=== PATIENT | male | born 1950 | race Caucasian/White ===

== ENCOUNTER 2017-04-16 04:41 | Inpatient (IN) ==
[2017-04-16] MEDS ORDERED: GI Cocktail 40 ML EACH PO ONE (05:14)
[2017-04-16] MEDS ORDERED: 0.9 % Sodium Chloride 500 ML IVC ONE (05:14)
[2017-04-16] MEDS ORDERED: Aspirin 81 MG TAB.CHEW PO ONE (05:14)
[2017-04-16] MEDS ORDERED: Nitroglycerin 0.4 MG TAB.SUBL SL PRN (06:06)
[2017-04-16 06:11] LABS: Basophils % 0.2 %; Eosinophils # 0.9 K/mcL (0.0-0.6); Eosinophils % 8.5 %; Hematocrit 39.8 % (37.5-50.1); Immature Granulocytes % 0.8 % (0-4); Lymphocytes # 1.8 K/mcL (0.6-4.6); Lymphocytes % 17.5 %; Mean Corpuscular HGB Conc 32.7 g/dL (31.6-35.5); Mean Corpuscular Hemoglobin 28.8 pg (28.0-33.3); Mean Corpuscular Volume 88.2 fL (83.0-100.0); Mean Platelet Volume 9.1 fL (9.4-12.4); Monocytes # 0.3 K/mcL (0.0-1.3); Monocytes % 2.8 %; Neutrophils # 7.2 K/mcL (1.6-8.9); Platelet Count 251 K/mcL (140-400); Red Blood Count 4.51 M/mcL (4.19-5.50); Segmented Neutrophils % 70.2 %
[2017-04-16] MEDS ORDERED: 0.9 % Sodium Chloride 1,000 ML ONE (06:22)
[2017-04-16 06:25] LABS: INR 1.2; Prothrombin Time 12.5 Seconds (9.4-12.1)
[2017-04-16] MEDS ORDERED: 0.9 % Sodium Chloride 1,000 ML IVC ONE (06:27)
[2017-04-16 06:28] LABS: Activated Partial Thrombo Time 30.7 Seconds (26.0-36.0); Alanine Aminotransferase 18 Units/L (0-55); Albumin 2.5 g/dL (3.5-5.0); Albumin/Globulin Ratio 0.9 (1.1-2.2); Alkaline Phosphatase 42 Units/L (38-126); Amylase 34 Units/L (25-125); Aspartate Amino Transferase 14 Units/L (5-34); BUN/Creatinine Ratio 26 (6-26); Bilirubin,Direct 0.2 mg/dL (0.0-0.5); Bilirubin,Indirect 0.2 mg/dL (0.0-1.2); Bilirubin,Total 0.4 mg/dL (0.2-1.2); Blood Urea Nitrogen 23 mg/dL (8-26); Calcium 8.5 mg/dL (8.6-10.8); Carbon Dioxide 29 mEq/L (19-29); Chloride 102 mEq/L (98-109); Globulin 2.8 g/dL (2.4-3.5); Glucose 112 mg/dL (70-99); Osmolality,Calculated 288 (280-300); Potassium 4.2 mEq/L (3.5-4.5); Sodium 137 mEq/L (136-145); Total Protein 5.3 g/dL (6.0-8.3); eGFR For African Americans > 60 (> 60); eGFR For Non-African Americans > 60 (> 60)
[2017-04-16 06:29] LABS: Lipase < 10 Units/L (8-78)
--- NOTE | 2017-04-16 06:55 | Emergency Department Note ---
Disposition Clinical Impression: Chest pain, Diabetic foot ulcer Disposition: Still a Patient Condition: Fair Referrals: Zion Hernandes DO [Primary Care Provider] - Forms: ED Satisfaction Letter Time of Disposition: 06:59 Chest Pain HPI - General Chief Complaint: ED Arrhythmia/Palpitations Stated Complaint: chest pain Time Seen by Provider: 04/16/17 05:14 Source: EMS Mode of arrival: private vehicle Limitations: no limitations Vital Signs Reviewed: Yes Nursing Notes Reviewed: Yes - History of Present Illness HPI Narrative: 66-year-old male presents to the emergency department with complaint of epigastric and midsternal chest discomfort which began at 0400 this morning. Patient states that he has had similar episodes like this in the past which she has thought ", just felt like gas." Patient states that the discomfort was slow in onset, however states that his discomfort is worse than normal. He denies any sweating or nausea or vomiting but on exam patient is mildly diaphoretic. She denies any dizziness or lightheadedness. His only known drug allergies clindamycin. Patient additionally notes that he has not had a cardiac evaluation for approximately 5 years. Patient denies any previous cardiac stents or open heart surgery. He is morbidly obese. He denies any recent fever, chills or generalized weakness. 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 Denies: nausea, vomiting, dyspnea, sense of impending doom Treatments prior to arrival chest pain: aspirin - Related Data Home Medications Medication Instructions Recorded Confirmed Citalopram [CeleXA] 20 mg PO QAM 04/26/15 09/11/15 Folic Acid 1 mg PO QAM 04/26/15 09/11/15 Hydroxychloroquine [Plaquenuil] 200 mg PO QAM 04/26/15 09/11/15 Oxycodone HCl [Oxycontin] 80 mg PO Q12H 04/26/15 09/11/15 Levothyroxine [Synthroid] 50 mcg PO QAM 04/27/15 09/11/15 Ampicillin/Sulbactam [Unasyn] 120 ml IVPB Q6HR 09/05/15 09/11/15 Apixaban [Eliquis] 5 mg PO BID 09/05/15 09/11/15 Diltiazem CD (24hr) [Cardizem CD] 120 mg PO QAM 09/05/15 09/11/15 Fluticasone Propionate Nasal 100 mcg NS QAM 09/05/15 09/11/15 [Flonase] Furosemide [Lasix] 40 mg PO QAM 09/05/15 09/11/15 Ipratropium/Albuterol Neb [Duoneb] 3 ml IH Q4H PRN 09/05/15 09/11/15 Metoprolol [Lopressor] 12.5 mg PO Q12H 09/05/15 09/11/15 Montelukast [Singulair] 5 mg PO QPM 09/05/15 09/11/15 Oxycodone HCl 10 mg PO Q4H PRN 09/05/15 09/11/15 Insulin Lispro Protamin/Lispro 25 unit SQ BID 09/11/15 09/11/15 [Humalog Mix 75-25 Kwikpen] Allergies Allergy/AdvReac Type Severity Reaction Status Date / Time clindamycin AdvReac Diarrhea Verified 09/05/15 17:57 All systems ED: reviewed and negative except as stated. Constitutional: Denies: fever, chills Cardiovascular: Reports: chest pain. Denies: palpitations Respiratory: Denies: cough Gastrointestinal: Reports: abdominal pain Musculoskeletal: Denies: back pain, neck pain Integumentary: Denies: rash, abrasion, lesions Neurological: Denies: headache Psychiatric: Denies: anxiety, depression, suicidal thoughts, homicidal thoughts Chest Pain PMH - Past Medical History Medical history: Reports: atrial fibrillation, diabetes, hypertension, RA, thyroid disease, other Surgical history: Reports: orthopedic, other Psychiatric history: Reports: no psych history - Social History Smoking Status: Former smoker Alcohol use: Reports: none Drug use: Reports: none Physical Exam - General Limitations: no limitations General appearance: alert, in no apparent distress - Head Head exam: atraumatic, normocephalic, normal inspection - Eye Eye exam: Present: normal appearance, PERRL - Neck Neck exam: Present: normal inspection, full ROM, trachea midline - Chest Chest inspection: Present: normal inspection, symmetric chest wall rise - Respiratory Respiratory exam: Present: normal lung sounds bilaterally. Absent: respiratory distress - Cardiovascular Cardiovascular exam: Present: regular rate, normal rhythm, normal heart sounds - Abdominal Exam Abdominal exam: Present: soft, Non-Tender, normal bowel sounds. Absent: distention, guarding, rebound, rigidity - Extremities Exam Extremities exam: Present: full ROM, other (Chronic foot ulcer, unchanged per patient.). Absent: tenderness, pedal edema - Back Exam Back exam: Present: normal inspection, full ROM. Absent: tenderness - Neurological Exam Neurological exam: Present: alert, oriented X3 - Psychiatric Psychiatric exam: Present: normal affect, normal mood - Skin Skin exam: Present: warm, dry, intact, normal color Course Course Narrative: Care transferred to Donovan Kaur CNP, patient comfortable no acute EKG changes, chronic atrial fibrillation noted on EKG. Patient will likely be admitted to the hospitalist for ACS rule out. Current troponin normal. Vital Signs Temperature 98.1 F 04/16/17 04:44 Pulse Rate 99 04/16/17 04:44 Respiratory Rate 22 04/16/17 04:44 Blood Pressure 93/50 04/16/17 04:44 O2 Sat by Pulse Oximetry 93 04/16/17 04:44 Temperature 98.1 F 04/16/17 04:44 Pulse Rate 97 04/16/17 06:15 Respiratory Rate 22 04/16/17 06:37 Blood Pressure 92/46 04/16/17 06:37 O2 Sat by Pulse Oximetry 94 04/16/17 06:37 Oxygen Delivery Oxygen Delivery Nasal Cannula Chest Pain - Lab Data Result diagrams: 04/16/17 05:51 04/16/17 05:51 Lab Results 04/16/17 04/16/17 04/16/17 Range/Units 05:51 05:51 05:51 WBC (4.3-11.1) K/mcL RBC (4.19-5.50) M/mcL Hgb (12.9-16.9) g/dL Hct (37.5-50.1) % MCV (83.0-100.0) fL MCH (28.0-33.3) pg MCHC (31.6-35.5) g/dL RDW (11.5-14.5) % Plt Count (140-400) K/mcL MPV (9.4-12.4) fL Immature Gran % (0-4) % Seg Neutrophils % % Lymphocytes % % Monocytes % % Eosinophils % % Basophils % % Neutrophils # (1.6-8.9) K/mcL Lymphocytes # (0.6-4.6) K/mcL Monocytes # (0.0-1.3) K/mcL Eosinophils # (0.0-0.6) K/mcL Basophils # (0.0-0.2) K/mcL PT 12.5 H (9.4-12.1) Seconds INR 1.2 APTT 30.7 (26.0-36.0) Seconds Sodium 137 (136-145) mEq/L Potassium 4.2 (3.5-4.5) mEq/L Chloride 102 (98-109) mEq/L Carbon Dioxide 29 (19-29) mEq/L BUN 23 (8-26) mg/dL Creatinine 0.88 (0.72-1.25) mg/dL Est GFR ( Amer) > 60 (> 60) Est GFR (Non-Af Amer) > 60 (> 60) BUN/Creatinine Ratio 26 (6-26) Glucose 112 H (70-99) mg/dL Calculated Osmolality 288 (280-300) Calcium 8.5 L (8.6-10.8) mg/dL Total Bilirubin 0.4 (0.2-1.2) mg/dL Direct Bilirubin 0.2 (0.0-0.5) mg/dL Indirect Bilirubin 0.2 (0.0-1.2) mg/dL AST 14 (5-34) Units/L ALT 18 (0-55) Units/L Alkaline Phosphatase 42 (38-126) Units/L Troponin I (0-0.03) ng/mL B-Natriuretic Peptide 67 (0-100) pg/mL Serum Total Protein 5.3 L (6.0-8.3) g/dL Albumin 2.5 L (3.5-5.0) g/dL Globulin 2.8 (2.4-3.5) g/dL Albumin/Globulin Ratio 0.9 L (1.1-2.2) Amylase 34 (25-125) Units/L Lipase < 10 (8-78) Units/L 04/16/17 04/16/17 Range/Units 05:51 05:51 WBC 10.2 (4.3-11.1) K/mcL RBC 4.51 (4.19-5.50) M/mcL Hgb 13.0 (12.9-16.9) g/dL Hct 39.8 (37.5-50.1) % MCV 88.2 (83.0-100.0) fL MCH 28.8 (28.0-33.3) pg MCHC 32.7 (31.6-35.5) g/dL RDW 16.0 H (11.5-14.5) % Plt Count 251 (140-400) K/mcL MPV 9.1 L (9.4-12.4) fL Immature Gran % 0.8 (0-4) % Seg Neutrophils % 70.2 % Lymphocytes % 17.5 % Monocytes % 2.8 % Eosinophils % 8.5 % Basophils % 0.2 % Neutrophils # 7.2 (1.6-8.9) K/mcL Lymphocytes # 1.8 (0.6-4.6) K/mcL Monocytes # 0.3 (0.0-1.3) K/mcL Eosinophils # 0.9 H (0.0-0.6) K/mcL Basophils # 0.0 (0.0-0.2) K/mcL PT (9.4-12.1) Seconds INR APTT (26.0-36.0) Seconds Sodium (136-145) mEq/L Potassium (3.5-4.5) mEq/L Chloride (98-109) mEq/L Carbon Dioxide (19-29) mEq/L BUN (8-26) mg/dL Creatinine (0.72-1.25) mg/dL Est GFR ( Amer) (> 60) Est GFR (Non-Af Amer) (> 60) BUN/Creatinine Ratio (6-26) Glucose (70-99) mg/dL Calculated Osmolality (280-300) Calcium (8.6-10.8) mg/dL Total Bilirubin (0.2-1.2) mg/dL Direct Bilirubin (0.0-0.5) mg/dL Indirect Bilirubin (0.0-1.2) mg/dL AST (5-34) Units/L ALT (0-55) Units/L Alkaline Phosphatase (38-126) Units/L Troponin I 0.02 (0-0.03) ng/mL B-Natriuretic Peptide (0-100) pg/mL Serum Total Protein (6.0-8.3) g/dL Albumin (3.5-5.0) g/dL Globulin (2.4-3.5) g/dL Albumin/Globulin Ratio (1.1-2.2) Amylase (25-125) Units/L Lipase (8-78) Units/L Heart Score - Score History: Moderately Suspicious EKG: Normal Age: 45-65 Risk Factors: 1-2 risk factors Troponin: 1-3x normal limit HEART Score Total: 4
--- NOTE | 2017-04-16 07:39 | Emergency Department Note ---
Disposition Clinical Impression: Chest pain Qualifiers: Chest pain type: unspecified Qualified Code(s): R07.9 - Chest pain, unspecified Diabetic foot ulcer Qualifiers: Diabetic foot ulcer location: unspecified part of foot Diabetes mellitus type: other specified (including LINH) Laterality: left Non-pressure ulcer stage: unspecified non-pressure ulcer stage Qualified Code(s): E13.621 - Other specified diabetes mellitus with foot ulcer Disposition: Admitted As Inpatient Condition: Fair Time of Disposition: 07:40 Chest Pain HPI - General Chief Complaint: ED Arrhythmia/Palpitations Stated Complaint: chest pain Time Seen by Provider: 04/16/17 05:14 Source: EMS Mode of arrival: private vehicle Limitations: no limitations - History of Present Illness Pain Location: substernal, epigastric Severity scale (1-10): 8 Quality: aching Improves with: nothing Worsens with: nothing Associated symptoms: Reports: diaphoresis. Denies: nausea, vomiting, dyspnea, sense of impending doom - Related Data Home Medications Medication Instructions Recorded Confirmed Citalopram [CeleXA] 20 mg PO QAM 04/26/15 09/11/15 Folic Acid 1 mg PO QAM 04/26/15 09/11/15 Hydroxychloroquine [Plaquenuil] 200 mg PO QAM 04/26/15 09/11/15 Oxycodone HCl [Oxycontin] 80 mg PO Q12H 04/26/15 09/11/15 Levothyroxine [Synthroid] 50 mcg PO QAM 04/27/15 09/11/15 Ampicillin/Sulbactam [Unasyn] 120 ml IVPB Q6HR 09/05/15 09/11/15 Apixaban [Eliquis] 5 mg PO BID 09/05/15 09/11/15 Diltiazem CD (24hr) [Cardizem CD] 120 mg PO QAM 09/05/15 09/11/15 Fluticasone Propionate Nasal 100 mcg NS QA 09/05/15 09/11/15 [Flonase] Furosemide [Lasix] 40 mg PO QAM 09/05/15 09/11/15 Ipratropium/Albuterol Neb [Duoneb] 3 ml IH Q4H PRN 09/05/15 09/11/15 Metoprolol [Lopressor] 12.5 mg PO Q12H 09/05/15 09/11/15 Montelukast [Singulair] 5 mg PO QPM 09/05/15 09/11/15 Oxycodone HCl 10 mg PO Q4H PRN 09/05/15 09/11/15 Insulin Lispro Protamin/Lispro 25 unit SQ BID 09/11/15 09/11/15 [Humalog Mix 75-25 Kwikpen] Allergies Allergy/AdvReac Type Severity Reaction Status Date / Time clindamycin AdvReac Diarrhea Verified 09/05/15 17:57 Constitutional: Denies: fever, chills Cardiovascular: Reports: chest pain. Denies: palpitations Respiratory: Denies: cough Gastrointestinal: Reports: abdominal pain Musculoskeletal: Denies: back pain, neck pain Integumentary: Denies: rash, abrasion, lesions Neurological: Denies: headache Psychiatric: Denies: anxiety, depression, suicidal thoughts, homicidal thoughts Chest Pain PMH - Past Medical History Medical history: Reports: atrial fibrillation, diabetes, hypertension, RA, thyroid disease, other Surgical history: Reports: orthopedic, other Psychiatric history: Reports: no psych history - Social History Smoking Status: Former smoker Alcohol use: Reports: none Drug use: Reports: none Physical Exam - General Limitations: no limitations General appearance: alert, in no apparent distress Course Course Narrative: 0600: I have assumed care of this patient from Luis Navarro PA-C due to mid- level shift change. Please see Luis's notes for any prior care and physical exam findings prior to my arrival. Briefly, this is a 66-year-old male that was awoken from his sleep at approximately 4 AM with a complaint of substernal and epigastric chest pain. He states he history of previous episodes in past however none quite this severe. He denied any nausea, vomiting, or diaphoresis however was noted to be mildly diaphoretic upon arrival to the emergency department. He has multiple comorbidities. Laboratory results are complete. I have discussed this patient's case with Dr. Robyn Navarro. She has had a face- to-face evaluation with the patient and recommends admission to the hospitalist service for further evaluation of his chest pain. 0735: I spoke with Dr. Tuttle of the hospitalist service. I discussed the patient's case, laboratory results, and chest x-ray results with him. X-ray results show questionable bilateral pulmonary infiltrates, left greater than the right. Dr. Tuttle requested the patient be started on Zosyn for this and states that he will accept the patient to his service. Vital Signs Temperature 98.1 F 04/16/17 04:44 Pulse Rate 99 04/16/17 04:44 Respiratory Rate 22 04/16/17 04:44 Blood Pressure 93/50 04/16/17 04:44 O2 Sat by Pulse Oximetry 93 04/16/17 04:44 Temperature 98.1 F 04/16/17 04:44 Pulse Rate 97 04/16/17 06:15 Respiratory Rate 22 04/16/17 06:37 Blood Pressure 92/46 04/16/17 06:37 O2 Sat by Pulse Oximetry 94 04/16/17 06:37 Oxygen Delivery Oxygen Delivery Nasal Cannula Chest Pain - Medical Records Medical records reviewed: Yes I reviewed the patient's medical records. Laboratory Last Values WBC 10.2 K/mcL (4.3-11.1) 04/16/17 05:51 RBC 4.51 M/mcL (4.19-5.50) 04/16/17 05:51 Hgb 13.0 g/dL (12.9-16.9) 04/16/17 05:51 Hct 39.8 % (37.5-50.1) 04/16/17 05:51 MCV 88.2 fL (83.0-100.0) 04/16/17 05:51 MCH 28.8 pg (28.0-33.3) 04/16/17 05:51 MCHC 32.7 g/dL (31.6-35.5) 04/16/17 05:51 RDW 16.0 % (11.5-14.5) H 04/16/17 05:51 Plt Count 251 K/mcL (140-400) 04/16/17 05:51 MPV 9.1 fL (9.4-12.4) L 04/16/17 05:51 Immature Gran % 0.8 % (0-4) 04/16/17 05:51 Seg Neutrophils % 70.2 % 04/16/17 05:51 Lymphocytes % 17.5 % 04/16/17 05:51 Monocytes % 2.8 % 04/16/17 05:51 Eosinophils % 8.5 % 04/16/17 05:51 Basophils % 0.2 % 04/16/17 05:51 Neutrophils # 7.2 K/mcL (1.6-8.9) 04/16/17 05:51 Lymphocytes # 1.8 K/mcL (0.6-4.6) 04/16/17 05:51 Monocytes # 0.3 K/mcL (0.0-1.3) 04/16/17 05:51 Eosinophils # 0.9 K/mcL (0.0-0.6) H 04/16/17 05:51 Basophils # 0.0 K/mcL (0.0-0.2) 04/16/17 05:51 PT 12.5 Seconds (9.4-12.1) H 04/16/17 05:51 INR 1.2 04/16/17 05:51 APTT 30.7 Seconds (26.0-36.0) 04/16/17 05:51 Sodium 137 mEq/L (136-145) 04/16/17 05:51 Potassium 4.2 mEq/L (3.5-4.5) 04/16/17 05:51 Chloride 102 mEq/L (98-109) 04/16/17 05:51 Carbon Dioxide 29 mEq/L (19-29) 04/16/17 05:51 BUN 23 mg/dL (8-26) 04/16/17 05:51 Creatinine 0.88 mg/dL (0.72-1.25) 04/16/17 05:51 Est GFR ( Amer) > 60 (> 60) 04/16/17 05:51 Est GFR (Non-Af Amer) > 60 (> 60) 04/16/17 05:51 BUN/Creatinine Ratio 26 (6-26) 04/16/17 05:51 Glucose 112 mg/dL (70-99) H 04/16/17 05:51 Calculated Osmolality 288 (280-300) 04/16/17 05:51 Calcium 8.5 mg/dL (8.6-10.8) L 04/16/17 05:51 Total Bilirubin 0.4 mg/dL (0.2-1.2) 04/16/17 05:51 Direct Bilirubin 0.2 mg/dL (0.0-0.5) 04/16/17 05:51 Indirect Bilirubin 0.2 mg/dL (0.0-1.2) 04/16/17 05:51 AST 14 Units/L (5-34) 04/16/17 05:51 ALT 18 Units/L (0-55) 04/16/17 05:51 Alkaline Phosphatase 42 Units/L (38-126) 04/16/17 05:51 Troponin I 0.02 ng/mL (0-0.03) 04/16/17 05:51 B-Natriuretic Peptide 67 pg/mL (0-100) 04/16/17 05:51 Serum Total Protein 5.3 g/dL (6.0-8.3) L 04/16/17 05:51 Albumin 2.5 g/dL (3.5-5.0) L 04/16/17 05:51 Globulin 2.8 g/dL (2.4-3.5) 04/16/17 05:51 Albumin/Globulin Ratio 0.9 (1.1-2.2) L 04/16/17 05:51 Amylase 34 Units/L (25-125) 04/16/17 05:51 Lipase < 10 Units/L (8-78) 04/16/17 05:51 - Lab Data Lab results reviewed: Yes I reviewed the patient's lab results. Lab results narrative: Chest X-Ray 04/16/17 05:14 IMPRESSION: Cardiomegaly with pulmonary vascular congestion and small bilateral pleural effusions, slightly greater on the left with increased opacity at the left base, likely related to atelectasis. D/ / Angela Soto MD / Angela Soto MD Interpreting Provider: Angela Soto MD Result diagrams: 04/16/17 05:51 04/16/17 05:51 Lab Results 04/16/17 04/16/17 04/16/17 Range/Units 05:51 05:51 05:51 WBC (4.3-11.1) K/mcL RBC (4.19-5.50) M/mcL Hgb (12.9-16.9) g/dL Hct (37.5-50.1) % MCV (83.0-100.0) fL MCH (28.0-33.3) pg MCHC (31.6-35.5) g/dL RDW (11.5-14.5) % Plt Count (140-400) K/mcL MPV (9.4-12.4) fL Immature Gran % (0-4) % Seg Neutrophils % % Lymphocytes % % Monocytes % % Eosinophils % % Basophils % % Neutrophils # (1.6-8.9) K/mcL Lymphocytes # (0.6-4.6) K/mcL Monocytes # (0.0-1.3) K/mcL Eosinophils # (0.0-0.6) K/mcL Basophils # (0.0-0.2) K/mcL PT 12.5 H (9.4-12.1) Seconds INR 1.2 APTT 30.7 (26.0-36.0) Seconds Sodium 137 (136-145) mEq/L Potassium 4.2 (3.5-4.5) mEq/L Chloride 102 (98-109) mEq/L Carbon Dioxide 29 (19-29) mEq/L BUN 23 (8-26) mg/dL Creatinine 0.88 (0.72-1.25) mg/dL Est GFR ( Amer) > 60 (> 60) Est GFR (Non-Af Amer) > 60 (> 60) BUN/Creatinine Ratio 26 (6-26) Glucose 112 H (70-99) mg/dL Calculated Osmolality 288 (280-300) Calcium 8.5 L (8.6-10.8) mg/dL Total Bilirubin 0.4 (0.2-1.2) mg/dL Direct Bilirubin 0.2 (0.0-0.5) mg/dL Indirect Bilirubin 0.2 (0.0-1.2) mg/dL AST 14 (5-34) Units/L ALT 18 (0-55) Units/L Alkaline Phosphatase 42 (38-126) Units/L Troponin I (0-0.03) ng/mL B-Natriuretic Peptide 67 (0-100) pg/mL Serum Total Protein 5.3 L (6.0-8.3) g/dL Albumin 2.5 L (3.5-5.0) g/dL Globulin 2.8 (2.4-3.5) g/dL Albumin/Globulin Ratio 0.9 L (1.1-2.2) Amylase 34 (25-125) Units/L Lipase < 10 (8-78) Units/L 04/16/17 04/16/17 Range/Units 05:51 05:51 WBC 10.2 (4.3-11.1) K/mcL RBC 4.51 (4.19-5.50) M/mcL Hgb 13.0 (12.9-16.9) g/dL Hct 39.8 (37.5-50.1) % MCV 88.2 (83.0-100.0) fL MCH 28.8 (28.0-33.3) pg MCHC 32.7 (31.6-35.5) g/dL RDW 16.0 H (11.5-14.5) % Plt Count 251 (140-400) K/mcL MPV 9.1 L (9.4-12.4) fL Immature Gran % 0.8 (0-4) % Seg Neutrophils % 70.2 % Lymphocytes % 17.5 % Monocytes % 2.8 % Eosinophils % 8.5 % Basophils % 0.2 % Neutrophils # 7.2 (1.6-8.9) K/mcL Lymphocytes # 1.8 (0.6-4.6) K/mcL Monocytes # 0.3 (0.0-1.3) K/mcL Eosinophils # 0.9 H (0.0-0.6) K/mcL Basophils # 0.0 (0.0-0.2) K/mcL PT (9.4-12.1) Seconds INR APTT (26.0-36.0) Seconds Sodium (136-145) mEq/L Potassium (3.5-4.5) mEq/L Chloride (98-109) mEq/L Carbon Dioxide (19-29) mEq/L BUN (8-26) mg/dL Creatinine (0.72-1.25) mg/dL Est GFR ( Amer) (> 60) Est GFR (Non-Af Amer) (> 60) BUN/Creatinine Ratio (6-26) Glucose (70-99) mg/dL Calculated Osmolality (280-300) Calcium (8.6-10.8) mg/dL Total Bilirubin (0.2-1.2) mg/dL Direct Bilirubin (0.0-0.5) mg/dL Indirect Bilirubin (0.0-1.2) mg/dL AST (5-34) Units/L ALT (0-55) Units/L Alkaline Phosphatase (38-126) Units/L Troponin I 0.02 (0-0.03) ng/mL B-Natriuretic Peptide (0-100) pg/mL Serum Total Protein (6.0-8.3) g/dL Albumin (3.5-5.0) g/dL Globulin (2.4-3.5) g/dL Albumin/Globulin Ratio (1.1-2.2) Amylase (25-125) Units/L Lipase (8-78) Units/L - Radiology Data Radiology results reviewed: Yes I reviewed the patient's radiology results. Chest X-Ray 04/16/17 05:14 IMPRESSION: Cardiomegaly with pulmonary vascular congestion and small bilateral pleural effusions, slightly greater on the left with increased opacity at the left base, likely related to atelectasis. D/ / Angela Soto MD / Angela Soto MD Interpreting Provider: Angela Soto MD - EKG Data EKG attestation: Yes I reviewed and interpreted this EKG. EKG results narrative: EKG shows atrial fibrillation at a rate of 93 bpm. QRS duration 94, QTC/QT intervals 440/390. No ectopy noted. No STEMI.
[2017-04-16] MEDS ORDERED: Piperacillin/Tazobactam 3.375 GM in D5% in Water (Mini-Bag+) 100 ML IVPB ONE (07:41)
[2017-04-16] MEDS ORDERED: *HR* OxyCODONE Immed Rel 5 MG TABLET PO PRN (09:55)
[2017-04-16] MEDS ORDERED: Ipratropium/Albuterol Neb 3 ML IH PRN (09:55)
[2017-04-16] MEDS ORDERED: Naloxone 0.4 MG/ML INJ IVP PRN (09:58)
[2017-04-16] MEDS ORDERED: Acetaminophen 325 MG TABLET PO PRN (09:58)
[2017-04-16] MEDS ORDERED: Ondansetron 4 MG/2 ML VIAL IVP PRN (09:58)
[2017-04-16] MEDS: Ibuprofen 600 MG TABLET PO SCH ×2 (10:52→17:33)
[2017-04-16] MEDS: *HR* OxyCODONE ER (12 HR) 40 MG TABLET PO SCH ×2 (10:52→23:18)
--- NOTE | 2017-04-16 13:46 | Internal Med History&Physical ---
Date of Encounter: 04/16/17 Time of Encounter: 13:42 Assessment and Plan (1) Pneumonia Current visit: Yes Status: Acute Blood culture requested IV Zosyn was started suspect left lower lobe community- acquired pneumonia Qualifiers: Pneumonia type: due to unspecified organism Laterality: left Lung location: lower lobe of lung Qualified Code(s): J18.1 - Lobar pneumonia, unspecified organism (2) Pleurisy Current visit: Yes Status: Acute Patient chest pain is pleuritic in nature. In any case cardiac and as a recheck. I have put him on low-dose ibuprofen for a couple 3 doses considering the fact that he is already on anticoagulation will be very cautious. (3) Foot ulcer due to secondary DM Current visit: Yes Status: Chronic Patient has this chronic left lower extremity wound due to diabetes. Wound care consulted. He goes to [facility] for his regular care. 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 Swenson is a 66 year old male who is morbidly obese presented with left- sided and epigastric chest pain along with diaphoresis however it is pleuritic in nature. Been bothering him since yesterday on on and off basis especially when he tries to take a deep breath in. He denies any fever cough or phlegm. His first troponin is 0.02 while his EKG is negative except for chronic A. fib. Chest x-ray showed small left-sided effusion with possible atelectasis and infiltrates and right small effusion. No other complaint. He has history of diabetes hypertension and chronic atrial fibrillation. 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 It is covered with bandage. Past Med Surg Social Fam HX - Past Medical History Medical history: atrial fibrillation, diabetes, hypertension, RA, thyroid disease, other Psychiatric history: no psych history - Past Surgical History Surgical History: orthopedic, other - Social History Smoking Status: Former smoker Smokeless Tobacco Status: No Alcohol use: none Drug use: none - Family History Mother Living Status: Hx Family Cardiac Disorders: Yes Hx Family Endocrine Disorder: Yes (DM) Father Living Status: Cause of : stroke Hx Family Cardiac Disorders: Yes Internal Medicine - H&P: Meds Folic Acid 1 mg PO QAM 04/26/15 [History] Hydroxychloroquine [Plaquenuil] 200 mg PO QAM 04/26/15 [History] Oxycodone HCl [Oxycontin] 80 mg PO Q12H 04/26/15 [History] Levothyroxine [Synthroid] 50 mcg PO QAM 04/27/15 [History] Apixaban [Eliquis] 5 mg PO BID 09/05/15 [History] Furosemide [Lasix] 40 mg PO QAM 09/05/15 [History] Ipratropium/Albuterol Neb [Duoneb] 3 ml IH Q4H PRN 09/05/15 [History] Oxycodone HCl 10 mg PO Q4H PRN 09/05/15 [History] Insulin Lispro Protamin/Lispro [Humalog Mix 75-25 Kwikpen] 25 unit SQ BID [History] Duloxetine HCl [Cymbalta] 60 mg PO DAILY 04/16/17 [History] Lisinopril [Zestril] 5 mg PO DAILY 04/16/17 [History] Metoprolol XL (24 HR) Succ [Toprol XL] 50 mg PO DAILY 04/16/17 [History] Potassium Chloride [K-Tab ER] 20 meq PO BID 04/16/17 [History] Tamsulosin [Flomax] 0.4 mg PO DAILY 04/16/17 [History] 3 Allergy/AdvReac Type Severity Reaction Status Date / Time clindamycin AdvReac Diarrhea Verified 09/05/15 17:57 All Systems PM: A 10-system review of systems was performed and is negative for pertinent findings except as documented above in the HPI. - Constitutional Constitutional: no chills, no fever(s), no night sweats - EENT Eyes: no change in vision, no discharge, no pain, no photophobia Ears: no ear discharge, no ear pain, no tinnitus Nose, mouth and throat: no dysphagia, no nasal discharge, no neck pain, no sore throat - Cardiovascular Cardiovascular ROS IM: no chest pain, no diaphoresis, no dyspnea, no lightheadedness, no palpitations, no syncope - Respiratory Respiratory: no cough, no dyspnea, no wheezing, no excessive phlegm production - Gastrointestinal Gastrointestinal: no abdominal pain, no diarrhea, no hematemesis, no hematochezia, no melena, no nausea, no vomiting - Musculoskeletal Musculoskeletal ROS IM: no numbness, no tingling - Integumentary Integumentary IM: no rash, no unusual bruising - Neurological Neurological ROS: no confusion, no convulsions, no focal weakness, no numbness, no tingling, no tremor(s) - Hematologic/Lymphatic Hematologic/Lymphatic: no easy bruising - Constitutional Vitals: Temp Pulse Resp BP Pulse Ox 97.9 F 96 20 133/70 94 04/16/17 10:56 04/16/17 10:56 04/16/17 10:56 04/16/17 10:56 04/16/17 10:56 General appearance: Present: A&O X 3, morbidly obese, no acute distress, answers questions appropriately - Head Head exam: Present: atraumatic, normocephalic - Eye Eye exam: Present: PERRL, conjuntiva pink, sclera anicteric Pupils: Present: PERRL - Neck Neck exam general surgery: Present: supple, trachea midline. Absent: lymphadenopathy - Respiratory Respiratory exam: Present: CTAB. Absent: accessory muscle use, rales, rhonchi, wheezes - Cardiovascular Cardiovascular exam: Present: RRR, +S1, +S2. Absent: diastolic murmur, gallop, rubs, systolic murmur - GI/Abdominal GI/Abdominal exam: Present: normal bowel sounds, soft, no peritoneal signs. Absent: distended, tenderness - Extremities Exam Extremities exam: Present: warm, radial pulses palpable and symmetrical. Absent : calf tenderness, cyanotic, pedal edema Additional comments: Left foot is covered with bandage. For the examination per wound care. Extremity is warm and is still having tach sensation. - Neurological Exam Neurological exam: Present: CN II-XII intact, oriented X3, no focal deficits. Absent: pronater drift, facial droop, speech deficit - Skin Skin exam: Present: dry, intact Internal Med - H&P Results - Labs CBC & Chem 7: 04/16/17 05:51 04/16/17 05:51
--- NOTE | 2017-04-16 17:08 | Electrocardiograph Report ---
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
[2017-04-16] MEDS: Piperacillin/Tazobactam 3.375 GM in D5% in Water (Mini-Bag+) 100 ML IVPB SCH ×2 (17:32→23:19)
[2017-04-16] MEDS ORDERED: Perflutren Lipid Microsphere 1.3 ML in 0.9 % Sodium Chloride 8.7 ML IVP ONE (20:29)
[2017-04-16] MEDS: Insulin NPH/REG 70/30 100 UNIT/ML (x5UNIT) SQ SCH (21:40)
[2017-04-16] MEDS: APIXABAN 5 MG TABLET PO SCH (21:41)
[2017-04-17] MEDS: Ibuprofen 600 MG TABLET PO SCH (00:30)
[2017-04-17 07:30] LABS: Basophils % 0.3 %; Eosinophils # 1.6 K/mcL (0.0-0.6); Eosinophils % 17.3 %; Hematocrit 44.5 % (37.5-50.1); Hemoglobin 13.5 g/dL (12.9-16.9); Immature Granulocytes % 0.6 % (0-4); Lymphocytes # 1.9 K/mcL (0.6-4.6); Lymphocytes % 21.3 %; Mean Corpuscular HGB Conc 30.3 g/dL (31.6-35.5); Mean Corpuscular Hemoglobin 27.6 pg (28.0-33.3); Monocytes # 0.3 K/mcL (0.0-1.3); Monocytes % 3.4 %; Neutrophils # 5.2 K/mcL (1.6-8.9); Platelet Count 267 K/mcL (140-400); Red Blood Count 4.89 M/mcL (4.19-5.50); Segmented Neutrophils % 57.1 %
[2017-04-17 07:52] LABS: Alanine Aminotransferase 20 Units/L (0-55); Albumin 2.7 g/dL (3.5-5.0); Albumin/Globulin Ratio 0.8 (1.1-2.2); Alkaline Phosphatase 44 Units/L (38-126); Aspartate Amino Transferase 15 Units/L (5-34); BUN/Creatinine Ratio 17 (6-26); Bilirubin,Total 0.5 mg/dL (0.2-1.2); Blood Urea Nitrogen 17 mg/dL (8-26); Calcium 8.9 mg/dL (8.6-10.8); Carbon Dioxide 35 mEq/L (19-29); Chloride 100 mEq/L (98-109); Globulin 3.2 g/dL (2.4-3.5); Glucose 127 mg/dL (70-99); Osmolality,Calculated 291 (280-300); Potassium 4.4 mEq/L (3.5-4.5); Sodium 139 mEq/L (136-145); Total Protein 5.9 g/dL (6.0-8.3); eGFR For African Americans > 60 (> 60); eGFR For Non-African Americans > 60 (> 60)
[2017-04-17] MEDS: Piperacillin/Tazobactam 3.375 GM in D5% in Water (Mini-Bag+) 100 ML IVPB SCH ×2 (08:07→15:53)
[2017-04-17] MEDS: Metoprolol XL (24 HR) Succ 50 MG TAB.ER.24H PO SCH (08:10)
[2017-04-17] MEDS: APIXABAN 5 MG TABLET PO SCH ×2 (08:11→20:34)
[2017-04-17] MEDS: Folic Acid 1 MG TABLET PO SCH (08:11)
[2017-04-17] MEDS: Furosemide 40 MG TABLET PO SCH (08:11)
[2017-04-17 08:59] LABS: BUN/Creatinine Ratio 18 (6-26); Blood Urea Nitrogen 17 mg/dL (8-26); Calcium 8.6 mg/dL (8.6-10.8); Carbon Dioxide 34 mEq/L (19-29); Chloride 99 mEq/L (98-109); Glucose 134 mg/dL (70-99); Osmolality,Calculated 292 (280-300); Potassium 4.4 mEq/L (3.5-4.5); Sodium 139 mEq/L (136-145); eGFR For African Americans > 60 (> 60); eGFR For Non-African Americans > 60 (> 60)
--- NOTE | 2017-04-17 09:54 | Internal Med Progress Note ---
<Linda Toney - Last Filed: 04/17/17 19:24> Date of Encounter: 04/17/17 Time of Encounter: 18:48 - Assessment and plan (1) Pneumonia Current Visit: Yes Status: Acute Assessment and plan: Chest x-ray showed left opacity and patient was diagnosed with community- acquired pneumonia. Patient is currently being treated with Zosyn day 2. Qualifiers: Pneumonia type: due to unspecified organism Laterality: left Lung location: lower lobe of lung Qualified Code(s): J18.1 - Lobar pneumonia, unspecified organism (2) Chest pain Current Visit: Yes Status: Acute Assessment and plan: Patient chest pain is pleuritic in nature and has been diagnosed with pneumonia. Patient is on Eliquis and Cartizen for Afib. Cardiac workup showed troponins negative 2. Echo showed suboptimal windows due to body habitus but showed grossly normal left ventricular function. Ejection fraction was unable to be assessed but BNP was 67 also was concern for congestive heart failure. Patients cardiac work up so far as been negative. Qualifiers: Chest pain type: unspecified Qualified Code(s): R07.9 - Chest pain, unspecified (3) Respiratory distress Current Visit: No Status: Chronic Assessment and plan: Patient has chronic respiratory failure as he is on 2 L of oxygen nasal cannula at home. Patient has chronic hypercapnia. Patient is currently on 2 L nasal cannula and satting at 95% without increased shortness of breath. Patient will need a sleep study outpatient. (4) Lymphedema Current Visit: No Status: Chronic Assessment and plan: Patient's chronic lymphedema of his lower extremities with evidence of chronic venous stasis. Patient is stable on his home dose of Lasix 40 mg QD. Will monitor and increase dose of Lasix if swelling increases. (5) Respiratory failure with hypercapnia Current Visit: No Status: Acute Assessment and plan: Patient's bicarbonate increased from 29 yesterday to 34 today. When looking at previous records of this bicarbonate his baseline is between 30 and 32. Patient currently has pneumonia and therefore is probably slightly more acidotic due to retaining CO2. We will continue to monitor pulse ox and bicarbonate. Plan: - Continue on nasal cannula 2 L. At sats dropped below 90 increase 1L - BMP tomorrow morning - Continue treatment for pneumonia. Qualifiers: Chronicity: acute on chronic Qualified Code(s): J96.22 - Acute and chronic respiratory failure with hypercapnia (6) Diabetes Current Visit: Yes Status: Acute Assessment and plan: Continue Accu-Cheks 4 times a day with sliding scale coverage and continue monitoring daily. Patient has not had any lows. Qualifiers: Diabetes mellitus type: type 2 Diabetes mellitus complication status: with unspecified complications Qualified Code(s): E11.8 - Type 2 diabetes mellitus with unspecified complications; Z79.4 - alf (current) use of insulin (7) Atrial fibrillation Current Visit: Yes Status: Acute Assessment and plan: Patient is on Eliquis and Cardizem for A. fib. Patient is currently rate controlled. We will continue to monitor vitals and telemetry. Qualifiers: Atrial fibrillation type: chronic Qualified Code(s): I48.2 - Chronic atrial fibrillation (8) Morbid obesity with BMI of 60.0-69.9, adult Current Visit: No Status: Chronic (9) Diabetic foot ulcer Current Visit: Yes Status: Acute Assessment and plan: Wound care was consulted for chronic left foot ulcer on heel. Qualifiers: Diabetic foot ulcer location: unspecified part of foot Diabetes mellitus type: other specified (including LINH) Laterality: left Non-pressure ulcer stage: unspecified non-pressure ulcer stage Qualified Code(s): E13.621 - Other specified diabetes mellitus with foot ulcer; L97.529 - Non-pressure chronic ulcer of other part of left foot with unspecified severity - Subjective Interval history: Patient is 66-year-old male with a past medical history of A. fib on a liquid with an Cardizem, diabetes, hypertension, hyperthyroidism, obesity with a BMI of 49.4 presented to the ED with epigastric and midsternal pain and was admitted for rule out of acute coronary artery disease and was diagnosed with CAP. Patiently is still having intermittent chest pain. The pain completely goes away and comes back again. Patient denies having dizziness. Patient denies shortness of breath worse than normal. - Constitutional Vitals: Temp Pulse Resp BP Pulse Ox 98.5 F 96 18 107/66 95 04/17/17 07:15 04/17/17 07:15 04/17/17 07:15 04/17/17 07:15 04/17/17 07:15 General appearance: Present: A&O X 3, morbidly obese, no acute distress, answers questions appropriately Exam: Constitutional: Alert, in no acute distress, well nourished, well developed. Head: Normocephalic, atraumatic, normal contour and symmetric, no masses, lesions or scars Heart: Normal, regular rate and rhythm, no murmurs Lungs: wheezes scattered throughout with crackles present bilaterally, no rales , or rhonchi Abdomen: protruding, Soft, nondistended, nontender, and no masses palpable, bowel sounds present and normal, no guarding or rigidity. Extremities: missing 3rd toe on L foot with ulcer on foot, No clubbing, cyanosis , or edema, radial pulse +2/4, capillary refill <2sec. 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4 Chloride 100 99 Carbon Dioxide 35 H 34 H BUN 17 17 Creatinine 1.02 0.94 Glucose 127 H 134 H Calcium 8.9 8.6 Cardiac Enzymes 04/17/17 Range/Units 08:26 Troponin I 0.01 (0-0.03) ng/mL Liver Function 04/17/17 Range/Units 06:49 Total Bilirubin 0.5 (0.2-1.2) mg/dL AST 15 (5-34) Units/L ALT 20 (0-55) Units/L Alkaline Phosphatase 44 (38-126) Units/L Albumin 2.7 L (3.5-5.0) g/dL - ABG Interpretation ABG results: PT/INR, D-dimer PT 12.5 Seconds (9.4-12.1) H 04/16/17 05:51 Consult Discharge Plan - Plan Referrals: Zion Hernandes DO [Primary Care Provider] - <Paul Montgomery T - Last Filed: 04/17/17 20:41> Date of Encounter: 04/17/17 - Constitutional Vitals: Temp Pulse Resp BP Pulse Ox 98.7 F 88 16 101/48 94 04/17/17 16:19 04/17/17 16:19 04/17/17 16:19 04/17/17 16:19 04/17/17 16:19 Internal Medicine: Result - Labs CBC & Chem 7: 04/17/17 06:49 04/17/17 08:26 Labs: Short CBC 04/17/17 Range/Units 06:49 WBC 9.1 (4.3-11.1) K/mcL Hgb 13.5 (12.9-16.9) g/dL Hct 44.5 (37.5-50.1) % Plt Count 267 (140-400) K/mcL Neutrophils # 5.2 (1.6-8.9) K/mcL BMP 04/17/17 04/17/17 06:49 08:26 Sodium 139 139 Potassium 4.4 4.4 Chloride 100 99 Carbon Dioxide 35 H 34 H BUN 17 17 Creatinine 1.02 0.94 Glucose 127 H 134 H Calcium 8.9 8.6 Cardiac Enzymes 04/17/17 Range/Units 08:26 Troponin I 0.01 (0-0.03) ng/mL Liver Function 04/17/17 Range/Units 06:49 Total Bilirubin 0.5 (0.2-1.2) mg/dL AST 15 (5-34) Units/L ALT 20 (0-55) Units/L Alkaline Phosphatase 44 (38-126) Units/L Albumin 2.7 L (3.5-5.0) g/dL - ABG Interpretation ABG results: PT/INR, D-dimer PT 12.5 Seconds (9.4-12.1) H 04/16/17 05:51 - Attending Attestation I have independently seen and examined this patient on 04/17. I have reviewed his EMR and discussed plan of care with the resident, the patient and his spouse who was at the bedside at time of review 66 M with GABRIELA on home CPAP-Not complaint, Afib, DM, HTN, Morbid Obesity, Mostly bed bound with venous stasis dermatitis and sacral decubitus ulcer He presented with pleuritic chest pain Work up so far showed lung infiltrates, ECHO was suboptimal, BNP was 36. There is low suspicion for PE, patient is on anticoagulation for Afib. Blood culture is done and pending, patient is denying phlegm prroduction At time od review he denied new complains On physical exam, patient is laying flat in bed and is on nasal canula , not in respiratory distress, able to complete sentences, chest exam is anterior auscultation only and he has equal bilateral air entry. HS S1, S2,irregular, abdomen is obese, not tender, LLE with ankle wound dressing and chronic venous stasis dermatitis, region is not inspected. Labs and Imaging reviewed A/P *Chest pain is pleuritic and possibly from Pneumonia of unknwon organism, continue Zosyn, low risk for pseudomonas, high risk for aspiration. Troponin is negative, BNP WNL, no evidence of fluid overload, continue home meds, continue antibiotics. No current indication for cardiology consult at this time Wound care team to see for his multiple decubiti SW for home services reactivation Rest of details as in resident physician documentation.....
[2017-04-17] MEDS: Insulin NPH/REG 70/30 100 UNIT/ML (x5UNIT) SQ SCH ×2 (12:38→21:15)
[2017-04-17] MEDS: *HR* OxyCODONE ER (12 HR) 40 MG TABLET PO SCH ×2 (12:43→20:34)
[2017-04-17] MEDS: Clotrimazole 1% CRM 15 GM TUBE TP SCH (20:35)
[2017-04-18] MEDS: Piperacillin/Tazobactam 3.375 GM in D5% in Water (Mini-Bag+) 100 ML IVPB SCH ×2 (00:33→08:35)
[2017-04-18 06:32] LABS: Alanine Aminotransferase 18 Units/L (0-55); Albumin 2.4 g/dL (3.5-5.0); Albumin/Globulin Ratio 0.8 (1.1-2.2); Alkaline Phosphatase 44 Units/L (38-126); Aspartate Amino Transferase 11 Units/L (5-34); BUN/Creatinine Ratio 18 (6-26); Bilirubin,Total 0.3 mg/dL (0.2-1.2); Blood Urea Nitrogen 17 mg/dL (8-26); Calcium 8.5 mg/dL (8.6-10.8); Carbon Dioxide 36 mEq/L (19-29); Chloride 99 mEq/L (98-109); Globulin 2.9 g/dL (2.4-3.5); Glucose 115 mg/dL (70-99); Osmolality,Calculated 290 (280-300); Sodium 139 mEq/L (136-145); Total Protein 5.3 g/dL (6.0-8.3); eGFR For African Americans > 60 (> 60); eGFR For Non-African Americans > 60 (> 60)
[2017-04-18 06:42] LABS: Basophils % 0.3 %; Eosinophils # 1.5 K/mcL (0.0-0.6); Eosinophils % 13.4 %; Hematocrit 40.2 % (37.5-50.1); Hemoglobin 12.7 g/dL (12.9-16.9); Immature Granulocytes % 0.5 % (0-4); Lymphocytes % 18.2 %; Mean Corpuscular HGB Conc 31.6 g/dL (31.6-35.5); Mean Corpuscular Hemoglobin 28.7 pg (28.0-33.3); Mean Platelet Volume 9.1 fL (9.4-12.4); Monocytes # 0.4 K/mcL (0.0-1.3); Monocytes % 3.5 %; Platelet Count 253 K/mcL (140-400); Red Blood Count 4.42 M/mcL (4.19-5.50); Red Cell Distribution Width 15.9 % (11.5-14.5); Segmented Neutrophils % 64.1 %
[2017-04-18] MEDS: Folic Acid 1 MG TABLET PO SCH (08:34)
[2017-04-18] MEDS: Metoprolol XL (24 HR) Succ 50 MG TAB.ER.24H PO SCH (08:34)
[2017-04-18] MEDS: *HR* OxyCODONE ER (12 HR) 40 MG TABLET PO SCH (08:34)
[2017-04-18] MEDS: Furosemide 40 MG TABLET PO SCH (08:34)
[2017-04-18] MEDS: Clotrimazole 1% CRM 15 GM TUBE TP SCH (08:35)
[2017-04-18] MEDS: Insulin NPH/REG 70/30 100 UNIT/ML (x5UNIT) SQ SCH (08:35)
[2017-04-18] MEDS: APIXABAN 5 MG TABLET PO SCH (08:35)
--- NOTE | 2017-04-18 09:35 | Discharge Summary ---
<Linda Toney - Last Filed: 04/18/17 15:41> Date of Encounter: 04/18/17 Time of Encounter: 09:27 - Discharge Diagnosis (1) Pneumonia Priority: Primary Status: Acute Qualifiers: Pneumonia type: due to unspecified organism Laterality: left Lung location: lower lobe of lung Qualified Code(s): J18.1 - Lobar pneumonia, unspecified organism (2) Chest pain Priority: Secondary Status: Resolved Qualifiers: Chest pain type: unspecified Qualified Code(s): R07.9 - Chest pain, unspecified (3) Respiratory distress Priority: Secondary Status: Chronic (4) Lymphedema Priority: Secondary Status: Chronic (5) Respiratory failure with hypercapnia Priority: Secondary Status: Acute Qualifiers: Chronicity: acute on chronic Qualified Code(s): J96.22 - Acute and chronic respiratory failure with hypercapnia (6) Diabetes Priority: Secondary Status: Chronic Qualifiers: Diabetes mellitus type: type 2 Diabetes mellitus complication status: with unspecified complications Diabetes mellitus long term care social worker insulin use: with alf use Qualified Code(s): E11.8 - Type 2 diabetes mellitus with unspecified complications; Z79.4 - assisted (current) use of insulin (7) Atrial fibrillation Priority: Secondary Status: Chronic Qualifiers: Atrial fibrillation type: chronic Qualified Code(s): I48.2 - Chronic atrial fibrillation (8) Diabetic foot ulcer Priority: Secondary Status: Chronic Qualifiers: Diabetic foot ulcer location: unspecified part of foot Diabetes mellitus type: other specified (including LINH) Laterality: left Non-pressure ulcer stage: unspecified non-pressure ulcer stage Qualified Code(s): E13.621 - Other specified diabetes mellitus with foot ulcer; L97.529 - Non-pressure chronic ulcer of other part of left foot with unspecified severity (9) Morbid obesity with BMI of 45.0-49.9, adult Priority: Secondary Status: Chronic - Discharge Medications Prescriptions: Furosemide [Lasix] 20 mg PO DAILY #30 tablet levoFLOXacin [Levaquin] 750 mg PO DAILY #5 tablet Home Medications: Folic Acid 1 mg PO QAM 04/26/15 [History] Hydroxychloroquine [Plaquenuil] 200 mg PO QAM 04/26/15 [History] Oxycodone HCl [Oxycontin] 80 mg PO Q12H 04/26/15 [History] Levothyroxine [Synthroid] 50 mcg PO QAM 04/27/15 [History] Apixaban [Eliquis] 5 mg PO BID 09/05/15 [History] Ipratropium/Albuterol Neb [Duoneb] 3 ml IH Q4H PRN 09/05/15 [History] Oxycodone HCl 10 mg PO Q4H PRN 09/05/15 [History] Insulin Lispro Protamin/Lispro [Humalog Mix 75-25 Kwikpen] 25 unit SQ BID [History] Duloxetine HCl [Cymbalta] 60 mg PO DAILY 04/16/17 [History] Lisinopril [Zestril] 5 mg PO DAILY 04/16/17 [History] Metoprolol XL (24 HR) Succ [Toprol Xl] 50 mg PO DAILY 04/16/17 [History] Potassium Chloride [K-Tab ER] 20 meq PO BID 04/16/17 [History] Tamsulosin [Flomax] 0.4 mg PO DAILY 04/16/17 [History] Furosemide [Lasix] 20 mg PO DAILY #30 tablet 04/18/17 [Rx] Omeprazole [PriLOSEC] 20 mg PO DAILY@0630 04/18/17 [Rx] levoFLOXacin [Levaquin] 750 mg PO DAILY #5 tablet 04/18/17 [Rx] Allergies/Adverse Reactions: 3 Allergy/AdvReac Type Severity Reaction Status Date / Time clindamycin AdvReac Diarrhea Verified 09/05/15 17:57 Procedures/tests Complete & Pending: Procedures Performed prior 72 hours Category Date Time Status EKG [ECG 12 lead ECG] [ECG] Stat Y 04/17/17 07:51 Completed EV echocardiogram w enhance Routine Y 04/16/17 10:05 Completed Date of admission: 04/16/17 09:58 Primary care physician: Martin Chua Consults: 04/17/17 10:24 Consult to Invasive Line Access Team [CONS] Routine Reason for Consult: no iv access, unable to obtain even with vein finder Line Type: EPIV 04/17/17 10:25 Consult to Wound Care [CONS] Routine Reason for Consult: Left foot diabetic ulcer Call Completed: No - Patient Status Disposition: Home, Self-Care Condition: Fair Functional capacity at discharge: bed bound Overall status at discharge: patient is progressing back to baseline - Discharge Instructions Instructions: Furosemide (By mouth), Levofloxacin (By mouth), Bacterial Pneumonia (DC) Follow Up With: Zion Hernandes DO [Primary Care Provider] - 04/25/17 1:30 pm Additional Instructions: Follow-up with your primary care physician as scheduled. Return to the ED if symptoms worsen or new symptoms arise. Take antibiotics (Levofloxcin) once a day for 5 days. - Diet and Activity Activity: resume usual activities as tolerated Diet: diabetic diet, low salt diet Interval History: Patient is 66 y/o male presented to the ED 04/16/17 for epigastric and midsternal chest pain admitted Hospital course: Mr. Swenson is a 66 year old male with a past medical history of A. fib on Eliquis and Cartizen, diabetes type 2, hypertension, hypothyroidism, obesity presented to the ED from home with epigastric pain that and midsternal chest pain and was found to have community-acquired pneumonia. Patient's chest pain was worst with deep breaths and not associated with sweating, n, v, dizziness, lightheadedness, fevers, or cough.Patient was admitted to the hospital for pneumonia and acute coronary artery disease work up. EKG showed chronic A. fib rate controlled. Echo showed possible pleural effusion and grossly normal left ventricle and ejection fraction was unable to be obtained due to suboptimal windows. Patient on Eliquis, so even less likely to be acute coronary artery disease. Chest x-ray showed trace right pleural effusion and an opacity in the left base, so patient was diagnosed with community acquired pneumonia and placed on Zosyn 3.375g IV Q6H for two days. Patient's chest pain resolved after on hospital day 2. Patient's foot wound and small facial rash seen by wound care and given antifungal cream for his face and advised family to continue with same treatment of foot ulcer in hospital as at home. Patient's chronic condition home medications were treated with the same dose at the hospital. Concerns corrie at the end of hospital stay for low blood pressures if continue with all of home medications and pain medication had to be held due to low blood pressure therefore patient's home Lasix dose of 40 mg daily was decreased to 20 mg daily. Patient was given Levaquin 750 mg daily for 5 days to complete course treatment of community-acquired pneumonia. Patient was scheduled to follow-up with his primary care physician in one week. Patient is comfortable with plan of discharge home and was instructed to come back to the ED if new chest pain arose or new signs or symptoms return. - Time Spent with Patient Total time spent providing and/or coordinating discharge services: - Constitutional Vitals: Temp Pulse Resp BP Pulse Ox 97.9 F 91 17 106/53 94 04/18/17 06:25 04/18/17 06:25 04/18/17 06:25 04/18/17 06:25 04/18/17 08:00 General appearance: Present: A&O X 3, morbidly obese, no acute distress, answers questions appropriately Exam: Constitutional: Alert, in no acute distress, well nourished, well developed. Head: NC at 2L, Normocephalic, atraumatic, normal contour and symmetric, no masses, lesions or scars Heart: Normal, regular rate and rhythm, no murmurs Lungs: crackles present bilaterally at bases, no wheezes, rales, or rhonchi Abdomen: protruding, Soft, nondistended, nontender, and no masses palpable, bowel sounds present and normal, no guarding or rigidity. Extremities: missing 3rd toe on L foot with ulcer on foot, No clubbing, cyanosis , or edema, radial pulse +2/4, capillary refill <2sec. Skin: scaley rash lateral to nose about 1 cm in diameter, abrasion beneath left breast, Skin warm and dry, no jaundice Neurologic: patient is unable to wiggle toes on L foot but able to move ankle, he says this is chronic, able to lift both legs up, venous status of bilateral lower extremities with +2 pitting edema no redness or increased warmth, skin is intact at anterior shins, dorsalis pedial pulses unable to be palpated, R arm unable to move joints below elbow, able to lift arm but no photovoltaic installer strength or wrist strength, Cranial nerves II through XII grossly intact, no focal deficits , strength within normal limits in all extremities Psych: Cooperative with exam, good eye contact, cognitive function intact, judgment good insight good, speech clear, thought process logical, and goal directed - Head Head exam: Present: normocephalic <Paul Montgomery T - Last Filed: 04/18/17 16:16> Date of Encounter: 04/18/17 Procedures/tests Complete & Pending: Procedures Performed prior 72 hours Category Date Time Status EKG [ECG 12 lead ECG] [ECG] Stat Y 04/17/17 07:51 Completed EV echocardiogram w enhance Routine Y 04/16/17 10:05 Completed Date of admission: 04/16/17 09:58 Primary care physician: Martin Chua Consults: 04/17/17 10:24 Consult to Invasive Line Access Team [CONS] Routine Reason for Consult: no iv access, unable to obtain even with vein finder Line Type: EPIV 04/17/17 10:25 Consult to Wound Care [CONS] Routine Reason for Consult: Left foot diabetic ulcer Call Completed: No Hospital course: Mr. Swenson is a 66 year old male - Time Spent with Patient Total time spent providing and/or coordinating discharge services: - Constitutional Vitals: Temp Pulse Resp BP Pulse Ox 97.9 F 80 16 91/53 94 04/18/17 09:00 04/18/17 09:00 04/18/17 09:00 04/18/17 09:00 04/18/17 09:00 - Attending Attestation I have independently seen and examined this patient on 04/18. I have reviewed his EMR and discussed plan of care with the resident, the patient and his spouse who was at the bedside at time of review 66 M with GABRIELA on home CPAP-Not complaint, Afib, DM, HTN, Morbid Obesity, and Mostly bed bound with venous stasis dermatitis and sacral decubitus ulcer He presented with pleuritic chest pain and work up showed lung infiltrates, ECHO was suboptimal, BNP was 36. There is low suspicion for PE, patient is on anticoagulation for Afib. Blood culture is negative till date. Patient is seen this morning with spouse and denies new complains, he states his chest pain has resolved and he feels he is abck to his baseline. His labs are at baseline today On physical exam, patient is laying flat in bed and is on nasal canula , not in respiratory distress, able to complete sentences, chest exam is anterior auscultation only and he has equal bilateral air entry. HS S1, S2, irregular, abdomen is obese, not tender, LLE with ankle wound dressing and chronic venous stasis dermatitis, region is not inspected. Labs and Imaging reviewed A/P Stable for discharge home with po antibiotics, and home services, BP has been low normal, decrease Lasix, patient is not in fluid overload. Continue his other meds, follow up with PCP. Rest of details as in resident physician documentation.....
[2017-04-18 11:21] VITALS: BP 91/53
--- NOTE | 2017-04-18 12:43 | Physician Discharge Referral ---
Home Health/Hosp Referral Info Transfer to: Home Health Provider in Charge Post Discharge: PCP - Diagnosis (1) Pneumonia Priority: Primary Status: Acute (2) Chest pain Priority: Secondary Status: Resolved (3) Respiratory distress Priority: Secondary Status: Chronic (4) Lymphedema Priority: Secondary Status: Chronic (5) Respiratory failure with hypercapnia Priority: Secondary Status: Acute (6) Diabetes Priority: Secondary Status: Chronic (7) Atrial fibrillation Priority: Secondary Status: Chronic (8) Morbid obesity with BMI of 60.0-69.9, adult Priority: Secondary Status: Chronic (9) Diabetic foot ulcer Priority: Secondary Status: Chronic - Respiratory Orders Oxygen / L per min (2L NC) Smoking Cessation: Smoking cessation has been advised. For more information, call the [employer] Quit Line at 7-462-PLYK-NOW. - Dressing/Wound Care Site: Left heel of foot Type of Dressing/Treatments w/Frequency: change dressing every 2-3 days. - Diet/Nutrition Diet/Nutrition Orders: No Concentrated Sweets - Activity Activity Orders: Bedrest - Services Needed Following services are medically necessary services: Home Health Aide - Transfer Medications Prescriptions: Furosemide [Lasix] 20 mg PO DAILY #30 tablet levoFLOXacin [Levaquin] 750 mg PO DAILY #5 tablet Home Medications: Folic Acid 1 mg PO QAM 04/26/15 [History] Hydroxychloroquine [Plaquenuil] 200 mg PO QAM 04/26/15 [History] Oxycodone HCl [Oxycontin] 80 mg PO Q12H 04/26/15 [History] Levothyroxine [Synthroid] 50 mcg PO QAM 04/27/15 [History] Apixaban [Eliquis] 5 mg PO BID 09/05/15 [History] Ipratropium/Albuterol Neb [Duoneb] 3 ml IH Q4H PRN 09/05/15 [History] Oxycodone HCl 10 mg PO Q4H PRN 09/05/15 [History] Insulin Lispro Protamin/Lispro [Humalog Mix 75-25 Kwikpen] 25 unit SQ BID [History] Duloxetine HCl [Cymbalta] 60 mg PO DAILY 04/16/17 [History] Lisinopril [Zestril] 5 mg PO DAILY 04/16/17 [History] Metoprolol XL (24 HR) Succ [Toprol Xl] 50 mg PO DAILY 04/16/17 [History] Potassium Chloride [K-Tab ER] 20 meq PO BID 04/16/17 [History] Tamsulosin [Flomax] 0.4 mg PO DAILY 04/16/17 [History] Furosemide [Lasix] 20 mg PO DAILY #30 tablet 04/18/17 [Rx] Omeprazole [PriLOSEC] 20 mg PO DAILY@0630 04/18/17 [Rx] levoFLOXacin [Levaquin] 750 mg PO DAILY #5 tablet 04/18/17 [Rx] Allergies/Adverse Reactions: 3 Allergy/AdvReac Type Severity Reaction Status Date / Time clindamycin AdvReac Diarrhea Verified 09/05/15 17:57 Certification: Further, I certify that my clinical findings support that this patient is homebound (i.e. absences from home require considerable and taxing effort and are for medical reasons or faith services or infrequently or short duration when for other reasons) because: Homebound Reason: Leaving home requires considerable and taxing effort due to condition Attestation: My signature below is to certify that this patient is under my care and that I, or nurse practitioner, or a physician's cafeteria assistant working with me, has a face-to -face encounter with this patient.
--- NOTE | 2017-04-18 17:09 | Electrocardiograph Report ---
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
[2017-04-19] MEDS ORDERED: Furosemide 20 MG TABLET PO SCH (09:00)
== END 2017-04-18 12:55 | disposition home or self-care (01) | DRG 193 ==
LOC: EMEROO 04:41 → 3NENU 04:41 → SUATTDRO 09:58 → 2NENU 04-17 09:30
PROVIDERS: ADMIT Internal Medicine; ATTEND Internal Medicine

== ENCOUNTER 2017-07-13 19:12 | Inpatient (IN) ==
[2017-07-13] MEDS ORDERED: methylPREDNISolone 125 MG/2 ML VIAL IVP ONE (19:17)
[2017-07-13] MEDS ORDERED: Ipratropium/Albuterol Neb 3 ML IH ONE (19:17)
[2017-07-13 19:30] LABS: Basophils % 0.3 %; Eosinophils # 0.5 K/mcL (0.0-0.6); Eosinophils % 3.1 %; Hematocrit 43.5 % (37.5-50.1); Hemoglobin 12.8 g/dL (12.9-16.9); Immature Granulocytes % 0.5 % (0-4); Lymphocytes # 2.1 K/mcL (0.6-4.6); Mean Corpuscular HGB Conc 29.4 g/dL (31.6-35.5); Mean Corpuscular Hemoglobin 26.9 pg (28.0-33.3); Mean Corpuscular Volume 91.4 fL (83.0-100.0); Mean Platelet Volume 8.7 fL (9.4-12.4); Monocytes # 0.6 K/mcL (0.0-1.3); Monocytes % 4.2 %; Neutrophils # 11.8 K/mcL (1.6-8.9); Platelet Count 256 K/mcL (140-400); Red Blood Count 4.76 M/mcL (4.19-5.50); Red Cell Distribution Width 14.8 % (11.5-14.5); Segmented Neutrophils % 77.9 %
[2017-07-13 19:43] LABS: BUN/Creatinine Ratio 24 (6-26); Blood Urea Nitrogen 20 mg/dL (8-26); Calcium 9.1 mg/dL (8.6-10.8); Chloride 94 mEq/L (98-109); Glucose 105 mg/dL (70-99); Osmolality,Calculated 299 (280-300); Potassium 4.6 mEq/L (3.5-4.5); Sodium 143 mEq/L (136-145); eGFR For African Americans > 60 (> 60); eGFR For Non-African Americans > 60 (> 60)
[2017-07-13 19:45] LABS: Carbon Dioxide 43 mEq/L (19-29)
--- NOTE | 2017-07-13 20:00 | Emergency Department Note ---
Disposition Clinical Impression: Acute and chronic respiratory failure ([id number]) Qualifiers: Respiratory failure complication: hypoxia and hypercapnia Qualified Code(s): J96.21 - Acute and chronic respiratory failure with hypoxia Acute exacerbation of congestive heart failure Qualifiers: Congestive heart failure type: unspecified congestive heart failure type Qualified Code(s): I50.9 - Heart failure, unspecified Disposition: Admitted As Inpatient Condition: Critical Time of Disposition: 05:20 General Adult HPI - General Chief complaint: ED Shortness of Breath/Dyspnea Stated complaint: KARIN Time Seen by Provider: 07/13/17 19:14 Source: family, EMS Limitations: no limitations Nursing Notes Reviewed: Yes Vital Signs Reviewed: Yes - History of Present Illness HPI Narrative: Mr. Swenson, 66-year-old male, presents from home for evaluation of dyspnea present on awakening this morning and present at rest. He has a history of COPD requiring 2 L nasal cannula and tenuous as well as home BiPAP. His mentation today slowly waned despite the use of 5 L nasal cannula as well as home BiPAP. PMH: Diabetes type 2 with long-term insulin use. Atrial fibrillation on metoprolol and Eliquis. Morbid obesity. History of pneumonia, history of pulmonary edema. ROS: Positive: Dyspnea Data: Fever, chills, chest pain, palpitations, nausea, vomiting, abdominal pains Pain Scale: 0 - Related Data Home Medications Medication Instructions Recorded Confirmed Folic Acid 1 mg PO QAM 04/26/15 04/26/17 Hydroxychloroquine [Plaquenuil] 400 mg PO QAM 04/26/15 04/26/17 Oxycodone HCl [Oxycontin] 80 mg PO Q12H 04/26/15 04/26/17 Levothyroxine [Synthroid] 50 mcg PO QAM 04/27/15 04/26/17 Apixaban [Eliquis] 5 mg PO BID 09/05/15 04/26/17 Ipratropium/Albuterol Neb [Duoneb] 3 ml IH Q4H PRN 09/05/15 04/26/17 Oxycodone HCl 10 mg PO Q4H PRN 09/05/15 04/26/17 Insulin Lispro Protamin/Lispro 25 unit SQ BID 09/11/15 04/26/17 [Humalog Mix 75-25 Kwikpen] Duloxetine HCl [Cymbalta] 60 mg PO DAILY 04/16/17 04/26/17 Lisinopril [Zestril] 5 mg PO DAILY 04/16/17 04/26/17 Metoprolol XL (24 HR) Succ [Toprol 50 mg PO DAILY 04/16/17 04/26/17 Xl] Potassium Chloride [K-Tab ER] 20 meq PO BID 04/16/17 04/26/17 Tamsulosin [Flomax] 0.4 mg PO DAILY 04/16/17 04/26/17 Multivits,Ca,Min/Iron/FA/Lycop 1 each PO DAILY 04/26/17 04/26/17 [Centrum Men's Tablet] Previous Rx's Medication Instructions Recorded Furosemide [Lasix] 60 mg PO BID 30 Days 04/29/17 Saline Nasal [place] [[place] Nasal 2 spray NS Q2H PRN bottle 04/29/17 [place]] Allergies Allergy/AdvReac Type Severity Reaction Status Date / Time clindamycin AdvReac Diarrhea Verified 06/02/17 07:17 All systems ED: reviewed and negative except as stated. Review of Systems: As Per HPI Past Medical History - Past Medical History Medical history: Reports: atrial fibrillation, diabetes, hypertension, RA, thyroid disease Surgical history: Reports: orthopedic, other Psychiatric history: Reports: no psych history - Social History Smoking Status: Former smoker Smokeless Tobacco Status: No Alcohol use: Reports: none Drug use: Reports: none Physical Exam Vital Signs Reviewed General: Patient is not alert. He is in acute restaurant stress-tachypnea breathing on nonrebreather on intake. HEENT: No facial asymmetry. Head is normocephalic and atraumatic. Oral mucosa moist. Trachea midline. Cardiovascular: Heart regular rate and rhythm without clicks, rubs, gallops, or murmurs. No JVD. PMI nondisplaced. Respiratory: Symmetric chest rise with poor respiratory effort. Breath sounds bilaterally are diminished with no audible wheezes, crackles, or rhonchi. Abdomen: [place] obese. Bowel sounds present in distant. Abdomen is soft, nondistended, and nontender. Neuro: GCS 7 - E1, V1, M5 Skin: Cool, dry, intact. Psych: Patient's affect is appropriate for situation. - General Limitations: no limitations General appearance: alert, in no apparent distress Course Course Narrative: Patient presents from home for hypoxia and decreased mentation progressed throughout the day. He does have home oxygen typically at 2 L nasal cannula. He is 5 L. Additionally, he has home BiPAP which has not been helping his symptoms. On arrival, patient is responsive to pain but he is not responsive to verbal stimuli. Patient placed on BiPAP with no improvement in mentation or work of breathing after approximately 20-30 minutes. I believe he will eventually need intubated. Will gather response team including anesthesia. His chest x-ray is concerning for complete opacification of left hemidiaphragm. Patient is hypercarbic and hypoxic. Patient's ABG shows. pH 7.2, CO2 121. Verbal permission obtained from to proceed with intubation and with central line placement. Both intubation and central line procedure without difficulty. Patient's true weight is 472 pounds. After discussion with experimental technician and measuring patient's shoulder width, they are agreeable to scanning the patient' s chest at this facility. CT scan shows left main bronchial mucous plug with bibasilar effusion. Patient was intubated with an 8.0 mm tube thus allowing for bronchoscopy first thing in the morning. Repeat ABG shows substantial improvement-pH 7.4, CO2 in the 70s. No clinical suspicion at this time for pneumonia or infectious etiology. Bilateral pleural effusion likely an exacerbation of congestive heart failure. Patient's family and are agreeable to admission to this facility to the ICU. I discussed the patient with the admitting hospitalist, Dr. Hewitt, who is agreeable to admitting the patient for hypoxic and hypercarbic respiratory failure. Vital Signs Temperature 97.7 F 07/13/17 19:15 Pulse Rate 91 07/13/17 19:15 Respiratory Rate 30 07/13/17 19:15 Blood Pressure 136/85 07/13/17 19:15 O2 Sat by Pulse Oximetry 92 07/13/17 19:15 Temperature 98.9 F 07/14/17 03:43 Pulse Rate 56 07/14/17 05:02 Respiratory Rate 16 07/14/17 05:02 Blood Pressure 119/58 07/14/17 05:02 O2 Sat by Pulse Oximetry 95 07/14/17 05:02 Oxygen Delivery Oxygen Delivery Ventilator Procedures - Central Line Placement Right IJ Central Line Inserted*: Yes Central Line Catheter Replacement*: No Central Line Insertion: emergent Consent Obtained: verbal consent Procedural Pause: verify patient name and date of , timeout performed per policy, teodoro and assess the site, assemble equipment and verify supplies, perform hand hygiene Patient Placed on Monitor/Pulse Ox: Yes During the Procedure: clinician is wearing sterile gloves, cap, mask,& gown during insertion, sterile field and sterile technique are maintained, patient's face is covered with drape or mask and wearing a cap, everyone in room is wearing a mask Central Line Prep: Chlorhexidine scrub Prep the Procedure Site: apply chloraprep to the skin using a back and forth scrubbing motion, apply chloraprep for 30 seconds (upper body), 1-2 min ( femoral sites), allow prep to dry, drape the patient with a full body drape Local Anesthetic: other anesthetic (Patient on precedex and fentanyl drip) Ultrasound Used for Placement: Yes Central Line Lumen Inserted: triple Post Procedure: sutured in place, good blood return, all ports aspirated, flushed, capped, sterile dressing applied, guide wire removed and visualized, dressing is dated Post Procedure X-Ray: tip of catheter in good position, no pneumothorax seen Patient Tolerated Procedure: well, no complications Complications: none Name of Clinician Inserting Central Line: Cristino Trivedi Clinician Assisting/Completing Checklist: Dr. Croft Date: 07/13/17 Time: 22:05 - Intubation Time out performed: Yes sedative: Etomidate Mg Given: 50 paralytic: Rocuronium Mg Given: 100 Laryngoscope: Ana ET Tube Size: 8 ET Tube Uncuffed: No Tube Secured Depth (cm): 21 Tube Secured Location: lips Tube Placement Confirmation: visualized tube passing through cords, equal breath sounds bilaterally, no breath sounds over epigastrium, confirmation by capnometry Patient Tolerated Procedure: well, no complications Intubation Complications: none Medical Decision Making - Medical Records Medical records reviewed: Yes I reviewed the patient's medical records. - Lab Data Lab results reviewed: Yes I reviewed the patient's lab results. Result diagrams: 07/14/17 03:59 07/14/17 03:59 Lab Results 07/13/17 07/13/17 07/13/17 Range/Units 19:22 19:22 19:22 WBC 15.2 H (4.3-11.1) K/mcL RBC 4.76 (4.19-5.50) M/mcL Hgb 12.8 L (12.9-16.9) g/dL Hct 43.5 (37.5-50.1) % MCV 91.4 (83.0-100.0) fL MCH 26.9 L (28.0-33.3) pg MCHC 29.4 L (31.6-35.5) g/dL RDW 14.8 H (11.5-14.5) % Plt Count 256 (140-400) K/mcL MPV 8.7 L (9.4-12.4) fL Immature Gran % 0.5 (0-4) % Seg Neutrophils % 77.9 % Lymphocytes % 14.0 % Monocytes % 4.2 % Eosinophils % 3.1 % Basophils % 0.3 % Neutrophils # 11.8 H (1.6-8.9) K/mcL Lymphocytes # 2.1 (0.6-4.6) K/mcL Monocytes # 0.6 (0.0-1.3) K/mcL Eosinophils # 0.5 (0.0-0.6) K/mcL Basophils # 0.0 (0.0-0.2) K/mcL Sample Site ABG pH (7.32-7.45) pH Units ABG pCO2 (35-45) mmHg ABG pO2 (85-104) mmHg ABG HCO3 (21-27) mEq/L ABG Total CO2 (20-26) mEq/L ABG O2 Saturation (95-98) % ABG Base Excess (-2 to 3) mEq/L Respiration Rate O2 Delivery Device Blood Gas Modality Inspired O2 (1-15=lpm [id number]=%) Tidal Volume cc PEEP cm H2O Sodium 143 (136-145) mEq/L Potassium 4.6 H (3.5-4.5) mEq/L Chloride 94 L (98-109) mEq/L Carbon Dioxide 43 H* (19-29) mEq/L BUN 20 (8-26) mg/dL Creatinine 0.83 (0.72-1.25) mg/dL Est GFR ( Amer) > 60 (> 60) Est GFR (Non-Af Amer) > 60 (> 60) BUN/Creatinine Ratio 24 (6-26) Glucose 105 H (70-99) mg/dL POC Glucose (58-89) Calculated Osmolality 299 (280-300) Lactic Acid 1.0 (0.5-2.2) mmol/L Calcium 9.1 (8.6-10.8) mg/dL Troponin I (0-0.03) ng/mL B-Natriuretic Peptide (0-100) pg/mL Urine Color (Yellow) Urine Clarity (Clear) Urine pH (5.0-8.0) pH Units Ur Specific [place] (1.010-1.025) Urine Protein (Neg-Trace) mg/dL Urine Glucose (UA) (Normal) mg/dL Urine Ketones (Negative) mg/dL Urine Blood (Negative) Urine Nitrite (Negative) Urine Bilirubin (Negative) Urine Urobilinogen (Normal) mg/dL Ur Leukocyte Esterase (Negative) Urine Microscopic RBC (0-3) per hpf Urine Microscopic WBC (0-3) per hpf Ur Squamous Epith Cells (None-Few) per lpf Urine Bacteria (None-Few) per hpf Hyaline Casts (None-Few) per lpf Urine Mucus (Few) Ur Culture Indicated? (NO) 07/13/17 07/13/17 07/13/17 Range/Units 19:22 19:22 20:07 WBC (4.3-11.1) K/mcL RBC (4.19-5.50) M/mcL Hgb (12.9-16.9) g/dL Hct (37.5-50.1) % MCV (83.0-100.0) fL MCH (28.0-33.3) pg MCHC (31.6-35.5) g/dL RDW (11.5-14.5) % Plt Count (140-400) K/mcL MPV (9.4-12.4) fL Immature Gran % (0-4) % Seg Neutrophils % % Lymphocytes % % Monocytes % % Eosinophils % % Basophils % % Neutrophils # (1.6-8.9) K/mcL Lymphocytes # (0.6-4.6) K/mcL Monocytes # (0.0-1.3) K/mcL Eosinophils # (0.0-0.6) K/mcL Basophils # (0.0-0.2) K/mcL Sample Site R Radial ABG pH 7.20 L* (7.32-7.45) pH Units ABG pCO2 121 H* (35-45) mmHg ABG pO2 98 (85-104) mmHg ABG HCO3 47 H (21-27) mEq/L ABG Total CO2 51 H (20-26) mEq/L ABG O2 Saturation 95 (95-98) % ABG Base Excess 14 H (-2 to 3) mEq/L Respiration Rate O2 Delivery Device BiPAP Blood Gas Modality Inspired O2 100.0 (1-15=lpm [id number]=%) Tidal Volume cc PEEP 10 cm H2O Sodium (136-145) mEq/L Potassium (3.5-4.5) mEq/L Chloride (98-109) mEq/L Carbon Dioxide (19-29) mEq/L BUN (8-26) mg/dL Creatinine (0.72-1.25) mg/dL Est GFR ( Amer) (> 60) Est GFR (Non-Af Amer) (> 60) BUN/Creatinine Ratio (6-26) Glucose (70-99) mg/dL POC Glucose (58-89) Calculated Osmolality (280-300) Lactic Acid (0.5-2.2) mmol/L Calcium (8.6-10.8) mg/dL Troponin I 0.01 (0-0.03) ng/mL B-Natriuretic Peptide 184 H (0-100) pg/mL Urine Color (Yellow) Urine Clarity (Clear) Urine pH (5.0-8.0) pH Units Ur Specific [place] (1.010-1.025) Urine Protein (Neg-Trace) mg/dL Urine Glucose (UA) (Normal) mg/dL Urine Ketones (Negative) mg/dL Urine Blood (Negative) Urine Nitrite (Negative) Urine Bilirubin (Negative) Urine Urobilinogen (Normal) mg/dL Ur Leukocyte Esterase (Negative) Urine Microscopic RBC (0-3) per hpf Urine Microscopic WBC (0-3) per hpf Ur Squamous Epith Cells (None-Few) per lpf Urine Bacteria (None-Few) per hpf Hyaline Casts (None-Few) per lpf Urine Mucus (Few) Ur Culture Indicated? (NO) 07/13/17 07/13/17 07/14/17 Range/Units 20:10 23:29 00:54 WBC (4.3-11.1) K/mcL RBC (4.19-5.50) M/mcL Hgb (12.9-16.9) g/dL Hct (37.5-50.1) % MCV (83.0-100.0) fL MCH (28.0-33.3) pg MCHC (31.6-35.5) g/dL RDW (11.5-14.5) % Plt Count (140-400) K/mcL MPV (9.4-12.4) fL Immature Gran % (0-4) % Seg Neutrophils % % Lymphocytes % % Monocytes % % Eosinophils % % Basophils % % Neutrophils # (1.6-8.9) K/mcL Lymphocytes # (0.6-4.6) K/mcL Monocytes # (0.0-1.3) K/mcL Eosinophils # (0.0-0.6) K/mcL Basophils # (0.0-0.2) K/mcL Sample Site L Radial ABG pH 7.41 D (7.32-7.45) pH Units ABG pCO2 71 H* D (35-45) mmHg ABG pO2 62 L (85-104) mmHg ABG HCO3 45 H (21-27) mEq/L ABG Total CO2 48 H (20-26) mEq/L ABG O2 Saturation 90 L (95-98) % ABG Base Excess 17 H (-2 to 3) mEq/L Respiration Rate 16 O2 Delivery Device AeroMask Blood Gas Modality ASSIST CONTROL Inspired O2 100.0 (1-15=lpm [id number]=%) Tidal Volume 600 cc PEEP 5 cm H2O Sodium (136-145) mEq/L Potassium (3.5-4.5) mEq/L Chloride (98-109) mEq/L Carbon Dioxide (19-29) mEq/L BUN (8-26) mg/dL Creatinine (0.72-1.25) mg/dL Est GFR ( Amer) (> 60) Est GFR (Non-Af Amer) (> 60) BUN/Creatinine Ratio (6-26) Glucose (70-99) mg/dL POC Glucose 122 H (58-89) Calculated Osmolality (280-300) Lactic Acid (0.5-2.2) mmol/L Calcium (8.6-10.8) mg/dL Troponin I (0-0.03) ng/mL B-Natriuretic Peptide (0-100) pg/mL Urine Color Dark Yellow (Yellow) Urine Clarity Cloudy A (Clear) Urine pH 6.0 (5.0-8.0) pH Units Ur Specific [place] 1.029 H (1.010-1.025) Urine Protein 30 H (Neg-Trace) mg/dL Urine Glucose (UA) Normal (Normal) mg/dL Urine Ketones Negative (Negative) mg/dL Urine Blood Negative (Negative) Urine Nitrite Negative (Negative) Urine Bilirubin Small H (Negative) Urine Urobilinogen Normal (Normal) mg/dL Ur Leukocyte Esterase Negative (Negative) Urine Microscopic RBC 5-15 H (0-3) per hpf Urine Microscopic WBC 0-3 (0-3) per hpf Ur Squamous Epith Cells Many H (None-Few) per lpf Urine Bacteria Few (None-Few) per hpf Hyaline Casts Few (None-Few) per lpf Urine Mucus Few (Few) Ur Culture Indicated? NO (NO) - Radiology Data Radiology results reviewed: Yes I reviewed the patient's radiology results. - EKG Data EKG #1 EKG attestation: Yes I reviewed and interpreted this EKG. EKG results narrative: EKG dated 07/13/17 at 19:17 interpreted as atrial fibrillation with a rate of 84. Appropriate narrow QRS complex at 99 ms. Normal axis. Nonspecific ST-T changes. Compared previous dated 06/02/2017 also showing A. fib; no acute ischemic changes or comparison. Critical Care Time Critical Care Time: Yes Total Critical Care Time: 90 Attestation: Critical care performed: Time is exclusive of separately billable procedures. Time includes: direct patient care, patient reassessment, coordination of patient care, interpretation of data (laboratory data, radiology data, and respiratory data), review of patient's medical records, medical consultation and documentation of patient care. Procedures included in critical care time: Procedures excluded from critical care time: Endotracheal intubation, right IJ central line placement Attestation Statement - Attestation Attestation: I, Job Croft MD, personally evaluated this patient and discussed their management with the resident physician. I reviewed the resident's note and agree with the documented findings, medical decision making, and plan of care. 66-year-old male with history of morbid obesity, oxygen dependent COPD, CHF. Presents complaining of increasing shortness of breath throughout the day today. reports that this morning he was more short of breath and she increased his oxygen to 5 L. He progressively got worse during the day and all afternoon and has been drowsy and out of it and difficult to arouse. On arrival here patient was drowsy but after being here for a while he became less responsive. Patient became responsive only to painful stimuli. He was placed on BiPAP on arrival. On examination patient is a morbidly obese elderly male. Responds only to painful stimuli. He is pale and skin is cool to touch. No diaphoresis. reports he was diaphoretic earlier. Breath sounds are decreased diffusely due to body habitus. No definite rales or wheezes noted. Heart regular rate and rhythm. Labs reviewed. Chest x-ray shows new complete opacification of the left hemithorax with apparent pulmonary edema in the right lung. Patient received IV Lasix. He was intubated orally by Dr. Trivedi on first attempt without difficulty. We did have anesthesia at bedside as we anticipated difficult airway due to patient's morbid obesity. A right central IJ catheter was placed by Dr. Trivedi under my direct supervision. The hospitalist, Dr. Castro, was consulted and saw the patient in the emergency department and the patient was admitted to the ICU.
[2017-07-13 20:11] LABS: ABG Base Excess 14 mEq/L (-2 to 3); ABG HCO3 47 mEq/L (21-27); ABG Oxygen Saturation 95 % (95-98); ABG PCO2 121 mmHg (35-45); ABG PO2 98 mmHg (85-104); ABG TCO2 51 mEq/L (20-26); Blood Gas PEEP 10 cm H2O
[2017-07-13] MEDS ORDERED: Furosemide 40 MG/4 ML VIAL IVP ONE (20:15)
[2017-07-13 20:19] LABS: Bilirubin,Urine Small (Negative); Blood,Urine Negative (Negative); Clarity,Urine Cloudy (Clear); Color,Urine Dark Yellow (Yellow); Glucose,Urine (UA) Normal (Normal); Ketones,Urine Negative (Negative); Leukocyte Esterase,Urine Negative (Negative); Nitrite,Urine Negative (Negative); Protein,Urine 30 mg/dL (Neg-Trace); Specific Gravity,Urine 1.029 (1.010-1.025); Urobilinogen,Urine Normal (Normal)
[2017-07-13 20:22] LABS: Squamous Epithelial Cell,Urine Many per lpf (None-Few); WBC,Urine 0-3 per hpf (0-3)
[2017-07-13 20:30] LABS: Bacteria,Urine Few per hpf (None-Few); Hyaline Casts,Urine Few per lpf (None-Few); Mucus,Urine Few (Few)
[2017-07-13] MEDS ORDERED: Dexmedetomidine HCl 400 MCG/100 ML MLS IVC ONE (21:14)
[2017-07-13] MEDS: Dexmedetomidine HCl 400 MCG/100 ML MLS IVC SCH (21:27)
[2017-07-13] MEDS: FentaNYL (PF) 1,000 MCG in 0.9 % Sodium Chloride 80 ML IVC SCH (22:15)
[2017-07-13] MEDS ORDERED: *HR* Vecuronium 10 MG VIAL ONE (22:39)
[2017-07-13 23:33] LABS: ABG Base Excess 17 mEq/L (-2 to 3); ABG HCO3 45 mEq/L (21-27); ABG Oxygen Saturation 90 % (95-98); ABG PCO2 71 mmHg (35-45); ABG PH 7.41 pH Units (7.32-7.45); ABG PO2 62 mmHg (85-104); ABG TCO2 48 mEq/L (20-26); Blood Gas Modality ASSIST CONTROL; Blood Gas PEEP 5 cm H2O; Blood Gas Respiration Rate 16; Blood Gas VT 600 cc
--- NOTE | 2017-07-14 01:09 | Internal Med History&Physical ---
<Bryanna Simmons - Last Filed: 07/14/17 03:20> Date of Encounter: 07/14/17 Time of Encounter: 00:42 Assessment and Plan (1) Respiratory failure with hypercapnia Current visit: No Status: Acute Respiratory failure with hypercapnia likely secondary to pneumonia, COPD, and bilateral pleural effusions given CT findings. Patient presented to the hospital for evaluation of shortness of breathe. He was somnolent upon arrival and intubated upon my examination. Family was present to give history. History of COPD, CHF, Afib, DM. Initial ABG showed Hypercapnia (pH 7.2 pCO2 121 O2 98 HCO3 47) He was intubated and follow up ABG showed improvement from previous. Afebrile, vitals stable Chest CT showed left hemithorax completely opacified by combination of pleural effusion and complete collapse of the left lung. There is a plug in the left mainstem bronchus. Right upper and lower lobe consolidation likely pneumonia and moderate right pleural effusion smaller than the left. Continue mechanical ventilation support for now ABG ordered for 4am RT and nursing to attempt suction of mucus plug Pulmonology consulted vital signs assessment q1h Qualifiers: Chronicity: acute on chronic Qualified Code(s): J96.22 - Acute and chronic respiratory failure with hypercapnia (2) Pneumonia Current visit: No Status: Acute Likely pneumonia per CT findings Chest CT showed left hemithorax completely opacified by combination of pleural effusion and complete collapse of the left lung. There is a plug in the left mainstem bronchus. Right upper and lower lobe consolidation likely pneumonia and moderate right pleural effusion smaller than the left. WBC 15.2 Patient currently intubated IV cefepime IV Vancomycin pulmonology consulted Respiratory panel ordered Qualifiers: Pneumonia type: due to unspecified organism Laterality: left Lung location: lower lobe of lung Qualified Code(s): J18.1 - Lobar pneumonia, unspecified organism (3) COPD (chronic obstructive pulmonary disease) Current visit: No Status: Acute Patient has COPD on 2L continuous oxygen and has Bipap at home Patient is currently intubated. IV solumedrol IV cefepime and vancomycin bronchodilators Qualifiers: COPD type: unspecified COPD Qualified Code(s): J44.9 - Chronic obstructive pulmonary disease, unspecified (4) Leukocytosis Current visit: Yes Status: Acute Likely secondary to pneumonia per CT findings Chest CT showed left hemithorax completely opacified by combination of pleural effusion and complete collapse of the left lung. There is a plug in the left mainstem bronchus. Right upper and lower lobe consolidation likely pneumonia and moderate right pleural effusion smaller than the left. WBC 15.2 IV cefepime IV Vancomycin Respiratory panel ordered Qualifiers: Leukocytosis type: unspecified Qualified Code(s): D72.829 - Elevated white blood cell count, unspecified (5) Atrial fibrillation Current visit: No Status: Chronic Patient has known A.fib on anticoagulation with Eliquis and rate control with Toprol heart rate low 60s continue Eliquis holding Toprol Qualifiers: Atrial fibrillation type: chronic Qualified Code(s): I48.2 - Chronic atrial fibrillation (6) CHF (congestive heart failure) Current visit: Yes Status: Acute Patient has a history of CHF Echo 04/26/2017 showed mildly dilated left ventricle. LVEF= 50%. Right ventricle mildly dilated. BNP [address] showed left hemithorax completely opacified by combination of pleural effusion and complete collapse of the left lung. There is a plug in the left mainstem bronchus. Right upper and lower lobe consolidation likely pneumonia and moderate right pleural effusion smaller than the left. 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 Swenson is a 66 year old male with a past medical history of COPD, DM, CHF, A.fib on anticoagulation who presented to the hospital complaining of shortness of breathe. He is accompanied by his family who is giving the history of the present illness to myself since the patient is currently intubated. They reported that Saturday morning at 2am he woke up short of breathe and it progressively worsened throughout the day. He is on 2L oxygen continuous however he required up to 5L at home. He also has a Bipap machine which he had been using more as well as a non airway breather that was brought by a friend. According to family his O2 saturation went as low as 77%. Throughout the day he was somnolent and was in and out of sleep. Family would sternal rub to awaken him and he would then be alert and oriented x3. Family stated that he kept insisting that he was fine and did not want to go to the hospital, however it was in the evening that his insisted and made him go to the hospital. He has had a cough and headache today. Family denied him complaining of fever, chills, chest pain, wheezing, palpitations, nausea, vomiting, abdominal pain. He has not traveled, fell, been recently sick, or sick contacts. Family stated that he is not ambulatory and that at most he can sit up in bed. Family stated that he is chronically ill and has difficulty breathing. He has been to the hospital and admitted 4x since March due to various illnesses. He was intubated in the ED. ABG showed hypercapnia. Upon review of follow up ABG the PCO2 improved along with pH. He was then transferred to the ICU. Patient 's stated that he is a full code and that she is POA. Past Med Surg Social Fam HX - Past Medical History Medical history: atrial fibrillation, CHF, COPD, diabetes, hypertension, RA, thyroid disease Psychiatric history: no psych history - Past Surgical History Surgical History: orthopedic, other - Social History Smoking Status: Former smoker Smokeless Tobacco Status: No Alcohol use: none Drug use: none Current living situation: Home Activity Level: Bed bound - Family History Mother Living Status: Hx Family Cardiac Disorders: Yes Hx Family Endocrine Disorder: Yes (DM) Father Living Status: Hx Family Cardiac Disorders: Yes Internal Medicine - H&P: Meds Folic Acid 1 mg PO QAM 04/26/15 [History] Hydroxychloroquine [Plaquenuil] 400 mg PO QAM 04/26/15 [History] Oxycodone HCl [Oxycontin] 80 mg PO Q12H 04/26/15 [History] Levothyroxine [Synthroid] 50 mcg PO QAM 04/27/15 [History] Apixaban [Eliquis] 5 mg PO BID 09/05/15 [History] Ipratropium/Albuterol Neb [Duoneb] 3 ml IH Q4H PRN 09/05/15 [History] Oxycodone HCl 10 mg PO Q4H PRN 09/05/15 [History] Insulin Lispro Protamin/Lispro [Humalog Mix 75-25 Kwikpen] 25 unit SQ BID [History] Duloxetine HCl [Cymbalta] 60 mg PO DAILY 04/16/17 [History] Lisinopril [Zestril] 5 mg PO DAILY 04/16/17 [History] Metoprolol XL (24 HR) Succ [Toprol Xl] 50 mg PO DAILY 04/16/17 [History] Potassium Chloride [K-Tab ER] 20 meq PO BID 04/16/17 [History] Tamsulosin [Flomax] 0.4 mg PO DAILY 04/16/17 [History] Multivits,Ca,Min/Iron/FA/Lycop [Centrum Men's Tablet] 1 each PO DAILY 04/26/17 [ History] Furosemide [Lasix] 60 mg PO BID 30 Days 04/29/17 [Rx] Saline Nasal [place] [[place] Nasal [place]] 2 spray NS Q2H PRN bottle 04/29/17 [Rx] 3 Allergy/AdvReac Type Severity Reaction Status Date / Time clindamycin AdvReac Diarrhea Verified 06/02/17 07:17 All Systems PM: A 10-system review of systems was performed and is negative for pertinent findings except as documented above in the HPI. - Constitutional Constitutional: fatigue, lethargy, no chills, no fever(s), no falls - EENT Eyes: no blurry vision, no change in vision Nose, mouth and throat: no sore throat - Cardiovascular Cardiovascular ROS IM: edema, paroxysmal nocturnal dyspnea, no chest pain, no palpitations, no syncope - Respiratory Respiratory: cough, dyspnea, no hemoptysis, no wheezing, no excessive phlegm production - Gastrointestinal Gastrointestinal: no abdominal pain, no diarrhea, no nausea, no vomiting - Musculoskeletal Musculoskeletal ROS IM: limited range of motion - Neurological Neurological ROS: headache(s), no loss of vision - Psychiatric Psychiatric: no confusion, no memory loss - Constitutional Vitals: Temp Pulse Resp BP Pulse Ox 97.7 F 61 11 123/50 95 07/13/17 19:15 07/14/17 00:08 07/14/17 00:08 07/14/17 00:08 07/14/17 00:08 General appearance: Present: morbidly obese - Head Head exam: Present: atraumatic, normocephalic - ENT ENT exam: Present: mucous membranes moist - Neck Neck exam general surgery: Present: supple. Absent: lymphadenopathy - Respiratory Respiratory exam: Present: decreased breath sounds, rales, rhonchi - Cardiovascular Cardiovascular exam: Present: irregular rhythm, +S1, +S2. Absent: clicks - GI/Abdominal GI/Abdominal exam: Present: normal bowel sounds, soft. Absent: firm - Extremities Exam Extremities exam: Present: pedal edema. Absent: mottling - Neurological Exam Neurological exam: Absent: alert - Skin Skin exam: Present: cyanosis, dry, warm. Absent: petechiae Internal Med - H&P Results - Labs CBC & Chem 7: 07/13/17 19:22 07/13/17 19:22 <Felipe Castro - Last Filed: 07/14/17 04:01> Date of Encounter: 07/14/17 Internal Medicine - H&P: HPI History of present illness: Mr. Swenson is a 66 year old male All Systems PM: A 10-system review of systems was performed and is negative for pertinent findings except as documented above in the HPI. - Constitutional Vitals: Temp Pulse Resp BP Pulse Ox 98.9 F 64 16 117/58 94 07/14/17 03:43 07/14/17 03:44 07/14/17 03:44 07/14/17 03:44 07/14/17 03:44 Internal Med - H&P Results - Labs CBC & Chem 7: 07/13/17 19:22 07/13/17 19:22 - Attending Attestation I conducted a face to face diagnostic evaluation of this patient and my medical decision-making was reviewed with the Resident Physician, Dr. Bryanna Simmons. I agree with the documented findings, disposition and treatment plan as described except to the extent set forth below: I evaluated patient at the bedside in the emergency department and in the ICU before and after intubation. He was brought to the hospital due to respiratory distress, hypoxia and lethargy. My examination he is on BiPAP, difficult to arouse, response to painful stimuli but otherwise asleep. There are decreased breath sounds on the left. Abdomen is obese, soft and nontender. Heart is irregularly irregular. Patient was endotracheally intubated in the emergency department. Started on mechanical ventilation. I recommended CT of the chest to further evaluate the left lung white out noticed on the chest x-ray. Postintubation chest x-ray reviewed personally shows left lung white out and right lung infiltrate and pleural effusion. His oxygen saturation on 100% FiO2 was in the high 90s and therefore I titrate him down to 80% FiO2. Oxygen saturation currently in the low 90s. Continue with assist control, tidal volume of 600 mL, rate 14, 80% FiO2, PEEP of 5. Repeat ABG. Repeat ABG postintubation shows significant improvement and both pH and PCO2. We will continue mechanical ventilation with current settings and repeat ABG at 4:00 in the morning. ID: Healthcare associated pneumonia start treatment with cefepime and vancomycin. Obtain respiratory: Culture from the ET tube. Pulmonary: Mechanical ventilation. Chest PT. Deep suctioning of the ET tube. 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 Cardiovascular: Monitor blood pressure, no need for pressors. Mild diastolic CHF exacerbation. Lasix 40 mg IV every 6 hours. On eliquis for A. fib. Neuro: Sedation and pain control with Precedex and fentanyl DVT prophylaxis: On Eliquis GI: IV Protonix for prophylaxis. The high probability of emergent and significant clinical decompensation with potential impairment respiratoryion required my full attention and presence at the bedside. I spent 55 minutes of critical care time which involved decision making of high complexity to assess, manipulate, and support vital organ system , in order to prevent further life threatening deterioration of the patient's condition. The critical care time was spent in the patient's room and its close proximity and involved obtaining updated history and examining the patient, discussing the case with consultants, reviewing imaging studies and laboratory data, ordering diagnostic studies, medications and reevaluating for clinical response. The time took to perform any procedures and time spent teaching were not included in the critical care time stated above.
[2017-07-14] MEDS ORDERED: Naloxone 0.4 MG/ML INJ IVP PRN (01:25)
[2017-07-14] MEDS ORDERED: APIXABAN 5 MG TABLET PO SCH (02:00)
[2017-07-14] MEDS: Dexmedetomidine HCl 400 MCG/100 ML MLS IVC SCH ×10 (02:27→23:01)
[2017-07-14] MEDS: Furosemide 40 MG/4 ML VIAL IVP SCH ×4 (02:27→20:05)
[2017-07-14] MEDS ORDERED: Vancomycin 0 MG in D5% in Water 250 ML IVPB SCH (03:00)
[2017-07-14] MEDS: Vancomycin 2,000 MG in D5% in Water 500 ML IVPB SCH ×2 (03:33→15:44)
[2017-07-14 04:11] LABS: Basophils % 0.2 %; Eosinophils % 0.2 %; Hematocrit 38.5 % (37.5-50.1); Hemoglobin 11.8 g/dL (12.9-16.9); Immature Granulocytes % 0.5 % (0-4); Lymphocytes % 8.2 %; Mean Corpuscular HGB Conc 30.6 g/dL (31.6-35.5); Mean Corpuscular Hemoglobin 27.2 pg (28.0-33.3); Mean Corpuscular Volume 88.7 fL (83.0-100.0); Monocytes # 0.2 K/mcL (0.0-1.3); Monocytes % 1.3 %; Neutrophils # 10.4 K/mcL (1.6-8.9); Platelet Count 215 K/mcL (140-400); Red Blood Count 4.34 M/mcL (4.19-5.50); Red Cell Distribution Width 14.6 % (11.5-14.5); Segmented Neutrophils % 89.6 %
[2017-07-14 04:18] LABS: ABG Base Excess 14 mEq/L (-2 to 3); ABG HCO3 41 mEq/L (21-27); ABG Oxygen Saturation 91 % (95-98); ABG PCO2 61 mmHg (35-45); ABG PH 7.43 pH Units (7.32-7.45); ABG PO2 63 mmHg (85-104); ABG TCO2 43 mEq/L (20-26); Blood Gas Modality VC; Blood Gas Respiration Rate 16; Blood Gas VT 600 cc
[2017-07-14 04:21] LABS: BUN/Creatinine Ratio 30 (6-26); Blood Urea Nitrogen 26 mg/dL (8-26); Calcium 8.9 mg/dL (8.6-10.8); Chloride 92 mEq/L (98-109); Glucose 157 mg/dL (70-99); Osmolality,Calculated 298 (280-300); Potassium 4.4 mEq/L (3.5-4.5); Sodium 140 mEq/L (136-145); eGFR For African Americans > 60 (> 60); eGFR For Non-African Americans > 60 (> 60)
[2017-07-14 04:27] LABS: Carbon Dioxide 41 mEq/L (19-29)
[2017-07-14] MEDS: FentaNYL (PF) 1,000 MCG in 0.9 % Sodium Chloride 80 ML IVC SCH (04:50)
[2017-07-14] MEDS: methylPREDNISolone 125 MG/2 ML VIAL IVP SCH ×4 (05:01→23:00)
[2017-07-14] MEDS: Pantoprazole 40 MG VIAL IVPB SCH (08:22)
[2017-07-14] MEDS: Cefepime HCl 2,000 MG in Water for inj. (sterile) 20 ML IVP SCH ×4 (08:22→23:00)
--- NOTE | 2017-07-14 08:57 | Pulmonology Consult Note ---
<Adrienne Chapman M - Last Filed: 07/14/17 12:09> Date of Encounter: 07/14/17 Medications and Allergies Folic Acid 1 mg PO QAM 04/26/15 [History] Hydroxychloroquine [Plaquenuil] 400 mg PO QAM 04/26/15 [History] Levothyroxine [Synthroid] 50 mcg PO QAM 04/27/15 [History] Apixaban [Eliquis] 5 mg PO BID 09/05/15 [History] Ipratropium/Albuterol Neb [Duoneb] 3 ml IH Q4H PRN 09/05/15 [History] Insulin Lispro Protamin/Lispro [Humalog Mix 75-25 Kwikpen] 25 unit SQ BID [History] Duloxetine HCl [Cymbalta] 60 mg PO DAILY 04/16/17 [History] Lisinopril [Zestril] 5 mg PO DAILY 04/16/17 [History] Metoprolol XL (24 HR) Succ [Toprol Xl] 50 mg PO DAILY 04/16/17 [History] Potassium Chloride [K-Tab ER] 20 meq PO BID 04/16/17 [History] Tamsulosin [Flomax] 0.4 mg PO DAILY 04/16/17 [History] Multivits,Ca,Min/Iron/FA/Lycop [Centrum Men's Tablet] 1 tab PO DAILY 04/26/17 [ History] Furosemide [Lasix] 60 mg PO BID 30 Days 04/29/17 [Rx] Oxycodone HCl [Oxycontin] 40 mg PO Q8H PRN 07/14/17 [History] Tofacitinib Citrate [Xeljanz Xr] 11 mg PO DAILY 07/14/17 [History] 3 Allergy/AdvReac Type Severity Reaction Status Date / Time clindamycin AdvReac Diarrhea Verified 06/02/17 07:17 All Systems: A 10-system review of systems was performed and is negative for pertinent findings except as documented above in the HPI. Physical Examination Vital Signs: Vital Signs, Last 4 Hours Pulse Resp BP Pulse Ox 07/14/17 10:00 61 17 108/65 93 07/14/17 09:49 16 92 07/14/17 09:35 71 19 116/74 07/14/17 09:00 60 15 118/78 93 07/14/17 08:00 62 16 127/75 92 07/14/17 07:57 15 92 07/14/17 07:00 61 14 118/63 93 Ventilator Settings Ventilator Settings: Ventilator Settings, Last 8 Hours Ventilator Mode VC+ Ventilator Mode VC+ Ventilator Mode VC+ Ventilator Mode VC+ Ventilator Mode VC+ Ventilator Mode VC+ Ventilator Mode VC+ Ventilator Mode VC+ Ventilator Mode VC+ Ventilator Mode VC+ Ventilator Mode VC+ Ventilator Mode VC+ Ventilator Mode VC+ Ventilator Mode VC+ Ventilator Mode VC+ Ventilator Tidal Volume 600 Setting Ventilator Tidal Volume 600 Setting Ventilator Tidal Volume 600 Setting Ventilator Tidal Volume 600 Setting Ventilator Tidal Volume 600 Setting Ventilator Tidal Volume 600 Setting Ventilator Tidal Volume 600 Setting Ventilator Tidal Volume 600 Setting Ventilator Tidal Volume 600 Setting Ventilator Tidal Volume 600 Setting Ventilator Tidal Volume 600 Setting Ventilator Tidal Volume 600 Setting Ventilator Tidal Volume 600 Setting Ventilator Tidal Volume 600 Setting Ventilator Tidal Volume 600 Setting Ventilator Respiratory Rate 14 Setting Ventilator Respiratory Rate 14 Setting Ventilator Respiratory Rate 14 Setting Ventilator Respiratory Rate 14 Setting Ventilator Respiratory Rate 14 Setting Ventilator Respiratory Rate 14 Setting Ventilator Respiratory Rate 14 Setting Ventilator Respiratory Rate 16 Setting Ventilator Respiratory Rate 16 Setting Ventilator Respiratory Rate 16 Setting Ventilator Respiratory Rate 16 Setting Ventilator Respiratory Rate 16 Setting Ventilator Respiratory Rate 16 Setting Ventilator Respiratory Rate 16 Setting Ventilator Respiratory Rate 16 Setting Actual Respiratory Rate 17 Actual Respiratory Rate 25 Actual Respiratory Rate 15 Actual Respiratory Rate 16 Actual Respiratory Rate 14 Actual Respiratory Rate 16 Actual Respiratory Rate 16 Actual Respiratory Rate 16 Actual Respiratory Rate 16 Actual Respiratory Rate 16 Positive End Expiratory 8 Pressure Positive End Expiratory 8 Pressure Positive End Expiratory 8 Pressure Positive End Expiratory 8 Pressure Positive End Expiratory 8 Pressure Positive End Expiratory 8 Pressure Positive End Expiratory 5 Pressure Positive End Expiratory 5 Pressure Positive End Expiratory 5 Pressure Positive End Expiratory 5 Pressure Positive End Expiratory 5 Pressure Positive End Expiratory 5 Pressure Positive End Expiratory 5 Pressure Positive End Expiratory 5 Pressure Peak Inspiratory Airway 29 Pressure Peak Inspiratory Airway 33 Pressure Peak Inspiratory Airway 33 Pressure Peak Inspiratory Airway 33 Pressure Peak Inspiratory Airway 32 Pressure Peak Inspiratory Airway 35 Pressure Peak Inspiratory Airway 34 Pressure Peak Inspiratory Airway 30 Pressure Peak Inspiratory Airway 30 Pressure Peak Inspiratory Airway 30 Pressure Peak Inspiratory Airway 35 Pressure Peak Inspiratory Airway 35 Pressure Results - Laboratory Findings CBC and BMP: 07/14/17 03:59 07/14/17 03:59 ABG ABG pH 7.43 pH Units (7.32-7.45) 07/14/17 04:14 ABG pCO2 61 mmHg (35-45) H 07/14/17 04:14 ABG pO2 63 mmHg (85-104) L 07/14/17 04:14 ABG O2 Saturation 91 % (95-98) L 07/14/17 04:14 Abnormal lab findings: Abnormal lab results WBC 11.7 K/mcL (4.3-11.1) H 07/14/17 03:59 Hgb 11.8 g/dL (12.9-16.9) L 07/14/17 03:59 MCH 27.2 pg (28.0-33.3) L 07/14/17 03:59 MCHC 30.6 g/dL (31.6-35.5) L 07/14/17 03:59 RDW 14.6 % (11.5-14.5) H 07/14/17 03:59 MPV 9.0 fL (9.4-12.4) L 07/14/17 03:59 Neutrophils # 10.4 K/mcL (1.6-8.9) H 07/14/17 03:59 ABG pCO2 61 mmHg (35-45) H 07/14/17 04:14 ABG pO2 63 mmHg (85-104) L 07/14/17 04:14 ABG HCO3 41 mEq/L (21-27) H 07/14/17 04:14 ABG Total CO2 43 mEq/L (20-26) H 07/14/17 04:14 ABG O2 Saturation 91 % (95-98) L 07/14/17 04:14 ABG Base Excess 14 mEq/L (-2 to 3) H 07/14/17 04:14 Chloride 92 mEq/L (98-109) L 07/14/17 03:59 Carbon Dioxide 41 mEq/L (19-29) H* 07/14/17 03:59 BUN/Creatinine Ratio 30 (6-26) H 07/14/17 03:59 Glucose 157 mg/dL (70-99) H 07/14/17 03:59 POC Glucose 154 (58-89) H 07/14/17 07:45 B-Natriuretic Peptide 184 pg/mL (0-100) H 07/13/17 19:22 Urine Clarity Cloudy (Clear) A 07/13/17 20:10 Ur Specific [place] 1.029 (1.010-1.025) H 07/13/17 20:10 Urine Protein 30 mg/dL (Neg-Trace) H 07/13/17 20:10 Urine Bilirubin Small (Negative) H 07/13/17 20:10 Urine Microscopic RBC 5-15 per hpf (0-3) H 07/13/17 20:10 Ur Squamous Epith Cells Many per lpf (None-Few) H 07/13/17 20:10 - Clinical Findings Intake & Output: Intake & Output 07/13/17 07/14/17 07/14/17 23:59 07:59 15:59 Intake Total 794.1 / 794.1 200 / 200 Output Total 1200 / 1200 Balance -405.9 / -405.9 200 / 200 Consult Discharge Plan - Plan Referrals: Zion Hernandes DO [Primary Care Provider] - - Attending Attestation I examined this patient and my medical decision-making was reviewed with the Resident Physician. I agree with the documented findings, disposition and treatment plan as described except to the extent set forth below. Patient seen and examined. Labs, radiology, chart personally reviewed. 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 Pulmonary: Patient was intubated for his chronic respiratory failure and there is evidence of hypercapnia which I suspect always to hypoventilation. Patient is on anticoagulation in case evidence of hemothorax and during bronchoscopy there is evidence of blood clot not significant mucous plugs as well as evidence of pulmonary hemorrhage which I suspect this is related to anticoagulation which was stopped. I also changed his Setting on the ventilator and patient might need chest tube and because of his body habitus might be more appropriate interventional radiologist to attempt that.. Cardiovascular: Patient with atrial fibrillation and explained to the at the bedside withholding anticoagulation patient will be at high risk of VTE. GI: Nutrition per dietary and GI prophylaxis per routine Heme: DVT prophylaxis per routine ID: Continue antibiotics and plan to de-escalation Renal; urine out put and renal funtion reviewed Endorcine: blood glucose is monitored Lines: all lines checked and no evidence of infections Skin: skin care to prevent pressure ulcers per nursing routine care Discussed with the at the bedside. I spent 40 min of Critical Care time with this patient. It involved decision making of high complexity to assess, manipulate, and support vital organ system failure and/or to prevent further life threatening deterioration of the patient' s condition. The time involved in the performance of separately reportable procedures was not counted toward critical care time. <Fouzia Hopkins - Last Filed: 07/14/17 15:27> Date of Encounter: 07/14/17 Time of Encounter: 07:45 Assessment and Plan (1) Acute on chronic respiratory failure with hypoxia and hypercapnia Current Visit: Yes Status: Acute - With reported hypoxia at home and pCO2 121 per initial ABG. - Likely multifactorial including current left hemothorax and pneumonia in the setting of COPD, CHF, GABRIELA/OHS. - Currently intubated and on mechanical ventilation support. Ventilation setting was adjusted by Dr. Chapman accordingly. - Hold anticoagulation for hemothorax. - Continue IV antibiotics for pneumonia. - Continue steroid & bronchodilators for COPD. - Continue Lasix for CHF. - Continue close monitoring in ICU. (2) Hemothorax on left Current Visit: Yes Status: Acute - CT chest found left hemithorax completely opacified by combination of moderate -sized pleural effusion and complete collapse of the left lung. - Bronchoscopy today found blood and mucus plugs in the left mainstem bronchus, ALONZO and LLL. - Likely related to anticoagulation use. - Hold Eliquis. - Patient may benefit from chest tube but should have IR to attempt that first given his body habitus (3) Sepsis Current Visit: No Status: Acute - 3 SIRS criteria (tachycardia, tachypnea and leukocytosis) with lactic acid 1.0 on initial presentation. - Likely secondary to pneumonia. - Blood cultures and respiratory cultures including fungal and AFB pending. - Continue IV vancomycin and cefepime. Qualifiers: Sepsis type: sepsis due to unspecified organism Qualified Code(s): A41.9 - Sepsis, unspecified organism (4) Pneumonia Current Visit: No Status: Acute - CT chest found consolidation in the posterior segment of the right upper lobe and the entire right lower lobe, suspicious for pneumonia. - BAL culture pending. - Continue IV vancomycin and cefepime. Qualifiers: Pneumonia type: due to unspecified organism Laterality: left Lung location: lower lobe of lung Qualified Code(s): J18.1 - Lobar pneumonia, unspecified organism (5) Atrial fibrillation Current Visit: No Status: Chronic - Currently rate-controlled. - Hold Eliquis given current hemothorax. Qualifiers: Atrial fibrillation type: chronic Qualified Code(s): I48.2 - Chronic atrial fibrillation (6) COPD (chronic obstructive pulmonary disease) Current Visit: No Status: Chronic - Continue Solu-Medrol and bronchodilators. Qualifiers: COPD type: unspecified COPD Qualified Code(s): J44.9 - Chronic obstructive pulmonary disease, unspecified (7) CHF (congestive heart failure) Current Visit: Yes Status: Acute - Echo on 04/26/17 estimated LVEF 50%. - Continue diuresis with Lasix. Qualifiers: Congestive heart failure type: unspecified congestive heart failure type Congestive heart failure chronicity: chronic Qualified Code(s): I50.9 - Heart failure, unspecified (8) Diabetes Current Visit: No Status: Chronic - Continue insulin sliding scale with frequent glucose monitoring. 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 - Start calf pump as mechanical DVT prophylaxis. History of Present Illness Consult date: 07/14/17 Requesting physician: Bryanna Simmons Reason for consult: dyspnea (Hypercapnia respiratory failure) Chief complaint: Shortness of breath History of present illness: Mr. Swenson is a 66 yo male with PMH of COPD, DM, CHF (LVEF 50% per echo on 04/26/17) and A.fib on Eliquis who presented to [facility] with complaint of shortness of breath. Patient was noted to be somnolent in ED and ABG showed pH 7.2, pCO2 121, pO2 98 & HCO3 47. Patient was intubated in ED and admitted to ICU on 07/14/17. Critical care/pulmonology is consulted for further management. Patient was seen and examined this morning. Patient is still sedated & intubated and no family member at bedside. Therefore much of history was obtained from reviewing medical records. Per H&P note, patient's family stated that patient's shortness of breath started at 2 on Saturday morning and got progressively worsen throughout the day despite of increase in home oxygen (up to 5L compared 2L at baseline), non-rebreather use and BiPAP use. Patient was also noted to have O2 sat as low as 77% at home along with increase in somnolence. Patient also had been hospitalized 4 times since March. Patient is full code per patient's , who is his POA. Past Med Surg Social Fam HX - Past Medical History Medical history: atrial fibrillation, diabetes, hypertension, RA, thyroid disease Psychiatric history: no psych history - Past Surgical History Surgical History: orthopedic, other - Social History Smoking Status: Former smoker Smokeless Tobacco Status: No Alcohol use: none Drug use: none - Family History Mother Living Status: Hx Family Cardiac Disorders: Yes Hx Family Endocrine Disorder: Yes (DM) Father Living Status: Hx Family Cardiac Disorders: Yes ROS unobtainable: due to endotracheal tube, due to mental status Physical Examination Vital Signs: Vital Signs, Last 4 Hours Pulse Resp BP Pulse Ox 07/14/17 08:00 62 16 127/75 92 07/14/17 07:57 15 92 07/14/17 07:00 61 14 118/63 93 07/14/17 06:37 16 95 07/14/17 06:00 70 16 119/67 95 07/14/17 05:02 56 16 119/58 95 General appearance: comatose Eyes: nonicteric ENT: other (Intubated.) Neck: supple Effort: normal Inspection: normal Auscultation: left: diminished breath sounds, right: clear Cardiovascular: regular rate and rhythm Gastrointestinal: normoactive bowel sounds, soft Integumentary: decubitus ulcer (Left posterior heel) Extremities: no cyanosis, no edema Ventilator Settings Ventilator Settings: Ventilator Settings, Last 8 Hours Ventilator Mode VC+ Ventilator Mode VC+ Ventilator Mode VC+ Ventilator Mode VC+ Ventilator Mode VC+ Ventilator Mode VC+ Ventilator Mode VC+ Ventilator Mode VC+ Ventilator Mode VC+ Ventilator Mode VC+ Ventilator Mode VC+ Ventilator Tidal Volume 600 Setting Ventilator Tidal Volume 600 Setting Ventilator Tidal Volume 600 Setting Ventilator Tidal Volume 600 Setting Ventilator Tidal Volume 600 Setting Ventilator Tidal Volume 600 Setting Ventilator Tidal Volume 600 Setting Ventilator Tidal Volume 600 Setting Ventilator Tidal Volume 600 Setting Ventilator Tidal Volume 600 Setting Ventilator Tidal Volume 600 Setting Ventilator Respiratory Rate 14 Setting Ventilator Respiratory Rate 14 Setting Ventilator Respiratory Rate 14 Setting Ventilator Respiratory Rate 16 Setting Ventilator Respiratory Rate 16 Setting Ventilator Respiratory Rate 16 Setting Ventilator Respiratory Rate 16 Setting Ventilator Respiratory Rate 16 Setting Ventilator Respiratory Rate 16 Setting Ventilator Respiratory Rate 16 Setting Ventilator Respiratory Rate 16 Setting Actual Respiratory Rate 16 Actual Respiratory Rate 14 Actual Respiratory Rate 16 Actual Respiratory Rate 16 Actual Respiratory Rate 16 Actual Respiratory Rate 16 Actual Respiratory Rate 16 Positive End Expiratory 8 Pressure Positive End Expiratory 8 Pressure Positive End Expiratory 8 Pressure Positive End Expiratory 5 Pressure Positive End Expiratory 5 Pressure Positive End Expiratory 5 Pressure Positive End Expiratory 5 Pressure Positive End Expiratory 5 Pressure Positive End Expiratory 5 Pressure Positive End Expiratory 5 Pressure Positive End Expiratory 5 Pressure Peak Inspiratory Airway 33 Pressure Peak Inspiratory Airway 33 Pressure Peak Inspiratory Airway 32 Pressure Peak Inspiratory Airway 35 Pressure Peak Inspiratory Airway 34 Pressure Peak Inspiratory Airway 30 Pressure Peak Inspiratory Airway 30 Pressure Peak Inspiratory Airway 30 Pressure Peak Inspiratory Airway 35 Pressure Peak Inspiratory Airway 35 Pressure Results - Laboratory Findings CBC and BMP: 07/14/17 03:59 07/14/17 03:59 ABG ABG pH 7.43 pH Units (7.32-7.45) 07/14/17 04:14 ABG pCO2 61 mmHg (35-45) H 07/14/17 04:14 ABG pO2 63 mmHg (85-104) L 07/14/17 04:14 ABG O2 Saturation 91 % (95-98) L 07/14/17 04:14 Abnormal lab findings: Abnormal lab results WBC 11.7 K/mcL (4.3-11.1) H 07/14/17 03:59 Hgb 11.8 g/dL (12.9-16.9) L 07/14/17 03:59 MCH 27.2 pg (28.0-33.3) L 07/14/17 03:59 MCHC 30.6 g/dL (31.6-35.5) L 07/14/17 03:59 RDW 14.6 % (11.5-14.5) H 07/14/17 03:59 MPV 9.0 fL (9.4-12.4) L 07/14/17 03:59 Neutrophils # 10.4 K/mcL (1.6-8.9) H 07/14/17 03:59 ABG pCO2 61 mmHg (35-45) H 07/14/17 04:14 ABG pO2 63 mmHg (85-104) L 07/14/17 04:14 ABG HCO3 41 mEq/L (21-27) H 07/14/17 04:14 ABG Total CO2 43 mEq/L (20-26) H 07/14/17 04:14 ABG O2 Saturation 91 % (95-98) L 07/14/17 04:14 ABG Base Excess 14 mEq/L (-2 to 3) H 07/14/17 04:14 Chloride 92 mEq/L (98-109) L 07/14/17 03:59 Carbon Dioxide 41 mEq/L (19-29) H* 07/14/17 03:59 BUN/Creatinine Ratio 30 (6-26) H 07/14/17 03:59 Glucose 157 mg/dL (70-99) H 07/14/17 03:59 POC Glucose 154 (58-89) H 07/14/17 07:45 B-Natriuretic Peptide 184 pg/mL (0-100) H 07/13/17 19:22 Urine Clarity Cloudy (Clear) A 07/13/17 20:10 Ur Specific [place] 1.029 (1.010-1.025) H 07/13/17 20:10 Urine Protein 30 mg/dL (Neg-Trace) H 07/13/17 20:10 Urine Bilirubin Small (Negative) H 07/13/17 20:10 Urine Microscopic RBC 5-15 per hpf (0-3) H 07/13/17 20:10 Ur Squamous Epith Cells Many per lpf (None-Few) H 07/13/17 20:10 - Diagnostic Findings Chest x-ray: report reviewed, image reviewed CT scan - chest: report reviewed, image reviewed - Clinical Findings Intake & Output: Intake & Output 07/13/17 07/14/17 07/14/17 23:59 07:59 15:59 Intake Total 794.1 / 794.1 100 / 100 Output Total 1200 / 1200 Balance -405.9 / -405.9 100 / 100
[2017-07-14] MEDS: FentaNYL (PF) 3,000 MCG in 0.9 % Sodium Chloride 240 ML IVC SCH ×2 (10:33→22:56)
[2017-07-14 10:45] LABS: Source of Body Fluid LLL BAL
[2017-07-14 12:47] LABS: Volume of Body Fluid 18 mL
[2017-07-14 12:48] LABS: Appearance of Body Fluid Cloudy (Clear)
[2017-07-14] MEDS ORDERED: *HR* Dextrose 50 % in Water (Syg) 50 ML SYRINGE IVP PRN (14:59)
[2017-07-14] MEDS ORDERED: D5% in Water 1,000 ML IVC PRN (14:59)
[2017-07-14] MEDS ORDERED: Dextrose Gel 15 GM PO PRN ×2 (14:59)
[2017-07-14] MEDS: Ipratropium/Albuterol Neb 3 ML IH SCH ×2 (16:10→22:02)
[2017-07-14] MEDS ORDERED: *HR* Heparin 5,000 UNIT/ML VIAL SQ SCH (18:00)
[2017-07-14] MEDS: Insulin LISPRO 300 UNITS/3 ML VIAL SQ SCH ×2 (18:06→23:33)
[2017-07-15] MEDS: Furosemide 40 MG/4 ML VIAL IVP SCH ×3 (01:16→14:50)
[2017-07-15] MEDS: Dexmedetomidine HCl 400 MCG/100 ML MLS IVC SCH ×7 (01:54→20:04)
[2017-07-15] MEDS: Vancomycin 2,000 MG in D5% in Water 500 ML IVPB SCH ×2 (03:07→17:24)
[2017-07-15 03:20] LABS: Hematocrit 37.3 % (37.5-50.1); Hemoglobin 11.8 g/dL (12.9-16.9); Mean Corpuscular HGB Conc 31.6 g/dL (31.6-35.5); Mean Corpuscular Hemoglobin 27.2 pg (28.0-33.3); Mean Corpuscular Volume 85.9 fL (83.0-100.0); Mean Platelet Volume 9.1 fL (9.4-12.4); Platelet Count 231 K/mcL (140-400); Red Blood Count 4.34 M/mcL (4.19-5.50); Red Cell Distribution Width 14.9 % (11.5-14.5)
[2017-07-15 03:28] LABS: INR 1.4; Prothrombin Time 15.1 Seconds (9.4-12.1)
[2017-07-15 03:40] LABS: BUN/Creatinine Ratio 38 (6-26); Blood Urea Nitrogen 35 mg/dL (8-26); Calcium 8.7 mg/dL (8.6-10.8); Chloride 91 mEq/L (98-109); Glucose 207 mg/dL (70-99); Osmolality,Calculated 304 (280-300); Potassium 3.4 mEq/L (3.5-4.5); Sodium 140 mEq/L (136-145); eGFR For African Americans > 60 (> 60); eGFR For Non-African Americans > 60 (> 60)
[2017-07-15 04:25] LABS: Carbon Dioxide 42 mEq/L (19-29)
[2017-07-15] MEDS: methylPREDNISolone 125 MG/2 ML VIAL IVP SCH ×4 (05:00→23:14)
[2017-07-15] MEDS: Insulin LISPRO 300 UNITS/3 ML VIAL SQ SCH ×4 (05:00→23:16)
[2017-07-15] MEDS: Ipratropium/Albuterol Neb 3 ML IH SCH ×3 (07:17→22:12)
[2017-07-15] MEDS: Cefepime HCl 2,000 MG in Water for inj. (sterile) 20 ML IVP SCH ×3 (08:20→23:15)
[2017-07-15] MEDS: Pantoprazole 40 MG VIAL IVPB SCH (08:20)
--- NOTE | 2017-07-15 09:55 | Pulmonology Progress Note ---
Addendum entered and electronically signed by Caridad Callahan MD 07/15/17 16 :38: Metabolic alkalosis: Patient's pH 7.47 and bicarbonate 42. We suspect contraction alkalosis. We will discontinue furosemide for now. Addendum entered and electronically signed by Caridad Callahan MD 07/15/17 16 :08: Pleural fluid and serum studies of protein and LDH reveal an exudative effusion. This is likely secondary to a parapneumonic. We will await cultures from bronchoalveolar lavage. Continue treatment with vanc and cefepime. Original Note: <Caridad Callahan - Last Filed: 07/15/17 14:37> Date of Encounter: 07/15/17 Time of Encounter: 09:55 Assessment and Plan (1) Acute on chronic respiratory failure with hypoxia and hypercapnia Current Visit: Yes Status: Acute Patient admitted with reported hypoxia while at home. His CO2 121 per initial ABG. -PCO2 61 yesterday. -Likely multifactorial including pneumonia in the setting of COPD, CHF, GABRIELA/OHS. -Currently intubated on mechanical ventilation. We decreased tidal volume to 550 and increase rate to 18. -Continue to hold home anticoagulation until inflammation improves despite chest tube placement with thoracentesis today ruling out the presence of a left- sided hemothorax. -The pleural effusion fluid was cloudy in appearance without evidence of blood. Follow-up results of thoracentesis. -Continue IV antibiotics for pneumonia, cefepime day 2, vancomycin day 2. -Continue steroids and bronchodilators for COPD. -Continue Lasix for CHF. -Continue close monitoring in ICU. (2) Lower extremity edema Current Visit: Yes Status: Acute Likely secondary to congestive heart failure. Per nurse, patient has expressed some calf tenderness. -Follow-up Bilateral lower extremity venous Dopplers. (3) CHF (congestive heart failure) Current Visit: Yes Status: Acute Echocardiogram on 04/26/2017 shows an estimated LS EF of 50% -Continue diuresis with IV Lasix. Qualifiers: Congestive heart failure type: unspecified congestive heart failure type Congestive heart failure chronicity: chronic Qualified Code(s): I50.9 - Heart failure, unspecified (4) Pneumonia Current Visit: No Status: Acute CT of the chest demonstrating focal consolidation in the posterior segment of the right upper lobe in the entire right lower lobe, suspicious for pneumonia. -BAL gram stain shows gram-positive cocci. - BAL culture pending. -Follow-up pleural fluid analysis of thoracentesis. Qualifiers: Pneumonia type: due to unspecified organism Laterality: left Lung location: lower lobe of lung Qualified Code(s): J18.1 - Lobar pneumonia, unspecified organism (5) Sepsis Current Visit: No Status: Acute 3 SIRS criteria(tachycardia, tachypnea, and leukocytosis) with lactic acid 1.0 on initial presentation. -Likely secondary to pneumonia. -Blood cultures preliminarily negative. -Continue IV vancomycin and cefepime. Qualifiers: Sepsis type: sepsis due to unspecified organism Qualified Code(s): A41.9 - Sepsis, unspecified organism (6) COPD (chronic obstructive pulmonary disease) Current Visit: No Status: Chronic -Continue Solu-Medrol and bronchodilators. Qualifiers: COPD type: unspecified COPD Qualified Code(s): J44.9 - Chronic obstructive pulmonary disease, unspecified (7) Atrial fibrillation Current Visit: No Status: Chronic -Currently rate controlled. -Continue to hold Eliquis until patient improves clinically. Qualifiers: Atrial fibrillation type: chronic Qualified Code(s): I48.2 - Chronic atrial fibrillation (8) Diabetes Current Visit: No Status: Chronic -Continue insulin sliding scale with frequent glucose monitoring. 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 Minimal surrounding erythema. -Continue supportive care. Qualifiers: Diabetic foot ulcer location: unspecified part of foot Diabetes mellitus type: other specified (including LINH) Laterality: left Non-pressure ulcer stage: unspecified non-pressure ulcer stage Qualified Code(s): E13.621 - Other specified diabetes mellitus with foot ulcer; L97.529 - Non-pressure chronic ulcer of other part of left foot with unspecified severity (10) DVT prophylaxis Current Visit: Yes Status: Acute -Continue to hold Eliquis until patient improves clinically. -EPCDs Subjective Principal diagnosis: Acute on chronic respiratory failure with hypoxia and hypercapnia Interval history: Patient is intubated. No acute events overnight. Objective PUL Vital signs: Last Vital Signs Temp 98.2 F 07/15/17 07:00 Pulse 75 07/15/17 09:00 Resp 19 07/15/17 09:00 BP 147/76 07/15/17 09:00 Pulse Ox 95 07/15/17 09:00 General appearance: other (Intubated and sedated.) Eyes: nonicteric ENT: oropharynx moist Neck: supple Effort: other (Intubated.) Auscultation: bilateral: diminished breath sounds Gastrointestinal: normoactive bowel sounds, soft, non-tender Integumentary: rash (Bilateral lower extremity darkening of the skin, non blanching, non-erythematous) Extremities: pulses normal, edema unable to assess due to mental status Ventilator Settings Ventilator Settings: Ventilator Settings, Last 8 Hours Ventilator Mode VC+ Ventilator Mode VC+ Ventilator Mode VC+ Ventilator Mode VC+ Ventilator Mode VC+ Ventilator Mode VC+ Ventilator Mode VC+ Ventilator Mode VC+ Ventilator Mode VC+ Ventilator Mode VC+ Ventilator Mode VC+ Ventilator Tidal Volume 600 Setting Ventilator Tidal Volume 600 Setting Ventilator Tidal Volume 600 Setting Ventilator Tidal Volume 600 Setting Ventilator Tidal Volume 600 Setting Ventilator Tidal Volume 600 Setting Ventilator Tidal Volume 600 Setting Ventilator Tidal Volume 600 Setting Ventilator Tidal Volume 600 Setting Ventilator Tidal Volume 600 Setting Ventilator Tidal Volume 600 Setting Ventilator Respiratory Rate 14 Setting Ventilator Respiratory Rate 14 Setting Ventilator Respiratory Rate 14 Setting Ventilator Respiratory Rate 14 Setting Ventilator Respiratory Rate 14 Setting Ventilator Respiratory Rate 14 Setting Ventilator Respiratory Rate 14 Setting Ventilator Respiratory Rate 14 Setting Ventilator Respiratory Rate 14 Setting Ventilator Respiratory Rate 14 Setting Ventilator Respiratory Rate 14 Setting Actual Respiratory Rate 19 Actual Respiratory Rate 16 Actual Respiratory Rate 18 Actual Respiratory Rate 14 Actual Respiratory Rate 18 Actual Respiratory Rate 18 Actual Respiratory Rate 24 Actual Respiratory Rate 18 Actual Respiratory Rate 18 Actual Respiratory Rate 18 Actual Respiratory Rate 17 Positive End Expiratory 8 Pressure Positive End Expiratory 8 Pressure Positive End Expiratory 8 Pressure Positive End Expiratory 8 Pressure Positive End Expiratory 8 Pressure Positive End Expiratory 8 Pressure Positive End Expiratory 8 Pressure Positive End Expiratory 8 Pressure Positive End Expiratory 8 Pressure Positive End Expiratory 8 Pressure Positive End Expiratory 8 Pressure Peak Inspiratory Airway 23 Pressure Peak Inspiratory Airway 32 Pressure Peak Inspiratory Airway 24 Pressure Peak Inspiratory Airway 27 Pressure Peak Inspiratory Airway 33 Pressure Peak Inspiratory Airway 29 Pressure Peak Inspiratory Airway 29 Pressure Peak Inspiratory Airway 29 Pressure Peak Inspiratory Airway 27 Pressure Peak Inspiratory Airway 27 Pressure Results - Laboratory Findings CBC and BMP: 07/15/17 11:40 07/15/17 11:40 ABG ABG pH 7.43 pH Units (7.32-7.45) 07/14/17 04:14 ABG pCO2 61 mmHg (35-45) H 07/14/17 04:14 ABG pO2 63 mmHg (85-104) L 07/14/17 04:14 ABG O2 Saturation 91 % (95-98) L 07/14/17 04:14 PT/INR, D-dimer PT 15.1 Seconds (9.4-12.1) H 07/15/17 03:10 Abnormal lab findings: Abnormal lab results WBC 14.1 K/mcL (4.3-11.1) H 07/15/17 03:10 Hgb 11.8 g/dL (12.9-16.9) L 07/15/17 03:10 Hct 37.3 % (37.5-50.1) L 07/15/17 03:10 MCH 27.2 pg (28.0-33.3) L 07/15/17 03:10 RDW 14.9 % (11.5-14.5) H 07/15/17 03:10 MPV 9.1 fL (9.4-12.4) L 07/15/17 03:10 Neutrophils # 10.4 K/mcL (1.6-8.9) H 07/14/17 03:59 PT 15.1 Seconds (9.4-12.1) H 07/15/17 03:10 ABG pCO2 61 mmHg (35-45) H 07/14/17 04:14 ABG pO2 63 mmHg (85-104) L 07/14/17 04:14 ABG HCO3 41 mEq/L (21-27) H 07/14/17 04:14 ABG Total CO2 43 mEq/L (20-26) H 07/14/17 04:14 ABG O2 Saturation 91 % (95-98) L 07/14/17 04:14 ABG Base Excess 14 mEq/L (-2 to 3) H 07/14/17 04:14 Potassium 3.4 mEq/L (3.5-4.5) L D 07/15/17 03:10 Chloride 91 mEq/L (98-109) L 07/15/17 03:10 Carbon Dioxide 42 mEq/L (19-29) H* 07/15/17 03:10 BUN 35 mg/dL (8-26) H 07/15/17 03:10 BUN/Creatinine Ratio 38 (6-26) H 07/15/17 03:10 Glucose 207 mg/dL (70-99) H 07/15/17 03:10 POC Glucose 191 (58-89) H 07/14/17 23:32 Calculated Osmolality 304 (280-300) H 07/15/17 03:10 B-Natriuretic Peptide 184 pg/mL (0-100) H 07/13/17 19:22 Urine Clarity Cloudy (Clear) A 07/13/17 20:10 Ur Specific [place] 1.029 (1.010-1.025) H 07/13/17 20:10 Urine Protein 30 mg/dL (Neg-Trace) H 07/13/17 20:10 Urine Bilirubin Small (Negative) H 07/13/17 20:10 Urine Microscopic RBC 5-15 per hpf (0-3) H 07/13/17 20:10 Ur Squamous Epith Cells Many per lpf (None-Few) H 07/13/17 20:10 Fluid Appearance Cloudy (Clear) A 07/14/17 09:29 - Microbiology Findings Microbiology Findings: Microbiology, Last 48 Hours 07/14/17 04:20 Blood Culture - Preliminary Central Venous Catheter No growth. 07/14/17 04:25 Blood Culture - Preliminary Peripheral Venipuncture No growth. 07/14/17 09:29 Gram Stain - Final Left Lower Lobe Lung - Clinical Findings Intake & Output: Intake & Output 07/14/17 07/15/17 07/15/17 23:59 07:59 15:59 Intake Total 1220 / 1220 820 / 820 Output Total 680 / 680 2350 / 2350 Balance 540 / 540 -1530 / -1530 Weight 203 kg Consult Discharge Plan - Plan Referrals: Zion Hernandes DO [Primary Care Provider] - <Sam Núñez - Last Filed: 07/15/17 23:09> Date of Encounter: 07/15/17 Objective PUL Vital signs: Last Vital Signs Temp 98.3 F 07/15/17 18:02 Pulse 70 07/15/17 18:19 Resp 16 07/15/17 18:19 BP 147/100 07/15/17 18:19 Pulse Ox 94 07/15/17 18:19 Ventilator Settings Ventilator Settings: Ventilator Settings, Last 8 Hours Ventilator Mode VC+ Ventilator Mode VC+ Ventilator Mode VC+ Ventilator Mode VC+ Ventilator Mode VC+ Ventilator Mode VC+ Ventilator Tidal Volume 600 Setting Ventilator Tidal Volume 600 Setting Ventilator Tidal Volume 600 Setting Ventilator Tidal Volume 600 Setting Ventilator Tidal Volume 600 Setting Ventilator Tidal Volume 600 Setting Ventilator Respiratory Rate 14 Setting Ventilator Respiratory Rate 14 Setting Ventilator Respiratory Rate 14 Setting Ventilator Respiratory Rate 14 Setting Ventilator Respiratory Rate 14 Setting Ventilator Respiratory Rate 14 Setting Actual Respiratory Rate 16 Actual Respiratory Rate 15 Actual Respiratory Rate 14 Positive End Expiratory 8 Pressure Positive End Expiratory 8 Pressure Positive End Expiratory 8 Pressure Positive End Expiratory 8 Pressure Positive End Expiratory 8 Pressure Positive End Expiratory 8 Pressure Results - Laboratory Findings CBC and BMP: 07/15/17 11:40 07/15/17 11:40 ABG ABG pH 7.43 pH Units (7.32-7.45) 07/14/17 04:14 ABG pCO2 61 mmHg (35-45) H 07/14/17 04:14 ABG pO2 63 mmHg (85-104) L 07/14/17 04:14 ABG O2 Saturation 91 % (95-98) L 07/14/17 04:14 PT/INR, D-dimer PT 15.1 Seconds (9.4-12.1) H 07/15/17 03:10 Abnormal lab findings: Abnormal lab results WBC 13.7 K/mcL (4.3-11.1) H 07/15/17 11:40 Hgb 11.9 g/dL (12.9-16.9) L 07/15/17 11:40 MCH 27.1 pg (28.0-33.3) L 07/15/17 11:40 MCHC 31.5 g/dL (31.6-35.5) L 07/15/17 11:40 RDW 14.9 % (11.5-14.5) H 07/15/17 11:40 MPV 9.1 fL (9.4-12.4) L 07/15/17 11:40 Neutrophils # 11.8 K/mcL (1.6-8.9) H 07/15/17 11:40 PT 15.1 Seconds (9.4-12.1) H 07/15/17 03:10 ABG pCO2 61 mmHg (35-45) H 07/14/17 04:14 ABG pO2 63 mmHg (85-104) L 07/14/17 04:14 ABG HCO3 41 mEq/L (21-27) H 07/14/17 04:14 ABG Total CO2 43 mEq/L (20-26) H 07/14/17 04:14 ABG O2 Saturation 91 % (95-98) L 07/14/17 04:14 ABG Base Excess 14 mEq/L (-2 to 3) H 07/14/17 04:14 VBG pH 7.47 pH Units (7.32-7.42) H 07/15/17 12:00 Potassium 3.1 mEq/L (3.5-4.5) L 07/15/17 11:40 Chloride 92 mEq/L (98-109) L 07/15/17 11:40 Carbon Dioxide 42 mEq/L (19-29) H* 07/15/17 11:40 BUN 35 mg/dL (8-26) H 07/15/17 11:40 BUN/Creatinine Ratio 40 (6-26) H 07/15/17 11:40 Glucose 188 mg/dL (70-99) H 07/15/17 11:40 POC Glucose 217 (58-89) H 07/15/17 18:29 Calculated Osmolality 305 (280-300) H 07/15/17 11:40 Calcium 8.1 mg/dL (8.6-10.8) L 07/15/17 11:40 Venous Ioniz Calcium 1.00 mmol/L (1.15-1.35) L 07/15/17 12:00 B-Natriuretic Peptide 184 pg/mL (0-100) H 07/13/17 19:22 Serum Total Protein 5.8 g/dL (6.0-8.3) L 07/15/17 15:00 Urine Clarity Cloudy (Clear) A 07/13/17 20:10 Ur Specific [place] 1.029 (1.010-1.025) H 07/13/17 20:10 Urine Protein 30 mg/dL (Neg-Trace) H 07/13/17 20:10 Urine Bilirubin Small (Negative) H 07/13/17 20:10 Urine Microscopic RBC 5-15 per hpf (0-3) H 07/13/17 20:10 Ur Squamous Epith Cells Many per lpf (None-Few) H 07/13/17 20:10 Fluid Appearance Cloudy (Clear) A 07/14/17 09:29 Pleural Appearance Cloudy (Clear) A 07/15/17 12:30 Pleural Tot Nuc Cell 2828 TNC/mcL (0-1000) H 07/15/17 12:30 - Microbiology Findings Microbiology Findings: Microbiology, Last 48 Hours 07/15/17 12:30 Body Fluid Culture - Preliminary Pleural Fluid 07/14/17 09:29 Acid Fast Stain - Final Left Lower Lobe Lung 07/14/17 04:20 Blood Culture - Preliminary Central Venous Catheter No growth. 07/14/17 04:25 Blood Culture - Preliminary Peripheral Venipuncture No growth. 07/14/17 09:29 Gram Stain - Final Left Lower Lobe Lung - Clinical Findings Intake & Output: Intake & Output 07/15/17 07/15/17 07/15/17 07:59 15:59 23:59 Intake Total 920 / 920 520 / 520 400 / 400 Output Total 2350 / 2350 2780 / 2780 1830 / 1830 Balance -1430 / -1430 -2260 / -2260 -1430 / -1430 Weight 203 kg - Attending Attestation I saw the patient with the resident agree with History and Physical exam findings. Labs and Radiology were reviewed Ventilator data were reviewed TV and RR was adjusted PHARMACIST IN CHARGE OWNER: Patient is conscious following commands intubated NECK : No JVD appreciated Pulmonary : Patient is hypoxic and hypercarbic secondary to Pneumonia , pleural effusion was drained to aid lung mechanics concern for hemothorax , pleural fluid turbid straw colored more of exudative effusion wait for pleural fluid cultures , BAL showed some gram positive cocci Cardiac : Hemodynamically stable Nutrition/GI: Patient is on tube feeds, PPI prophylaxis Renal : Renal labs and output reviewed Heme onc : No acute issues today ID : Broad spectrum antibiotics for pneumonia to descalate to follow cultures Disposition : Remains critically ill Code status: Full code 32 minutes of Critical care time spent in medical decision making in preventing further vital organ decline and supporting the current vital organ function .
[2017-07-15] MEDS ORDERED: Lacri-Lube 3.5 GM TUBE BOTH EYES PRN (10:57)
[2017-07-15] MEDS: Lacri-Lube 3.5 GM TUBE BOTH EYES SCH ×3 (11:54→20:03)
[2017-07-15 11:56] LABS: Basophils % 0.1 %; Eosinophils % 0.1 %; Hematocrit 37.8 % (37.5-50.1); Hemoglobin 11.9 g/dL (12.9-16.9); Immature Granulocytes % 0.9 % (0-4); Lymphocytes % 7.6 %; Mean Corpuscular HGB Conc 31.5 g/dL (31.6-35.5); Mean Corpuscular Hemoglobin 27.1 pg (28.0-33.3); Mean Corpuscular Volume 86.1 fL (83.0-100.0); Mean Platelet Volume 9.1 fL (9.4-12.4); Monocytes # 0.7 K/mcL (0.0-1.3); Monocytes % 5.1 %; Neutrophils # 11.8 K/mcL (1.6-8.9); Platelet Count 244 K/mcL (140-400); Red Blood Count 4.39 M/mcL (4.19-5.50); Red Cell Distribution Width 14.9 % (11.5-14.5); Segmented Neutrophils % 86.2 %
[2017-07-15 12:03] LABS: VBG PH 7.47 pH Units (7.32-7.42)
[2017-07-15 12:04] LABS: BUN/Creatinine Ratio 40 (6-26); Blood Urea Nitrogen 35 mg/dL (8-26); Calcium 8.1 mg/dL (8.6-10.8); Chloride 92 mEq/L (98-109); Glucose 188 mg/dL (70-99); Magnesium 1.6 mg/dL (1.6-2.6); Osmolality,Calculated 305 (280-300); Phosphorous 3.1 mg/dL (2.3-4.7); Potassium 3.1 mEq/L (3.5-4.5); Sodium 141 mEq/L (136-145); eGFR For African Americans > 60 (> 60); eGFR For Non-African Americans > 60 (> 60)
[2017-07-15 12:06] LABS: Carbon Dioxide 42 mEq/L (19-29)
--- NOTE | 2017-07-15 12:33 | IR Procedure Note ---
Date of procedure: 07/15/17 Consent Obtained: Written consent Timeout: Correct patient and procedure verified, Correct site verified, Time out performed, Skin prep completed Local anesthetic: Lidocaine 1% Indications: Left pleural effusion Procedure Performed: Left chest tube placement Results/Findings: U/S guided 12F left chest tube placement Complications: None; Tolerated procedure well (Monitor on floor)
[2017-07-15] MEDS: FentaNYL (PF) 3,000 MCG in 0.9 % Sodium Chloride 240 ML IVC SCH (12:57)
[2017-07-15 13:27] LABS: Glucose,Pleural Fluid 69 mg/dL (No Ref Range); LDH,Pleural Fluid 1624 Units/L (No Ref Range); Total Protein,Pleural Fluid 3.5 g/dL (No Ref Range)
[2017-07-15 14:44] LABS: Appearance of Pleural Fl Cloudy (Clear)
[2017-07-15 15:28] LABS: Lactate Dehydrogenase 224 Units/L (159-327); Total Protein 5.8 g/dL (6.0-8.3)
[2017-07-15 17:07] LABS: RBC,Pleural Fluid 0.002 M/mcL
--- NOTE | 2017-07-15 19:59 | Electrocardiograph Report ---
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
[2017-07-15] MEDS: Chlorhexidine Rinse 15 ML MOUTHWASH MM SCH (20:10)
[2017-07-16] MEDS: Lacri-Lube 3.5 GM TUBE BOTH EYES SCH ×7 (00:03→23:10)
[2017-07-16] MEDS: Vancomycin 2,000 MG in D5% in Water 500 ML IVPB SCH ×2 (03:02→16:46)
[2017-07-16 03:14] LABS: Basophils % 0.1 %; Eosinophils % 0.2 %; Hematocrit 36.2 % (37.5-50.1); Hemoglobin 11.5 g/dL (12.9-16.9); Immature Granulocytes % 0.9 % (0-4); Lymphocytes # 0.9 K/mcL (0.6-4.6); Lymphocytes % 8.7 %; Mean Corpuscular HGB Conc 31.8 g/dL (31.6-35.5); Mean Corpuscular Hemoglobin 26.9 pg (28.0-33.3); Mean Corpuscular Volume 84.8 fL (83.0-100.0); Mean Platelet Volume 8.8 fL (9.4-12.4); Monocytes # 0.5 K/mcL (0.0-1.3); Monocytes % 5.3 %; Neutrophils # 8.5 K/mcL (1.6-8.9); Platelet Count 226 K/mcL (140-400); Red Blood Count 4.27 M/mcL (4.19-5.50); Red Cell Distribution Width 14.9 % (11.5-14.5); Segmented Neutrophils % 84.8 %
[2017-07-16 03:22] LABS: VBG Ionized Calcium 0.97 mmol/L (1.15-1.35); VBG PH 7.48 pH Units (7.32-7.42)
[2017-07-16 03:26] LABS: BUN/Creatinine Ratio 39 (6-26); Blood Urea Nitrogen 31 mg/dL (8-26); Calcium 7.9 mg/dL (8.6-10.8); Chloride 91 mEq/L (98-109); Glucose 215 mg/dL (70-99); Osmolality,Calculated 301 (280-300); Phosphorous 3.2 mg/dL (2.3-4.7); Potassium 2.7 mEq/L (3.5-4.5); Sodium 139 mEq/L (136-145); eGFR For African Americans > 60 (> 60); eGFR For Non-African Americans > 60 (> 60)
[2017-07-16 03:30] LABS: Carbon Dioxide 41 mEq/L (19-29)
[2017-07-16] MEDS: Potassium Chloride 40 MEQ/200 ML BAG IVPB PRN ×3 (03:57→20:42)
[2017-07-16] MEDS: methylPREDNISolone 125 MG/2 ML VIAL IVP SCH ×4 (05:24→23:06)
[2017-07-16] MEDS: Insulin LISPRO 300 UNITS/3 ML VIAL SQ SCH ×4 (05:26→23:07)
[2017-07-16 05:51] LABS: ABG Base Excess 18 mEq/L (-2 to 3); ABG HCO3 43 mEq/L (21-27); ABG Oxygen Saturation 96 % (95-98); ABG PCO2 56 mmHg (35-45); ABG PO2 75 mmHg (85-104); ABG TCO2 45 mEq/L (20-26); Blood Gas Modality VC; Blood Gas PEEP 8 cm H2O; Blood Gas Respiration Rate 14; Blood Gas VT 600 cc
[2017-07-16] MEDS: Ipratropium/Albuterol Neb 3 ML IH SCH ×3 (07:27→22:25)
[2017-07-16] MEDS ORDERED: Aminoglycoside Consult 1 EACH MC ONE (07:33)
[2017-07-16] MEDS: Pantoprazole 40 MG VIAL IVPB SCH (08:10)
[2017-07-16] MEDS: Chlorhexidine Rinse 15 ML MOUTHWASH MM SCH ×2 (08:10→20:01)
[2017-07-16] MEDS: Cefepime HCl 2,000 MG in Water for inj. (sterile) 20 ML IVP SCH ×3 (08:10→23:06)
[2017-07-16] MEDS: Dexmedetomidine HCl 400 MCG/100 ML MLS IVC SCH ×4 (08:27→21:46)
[2017-07-16] MEDS: Insulin DETEMIR 100 UNIT/ML X5UNITS SQ SCH (11:55)
--- NOTE | 2017-07-16 11:56 | Pulmonology Progress Note ---
<Caridad Callahan Yuki - Last Filed: 07/16/17 12:37> Date of Encounter: 07/16/17 Time of Encounter: 11:54 Assessment and Plan (1) Parapneumonic effusion Current Visit: Yes Status: Acute Chest tube with pigtail catheter inserted into the left pleural space yesterday on 07/15. -Pleural fluid analysis reveals exudative effusion consistent with parapneumonic effusion. -Continue antibiotics, vancomycin day 3 and cefepime day 3. (2) Metabolic alkalosis Current Visit: Yes Status: Acute Decrease minute ventilation and start Diamox 250 mg IV twice a day for 48 hours. (3) Acute on chronic respiratory failure with hypoxia and hypercapnia Current Visit: Yes Status: Acute Patient admitted with reported hypoxia while at home. His CO2 121 per initial ABG. -07/16- Patient with metabolic alkalosis and serum bicarbonate of 44 this afternoon, ABG pH 7.5 this morning. We will give Diamox 250 mg IV twice a day for the next 48 hours, in addition to changing the vent settings by decreasing minute ventilation. -Pleural fluid culture prelimarily negative. -BAL preliminarily prositive for normal URT ron. -Likely multifactorial including pneumonia in the setting of COPD, CHF, GABRIELA/OHS. -Currently intubated on mechanical ventilation. -Continue to hold home anticoagulation until inflammation improves despite chest tube placement with thoracentesis yesterday ruling out the presence of a left-sided hemothorax. -The pleural effusion fluid was cloudy in appearance without evidence of blood. Follow-up results of thoracentesis. -Continue IV antibiotics for pneumonia, cefepime day 3, vancomycin day 3. -Continue steroids and bronchodilators for COPD. -Continue close monitoring in ICU. (4) Lower extremity edema Current Visit: Yes Status: Acute Likely secondary to congestive heart failure. Per nurse, patient has expressed some calf tenderness. -Negative bilateral lower extremity venous Dopplers. (5) CHF (congestive heart failure) Current Visit: Yes Status: Acute Echocardiogram on 04/26/2017 shows an estimated LS EF of 50% -Change diuresis to IV diamox as patient can not tolerate lasix secondary to metabolic alkalosis. Qualifiers: Congestive heart failure type: unspecified congestive heart failure type Congestive heart failure chronicity: chronic Qualified Code(s): I50.9 - Heart failure, unspecified (6) Pneumonia Current Visit: No Status: Acute CT of the chest demonstrating focal consolidation in the posterior segment of the right upper lobe in the entire right lower lobe, suspicious for pneumonia. -BAL gram stain shows gram-positive cocci, prelim normal URT ron. -Pleural Fluid culture pending. -Pleura fluid analysis shows exudative pleural effusion c/w parapneumonic effusion. Qualifiers: Pneumonia type: due to unspecified organism Laterality: left Lung location: lower lobe of lung Qualified Code(s): J18.1 - Lobar pneumonia, unspecified organism (7) Sepsis Current Visit: No Status: Acute 3 SIRS criteria(tachycardia, tachypnea, and leukocytosis) with lactic acid 1.0 on initial presentation. -Likely secondary to pneumonia. -Blood cultures preliminarily negative. -Continue IV vancomycin and cefepime. Qualifiers: Sepsis type: sepsis due to unspecified organism Qualified Code(s): A41.9 - Sepsis, unspecified organism (8) COPD (chronic obstructive pulmonary disease) Current Visit: No Status: Chronic -Continue Solu-Medrol and bronchodilators. Qualifiers: COPD type: unspecified COPD Qualified Code(s): J44.9 - Chronic obstructive pulmonary disease, unspecified (9) Atrial fibrillation Current Visit: No Status: Chronic -Currently rate controlled. -Continue to hold Eliquis until patient improves clinically. Qualifiers: Atrial fibrillation type: chronic Qualified Code(s): I48.2 - Chronic atrial fibrillation (10) Diabetes Current Visit: No Status: Chronic -Continue insulin sliding scale with frequent glucose monitoring. -add 10 units of basal determir insulin. 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 Minimal surrounding erythema. -Continue supportive care. Qualifiers: Diabetic foot ulcer location: unspecified part of foot Diabetes mellitus type: other specified (including LINH) Laterality: left Non-pressure ulcer stage: unspecified non-pressure ulcer stage Qualified Code(s): E13.621 - Other specified diabetes mellitus with foot ulcer; L97.529 - Non-pressure chronic ulcer of other part of left foot with unspecified severity; L97.529 - Non-pressure chronic ulcer of other part of left foot with unspecified severity ; L97.529 - Non-pressure chronic ulcer of other part of left foot with unspecified severity; L97.529 - Non-pressure chronic ulcer of other part of left foot with unspecified severity (12) DVT prophylaxis Current Visit: Yes Status: Acute -Continue to hold Eliquis until patient improves clinically. -EPCDs Subjective Principal diagnosis: Acute on chronic respiratory failure with hypoxia and hypercapnia Interval history: Patient is intubated. No acute events overnight. Adjusted the vent to be able to compensate for metabolic alkalosis. Vent settings TV to 600, PEEP 8, and RR to 14. Objective PUL Vital signs: Last Vital Signs Temp 96.4 F L 07/16/17 08:00 Pulse 57 07/16/17 10:00 Resp 21 07/16/17 11:01 BP 125/77 07/16/17 11:01 Pulse Ox 93 07/16/17 11:01 General appearance: comatose, other (Sedated and intubated) Eyes: nonicteric ENT: oropharynx moist Neck: supple Auscultation: bilateral: diminished breath sounds Cardiovascular: regular rate and rhythm Gastrointestinal: normoactive bowel sounds, soft, non-tender, non-distended Integumentary: other (Patient with hyperpigmented and skin thickening on anterior aspect of shins. Left sided calcaneal ulcer with dressing clean, dry and intact.) Extremities: edema (1+) unable to assess due to mental status Ventilator Settings Ventilator Settings: Ventilator Settings, Last 8 Hours Ventilator Mode VC+ Ventilator Mode VC+ Ventilator Mode VC+ Ventilator Mode VC+ Ventilator Mode VC+ Ventilator Mode VC+ Ventilator Mode VC+ Ventilator Mode VC+ Ventilator Mode VC+ Ventilator Mode VC+ Ventilator Mode VC+ Ventilator Mode VC+ Ventilator Mode VC+ Ventilator Tidal Volume 600 Setting Ventilator Tidal Volume 600 Setting Ventilator Tidal Volume 470 Setting Ventilator Tidal Volume 600 Setting Ventilator Tidal Volume 600 Setting Ventilator Tidal Volume 600 Setting Ventilator Tidal Volume 600 Setting Ventilator Tidal Volume 600 Setting Ventilator Tidal Volume 600 Setting Ventilator Tidal Volume 600 Setting Ventilator Tidal Volume 600 Setting Ventilator Tidal Volume 600 Setting Ventilator Tidal Volume 600 Setting Ventilator Respiratory Rate 14 Setting Ventilator Respiratory Rate 14 Setting Ventilator Respiratory Rate 14 Setting Ventilator Respiratory Rate 14 Setting Ventilator Respiratory Rate 14 Setting Ventilator Respiratory Rate 14 Setting Ventilator Respiratory Rate 14 Setting Ventilator Respiratory Rate 14 Setting Ventilator Respiratory Rate 14 Setting Ventilator Respiratory Rate 14 Setting Ventilator Respiratory Rate 14 Setting Ventilator Respiratory Rate 14 Setting Ventilator Respiratory Rate 14 Setting Actual Respiratory Rate 17 Actual Respiratory Rate 22 Actual Respiratory Rate 14 Actual Respiratory Rate 14 Actual Respiratory Rate 14 Actual Respiratory Rate 14 Actual Respiratory Rate 14 Positive End Expiratory 8 Pressure Positive End Expiratory 8 Pressure Positive End Expiratory 8 Pressure Positive End Expiratory 8 Pressure Positive End Expiratory 8 Pressure Positive End Expiratory 8 Pressure Positive End Expiratory 8 Pressure Positive End Expiratory 8 Pressure Positive End Expiratory 8 Pressure Positive End Expiratory 8 Pressure Positive End Expiratory 8 Pressure Positive End Expiratory 8 Pressure Peak Inspiratory Airway 21 Pressure Peak Inspiratory Airway 19 Pressure Peak Inspiratory Airway 33 Pressure Peak Inspiratory Airway 29 Pressure Peak Inspiratory Airway 26 Pressure Peak Inspiratory Airway 29 Pressure Peak Inspiratory Airway 29 Pressure Peak Inspiratory Airway 22 Pressure Results - Laboratory Findings CBC and BMP: 07/16/17 03:01 07/16/17 12:00 ABG ABG pH 7.50 pH Units (7.32-7.45) H 07/16/17 05:47 ABG pCO2 56 mmHg (35-45) H 07/16/17 05:47 ABG pO2 75 mmHg (85-104) L 07/16/17 05:47 ABG O2 Saturation 96 % (95-98) 07/16/17 05:47 PT/INR, D-dimer PT 15.1 Seconds (9.4-12.1) H 07/15/17 03:10 Abnormal lab findings: Abnormal lab results Hgb 11.5 g/dL (12.9-16.9) L 07/16/17 03:01 Hct 36.2 % (37.5-50.1) L 07/16/17 03:01 MCH 26.9 pg (28.0-33.3) L 07/16/17 03:01 RDW 14.9 % (11.5-14.5) H 07/16/17 03:01 MPV 8.8 fL (9.4-12.4) L 07/16/17 03:01 PT 15.1 Seconds (9.4-12.1) H 07/15/17 03:10 ABG pH 7.50 pH Units (7.32-7.45) H 07/16/17 05:47 ABG pCO2 56 mmHg (35-45) H 07/16/17 05:47 ABG pO2 75 mmHg (85-104) L 07/16/17 05:47 ABG HCO3 43 mEq/L (21-27) H 07/16/17 05:47 ABG Total CO2 45 mEq/L (20-26) H 07/16/17 05:47 ABG Base Excess 18 mEq/L (-2 to 3) H 07/16/17 05:47 VBG pH 7.48 pH Units (7.32-7.42) H 07/16/17 03:18 Potassium 2.7 mEq/L (3.5-4.5) L 07/16/17 03:01 Chloride 91 mEq/L (98-109) L 07/16/17 03:01 Carbon Dioxide 41 mEq/L (19-29) H* 07/16/17 03:01 BUN 31 mg/dL (8-26) H 07/16/17 03:01 BUN/Creatinine Ratio 39 (6-26) H 07/16/17 03:01 Glucose 215 mg/dL (70-99) H 07/16/17 03:01 POC Glucose 213 (58-89) H 07/16/17 11:02 Calculated Osmolality 301 (280-300) H 07/16/17 03:01 Calcium 7.9 mg/dL (8.6-10.8) L 07/16/17 03:01 Venous Ioniz Calcium 0.97 mmol/L (1.15-1.35) L 07/16/17 03:18 B-Natriuretic Peptide 184 pg/mL (0-100) H 07/13/17 19:22 Serum Total Protein 5.8 g/dL (6.0-8.3) L 07/15/17 15:00 Urine Clarity Cloudy (Clear) A 07/13/17 20:10 Ur Specific [place] 1.029 (1.010-1.025) H 07/13/17 20:10 Urine Protein 30 mg/dL (Neg-Trace) H 07/13/17 20:10 Urine Bilirubin Small (Negative) H 07/13/17 20:10 Urine Microscopic RBC 5-15 per hpf (0-3) H 07/13/17 20:10 Ur Squamous Epith Cells Many per lpf (None-Few) H 07/13/17 20:10 Fluid Appearance Cloudy (Clear) A 07/14/17 09:29 Pleural Appearance Cloudy (Clear) A 07/15/17 12:30 Pleural Tot Nuc Cell 2828 TNC/mcL (0-1000) H 07/15/17 12:30 - Microbiology Findings Microbiology Findings: Microbiology, Last 48 Hours 07/14/17 09:29 Respiratory Culture - Preliminary Left Lower Lobe Lung Normal upper respiratory tract ron. No apparent pathogens isolated. 07/15/17 12:30 Body Fluid Culture - Preliminary Pleural Fluid 07/14/17 09:29 Acid Fast Stain - Final Left Lower Lobe Lung 07/14/17 04:20 Blood Culture - Preliminary Central Venous Catheter No growth. 07/14/17 04:25 Blood Culture - Preliminary Peripheral Venipuncture No growth. 07/14/17 09:29 Gram Stain - Final Left Lower Lobe Lung - Clinical Findings Intake & Output: Intake & Output 07/15/17 07/16/17 07/16/17 23:59 07:59 15:59 Intake Total 1490 / 1490 1058 / 1058 507 / 507 Output Total 3500 / 3500 725 / 725 750 / 750 Balance -2009 / -2009 333 / 333 -243 / -243 - VTE Documentation of Mechanical Device: Intermittent pneumatic compression device Consult Discharge Plan - Plan Referrals: Zion Hernandes DO [Primary Care Provider] - <Sam Núñez - Last Filed: 07/16/17 19:55> Date of Encounter: 07/16/17 Objective PUL Vital signs: Last Vital Signs Temp 98.0 F 07/16/17 15:49 Pulse 54 07/16/17 18:57 Resp 19 07/16/17 18:57 BP 127/72 07/16/17 18:57 Pulse Ox 95 07/16/17 19:37 Ventilator Settings Ventilator Settings: Ventilator Settings, Last 8 Hours Ventilator Mode VC+ Ventilator Mode VC+ Ventilator Mode VC+ Ventilator Mode VC+ Ventilator Mode VC+ Ventilator Mode VC+ Ventilator Mode VC+ Ventilator Mode VC+ Ventilator Mode VC+ Ventilator Mode VC+ Ventilator Mode VC+ Ventilator Mode VC+ Ventilator Tidal Volume 600 Setting Ventilator Tidal Volume 600 Setting Ventilator Tidal Volume 470 Setting Ventilator Tidal Volume 600 Setting Ventilator Tidal Volume 470 Setting Ventilator Tidal Volume 600 Setting Ventilator Tidal Volume 470 Setting Ventilator Tidal Volume 600 Setting Ventilator Tidal Volume 600 Setting Ventilator Tidal Volume 470 Setting Ventilator Tidal Volume 600 Setting Ventilator Tidal Volume 600 Setting Ventilator Respiratory Rate 14 Setting Ventilator Respiratory Rate 14 Setting Ventilator Respiratory Rate 14 Setting Ventilator Respiratory Rate 14 Setting Ventilator Respiratory Rate 14 Setting Ventilator Respiratory Rate 14 Setting Ventilator Respiratory Rate 14 Setting Ventilator Respiratory Rate 14 Setting Ventilator Respiratory Rate 14 Setting Ventilator Respiratory Rate 14 Setting Ventilator Respiratory Rate 14 Setting Ventilator Respiratory Rate 14 Setting Actual Respiratory Rate 20 Actual Respiratory Rate 23 Actual Respiratory Rate 26 Positive End Expiratory 8 Pressure Positive End Expiratory 8 Pressure Positive End Expiratory 8 Pressure Positive End Expiratory 8 Pressure Positive End Expiratory 8 Pressure Positive End Expiratory 8 Pressure Positive End Expiratory 8 Pressure Positive End Expiratory 8 Pressure Positive End Expiratory 8 Pressure Positive End Expiratory 8 Pressure Positive End Expiratory 8 Pressure Positive End Expiratory 8 Pressure Peak Inspiratory Airway 14 Pressure Peak Inspiratory Airway 13 Pressure Peak Inspiratory Airway 15 Pressure Peak Inspiratory Airway 20 Pressure Results - Laboratory Findings CBC and BMP: 07/16/17 03:01 07/16/17 12:00 ABG ABG pH 7.49 pH Units (7.32-7.45) H 07/16/17 16:20 ABG pCO2 50 mmHg (35-45) H 07/16/17 16:20 ABG pO2 71 mmHg (85-104) L 07/16/17 16:20 ABG O2 Saturation 95 % (95-98) 07/16/17 16:20 PT/INR, D-dimer PT 15.1 Seconds (9.4-12.1) H 07/15/17 03:10 Abnormal lab findings: Abnormal lab results Hgb 11.5 g/dL (12.9-16.9) L 07/16/17 03:01 Hct 36.2 % (37.5-50.1) L 07/16/17 03:01 MCH 26.9 pg (28.0-33.3) L 07/16/17 03:01 RDW 14.9 % (11.5-14.5) H 07/16/17 03:01 MPV 8.8 fL (9.4-12.4) L 07/16/17 03:01 PT 15.1 Seconds (9.4-12.1) H 07/15/17 03:10 ABG pH 7.49 pH Units (7.32-7.45) H 07/16/17 16:20 ABG pCO2 50 mmHg (35-45) H 07/16/17 16:20 ABG pO2 71 mmHg (85-104) L 07/16/17 16:20 ABG HCO3 39 mEq/L (21-27) H 07/16/17 16:20 ABG Total CO2 40 mEq/L (20-26) H 07/16/17 16:20 ABG Base Excess 13 mEq/L (-2 to 3) H 07/16/17 16:20 VBG pH 7.48 pH Units (7.32-7.42) H 07/16/17 03:18 Potassium 2.9 mEq/L (3.5-4.5) L 07/16/17 12:00 Chloride 92 mEq/L (98-109) L 07/16/17 12:00 Carbon Dioxide 44 mEq/L (19-29) H* 07/16/17 12:00 BUN 30 mg/dL (8-26) H 07/16/17 12:00 BUN/Creatinine Ratio 39 (6-26) H 07/16/17 12:00 Glucose 229 mg/dL (70-99) H 07/16/17 12:00 POC Glucose 204 (58-89) H 07/16/17 17:54 Calculated Osmolality 303 (280-300) H 07/16/17 12:00 Calcium 8.1 mg/dL (8.6-10.8) L 07/16/17 12:00 Venous Ioniz Calcium 1.00 mmol/L (1.15-1.35) L 07/16/17 12:11 B-Natriuretic Peptide 184 pg/mL (0-100) H 07/13/17 19:22 Serum Total Protein 5.8 g/dL (6.0-8.3) L 07/15/17 15:00 Urine Clarity Cloudy (Clear) A 07/13/17 20:10 Ur Specific [place] 1.029 (1.010-1.025) H 07/13/17 20:10 Urine Protein 30 mg/dL (Neg-Trace) H 07/13/17 20:10 Urine Bilirubin Small (Negative) H 07/13/17 20:10 Urine Microscopic RBC 5-15 per hpf (0-3) H 07/13/17 20:10 Ur Squamous Epith Cells Many per lpf (None-Few) H 07/13/17 20:10 Fluid Appearance Cloudy (Clear) A 07/14/17 09:29 Pleural Appearance Cloudy (Clear) A 07/15/17 12:30 Pleural Tot Nuc Cell 2828 TNC/mcL (0-1000) H 07/15/17 12:30 - Microbiology Findings Microbiology Findings: Microbiology, Last 48 Hours 07/15/17 12:30 Body Fluid Culture - Preliminary Pleural Fluid 07/14/17 09:29 Respiratory Culture - Preliminary Left Lower Lobe Lung Normal upper respiratory tract ron. No apparent pathogens isolated. 07/14/17 09:29 Acid Fast Stain - Final Left Lower Lobe Lung 07/14/17 04:20 Blood Culture - Preliminary Central Venous Catheter No growth. 07/14/17 04:25 Blood Culture - Preliminary Peripheral Venipuncture No growth. - Clinical Findings Intake & Output: Intake & Output 07/16/17 07/16/17 07/16/17 07:59 15:59 23:59 Intake Total 1058 / 1058 672 / 672 673 / 673 Output Total 725 / 725 2205 / 2205 640 / 640 Balance 333 / 333 -1533 / -1533 33 / 33 - Attending Attestation I saw the patient with the resident agree with History and Physical exam findings. 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 following commands intubated NECK : No JVD appreciated Pulmonary : Patient is hypoxic and hypercarbic secondary to Pneumonia , pleural effusion was drained to aid lung mechanics concern for hemothorax , pleural fluid turbid straw colored more of exudative effusion wait for pleural fluid cultures , BAL showed some gram positive cocci with minimal colonies , patient liberating process is worsened by post hypercapnic metabolic alkalosis / contraction alkalosis adjusted TV and RR will repeat ABG this is complicating his liberation process because of his pulmonary status we cannot give isotonic saline for the treatment of post hypercapnic respiratory alkalosis elected to use Acetazolamide . Cardiac : Hemodynamically stable Nutrition/GI: Patient is on tube feeds, PPI prophylaxis Renal : Renal labs and output reviewed . Patient has post hypercapnic metabolic alkalosis will start on Acetazolamide will adjust the vent settings .If it is not getting better will need to give isotonic saline . Heme onc : No acute issues today ID : Broad spectrum antibiotics for pneumonia to descalate to follow cultures Disposition : Remains critically ill Code status: Full code Spent 33 minutes of Critical Care time in medical decision making in prevention of vital organ decline and support of vital organ function.
[2017-07-16 12:26] LABS: BUN/Creatinine Ratio 39 (6-26); Blood Urea Nitrogen 30 mg/dL (8-26); Calcium 8.1 mg/dL (8.6-10.8); Chloride 92 mEq/L (98-109); Glucose 229 mg/dL (70-99); Osmolality,Calculated 303 (280-300); Potassium 2.9 mEq/L (3.5-4.5); Sodium 140 mEq/L (136-145); eGFR For African Americans > 60 (> 60); eGFR For Non-African Americans > 60 (> 60)
[2017-07-16 12:29] LABS: Carbon Dioxide 44 mEq/L (19-29)
[2017-07-16 16:26] LABS: ABG Base Excess 13 mEq/L (-2 to 3); ABG HCO3 39 mEq/L (21-27); ABG Oxygen Saturation 95 % (95-98); ABG PCO2 50 mmHg (35-45); ABG PH 7.49 pH Units (7.32-7.45); ABG PO2 71 mmHg (85-104); ABG TCO2 40 mEq/L (20-26); Blood Gas Modality ASSIST CONTROL; Blood Gas PEEP 8 cm H2O; Blood Gas Respiration Rate 14; Blood Gas VT 470 cc
[2017-07-16] MEDS: FentaNYL (PF) 3,000 MCG in 0.9 % Sodium Chloride 240 ML IVC SCH (18:02)
[2017-07-16 20:29] LABS: Magnesium 2.3 mg/dL (1.6-2.6); Potassium 2.8 mEq/L (3.5-4.5)
[2017-07-16 20:30] LABS: VBG HCO3 43 mEq/L (21-27); VBG Ionized Calcium 1.06 mmol/L (1.15-1.35); VBG PCO2 69 mmHg (41-51); VBG PO2 72 mmHg (25-50)
[2017-07-16 21:17] LABS: ABG Base Excess 15 mEq/L (-2 to 3); ABG HCO3 42 mEq/L (21-27); ABG Oxygen Saturation 96 % (95-98); ABG PCO2 61 mmHg (35-45); ABG PH 7.45 pH Units (7.32-7.45); ABG PO2 81 mmHg (85-104); ABG TCO2 44 mEq/L (20-26); Blood Gas Modality VC; Blood Gas Respiration Rate 14; Blood Gas VT 420 cc
[2017-07-17] MEDS: Vancomycin 2,000 MG in D5% in Water 500 ML IVPB SCH (03:15)
[2017-07-17] MEDS: Lacri-Lube 3.5 GM TUBE BOTH EYES SCH ×5 (03:25→20:09)
[2017-07-17] MEDS: Dexmedetomidine HCl 400 MCG/100 ML MLS IVC SCH ×5 (03:25→23:44)
[2017-07-17 03:33] LABS: Basophils % 0.1 %; Eosinophils % 0.1 %; Hematocrit 39.1 % (37.5-50.1); Hemoglobin 12.3 g/dL (12.9-16.9); Immature Granulocytes % 0.7 % (0-4); Lymphocytes # 0.6 K/mcL (0.6-4.6); Lymphocytes % 5.7 %; Mean Corpuscular HGB Conc 31.5 g/dL (31.6-35.5); Mean Corpuscular Hemoglobin 26.8 pg (28.0-33.3); Mean Corpuscular Volume 85.2 fL (83.0-100.0); Mean Platelet Volume 9.1 fL (9.4-12.4); Monocytes # 0.7 K/mcL (0.0-1.3); Neutrophils # 8.3 K/mcL (1.6-8.9); Platelet Count 229 K/mcL (140-400); Red Blood Count 4.59 M/mcL (4.19-5.50); Red Cell Distribution Width 14.6 % (11.5-14.5); Segmented Neutrophils % 86.4 %
[2017-07-17 03:40] LABS: VBG HCO3 38 mEq/L (21-27); VBG Ionized Calcium 1.03 mmol/L (1.15-1.35); VBG PCO2 60 mmHg (41-51); VBG PH 7.41 pH Units (7.32-7.42); VBG PO2 65 mmHg (25-50)
[2017-07-17 03:46] LABS: BUN/Creatinine Ratio 33 (6-26); BUN/Creatinine Ratio 35 (6-26); Blood Urea Nitrogen 26 mg/dL (8-26); Blood Urea Nitrogen 27 mg/dL (8-26); Carbon Dioxide 36 mEq/L (19-29); Carbon Dioxide 38 mEq/L (19-29); Chloride 95 mEq/L (98-109); Glucose 236 mg/dL (70-99); Glucose 238 mg/dL (70-99); Magnesium 2.1 mg/dL (1.6-2.6); Osmolality,Calculated 300 (280-300); Osmolality,Calculated 301 (280-300); Phosphorous 3.1 mg/dL (2.3-4.7); Potassium 2.8 mEq/L (3.5-4.5); Sodium 139 mEq/L (136-145); eGFR For African Americans > 60 (> 60); eGFR For Non-African Americans > 60 (> 60)
[2017-07-17] MEDS: Potassium Chloride 40 MEQ/200 ML BAG IVPB PRN ×2 (03:50→13:27)
[2017-07-17] MEDS: methylPREDNISolone 125 MG/2 ML VIAL IVP SCH (05:00)
[2017-07-17] MEDS: Insulin LISPRO 300 UNITS/3 ML VIAL SQ SCH ×3 (05:06→18:08)
[2017-07-17 05:16] LABS: ABG Base Excess 13 mEq/L (-2 to 3); ABG HCO3 39 mEq/L (21-27); ABG Oxygen Saturation 96 % (95-98); ABG PCO2 55 mmHg (35-45); ABG PH 7.46 pH Units (7.32-7.45); ABG PO2 78 mmHg (85-104); ABG TCO2 40 mEq/L (20-26)
[2017-07-17] MEDS: Ipratropium/Albuterol Neb 3 ML IH SCH ×3 (07:57→21:54)
--- NOTE | 2017-07-17 08:23 | Pulmonology Progress Note ---
Date of Encounter: 07/17/17 Time of Encounter: 08:00 Assessment and Plan (1) Acute on chronic respiratory failure with hypoxia and hypercapnia Current Visit: Yes Status: Acute (2) Hemothorax on left Current Visit: Yes Status: Acute (3) Sepsis Current Visit: No Status: Acute Qualifiers: Sepsis type: sepsis due to unspecified organism Qualified Code(s): A41.9 - Sepsis, unspecified organism (4) Pneumonia Current Visit: No Status: Acute Qualifiers: Pneumonia type: due to unspecified organism Laterality: left Lung location: lower lobe of lung Qualified Code(s): J18.1 - Lobar pneumonia, unspecified organism (5) Atrial fibrillation Current Visit: No Status: Chronic Qualifiers: Atrial fibrillation type: chronic Qualified Code(s): I48.2 - Chronic atrial fibrillation (6) COPD (chronic obstructive pulmonary disease) Current Visit: No Status: Chronic Qualifiers: COPD type: unspecified COPD Qualified Code(s): J44.9 - Chronic obstructive pulmonary disease, unspecified (7) CHF (congestive heart failure) Current Visit: Yes Status: Acute Qualifiers: Congestive heart failure type: unspecified congestive heart failure type Congestive heart failure chronicity: chronic Qualified Code(s): I50.9 - Heart failure, unspecified (8) Diabetes Current Visit: No Status: Chronic Qualifiers: Diabetes mellitus type: type 2 Diabetes mellitus complication status: with unspecified complications Diabetes mellitus assisted insulin use: with exterminator termite use Qualified Code(s): E11.8 - Type 2 diabetes mellitus with unspecified complications; 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; Z79.4 - long-term ( current) use of insulin; Z79.4 - long-term (current) use of insulin; Z79.4 - long-term (current) use of insulin (9) DVT prophylaxis Current Visit: Yes Status: Acute Subjective Principal diagnosis: Acute on chronic respiratory failure with hypoxia and hypercapnia Objective PUL Vital signs: Last Vital Signs Temp 96.9 F L 07/17/17 07:37 Pulse 82 07/17/17 08:00 Resp 23 07/17/17 08:00 BP 130/73 07/17/17 08:00 Pulse Ox 95 07/17/17 08:00 Ventilator Settings Ventilator Settings: Ventilator Settings, Last 8 Hours Ventilator Mode VC+ Ventilator Mode VC+ Ventilator Mode VC+ Ventilator Mode VC+ Ventilator Mode VC+ Ventilator Mode VC+ Ventilator Mode VC+ Ventilator Mode VC+ Ventilator Mode VC+ Ventilator Mode VC+ Ventilator Mode VC+ Ventilator Mode VC+ Ventilator Mode VC+ Ventilator Mode VC+ Ventilator Tidal Volume 420 Setting Ventilator Tidal Volume 420 Setting Ventilator Tidal Volume 420 Setting Ventilator Tidal Volume 420 Setting Ventilator Tidal Volume 420 Setting Ventilator Tidal Volume 420 Setting Ventilator Tidal Volume 420 Setting Ventilator Tidal Volume 420 Setting Ventilator Tidal Volume 420 Setting Ventilator Tidal Volume 420 Setting Ventilator Tidal Volume 420 Setting Ventilator Tidal Volume 420 Setting Ventilator Tidal Volume 420 Setting Ventilator Tidal Volume 420 Setting Ventilator Respiratory Rate 14 Setting Ventilator Respiratory Rate 14 Setting Ventilator Respiratory Rate 14 Setting Ventilator Respiratory Rate 14 Setting Ventilator Respiratory Rate 14 Setting Ventilator Respiratory Rate 14 Setting Ventilator Respiratory Rate 14 Setting Ventilator Respiratory Rate 14 Setting Ventilator Respiratory Rate 14 Setting Ventilator Respiratory Rate 14 Setting Ventilator Respiratory Rate 14 Setting Ventilator Respiratory Rate 14 Setting Ventilator Respiratory Rate 14 Setting Ventilator Respiratory Rate 14 Setting Actual Respiratory Rate 22 Actual Respiratory Rate 22 Actual Respiratory Rate 252 Actual Respiratory Rate 17 Actual Respiratory Rate 252 Actual Respiratory Rate 252 Actual Respiratory Rate 22 Actual Respiratory Rate 21 Actual Respiratory Rate 21 Actual Respiratory Rate 21 Positive End Expiratory 8 Pressure Positive End Expiratory 8 Pressure Positive End Expiratory 8 Pressure Positive End Expiratory 8 Pressure Positive End Expiratory 8 Pressure Positive End Expiratory 8 Pressure Positive End Expiratory 8 Pressure Positive End Expiratory 8 Pressure Positive End Expiratory 8 Pressure Positive End Expiratory 8 Pressure Positive End Expiratory 8 Pressure Positive End Expiratory 8 Pressure Positive End Expiratory 8 Pressure Positive End Expiratory 8 Pressure Peak Inspiratory Airway 14 Pressure Peak Inspiratory Airway 16 Pressure Peak Inspiratory Airway 17 Pressure Peak Inspiratory Airway 17 Pressure Peak Inspiratory Airway 17 Pressure Peak Inspiratory Airway 17 Pressure Peak Inspiratory Airway 17 Pressure Peak Inspiratory Airway 14 Pressure Peak Inspiratory Airway 14 Pressure Peak Inspiratory Airway 14 Pressure Results - Laboratory Findings CBC and BMP: 07/17/17 03:18 07/17/17 03:18 ABG ABG pH 7.46 pH Units (7.32-7.45) H 07/17/17 05:11 ABG pCO2 55 mmHg (35-45) H 07/17/17 05:11 ABG pO2 78 mmHg (85-104) L 07/17/17 05:11 ABG O2 Saturation 96 % (95-98) 07/17/17 05:11 PT/INR, D-dimer PT 15.1 Seconds (9.4-12.1) H 07/15/17 03:10 Abnormal lab findings: Abnormal lab results Hgb 12.3 g/dL (12.9-16.9) L 07/17/17 03:18 MCH 26.8 pg (28.0-33.3) L 07/17/17 03:18 MCHC 31.5 g/dL (31.6-35.5) L 07/17/17 03:18 RDW 14.6 % (11.5-14.5) H 07/17/17 03:18 MPV 9.1 fL (9.4-12.4) L 07/17/17 03:18 PT 15.1 Seconds (9.4-12.1) H 07/15/17 03:10 ABG pH 7.46 pH Units (7.32-7.45) H 07/17/17 05:11 ABG pCO2 55 mmHg (35-45) H 07/17/17 05:11 ABG pO2 78 mmHg (85-104) L 07/17/17 05:11 ABG HCO3 39 mEq/L (21-27) H 07/17/17 05:11 ABG Total CO2 40 mEq/L (20-26) H 07/17/17 05:11 ABG Base Excess 13 mEq/L (-2 to 3) H 07/17/17 05:11 VBG pCO2 60 mmHg (41-51) H 07/17/17 03:34 VBG pO2 65 mmHg (25-50) H 07/17/17 03:34 VBG HCO3 38 mEq/L (21-27) H 07/17/17 03:34 Potassium 2.8 mEq/L (3.5-4.5) L 07/17/17 03:18 Chloride 95 mEq/L (98-109) L 07/17/17 03:18 Carbon Dioxide 38 mEq/L (19-29) H 07/17/17 03:18 BUN 27 mg/dL (8-26) H 07/17/17 03:18 BUN/Creatinine Ratio 35 (6-26) H 07/17/17 03:18 Glucose 238 mg/dL (70-99) H 07/17/17 03:18 POC Glucose 255 (58-89) H 07/17/17 05:05 Calculated Osmolality 301 (280-300) H 07/17/17 03:18 Calcium 8.0 mg/dL (8.6-10.8) L 07/17/17 03:18 Venous Ioniz Calcium 1.03 mmol/L (1.15-1.35) L 07/17/17 03:34 B-Natriuretic Peptide 184 pg/mL (0-100) H 07/13/17 19:22 Serum Total Protein 5.8 g/dL (6.0-8.3) L 07/15/17 15:00 Urine Clarity Cloudy (Clear) A 07/13/17 20:10 Ur Specific [place] 1.029 (1.010-1.025) H 07/13/17 20:10 Urine Protein 30 mg/dL (Neg-Trace) H 07/13/17 20:10 Urine Bilirubin Small (Negative) H 07/13/17 20:10 Urine Microscopic RBC 5-15 per hpf (0-3) H 07/13/17 20:10 Ur Squamous Epith Cells Many per lpf (None-Few) H 07/13/17 20:10 Fluid Appearance Cloudy (Clear) A 07/14/17 09:29 Pleural Appearance Cloudy (Clear) A 07/15/17 12:30 Pleural Tot Nuc Cell 2828 TNC/mcL (0-1000) H 07/15/17 12:30 - Microbiology Findings Microbiology Findings: Microbiology, Last 48 Hours 07/14/17 09:29 Respiratory Culture - Final Left Lower Lobe Lung Normal upper respiratory tract ron. No apparent pathogens isolated. 07/15/17 12:30 Body Fluid Culture - Preliminary Pleural Fluid 07/14/17 09:29 Acid Fast Stain - Final Left Lower Lobe Lung 07/14/17 04:20 Blood Culture - Preliminary Central Venous Catheter No growth. 07/14/17 04:25 Blood Culture - Preliminary Peripheral Venipuncture No growth. - Clinical Findings Intake & Output: Intake & Output 07/16/17 07/17/17 07/17/17 23:59 07:59 15:59 Intake Total 1753 / 1753 1259 / 1259 Output Total 1290 / 1290 1020 / 1020 Balance 463 / 463 239 / 239 - VTE Documentation of Mechanical Device: Intermittent pneumatic compression device Consult Discharge Plan - Plan Referrals: Zion Hernandes DO [Primary Care Provider] -
[2017-07-17] MEDS: Chlorhexidine Rinse 15 ML MOUTHWASH MM SCH ×2 (08:42→20:13)
[2017-07-17] MEDS: Insulin DETEMIR 100 UNIT/ML X5UNITS SQ SCH (08:42)
[2017-07-17] MEDS: Pantoprazole 40 MG VIAL IVPB SCH (08:43)
[2017-07-17] MEDS: Cefepime HCl 2,000 MG in Water for inj. (sterile) 20 ML IVP SCH ×2 (08:43→16:07)
--- NOTE | 2017-07-17 09:33 | Pulmonology Progress Note ---
<Esteban Fernandez - Last Filed: 07/17/17 14:07> Date of Encounter: 07/17/17 Time of Encounter: 09:29 Assessment and Plan (1) Parapneumonic effusion Current Visit: Yes Status: Acute Chest tube with pigtail catheter inserted into the left pleural space on 07/15. Pleural fluid analysis reveals exudative effusion consistent with parapneumonic effusion. CXR reveals pulmonary edema and possible right effusion (2) Pneumonia Current Visit: No Status: Acute CT of the chest demonstrating focal consolidation in the posterior segment of the right upper lobe in the entire right lower lobe, suspicious for pneumonia. BAL gram stain shows gram-positive cocci, prelim normal URT ron. Pleural Fluid culture shows no growth to date Pleura fluid analysis shows exudative pleural effusion c/w parapneumonic effusion. Completed 4 days of Vancomycin (stopped 07/17/17) Continue Cefepime day 4. Qualifiers: Pneumonia type: due to unspecified organism Laterality: left Lung location: lower lobe of lung Qualified Code(s): J18.1 - Lobar pneumonia, unspecified organism (3) Acute on chronic respiratory failure with hypoxia and hypercapnia Current Visit: Yes Status: Acute Patient admitted with reported hypoxia while at home. His CO2 121 on initial ABG. Patient with metabolic alkalosis and serum bicarbonate of 44, ABG pH 7.5. Given Diamox 250 mg IV twice a day for the next 48 hours, in addition to changing the vent settings by decreasing minute ventilation. Likely multifactorial including pneumonia in the setting of COPD, CHF, GABRIELA/OHS. Currently intubated on mechanical ventilation. Continue to hold home anticoagulation until inflammation improves despite chest tube placement with thoracentesis ruling out the presence of a left-sided hemothorax. The pleural effusion fluid was cloudy in appearance without evidence of blood. Follow-up results of thoracentesis. Continue IV antibiotics for pneumonia, cefepime day 4, vancomycin day 4. Continue steroids and bronchodilators for COPD. Continue close monitoring in ICU. (4) Acute exacerbation of congestive heart failure Current Visit: Yes Status: Acute Echocardiogram on 04/26/2017 shows an estimated LS EF of 50% Change diuresis to IV diamox as patient can not tolerate lasix secondary to metabolic alkalosis. Leg edema secondary to congestive heart failure. Per nurse, patient has expressed some calf tenderness. Negative bilateral lower extremity venous Dopplers. Qualifiers: Congestive heart failure type: diastolic Qualified Code(s): I50.33 - Acute on chronic diastolic (congestive) heart failure (5) Metabolic alkalosis Current Visit: Yes Status: Acute Decreased minute ventilation and continue Diamox 250 mg IV twice a day for 48 hours. If it is not getting better will need to give isotonic saline . (6) Sepsis Current Visit: No Status: Acute 3 SIRS criteria(tachycardia, tachypnea, and leukocytosis) with lactic acid 1.0 on initial presentation. Likely secondary to pneumonia. Blood cultures preliminarily negative. Continue IV antibiotics Qualifiers: Sepsis type: sepsis due to unspecified organism Qualified Code(s): A41.9 - Sepsis, unspecified organism (7) COPD (chronic obstructive pulmonary disease) Current Visit: Yes Status: Chronic -Continue Solu-Medrol and bronchodilators. Qualifiers: COPD type: unspecified COPD Qualified Code(s): J44.9 - Chronic obstructive pulmonary disease, unspecified (8) Diabetes Current Visit: No Status: Chronic -Continue insulin sliding scale with frequent glucose monitoring. Continue 10 units of basal determir insulin. 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 Minimal surrounding erythema. Continue supportive care. Qualifiers: Diabetic foot ulcer location: unspecified part of foot Diabetes mellitus type: other specified (including LINH) Laterality: left Non-pressure ulcer stage: unspecified non-pressure ulcer stage Qualified Code(s): E13.621 - Other specified diabetes mellitus with foot ulcer; L97.529 - Non-pressure chronic ulcer of other part of left foot with unspecified severity; L97.529 - Non-pressure chronic ulcer of other part of left foot with unspecified severity ; L97.529 - Non-pressure chronic ulcer of other part of left foot with unspecified severity; L97.529 - Non-pressure chronic ulcer of other part of left foot with unspecified severity (10) Chronic atrial fibrillation Current Visit: No Status: Acute Currently rate controlled. Continue to hold Eliquis until patient improves clinically. (11) Morbid obesity with BMI of 50.0-59.9, adult Current Visit: Yes Status: Acute Intubated. Patient remains on tube feeds. Recommend diet and lifestyle modification (12) DVT prophylaxis Current Visit: Yes Status: Acute Continue to hold Eliquis until patient improves clinically. EPCDs Subjective Principal diagnosis: Acute on chronic respiratory failure with hypoxia and hypercapnia Interval history: Patient seen and examined. He remains intubated and sedated. No acute events overnight. Patient remains on tube feeds. Family is at bedside. Objective PUL Vital signs: Last Vital Signs Temp 96.9 F L 07/17/17 07:37 Pulse 83 07/17/17 09:00 Resp 20 07/17/17 09:00 BP 92/61 07/17/17 09:00 Pulse Ox 96 07/17/17 09:00 General appearance: no acute distress (intubated, sedated) Eyes: nonicteric ENT: oropharynx dry (intubated) Neck: supple, no JVD Auscultation: bilateral: diminished breath sounds (R > L) Percussion: bilateral: not dull Cardiovascular: regular rate and rhythm Gastrointestinal: normoactive bowel sounds, soft Integumentary: decubitus ulcer (hyperpigmented and skin thickening on anterior aspect of shins. Left sided calcaneal ulcer with dressing clean, dry and intact) Extremities: edema (1+) Musculoskeletal: no deformities non-focal exam (sedated, responds to noxious stimuli) Ventilator Settings Ventilator Settings: Ventilator Settings, Last 8 Hours Ventilator Mode VC+ Ventilator Mode VC+ Ventilator Mode VC+ Ventilator Mode VC+ Ventilator Mode VC+ Ventilator Mode VC+ Ventilator Mode VC+ Ventilator Mode VC+ Ventilator Mode VC+ Ventilator Mode VC+ Ventilator Mode VC+ Ventilator Mode VC+ Ventilator Mode VC+ Ventilator Tidal Volume 420 Setting Ventilator Tidal Volume 420 Setting Ventilator Tidal Volume 420 Setting Ventilator Tidal Volume 420 Setting Ventilator Tidal Volume 420 Setting Ventilator Tidal Volume 420 Setting Ventilator Tidal Volume 420 Setting Ventilator Tidal Volume 420 Setting Ventilator Tidal Volume 420 Setting Ventilator Tidal Volume 420 Setting Ventilator Tidal Volume 420 Setting Ventilator Tidal Volume 420 Setting Ventilator Tidal Volume 420 Setting Ventilator Respiratory Rate 14 Setting Ventilator Respiratory Rate 14 Setting Ventilator Respiratory Rate 14 Setting Ventilator Respiratory Rate 14 Setting Ventilator Respiratory Rate 14 Setting Ventilator Respiratory Rate 14 Setting Ventilator Respiratory Rate 14 Setting Ventilator Respiratory Rate 14 Setting Ventilator Respiratory Rate 14 Setting Ventilator Respiratory Rate 14 Setting Ventilator Respiratory Rate 14 Setting Ventilator Respiratory Rate 14 Setting Ventilator Respiratory Rate 14 Setting Actual Respiratory Rate 22 Actual Respiratory Rate 22 Actual Respiratory Rate 252 Actual Respiratory Rate 17 Actual Respiratory Rate 252 Actual Respiratory Rate 252 Actual Respiratory Rate 22 Actual Respiratory Rate 21 Positive End Expiratory 8 Pressure Positive End Expiratory 8 Pressure Positive End Expiratory 8 Pressure Positive End Expiratory 8 Pressure Positive End Expiratory 8 Pressure Positive End Expiratory 8 Pressure Positive End Expiratory 8 Pressure Positive End Expiratory 8 Pressure Positive End Expiratory 8 Pressure Positive End Expiratory 8 Pressure Positive End Expiratory 8 Pressure Positive End Expiratory 8 Pressure Positive End Expiratory 8 Pressure Peak Inspiratory Airway 14 Pressure Peak Inspiratory Airway 16 Pressure Peak Inspiratory Airway 17 Pressure Peak Inspiratory Airway 17 Pressure Peak Inspiratory Airway 17 Pressure Peak Inspiratory Airway 17 Pressure Peak Inspiratory Airway 17 Pressure Peak Inspiratory Airway 14 Pressure Results - Laboratory Findings CBC and BMP: 07/17/17 03:18 07/17/17 12:00 ABG ABG pH 7.46 pH Units (7.32-7.45) H 07/17/17 05:11 ABG pCO2 55 mmHg (35-45) H 07/17/17 05:11 ABG pO2 78 mmHg (85-104) L 07/17/17 05:11 ABG O2 Saturation 96 % (95-98) 07/17/17 05:11 PT/INR, D-dimer PT 15.1 Seconds (9.4-12.1) H 07/15/17 03:10 Abnormal lab findings: Abnormal lab results Hgb 12.3 g/dL (12.9-16.9) L 07/17/17 03:18 MCH 26.8 pg (28.0-33.3) L 07/17/17 03:18 MCHC 31.5 g/dL (31.6-35.5) L 07/17/17 03:18 RDW 14.6 % (11.5-14.5) H 07/17/17 03:18 MPV 9.1 fL (9.4-12.4) L 07/17/17 03:18 PT 15.1 Seconds (9.4-12.1) H 07/15/17 03:10 ABG pH 7.46 pH Units (7.32-7.45) H 07/17/17 05:11 ABG pCO2 55 mmHg (35-45) H 07/17/17 05:11 ABG pO2 78 mmHg (85-104) L 07/17/17 05:11 ABG HCO3 39 mEq/L (21-27) H 07/17/17 05:11 ABG Total CO2 40 mEq/L (20-26) H 07/17/17 05:11 ABG Base Excess 13 mEq/L (-2 to 3) H 07/17/17 05:11 VBG pCO2 60 mmHg (41-51) H 07/17/17 03:34 VBG pO2 65 mmHg (25-50) H 07/17/17 03:34 VBG HCO3 38 mEq/L (21-27) H 07/17/17 03:34 Potassium 2.8 mEq/L (3.5-4.5) L 07/17/17 03:18 Chloride 95 mEq/L (98-109) L 07/17/17 03:18 Carbon Dioxide 38 mEq/L (19-29) H 07/17/17 03:18 BUN 27 mg/dL (8-26) H 07/17/17 03:18 BUN/Creatinine Ratio 35 (6-26) H 07/17/17 03:18 Glucose 238 mg/dL (70-99) H 07/17/17 03:18 POC Glucose 255 (58-89) H 07/17/17 05:05 Calculated Osmolality 301 (280-300) H 07/17/17 03:18 Calcium 8.0 mg/dL (8.6-10.8) L 07/17/17 03:18 Venous Ioniz Calcium 1.03 mmol/L (1.15-1.35) L 07/17/17 03:34 B-Natriuretic Peptide 184 pg/mL (0-100) H 07/13/17 19:22 Serum Total Protein 5.8 g/dL (6.0-8.3) L 07/15/17 15:00 Urine Clarity Cloudy (Clear) A 07/13/17 20:10 Ur Specific [place] 1.029 (1.010-1.025) H 07/13/17 20:10 Urine Protein 30 mg/dL (Neg-Trace) H 07/13/17 20:10 Urine Bilirubin Small (Negative) H 07/13/17 20:10 Urine Microscopic RBC 5-15 per hpf (0-3) H 07/13/17 20:10 Ur Squamous Epith Cells Many per lpf (None-Few) H 07/13/17 20:10 Fluid Appearance Cloudy (Clear) A 07/14/17 09:29 Pleural Appearance Cloudy (Clear) A 07/15/17 12:30 Pleural Tot Nuc Cell 2828 TNC/mcL (0-1000) H 07/15/17 12:30 - Microbiology Findings Microbiology Findings: Microbiology, Last 48 Hours 07/14/17 09:29 Respiratory Culture - Final Left Lower Lobe Lung Normal upper respiratory tract ron. No apparent pathogens isolated. 07/15/17 12:30 Body Fluid Culture - Preliminary Pleural Fluid 07/14/17 09:29 Acid Fast Stain - Final Left Lower Lobe Lung 07/14/17 04:20 Blood Culture - Preliminary Central Venous Catheter No growth. 07/14/17 04:25 Blood Culture - Preliminary Peripheral Venipuncture No growth. - Diagnostic Findings Chest x-ray: report reviewed, image reviewed - Clinical Findings Intake & Output: Intake & Output 07/16/17 07/17/17 07/17/17 23:59 07:59 15:59 Intake Total 1753 / 1753 1259 / 1259 220 / 220 Output Total 1290 / 1290 1020 / 1020 Balance 463 / 463 239 / 239 220 / 220 - VTE Documentation of Mechanical Device: Intermittent pneumatic compression device Consult Discharge Plan - Plan Referrals: Zion Hernandes DO [Primary Care Provider] - <Sam Núñez - Last Filed: 07/17/17 20:23> Date of Encounter: 07/17/17 Objective PUL Vital signs: Last Vital Signs Temp 97.0 F L 07/17/17 16:30 Pulse 56 07/17/17 20:00 Resp 19 07/17/17 20:00 BP 123/76 07/17/17 20:00 Pulse Ox 99 07/17/17 20:00 Ventilator Settings Ventilator Settings: Ventilator Settings, Last 8 Hours Ventilator Mode VC+ Ventilator Mode VC+ Ventilator Mode VC+ Ventilator Mode VC+ Ventilator Mode VC+ Ventilator Mode VC+ Ventilator Mode VC+ Ventilator Mode VC+ Ventilator Mode VC+ Ventilator Mode VC+ Ventilator Tidal Volume 420 Setting Ventilator Tidal Volume 420 Setting Ventilator Tidal Volume 420 Setting Ventilator Tidal Volume 420 Setting Ventilator Tidal Volume 420 Setting Ventilator Tidal Volume 420 Setting Ventilator Tidal Volume 420 Setting Ventilator Tidal Volume 420 Setting Ventilator Tidal Volume 420 Setting Ventilator Tidal Volume 420 Setting Ventilator Respiratory Rate 14 Setting Ventilator Respiratory Rate 14 Setting Ventilator Respiratory Rate 14 Setting Ventilator Respiratory Rate 14 Setting Ventilator Respiratory Rate 14 Setting Ventilator Respiratory Rate 14 Setting Ventilator Respiratory Rate 14 Setting Ventilator Respiratory Rate 14 Setting Ventilator Respiratory Rate 14 Setting Ventilator Respiratory Rate 14 Setting Actual Respiratory Rate 18 Actual Respiratory Rate 22 Actual Respiratory Rate 19 Actual Respiratory Rate 19 Positive End Expiratory 5 Pressure Positive End Expiratory 5 Pressure Positive End Expiratory 5 Pressure Positive End Expiratory 8 Pressure Positive End Expiratory 5 Pressure Positive End Expiratory 8 Pressure Positive End Expiratory 8 Pressure Positive End Expiratory 8 Pressure Positive End Expiratory 8 Pressure Positive End Expiratory 8 Pressure Peak Inspiratory Airway 18 Pressure Peak Inspiratory Airway 18 Pressure Peak Inspiratory Airway 15 Pressure Peak Inspiratory Airway 15 Pressure Results - Laboratory Findings CBC and BMP: 07/17/17 03:18 07/17/17 19:00 ABG ABG pH 7.46 pH Units (7.32-7.45) H 07/17/17 05:11 ABG pCO2 55 mmHg (35-45) H 07/17/17 05:11 ABG pO2 78 mmHg (85-104) L 07/17/17 05:11 ABG O2 Saturation 96 % (95-98) 07/17/17 05:11 PT/INR, D-dimer PT 15.1 Seconds (9.4-12.1) H 07/15/17 03:10 Abnormal lab findings: Abnormal lab results Hgb 12.3 g/dL (12.9-16.9) L 07/17/17 03:18 MCH 26.8 pg (28.0-33.3) L 07/17/17 03:18 MCHC 31.5 g/dL (31.6-35.5) L 07/17/17 03:18 RDW 14.6 % (11.5-14.5) H 07/17/17 03:18 MPV 9.1 fL (9.4-12.4) L 07/17/17 03:18 PT 15.1 Seconds (9.4-12.1) H 07/15/17 03:10 ABG pH 7.46 pH Units (7.32-7.45) H 07/17/17 05:11 ABG pCO2 55 mmHg (35-45) H 07/17/17 05:11 ABG pO2 78 mmHg (85-104) L 07/17/17 05:11 ABG HCO3 39 mEq/L (21-27) H 07/17/17 05:11 ABG Total CO2 40 mEq/L (20-26) H 07/17/17 05:11 ABG Base Excess 13 mEq/L (-2 to 3) H 07/17/17 05:11 VBG pCO2 60 mmHg (41-51) H 07/17/17 03:34 VBG pO2 65 mmHg (25-50) H 07/17/17 03:34 VBG HCO3 38 mEq/L (21-27) H 07/17/17 03:34 Potassium 3.4 mEq/L (3.5-4.5) L 07/17/17 19:00 Chloride 95 mEq/L (98-109) L 07/17/17 03:18 Carbon Dioxide 38 mEq/L (19-29) H 07/17/17 03:18 BUN 27 mg/dL (8-26) H 07/17/17 03:18 BUN/Creatinine Ratio 35 (6-26) H 07/17/17 03:18 Glucose 238 mg/dL (70-99) H 07/17/17 03:18 POC Glucose 255 (58-89) H 07/17/17 05:05 Calculated Osmolality 301 (280-300) H 07/17/17 03:18 Calcium 8.0 mg/dL (8.6-10.8) L 07/17/17 03:18 Venous Ioniz Calcium 1.12 mmol/L (1.15-1.35) L 07/17/17 19:14 B-Natriuretic Peptide 184 pg/mL (0-100) H 07/13/17 19:22 Serum Total Protein 5.8 g/dL (6.0-8.3) L 07/15/17 15:00 Urine Clarity Cloudy (Clear) A 07/13/17 20:10 Ur Specific [place] 1.029 (1.010-1.025) H 07/13/17 20:10 Urine Protein 30 mg/dL (Neg-Trace) H 07/13/17 20:10 Urine Bilirubin Small (Negative) H 07/13/17 20:10 Urine Microscopic RBC 5-15 per hpf (0-3) H 07/13/17 20:10 Ur Squamous Epith Cells Many per lpf (None-Few) H 07/13/17 20:10 Fluid Appearance Cloudy (Clear) A 07/14/17 09:29 Pleural Appearance Cloudy (Clear) A 07/15/17 12:30 Pleural Tot Nuc Cell 2828 TNC/mcL (0-1000) H 07/15/17 12:30 - Microbiology Findings Microbiology Findings: Microbiology, Last 48 Hours 07/14/17 09:29 Respiratory Culture - Final Left Lower Lobe Lung Normal upper respiratory tract rno. No apparent pathogens isolated. 07/15/17 12:30 Body Fluid Culture - Preliminary Pleural Fluid - Clinical Findings Intake & Output: Intake & Output 07/17/17 07/17/17 07/17/17 07:59 15:59 23:59 Intake Total 1259 / 1259 1127 / 1127 320 / 320 Output Total 1020 / 1020 690 / 690 800 / 800 Balance 239 / 239 437 / 437 -480 / -480 - Attending Attestation I saw the patient with the resident agree with History and Physical exam findings. 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 following commands intubated NECK : No JVD appreciated Pulmonary : Patient is hypoxic and hypercarbic secondary to Pneumonia , pleural effusion was drained to aid lung mechanics concern for hemothorax , pleural fluid turbid straw colored more of exudative effusion wait for pleural fluid cultures , BAL showed some gram positive cocci with minimal colonies , patient liberating process is worsened by post hypercapnic metabolic alkalosis / contraction alkalosis adjusted TV and RR will repeat ABG this is complicating his liberation process because of his pulmonary status we cannot give isotonic saline for the treatment of post hypercapnic respiratory alkalosis elected to use Acetazolamide .Will try to SBT first drop his PEEP how he tolerates if he does will put him on SBT Cardiac : Hemodynamically stable Nutrition/GI: Patient is on tube feeds, PPI prophylaxis Renal : Renal labs and output reviewed . Patient has post hypercapnic metabolic alkalosis to continue diamox if the alkalosis getting better will try coventional diuresis stuck with diuresing with diamox for now Heme onc : No acute issues today ID : Broad spectrum antibiotics for pneumonia to descalate to follow cultures Disposition : Remains critically ill Code status: Full code
[2017-07-17 12:30] LABS: VBG Ionized Calcium 1.07 mmol/L (1.15-1.35)
[2017-07-17] MEDS: MethylPREDNISolone 40 MG/ML VIAL IVP SCH (16:07)
[2017-07-17 19:34] LABS: VBG Ionized Calcium 1.12 mmol/L (1.15-1.35); VBG PH 7.39 pH Units (7.32-7.42)
[2017-07-17] MEDS: FentaNYL (PF) 3,000 MCG in 0.9 % Sodium Chloride 240 ML IVC SCH (23:01)
[2017-07-18] MEDS: Insulin LISPRO 300 UNITS/3 ML VIAL SQ SCH ×5 (00:32→23:59)
[2017-07-18] MEDS: Lacri-Lube 3.5 GM TUBE BOTH EYES SCH ×6 (00:34→20:37)
[2017-07-18] MEDS: MethylPREDNISolone 40 MG/ML VIAL IVP SCH ×3 (00:39→20:52)
[2017-07-18] MEDS: Cefepime HCl 2,000 MG in Water for inj. (sterile) 20 ML IVP SCH ×4 (00:39→23:18)
[2017-07-18 04:32] LABS: ABG Base Excess 10 mEq/L (-2 to 3); ABG HCO3 37 mEq/L (21-27); ABG Oxygen Saturation 94 % (95-98); ABG PCO2 61 mmHg (35-45); ABG PH 7.39 pH Units (7.32-7.45); ABG PO2 76 mmHg (85-104); ABG TCO2 39 mEq/L (20-26); Blood Gas Modality ASSIST CONTROL; Blood Gas PEEP 5 cm H2O; Blood Gas Respiration Rate 14; Blood Gas VT 420 cc
[2017-07-18] MEDS: Dexmedetomidine HCl 400 MCG/100 ML MLS IVC SCH (04:37)
[2017-07-18 05:12] LABS: Basophils % 0.1 %; Eosinophils % 0.1 %; Hematocrit 39.5 % (37.5-50.1); Hemoglobin 12.4 g/dL (12.9-16.9); Immature Granulocytes % 0.9 % (0-4); Lymphocytes # 0.9 K/mcL (0.6-4.6); Lymphocytes % 8.9 %; Mean Corpuscular HGB Conc 31.4 g/dL (31.6-35.5); Mean Corpuscular Hemoglobin 27.1 pg (28.0-33.3); Mean Corpuscular Volume 86.4 fL (83.0-100.0); Mean Platelet Volume 9.4 fL (9.4-12.4); Monocytes # 0.7 K/mcL (0.0-1.3); Monocytes % 6.3 %; Neutrophils # 8.7 K/mcL (1.6-8.9); Platelet Count 217 K/mcL (140-400); Red Blood Count 4.57 M/mcL (4.19-5.50); Red Cell Distribution Width 14.5 % (11.5-14.5); Segmented Neutrophils % 83.7 %
[2017-07-18 05:20] LABS: VBG HCO3 36 mEq/L (21-27); VBG Ionized Calcium 1.13 mmol/L (1.15-1.35); VBG PCO2 63 mmHg (41-51); VBG PH 7.36 pH Units (7.32-7.42); VBG PO2 179 mmHg (25-50)
[2017-07-18 05:24] LABS: BUN/Creatinine Ratio 35 (6-26); Blood Urea Nitrogen 27 mg/dL (8-26); Calcium 8.3 mg/dL (8.6-10.8); Carbon Dioxide 35 mEq/L (19-29); Chloride 100 mEq/L (98-109); Glucose 286 mg/dL (70-99); Osmolality,Calculated 304 (280-300); Phosphorous 2.5 mg/dL (2.3-4.7); Potassium 3.4 mEq/L (3.5-4.5); Sodium 139 mEq/L (136-145); eGFR For African Americans > 60 (> 60); eGFR For Non-African Americans > 60 (> 60)
[2017-07-18] MEDS: Potassium Chloride 40 MEQ/200 ML BAG IVPB PRN ×2 (06:43→21:03)
--- NOTE | 2017-07-18 07:38 | Pulmonology Progress Note ---
<Caridad Callahan - Last Filed: 07/18/17 16:06> Date of Encounter: 07/18/17 Time of Encounter: 07:38 Assessment and Plan (1) Parapneumonic effusion Current Visit: Yes Status: Acute Chest tube with pigtail catheter inserted into the left pleural space yesterday on 07/15. -Pleural fluid analysis reveals exudative effusion consistent with parapneumonic effusion. -Continue antibiotics, completed 4 days of vancomycin (stopped 07/17) and cefepime day 5. (2) Acute on chronic respiratory failure with hypoxia and hypercapnia Current Visit: Yes Status: Acute Patient admitted with reported hypoxia while at home. His CO2 121 per initial ABG. -Patient successfully intubated today (07/18) -07/16- Patient with metabolic alkalosis likely secondary to post- hypercapnic alkalosis vs contraction alkalosis. Ph 7.42 this morning. We will continue to give Diamox 250 mg IV twice a day for the next 48 hours to continue to diurese patient. -Pleural fluid culture prelimarily negative. -BAL preliminarily prositive for normal URT ron. -Likely multifactorial including pneumonia in the setting of COPD, CHF, GABRIELA/OHS. -Continue to hold home anticoagulation until inflammation improves despite chest tube placement with thoracentesis yesterday ruling out the presence of a left-sided hemothorax. -The pleural effusion fluid was cloudy in appearance without evidence of blood. Follow-up results of thoracentesis. -Continue IV antibiotics for pneumonia, cefepime day 5, (DC'ed Vanc on 07/17 completed 4 doses). -Continue steroids and bronchodilators for COPD. -Continue close monitoring in ICU. (3) Metabolic alkalosis Current Visit: Yes Status: Acute After decreasing minute ventilation and 48 hours of diamox, patient's Ph WNL. -Continue diamox for 48 hours for diuresis. (4) Lower extremity edema Current Visit: Yes Status: Acute Likely secondary to congestive heart failure. Per nurse, patient has expressed some calf tenderness. -Negative bilateral lower extremity venous Dopplers. (5) CHF (congestive heart failure) Current Visit: Yes Status: Acute Echocardiogram on 04/26/2017 shows an estimated LS EF of 50% -Continue IV Diamox. Qualifiers: Congestive heart failure type: unspecified congestive heart failure type Congestive heart failure chronicity: chronic Qualified Code(s): I50.9 - Heart failure, unspecified (6) Pneumonia Current Visit: No Status: Acute CT of the chest demonstrating focal consolidation in the posterior segment of the right upper lobe in the entire right lower lobe, suspicious for pneumonia. -BAL gram stain shows gram-positive cocci, normal URT ron. -Pleural Fluid culture pending. -Pleural fluid analysis shows exudative pleural effusion c/w parapneumonic effusion. Qualifiers: Pneumonia type: due to unspecified organism Laterality: left Lung location: lower lobe of lung Qualified Code(s): J18.1 - Lobar pneumonia, unspecified organism (7) Sepsis Current Visit: No Status: Acute 3 SIRS criteria(tachycardia, tachypnea, and leukocytosis) with lactic acid 1.0 on initial presentation. -Likely secondary to pneumonia. -Blood cultures preliminarily negative. -Continue IV cefepime day 5. Qualifiers: Sepsis type: sepsis due to unspecified organism Qualified Code(s): A41.9 - Sepsis, unspecified organism (8) COPD (chronic obstructive pulmonary disease) Current Visit: Yes Status: Chronic -Continue Solu-Medrol and bronchodilators. Qualifiers: COPD type: unspecified COPD Qualified Code(s): J44.9 - Chronic obstructive pulmonary disease, unspecified (9) Atrial fibrillation Current Visit: No Status: Chronic -HR 117 this afternoon, add lopressor 10mg q6. -Continue to hold Eliquis until patient improves clinically. Qualifiers: Atrial fibrillation type: chronic Qualified Code(s): I48.2 - Chronic atrial fibrillation (10) Diabetes Current Visit: No Status: Chronic -Continue insulin sliding scale with frequent glucose monitoring. 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 Minimal surrounding erythema. -Continue supportive care. Qualifiers: Diabetic foot ulcer location: unspecified part of foot Diabetes mellitus type: other specified (including LINH) Laterality: left Non-pressure ulcer stage: unspecified non-pressure ulcer stage Qualified Code(s): E13.621 - Other specified diabetes mellitus with foot ulcer; L97.529 - Non-pressure chronic ulcer of other part of left foot with unspecified severity; L97.529 - Non-pressure chronic ulcer of other part of left foot with unspecified severity ; L97.529 - Non-pressure chronic ulcer of other part of left foot with unspecified severity; L97.529 - Non-pressure chronic ulcer of other part of left foot with unspecified severity (12) DVT prophylaxis Current Visit: Yes Status: Acute -Continue to hold Eliquis until patient improves clinically. -EPCDs GI prophylaxis- IV protonix 40mg IV BID. Subjective Principal diagnosis: Acute on chronic respiratory failure with hypoxia and hypercapnia Interval history: Patient's at bedside this morning. Patient is resting comfortably and satting well on CPAP which she has been on since 625 this morning. PEEP was decreased yesterday afternoon to 5.2. Per nurse, patient has not had a bowel movement. She gave senna through his OG tube after which the patient became nauseated. She suctioned 500 mL out of the OG tube. Patient handled extubation without incident. Objective PUL Vital signs: Last Vital Signs Temp 97.8 F 07/18/17 04:20 Pulse 76 07/18/17 07:00 Resp 15 07/18/17 07:00 BP 154/97 07/18/17 07:00 Pulse Ox 95 07/18/17 07:00 General appearance: no acute distress, alert (Patient able to communicate via dry [employer] board.) Eyes: nonicteric ENT: oropharynx moist Neck: supple, other Effort: normal Auscultation: bilateral: diminished breath sounds Cardiovascular: regular rate and rhythm Gastrointestinal: normoactive bowel sounds, soft, non-tender, non-distended Integumentary: other (Patient with well healing calcaneal ulcer on his left foot.) Extremities: anasarca, other (Patient with bilateral lower extremity hyperpigmentation and skin thickening.) Ventilator Settings Ventilator Settings: Ventilator Settings, Last 8 Hours Ventilator Mode CPAP Ventilator Mode VC+ Ventilator Mode VC+ Ventilator Mode VC+ Ventilator Mode VC+ Ventilator Mode VC+ Ventilator Mode VC+ Ventilator Mode VC+ Ventilator Tidal Volume 420 Setting Ventilator Tidal Volume 420 Setting Ventilator Tidal Volume 420 Setting Ventilator Tidal Volume 420 Setting Ventilator Tidal Volume 420 Setting Ventilator Tidal Volume 420 Setting Ventilator Tidal Volume 420 Setting Ventilator Respiratory Rate 14 Setting Ventilator Respiratory Rate 14 Setting Ventilator Respiratory Rate 14 Setting Ventilator Respiratory Rate 14 Setting Ventilator Respiratory Rate 14 Setting Ventilator Respiratory Rate 14 Setting Ventilator Respiratory Rate 14 Setting Actual Respiratory Rate 21 Actual Respiratory Rate 19 Actual Respiratory Rate 19 Actual Respiratory Rate 18 Actual Respiratory Rate 18 Actual Respiratory Rate 18 Positive End Expiratory 5 Pressure Positive End Expiratory 5 Pressure Positive End Expiratory 5 Pressure Positive End Expiratory 5 Pressure Positive End Expiratory 5 Pressure Positive End Expiratory 5 Pressure Positive End Expiratory 5 Pressure Peak Inspiratory Airway 13 Pressure Peak Inspiratory Airway 15 Pressure Peak Inspiratory Airway 14 Pressure Peak Inspiratory Airway 19 Pressure Peak Inspiratory Airway 17 Pressure Peak Inspiratory Airway 22 Pressure Results - Laboratory Findings CBC and BMP: 07/18/17 04:59 07/18/17 04:59 ABG ABG pH 7.39 pH Units (7.32-7.45) 07/18/17 04:28 ABG pCO2 61 mmHg (35-45) H 07/18/17 04:28 ABG pO2 76 mmHg (85-104) L 07/18/17 04:28 ABG O2 Saturation 94 % (95-98) L 07/18/17 04:28 PT/INR, D-dimer PT 15.1 Seconds (9.4-12.1) H 07/15/17 03:10 Abnormal lab findings: Abnormal lab results Hgb 12.4 g/dL (12.9-16.9) L 07/18/17 04:59 MCH 27.1 pg (28.0-33.3) L 07/18/17 04:59 MCHC 31.4 g/dL (31.6-35.5) L 07/18/17 04:59 PT 15.1 Seconds (9.4-12.1) H 07/15/17 03:10 ABG pCO2 61 mmHg (35-45) H 07/18/17 04:28 ABG pO2 76 mmHg (85-104) L 07/18/17 04:28 ABG HCO3 37 mEq/L (21-27) H 07/18/17 04:28 ABG Total CO2 39 mEq/L (20-26) H 07/18/17 04:28 ABG O2 Saturation 94 % (95-98) L 07/18/17 04:28 ABG Base Excess 10 mEq/L (-2 to 3) H 07/18/17 04:28 VBG pCO2 63 mmHg (41-51) H 07/18/17 05:16 VBG pO2 179 mmHg (25-50) H 07/18/17 05:16 VBG HCO3 36 mEq/L (21-27) H 07/18/17 05:16 Potassium 3.4 mEq/L (3.5-4.5) L 07/18/17 04:59 Carbon Dioxide 35 mEq/L (19-29) H 07/18/17 04:59 BUN 27 mg/dL (8-26) H 07/18/17 04:59 BUN/Creatinine Ratio 35 (6-26) H 07/18/17 04:59 Glucose 286 mg/dL (70-99) H 07/18/17 04:59 POC Glucose 232 (58-89) H 07/18/17 00:16 Calculated Osmolality 304 (280-300) H 07/18/17 04:59 Calcium 8.3 mg/dL (8.6-10.8) L 07/18/17 04:59 Venous Ioniz Calcium 1.13 mmol/L (1.15-1.35) L 07/18/17 05:16 B-Natriuretic Peptide 184 pg/mL (0-100) H 07/13/17 19:22 Serum Total Protein 5.8 g/dL (6.0-8.3) L 07/15/17 15:00 Urine Clarity Cloudy (Clear) A 07/13/17 20:10 Ur Specific Venus 1.029 (1.010-1.025) H 07/13/17 20:10 Urine Protein 30 mg/dL (Neg-Trace) H 07/13/17 20:10 Urine Bilirubin Small (Negative) H 07/13/17 20:10 Urine Microscopic RBC 5-15 per hpf (0-3) H 07/13/17 20:10 Ur Squamous Epith Cells Many per lpf (None-Few) H 07/13/17 20:10 Fluid Appearance Cloudy (Clear) A 07/14/17 09:29 Pleural Appearance Cloudy (Clear) A 07/15/17 12:30 Pleural Tot Nuc Cell 2828 TNC/mcL (0-1000) H 07/15/17 12:30 - Microbiology Findings Microbiology Findings: Microbiology, Last 48 Hours 07/14/17 09:29 Respiratory Culture - Final Left Lower Lobe Lung Normal upper respiratory tract ron. No apparent pathogens isolated. 07/15/17 12:30 Body Fluid Culture - Preliminary Pleural Fluid - Clinical Findings Intake & Output: Intake & Output 07/17/17 07/17/17 07/18/17 15:59 23:59 07:59 Intake Total 1127 / 1127 870 / 870 983 / 983 Output Total 690 / 690 1320 / 1320 1540 / 1540 Balance 437 / 437 -450 / -450 -557 / -557 - VTE Documentation of Mechanical Device: Intermittent pneumatic compression device Consult Discharge Plan - Plan Referrals: Zion Hernandes DO [Primary Care Provider] - <Sam Núñez - Last Filed: 07/19/17 00:22> Date of Encounter: 07/19/17 Objective PUL Vital signs: Last Vital Signs Temp 99.2 F 07/19/17 00:09 Pulse 105 07/19/17 00:00 Resp 18 07/19/17 00:00 BP 129/66 07/19/17 00:00 Pulse Ox 95 07/19/17 00:00 Results - Laboratory Findings CBC and BMP: 07/18/17 04:59 07/18/17 19:45 ABG ABG pH 7.42 pH Units (7.32-7.45) 07/18/17 08:18 ABG pCO2 54 mmHg (35-45) H 07/18/17 08:18 ABG pO2 71 mmHg (85-104) L 07/18/17 08:18 ABG O2 Saturation 94 % (95-98) L 07/18/17 08:18 PT/INR, D-dimer PT 15.1 Seconds (9.4-12.1) H 07/15/17 03:10 Abnormal lab findings: Abnormal lab results Hgb 12.4 g/dL (12.9-16.9) L 07/18/17 04:59 MCH 27.1 pg (28.0-33.3) L 07/18/17 04:59 MCHC 31.4 g/dL (31.6-35.5) L 07/18/17 04:59 PT 15.1 Seconds (9.4-12.1) H 07/15/17 03:10 ABG pCO2 54 mmHg (35-45) H 07/18/17 08:18 ABG pO2 71 mmHg (85-104) L 07/18/17 08:18 ABG HCO3 35 mEq/L (21-27) H 07/18/17 08:18 ABG Total CO2 36 mEq/L (20-26) H 07/18/17 08:18 ABG O2 Saturation 94 % (95-98) L 07/18/17 08:18 ABG Base Excess 8 mEq/L (-2 to 3) H 07/18/17 08:18 VBG pCO2 63 mmHg (41-51) H 07/18/17 05:16 VBG pO2 179 mmHg (25-50) H 07/18/17 05:16 VBG HCO3 36 mEq/L (21-27) H 07/18/17 05:16 Potassium 3.2 mEq/L (3.5-4.5) L 07/18/17 19:45 Carbon Dioxide 35 mEq/L (19-29) H 07/18/17 04:59 BUN 27 mg/dL (8-26) H 07/18/17 04:59 BUN/Creatinine Ratio 35 (6-26) H 07/18/17 04:59 Glucose 286 mg/dL (70-99) H 07/18/17 04:59 POC Glucose 135 (58-89) H 07/18/17 23:58 Calculated Osmolality 304 (280-300) H 07/18/17 04:59 Calcium 8.3 mg/dL (8.6-10.8) L 07/18/17 04:59 Venous Ioniz Calcium 1.13 mmol/L (1.15-1.35) L 07/18/17 05:16 Phosphorus 2.1 mg/dL (2.3-4.7) L 07/18/17 19:45 B-Natriuretic Peptide 184 pg/mL (0-100) H 07/13/17 19:22 Serum Total Protein 5.8 g/dL (6.0-8.3) L 07/15/17 15:00 Urine Clarity Cloudy (Clear) A 07/13/17 20:10 Ur Specific Venus 1.029 (1.010-1.025) H 07/13/17 20:10 Urine Protein 30 mg/dL (Neg-Trace) H 07/13/17 20:10 Urine Bilirubin Small (Negative) H 07/13/17 20:10 Urine Microscopic RBC 5-15 per hpf (0-3) H 07/13/17 20:10 Ur Squamous Epith Cells Many per lpf (None-Few) H 07/13/17 20:10 Fluid Appearance Cloudy (Clear) A 07/14/17 09:29 Pleural Appearance Cloudy (Clear) A 07/15/17 12:30 Pleural Tot Nuc Cell 2828 TNC/mcL (0-1000) H 07/15/17 12:30 - Microbiology Findings Microbiology Findings: Microbiology, Last 48 Hours 07/15/17 12:30 Body Fluid Culture - Final Pleural Fluid 07/14/17 09:29 Respiratory Culture - Final Left Lower Lobe Lung Normal upper respiratory tract ron. No apparent pathogens isolated. - Clinical Findings Intake & Output: Intake & Output 07/18/17 07/18/17 07/19/17 15:59 23:59 07:59 Intake Total 480 / 480 220 / 220 Output Total 1400 / 1400 420 / 420 360 / 360 Balance -920 / -920 -200 / -200 -360 / -360 Weight 210 kg - Attending Attestation I saw the patient with the resident agree with History and Physical exam findings. Labs and Radiology were reviewed Ventilator data were reviewed TV and RR was adjusted metabolic alkalosis improving RENTAL COORDINATOR: Patient is conscious following commands intubated very pleasant if extubated the current mental status will cooperative for BIPAP support NECK : No JVD appreciated Pulmonary : Patient is hypoxic and hypercarbic secondary to Pneumonia , pleural effusion was drained to aid lung mechanics concern for hemothorax , pleural fluid turbid straw colored more of exudative effusion wait for pleural fluid cultures , BAL showed some gram positive cocci with minimal colonies , patient passed the SBT and patient was extubated to BIPAP , he should use the BIPAP tonight Cardiac : Hemodynamically stable Nutrition/GI: Hold tube feeds, PPI prophylaxis Renal : Renal labs and output reviewed . Patient has post hypercapnic metabolic alkalosis to continue diamox alkalosis getting better will add loop diuretics Heme onc : No acute issues today ID : Broad spectrum antibiotics for pneumonia to descalate to follow cultures Disposition : Remains critically ill Code status: Full code Spent 40 minutes of critical time in medical decision making to support vital organ function and to prevent further decline .
[2017-07-18] MEDS: Ipratropium/Albuterol Neb 3 ML IH SCH ×3 (07:53→22:09)
[2017-07-18] MEDS ORDERED: *HR* Etomidate 40 MG/20 ML VIAL IVP ONE (07:57)
[2017-07-18] MEDS: Chlorhexidine Rinse 15 ML MOUTHWASH MM SCH ×2 (08:09→20:55)
[2017-07-18] MEDS: Pantoprazole 40 MG VIAL IVPB SCH (08:09)
[2017-07-18] MEDS: Potassium Phosphate 44 MEQ in 0.9 % Sodium Chloride 250 ML IVPB PRN ×2 (08:09→22:07)
[2017-07-18] MEDS: Insulin DETEMIR 100 UNIT/ML X5UNITS SQ SCH (08:12)
[2017-07-18 08:22] LABS: ABG Base Excess 8 mEq/L (-2 to 3); ABG HCO3 35 mEq/L (21-27); ABG Oxygen Saturation 94 % (95-98); ABG PCO2 54 mmHg (35-45); ABG PH 7.42 pH Units (7.32-7.45); ABG PO2 71 mmHg (85-104); ABG TCO2 36 mEq/L (20-26); Blood Gas Modality CPAP/PS; Blood Gas PEEP 5 cm H2O; Blood Gas Pressure Support 10 cm H2O; Blood Gas VT 420 cc
[2017-07-18] MEDS: *HR* Metoprolol 5 MG/5 ML VIAL IVP PRN ×2 (17:19→23:16)
[2017-07-18] MEDS ORDERED: *HR* Metoprolol 5 MG/5 ML VIAL IVP SCH (18:00)
[2017-07-18 20:11] LABS: Phosphorous 2.1 mg/dL (2.3-4.7); Potassium 3.2 mEq/L (3.5-4.5)
[2017-07-18] MEDS: Ondansetron 4 MG/2 ML VIAL IVP PRN (20:51)
[2017-07-18] MEDS ORDERED: Water for inj. (sterile) 10 ML IV ONE (23:32)
[2017-07-19] MEDS: Lacri-Lube 3.5 GM TUBE BOTH EYES SCH ×3 (00:41→08:44)
[2017-07-19] MEDS: Prochlorperazine 10 MG/2 ML VIAL IVP PRN ×2 (02:25→06:16)
[2017-07-19] MEDS: Ondansetron 4 MG/2 ML VIAL IVP PRN ×2 (03:25→17:35)
[2017-07-19 04:33] LABS: Basophils % 0.2 %; Eosinophils % 0.1 %; Hematocrit 42.4 % (37.5-50.1); Hemoglobin 13.1 g/dL (12.9-16.9); Immature Granulocytes % 1.1 % (0-4); Lymphocytes # 1.6 K/mcL (0.6-4.6); Lymphocytes % 8.3 %; Mean Corpuscular HGB Conc 30.9 g/dL (31.6-35.5); Mean Corpuscular Hemoglobin 26.6 pg (28.0-33.3); Monocytes # 1.4 K/mcL (0.0-1.3); Monocytes % 7.3 %; Neutrophils # 15.8 K/mcL (1.6-8.9); Platelet Count 287 K/mcL (140-400); Red Blood Count 4.93 M/mcL (4.19-5.50)
[2017-07-19 04:39] LABS: BUN/Creatinine Ratio 36 (6-26); Blood Urea Nitrogen 29 mg/dL (8-26); Calcium 8.1 mg/dL (8.6-10.8); Carbon Dioxide 34 mEq/L (19-29); Chloride 104 mEq/L (98-109); Glucose 181 mg/dL (70-99); Magnesium 1.9 mg/dL (1.6-2.6); Osmolality,Calculated 306 (280-300); Potassium 3.6 mEq/L (3.5-4.5); Sodium 143 mEq/L (136-145); eGFR For African Americans > 60 (> 60); eGFR For Non-African Americans > 60 (> 60)
[2017-07-19] MEDS: Potassium Chloride 40 MEQ/200 ML BAG IVPB PRN ×3 (04:55→13:43)
[2017-07-19] MEDS: Insulin LISPRO 300 UNITS/3 ML VIAL SQ SCH ×3 (05:02→18:24)
[2017-07-19] MEDS: *HR* Metoprolol 5 MG/5 ML VIAL IVP PRN ×3 (05:03→17:37)
[2017-07-19] MEDS ORDERED: Furosemide 40 MG/4 ML VIAL IVP ONE (07:37)
[2017-07-19] MEDS ORDERED: *HR* Promethazine 25 MG/ML VIAL IVP ONE (07:39)
[2017-07-19] MEDS: Ipratropium/Albuterol Neb 3 ML IH SCH ×3 (07:47→23:08)
[2017-07-19] MEDS: Pantoprazole 40 MG VIAL IVPB SCH (08:18)
[2017-07-19] MEDS: MethylPREDNISolone 40 MG/ML VIAL IVP SCH ×2 (08:20→20:19)
[2017-07-19 08:30] LABS: VBG PH 7.36 pH Units (7.32-7.42)
[2017-07-19] MEDS: Cefepime HCl 2,000 MG in Water for inj. (sterile) 20 ML IVP SCH ×2 (08:30→16:10)
[2017-07-19] MEDS: Chlorhexidine Rinse 15 ML MOUTHWASH MM SCH (08:44)
[2017-07-19] MEDS ORDERED: Insulin DETEMIR 100 UNIT/ML X5UNITS SQ SCH (09:00)
--- NOTE | 2017-07-19 09:38 | Pulmonology Progress Note ---
<DeonzahraCaridad connelly - Last Filed: 07/19/17 16:25> Date of Encounter: 07/19/17 Time of Encounter: 09:33 Assessment and Plan (1) Parapneumonic effusion Current Visit: Yes Status: Acute Chest tube with pigtail catheter inserted into the left pleural space yesterday on 07/15. -Pleural fluid analysis reveals exudative effusion consistent with parapneumonic effusion. -Continue antibiotics, completed 4 days of vancomycin (stopped 07/17) and cefepime day 6. (2) Acute on chronic respiratory failure with hypoxia and hypercapnia Current Visit: Yes Status: Acute Patient admitted with reported hypoxia while at home. His CO2 121 per initial ABG. -07/19- Alkalosis resolved. Will resume IV furosemide 40mg BID for diuresis of pulmonary edema. -07/18- Patient successfully extubated (07/18) -07/16- Patient with metabolic alkalosis likely secondary to post- hypercapnic alkalosis vs contraction alkalosis. Ph 7.42 this morning. We will continue to give Diamox 250 mg IV twice a day for the next 48 hours to continue to diurese patient. -Pleural fluid culture negative. -BAL-normal URT ron. -Likely multifactorial including pneumonia in the setting of COPD, CHF, GABRIELA/OHS. -Continue to hold home anticoagulation until inflammation improves despite chest tube placement with thoracentesis ruling out the presence of a left-sided hemothorax. -Continue IV antibiotics for pneumonia, cefepime day 6, (DC'ed Vanc on 07/17 completed 4 doses). -Continue steroids and bronchodilators for COPD. -Continue close monitoring in ICU. (3) Nausea & vomiting Current Visit: Yes Status: Acute Patient nausea and vomitting. Likely small ileus now resolving. -Patients symptoms resolving with 2 large BM's. -Nausea improving with metoclopramide and phenergan. Qualifiers: Vomiting type: unspecified Vomiting Intractability: unspecified Qualified Code(s): R11.2 - Nausea with vomiting, unspecified (4) Metabolic alkalosis Current Visit: Yes Status: Acute Resolved -Will resumes IV lasix 40mg BID (5) Lower extremity edema Current Visit: Yes Status: Acute Likely secondary to congestive heart failure. Per nurse, patient has expressed some calf tenderness. -Negative bilateral lower extremity venous Dopplers. (6) CHF (congestive heart failure) Current Visit: Yes Status: Acute Echocardiogram on 04/26/2017 shows an estimated LS EF of 50% -Resume IV Lasix. -Monitor I&O's closely. Qualifiers: Congestive heart failure type: unspecified congestive heart failure type Congestive heart failure chronicity: chronic Qualified Code(s): I50.9 - Heart failure, unspecified (7) Pneumonia Current Visit: No Status: Acute CT of the chest demonstrating focal consolidation in the posterior segment of the right upper lobe in the entire right lower lobe, suspicious for pneumonia. -BAL gram stain shows gram-positive cocci, normal URT ron. -Pleural Fluid culture negative. -Pleural fluid analysis shows exudative pleural effusion c/w parapneumonic effusion. -Cefepime day 6. Qualifiers: Pneumonia type: due to unspecified organism Laterality: left Lung location: lower lobe of lung Qualified Code(s): J18.1 - Lobar pneumonia, unspecified organism (8) Sepsis Current Visit: No Status: Acute 3 SIRS criteria(tachycardia, tachypnea, and leukocytosis) with lactic acid 1.0 on initial presentation. -Likely secondary to pneumonia. -Blood cultures negative. -Continue IV cefepime day 6. Qualifiers: Sepsis type: sepsis due to unspecified organism Qualified Code(s): A41.9 - Sepsis, unspecified organism (9) COPD (chronic obstructive pulmonary disease) Current Visit: Yes Status: Chronic -Continue Solu-Medrol and bronchodilators. Qualifiers: COPD type: unspecified COPD Qualified Code(s): J44.9 - Chronic obstructive pulmonary disease, unspecified (10) Atrial fibrillation Current Visit: No Status: Chronic -Tachycardia yesterday. -Metoprolol 5mg q6hr PRN HR -Continue to hold Eliquis until patient improves clinically. Qualifiers: Atrial fibrillation type: chronic Qualified Code(s): I48.2 - Chronic atrial fibrillation (11) Diabetes Current Visit: No Status: Chronic -Continue insulin sliding scale with frequent glucose monitoring. -decrease basal insulin to 10 units daily as decreasing steroids. Qualifiers: Diabetes mellitus type: type 2 Diabetes mellitus complication status: with unspecified complications Diabetes mellitus incubator tender insulin use: with assisted use Qualified Code(s): E11.8 - Type 2 diabetes mellitus with unspecified complications; Z79.4 - [facility] (current) use of insulin; Z79.4 - [employer] ( current) use of insulin; Z79.4 - [employer] (current) use of insulin; Z79.4 - [facility] (current) use of insulin (12) Diabetic foot ulcer Current Visit: No Status: Chronic Patient with well healing calcaneal ulcer with central scabbing. Minimal surrounding erythema. -Continue supportive care. Qualifiers: Diabetic foot ulcer location: unspecified part of foot Diabetes mellitus type: other specified (including LINH) Laterality: left Non-pressure ulcer stage: unspecified non-pressure ulcer stage Qualified Code(s): E13.621 - Other specified diabetes mellitus with foot ulcer; L97.529 - Non-pressure chronic ulcer of other part of left foot with unspecified severity; L97.529 - Non-pressure chronic ulcer of other part of left foot with unspecified severity ; L97.529 - Non-pressure chronic ulcer of other part of left foot with unspecified severity; L97.529 - Non-pressure chronic ulcer of other part of left foot with unspecified severity (13) DVT prophylaxis Current Visit: Yes Status: Acute -Continue to hold Eliquis until patient improves clinically. -EPCDs GI prophylaxis- IV protonix 40mg IV BID. Subjective Principal diagnosis: Acute on chronic respiratory failure with hypoxia and hypercapnia Interval history: Mr. Swenson was satting well this morning on 4 L nasal cannula he was however very nauseated from the night before. He denies any rest secondary to his nausea and vomiting. He did have one very large bowel movement overnight. Objective PUL Vital signs: Last Vital Signs Temp 97.1 F L 07/19/17 07:55 Pulse 102 07/19/17 07:00 Resp 16 07/19/17 07:47 BP 145/78 07/19/17 07:00 Pulse Ox 97 07/19/17 07:47 General appearance: no acute distress, alert Eyes: nonicteric ENT: oropharynx moist Effort: normal Auscultation: bilateral: diminished breath sounds, rales Cardiovascular: regular rate and rhythm Gastrointestinal: normoactive bowel sounds, soft, non-tender, non-distended Integumentary: erythema (diffusely over bilteral upper extremity, abdomen) Results - Laboratory Findings CBC and BMP: 07/19/17 04:15 07/19/17 11:10 ABG ABG pH 7.42 pH Units (7.32-7.45) 07/18/17 08:18 ABG pCO2 54 mmHg (35-45) H 07/18/17 08:18 ABG pO2 71 mmHg (85-104) L 07/18/17 08:18 ABG O2 Saturation 94 % (95-98) L 07/18/17 08:18 PT/INR, D-dimer PT 15.1 Seconds (9.4-12.1) H 07/15/17 03:10 Abnormal lab findings: Abnormal lab results WBC 19.0 K/mcL (4.3-11.1) H D 07/19/17 04:15 MCH 26.6 pg (28.0-33.3) L 07/19/17 04:15 MCHC 30.9 g/dL (31.6-35.5) L 07/19/17 04:15 RDW 15.0 % (11.5-14.5) H 07/19/17 04:15 MPV 9.0 fL (9.4-12.4) L 07/19/17 04:15 Neutrophils # 15.8 K/mcL (1.6-8.9) H 07/19/17 04:15 Monocytes # 1.4 K/mcL (0.0-1.3) H 07/19/17 04:15 PT 15.1 Seconds (9.4-12.1) H 07/15/17 03:10 ABG pCO2 54 mmHg (35-45) H 07/18/17 08:18 ABG pO2 71 mmHg (85-104) L 07/18/17 08:18 ABG HCO3 35 mEq/L (21-27) H 07/18/17 08:18 ABG Total CO2 36 mEq/L (20-26) H 07/18/17 08:18 ABG O2 Saturation 94 % (95-98) L 07/18/17 08:18 ABG Base Excess 8 mEq/L (-2 to 3) H 07/18/17 08:18 VBG pCO2 63 mmHg (41-51) H 07/18/17 05:16 VBG pO2 179 mmHg (25-50) H 07/18/17 05:16 VBG HCO3 36 mEq/L (21-27) H 07/18/17 05:16 Carbon Dioxide 34 mEq/L (19-29) H 07/19/17 04:15 BUN 29 mg/dL (8-26) H 07/19/17 04:15 BUN/Creatinine Ratio 36 (6-26) H 07/19/17 04:15 Glucose 181 mg/dL (70-99) H 07/19/17 04:15 POC Glucose 146 (58-89) H 07/19/17 04:55 Calculated Osmolality 306 (280-300) H 07/19/17 04:15 Calcium 8.1 mg/dL (8.6-10.8) L 07/19/17 04:15 Venous Ioniz Calcium 1.10 mmol/L (1.15-1.35) L 07/19/17 08:27 B-Natriuretic Peptide 184 pg/mL (0-100) H 07/13/17 19:22 Serum Total Protein 5.8 g/dL (6.0-8.3) L 07/15/17 15:00 Urine Clarity Cloudy (Clear) A 07/13/17 20:10 Ur Specific Carson 1.029 (1.010-1.025) H 07/13/17 20:10 Urine Protein 30 mg/dL (Neg-Trace) H 07/13/17 20:10 Urine Bilirubin Small (Negative) H 07/13/17 20:10 Urine Microscopic RBC 5-15 per hpf (0-3) H 07/13/17 20:10 Ur Squamous Epith Cells Many per lpf (None-Few) H 07/13/17 20:10 Fluid Appearance Cloudy (Clear) A 07/14/17 09:29 Pleural Appearance Cloudy (Clear) A 07/15/17 12:30 Pleural Tot Nuc Cell 2828 TNC/mcL (0-1000) H 07/15/17 12:30 - Microbiology Findings Microbiology Findings: Microbiology, Last 48 Hours 07/14/17 04:20 Blood Culture - Final Central Venous Catheter No growth. 07/14/17 04:25 Blood Culture - Final Peripheral Venipuncture No growth. 07/15/17 12:30 Body Fluid Culture - Final Pleural Fluid 07/14/17 09:29 Respiratory Culture - Final Left Lower Lobe Lung Normal upper respiratory tract ron. No apparent pathogens isolated. - Clinical Findings Intake & Output: Intake & Output 07/18/17 07/19/17 07/19/17 23:59 07:59 15:59 Intake Total 240 / 240 310 / 310 Output Total 420 / 420 1250 / 1250 Balance -180 / -180 -940 / -940 Weight 210 kg - VTE Documentation of Mechanical Device: Intermittent pneumatic compression device Consult Discharge Plan - Plan Referrals: Zion Hernandes DO [Primary Care Provider] - <Sam Núñez - Last Filed: 07/19/17 20:07> Date of Encounter: 07/19/17 Objective PUL Vital signs: Last Vital Signs Temp 99.8 F H 07/19/17 16:06 Pulse 90 07/19/17 18:00 Resp 19 07/19/17 18:00 BP 106/74 07/19/17 18:00 Pulse Ox 98 07/19/17 18:00 Results - Laboratory Findings CBC and BMP: 07/19/17 04:15 07/19/17 11:10 ABG ABG pH 7.42 pH Units (7.32-7.45) 07/18/17 08:18 ABG pCO2 54 mmHg (35-45) H 07/18/17 08:18 ABG pO2 71 mmHg (85-104) L 07/18/17 08:18 ABG O2 Saturation 94 % (95-98) L 07/18/17 08:18 PT/INR, D-dimer PT 15.1 Seconds (9.4-12.1) H 07/15/17 03:10 Abnormal lab findings: Abnormal lab results WBC 19.0 K/mcL (4.3-11.1) H D 07/19/17 04:15 MCH 26.6 pg (28.0-33.3) L 07/19/17 04:15 MCHC 30.9 g/dL (31.6-35.5) L 07/19/17 04:15 RDW 15.0 % (11.5-14.5) H 07/19/17 04:15 MPV 9.0 fL (9.4-12.4) L 07/19/17 04:15 Neutrophils # 15.8 K/mcL (1.6-8.9) H 07/19/17 04:15 Monocytes # 1.4 K/mcL (0.0-1.3) H 07/19/17 04:15 PT 15.1 Seconds (9.4-12.1) H 07/15/17 03:10 ABG pCO2 54 mmHg (35-45) H 07/18/17 08:18 ABG pO2 71 mmHg (85-104) L 07/18/17 08:18 ABG HCO3 35 mEq/L (21-27) H 07/18/17 08:18 ABG Total CO2 36 mEq/L (20-26) H 07/18/17 08:18 ABG O2 Saturation 94 % (95-98) L 07/18/17 08:18 ABG Base Excess 8 mEq/L (-2 to 3) H 07/18/17 08:18 VBG pCO2 63 mmHg (41-51) H 07/18/17 05:16 VBG pO2 179 mmHg (25-50) H 07/18/17 05:16 VBG HCO3 36 mEq/L (21-27) H 07/18/17 05:16 Carbon Dioxide 34 mEq/L (19-29) H 07/19/17 04:15 BUN 29 mg/dL (8-26) H 07/19/17 04:15 BUN/Creatinine Ratio 36 (6-26) H 07/19/17 04:15 Glucose 181 mg/dL (70-99) H 07/19/17 04:15 POC Glucose 147 (58-89) H 07/19/17 17:24 Calculated Osmolality 306 (280-300) H 07/19/17 04:15 Calcium 8.1 mg/dL (8.6-10.8) L 07/19/17 04:15 Venous Ioniz Calcium 1.10 mmol/L (1.15-1.35) L 07/19/17 08:27 B-Natriuretic Peptide 184 pg/mL (0-100) H 07/13/17 19:22 Serum Total Protein 5.8 g/dL (6.0-8.3) L 07/15/17 15:00 Urine Clarity Cloudy (Clear) A 07/13/17 20:10 Ur Specific Carson 1.029 (1.010-1.025) H 07/13/17 20:10 Urine Protein 30 mg/dL (Neg-Trace) H 07/13/17 20:10 Urine Bilirubin Small (Negative) H 07/13/17 20:10 Urine Microscopic RBC 5-15 per hpf (0-3) H 07/13/17 20:10 Ur Squamous Epith Cells Many per lpf (None-Few) H 07/13/17 20:10 Fluid Appearance Cloudy (Clear) A 07/14/17 09:29 Pleural Appearance Cloudy (Clear) A 07/15/17 12:30 Pleural Tot Nuc Cell 2828 TNC/mcL (0-1000) H 07/15/17 12:30 - Microbiology Findings Microbiology Findings: Microbiology, Last 48 Hours 07/14/17 04:20 Blood Culture - Final Central Venous Catheter No growth. 07/14/17 04:25 Blood Culture - Final Peripheral Venipuncture No growth. 07/15/17 12:30 Body Fluid Culture - Final Pleural Fluid - Clinical Findings Intake & Output: Intake & Output 07/19/17 07/19/17 07/19/17 07:59 15:59 23:59 Intake Total 510 / 510 420 / 420 Output Total 1250 / 1250 2090 / 2090 570 / 570 Balance -740 / -740 -1670 / -1670 -550 / -550 Weight 210 kg - Attending Attestation I saw the patient with the resident agree with History and Physical exam findings. Labs and Radiology were reviewed Patient is spontaneously breathing could not use BIPAP overnight because of nausea and vomitting mostly it was dry heaving RESPIRATORY THERAPIST ASSISTANT: Patient is conscious following commands oriented x 3 NECK : No JVD appreciated Pulmonary : Patient is hypoxic and hypercarbic secondary to Pneumonia , pleural effusion was drained to aid lung mechanics concern for hemothorax , pleural fluid turbid straw colored more of exudative effusion wait for pleural fluid cultures , BAL showed some gram positive cocci with minimal colonies , fluid overload will diurese him Cardiac : Hemodynamically stable Nutrition/GI: Patient has dry heaving now he is moving his bowels so low likelihood of bowel obstruction , most of the nausea is followed by dry heaving can be possible gastritis will increase PPI IV BID Renal : Renal labs and output reviewed . Patient has post hypercapnic metabolic alkalosis resolved , will stop diamox start on Loop diuretics Heme onc : No acute issues today ID : Broad spectrum antibiotics for pneumonia to descalate to follow cultures Disposition : Remains critically ill will need ICU monitoring Code status: Full code 32 minutes of Critical care time was spent in medical decision making in supporting vital organ function.
[2017-07-19] MEDS: Metoclopramide 10 MG/2 ML VIAL IVP PRN ×2 (11:04→20:20)
[2017-07-19 11:27] LABS: Magnesium 2.1 mg/dL (1.6-2.6); Potassium 3.6 mEq/L (3.5-4.5)
[2017-07-19] MEDS: Potassium Phosphate 44 MEQ in 0.9 % Sodium Chloride 250 ML IVPB PRN (13:44)
[2017-07-19] MEDS: Pantoprazole 40 MG VIAL IVP SCH (17:35)
[2017-07-19] MEDS ORDERED: Water for inj. (sterile) 10 ML IV ONE (20:15)
[2017-07-19] MEDS: Furosemide 40 MG/4 ML VIAL IVP SCH (20:31)
[2017-07-20] MEDS: Insulin LISPRO 300 UNITS/3 ML VIAL SQ SCH ×5 (00:23→23:34)
[2017-07-20 00:24] LABS: BUN/Creatinine Ratio 43 (6-26); Blood Urea Nitrogen 34 mg/dL (8-26); Calcium 8.2 mg/dL (8.6-10.8); Carbon Dioxide 29 mEq/L (19-29); Chloride 104 mEq/L (98-109); Glucose 178 mg/dL (70-99); Osmolality,Calculated 302 (280-300); Phosphorous 2.5 mg/dL (2.3-4.7); Potassium 3.7 mEq/L (3.5-4.5); Sodium 140 mEq/L (136-145); eGFR For African Americans > 60 (> 60); eGFR For Non-African Americans > 60 (> 60)
[2017-07-20] MEDS: Cefepime HCl 2,000 MG in Water for inj. (sterile) 20 ML IVP SCH ×4 (00:40→23:31)
[2017-07-20] MEDS: Potassium Chloride 40 MEQ/200 ML BAG IVPB PRN (00:41)
[2017-07-20] MEDS: Ondansetron 4 MG/2 ML VIAL IVP PRN (00:41)
[2017-07-20] MEDS: Potassium Phosphate 44 MEQ in 0.9 % Sodium Chloride 250 ML IVPB PRN ×2 (00:52→13:33)
[2017-07-20] MEDS: Metoclopramide 10 MG/2 ML VIAL IVP PRN (02:23)
[2017-07-20] MEDS: *HR* Metoprolol 5 MG/5 ML VIAL IVP PRN ×3 (02:29→21:04)
[2017-07-20 04:48] LABS: ABG Base Excess 2 mEq/L (-2 to 3); ABG HCO3 25 mEq/L (21-27); ABG Oxygen Saturation 100 % (95-98); ABG PCO2 32 mmHg (35-45); ABG PO2 165 mmHg (85-104); ABG TCO2 26 mEq/L (20-26)
[2017-07-20 05:55] LABS: Basophils % 0.1 %; Eosinophils % 0.1 %; Hematocrit 39.3 % (37.5-50.1); Hemoglobin 12.2 g/dL (12.9-16.9); Immature Granulocytes % 0.9 % (0-4); Lymphocytes # 1.9 K/mcL (0.6-4.6); Lymphocytes % 9.3 %; Mean Corpuscular Hemoglobin 27.1 pg (28.0-33.3); Mean Corpuscular Volume 87.3 fL (83.0-100.0); Mean Platelet Volume 9.7 fL (9.4-12.4); Monocytes # 1.4 K/mcL (0.0-1.3); Monocytes % 7.2 %; Neutrophils # 16.5 K/mcL (1.6-8.9); Platelet Count 216 K/mcL (140-400); Red Cell Distribution Width 14.9 % (11.5-14.5); Segmented Neutrophils % 82.4 %
[2017-07-20] MEDS: Pantoprazole 40 MG VIAL IVP SCH ×2 (05:55→17:53)
[2017-07-20] MEDS: Furosemide 40 MG/4 ML VIAL IVP SCH ×2 (08:36→16:13)
[2017-07-20] MEDS: MethylPREDNISolone 40 MG/ML VIAL IVP SCH ×2 (08:36→20:27)
[2017-07-20] MEDS: Acetaminophen 325 MG TABLET PO PRN ×2 (08:36→17:53)
[2017-07-20] MEDS: Insulin DETEMIR 100 UNIT/ML X5UNITS SQ SCH (08:39)
[2017-07-20] MEDS: Ipratropium/Albuterol Neb 3 ML IH SCH ×3 (08:49→23:04)
--- NOTE | 2017-07-20 11:05 | Pulmonology Progress Note ---
<Caridad Callahan - Last Filed: 07/20/17 11:03> Date of Encounter: 07/20/17 Time of Encounter: 11:03 Assessment and Plan (1) Parapneumonic effusion Current Visit: Yes Status: Acute Chest tube with pigtail catheter inserted into the left pleural space on 07/15. -Pleural fluid analysis reveals exudative effusion consistent with parapneumonic effusion. -Cultures NGTD -Continue antibiotics, completed 4 days of vancomycin (stopped 07/17) and cefepime day 7. (2) Acute on chronic respiratory failure with hypoxia and hypercapnia Current Visit: Yes Status: Acute Patient admitted with reported hypoxia while at home. His CO2 121 per initial ABG. -07/20- Respiratory alkalosis on ABG, will decrease IV furosemide to 40mg QD. -07/19- Alkalosis resolved. Will resume IV furosemide 40mg BID for diuresis of pulmonary edema. -07/18- Patient successfully extubated (07/18) -07/16- Patient with metabolic alkalosis likely secondary to post- hypercapnic alkalosis vs contraction alkalosis. Ph 7.42 this morning. We will continue to give Diamox 250 mg IV twice a day for the next 48 hours to continue to diurese patient. -Pleural fluid culture negative. -BAL-normal URT ron. -Likely multifactorial including pneumonia in the setting of COPD, CHF, GABRIELA/OHS. -Continue to hold home anticoagulation until inflammation improves despite chest tube placement with thoracentesis ruling out the presence of a left-sided hemothorax. -Continue IV antibiotics for pneumonia, cefepime day 6, (DC'ed Vanc on 07/17 completed 4 doses). -Continue steroids and bronchodilators for COPD. -Continue close monitoring in ICU. (3) Nausea & vomiting Current Visit: Yes Status: Acute Patient nausea and vomitting. Likely small ileus now resolving. -Patients symptoms resolving with 2 large BM's. -Nausea improving with metoclopramide and phenergan. -Will encourage movement to see if nausea returns. Qualifiers: Vomiting type: unspecified Vomiting Intractability: unspecified Qualified Code(s): R11.2 - Nausea with vomiting, unspecified (4) Metabolic alkalosis Current Visit: Yes Status: Acute Metabolic alkalosis resolved. Patient with evidence of respiratory alkalosis this morning. -will decrease lasix to once a day. (5) Lower extremity edema Current Visit: Yes Status: Acute Likely secondary to congestive heart failure. -Negative bilateral lower extremity venous Dopplers. (6) CHF (congestive heart failure) Current Visit: Yes Status: Acute Echocardiogram on 04/26/2017 shows an estimated LS EF of 50% -ContinueIV Lasix. -Monitor I&O's closely. Qualifiers: Congestive heart failure type: unspecified congestive heart failure type Congestive heart failure chronicity: chronic Qualified Code(s): I50.9 - Heart failure, unspecified (7) Pneumonia Current Visit: No Status: Acute CT of the chest demonstrating focal consolidation in the posterior segment of the right upper lobe in the entire right lower lobe, suspicious for pneumonia. -BAL gram stain shows gram-positive cocci, normal URT ron. -Pleural Fluid culture negative. -Pleural fluid analysis shows exudative pleural effusion c/w parapneumonic effusion. -Cefepime day 7. Qualifiers: Pneumonia type: due to unspecified organism Laterality: left Lung location: lower lobe of lung Qualified Code(s): J18.1 - Lobar pneumonia, unspecified organism (8) Sepsis Current Visit: No Status: Acute 3 SIRS criteria(tachycardia, tachypnea, and leukocytosis) with lactic acid 1.0 on initial presentation. -Likely secondary to pneumonia. -Blood cultures negative. -Continue IV cefepime day 7. Qualifiers: Sepsis type: sepsis due to unspecified organism Qualified Code(s): A41.9 - Sepsis, unspecified organism (9) COPD (chronic obstructive pulmonary disease) Current Visit: Yes Status: Chronic -Continue Solu-Medrol and bronchodilators. Qualifiers: COPD type: unspecified COPD Qualified Code(s): J44.9 - Chronic obstructive pulmonary disease, unspecified (10) Atrial fibrillation Current Visit: No Status: Chronic -Tachycardia yesterday. -Metoprolol 5mg q6hr PRN HR -Continue to hold Eliquis until patient improves clinically. Qualifiers: Atrial fibrillation type: chronic Qualified Code(s): I48.2 - Chronic atrial fibrillation (11) Diabetes Current Visit: No Status: Chronic -Continue insulin sliding scale with frequent glucose monitoring. - basal insulin at 10 units daily. Qualifiers: Diabetes mellitus type: type 2 Diabetes mellitus complication status: with unspecified complications Diabetes mellitus correction insulin use: with terminologist use Qualified Code(s): E11.8 - Type 2 diabetes mellitus with unspecified complications; Z79.4 - bed bug exterminator (current) use of insulin; Z79.4 - detention ( current) use of insulin; Z79.4 - bed bug exterminator (current) use of insulin; Z79.4 - bed bug exterminator (current) use of insulin (12) Diabetic foot ulcer Current Visit: No Status: Chronic Patient with well healing calcaneal ulcer with central scabbing. Minimal surrounding erythema. -Continue supportive care. Qualifiers: Diabetic foot ulcer location: unspecified part of foot Diabetes mellitus type: other specified (including LINH) Laterality: left Non-pressure ulcer stage: unspecified non-pressure ulcer stage Qualified Code(s): E13.621 - Other specified diabetes mellitus with foot ulcer; L97.529 - Non-pressure chronic ulcer of other part of left foot with unspecified severity; L97.529 - Non-pressure chronic ulcer of other part of left foot with unspecified severity ; L97.529 - Non-pressure chronic ulcer of other part of left foot with unspecified severity; L97.529 - Non-pressure chronic ulcer of other part of left foot with unspecified severity (13) DVT prophylaxis Current Visit: Yes Status: Acute -Continue to hold Eliquis until patient improves clinically. -EPCDs GI prophylaxis- IV protonix 40mg IV BID. Subjective Principal diagnosis: Acute on chronic respiratory failure with hypoxia and hypercapnia Interval history: Mr. Swenson was satting well this morning on 4 L nasal cannula. His nausea continues to improve. Asking for his diet to be advanced. Objective PUL Vital signs: Last Vital Signs Temp 98.9 F 07/20/17 07:42 Pulse 101 07/20/17 10:00 Resp 19 07/20/17 10:00 BP 131/76 07/20/17 10:00 Pulse Ox 95 07/20/17 10:00 General appearance: no acute distress, lethargic Eyes: nonicteric ENT: oropharynx moist Neck: supple Effort: normal Auscultation: bilateral: rales (bibasilar) Cardiovascular: regular rate and rhythm Gastrointestinal: normoactive bowel sounds, soft, non-tender, non-distended Extremities: no cyanosis, pink and warm, edema, other (hyperpigmentation and skin thickening on anterior shins bilaterally) Gait: other (Movement limited secondary to severe obesity) normal mental status mood appropriate, affect normal Ventilator Settings Ventilator Settings: Ventilator Settings, Last 8 Hours Ventilator Mode CPAP Positive End Expiratory 5 Pressure Results - Laboratory Findings CBC and BMP: 07/20/17 05:30 07/20/17 00:00 ABG ABG pH 7.50 pH Units (7.32-7.45) H 07/20/17 04:44 ABG pCO2 32 mmHg (35-45) L 07/20/17 04:44 ABG pO2 165 mmHg (85-104) H 07/20/17 04:44 ABG O2 Saturation 100 % (95-98) H 07/20/17 04:44 PT/INR, D-dimer PT 15.1 Seconds (9.4-12.1) H 07/15/17 03:10 Abnormal lab findings: Abnormal lab results WBC 20.1 K/mcL (4.3-11.1) H 07/20/17 05:30 Hgb 12.2 g/dL (12.9-16.9) L 07/20/17 05:30 MCH 27.1 pg (28.0-33.3) L 07/20/17 05:30 MCHC 31.0 g/dL (31.6-35.5) L 07/20/17 05:30 RDW 14.9 % (11.5-14.5) H 07/20/17 05:30 Neutrophils # 16.5 K/mcL (1.6-8.9) H 07/20/17 05:30 Monocytes # 1.4 K/mcL (0.0-1.3) H 07/20/17 05:30 PT 15.1 Seconds (9.4-12.1) H 07/15/17 03:10 ABG pH 7.50 pH Units (7.32-7.45) H 07/20/17 04:44 ABG pCO2 32 mmHg (35-45) L 07/20/17 04:44 ABG pO2 165 mmHg (85-104) H 07/20/17 04:44 ABG O2 Saturation 100 % (95-98) H 07/20/17 04:44 VBG pCO2 63 mmHg (41-51) H 07/18/17 05:16 VBG pO2 179 mmHg (25-50) H 07/18/17 05:16 VBG HCO3 36 mEq/L (21-27) H 07/18/17 05:16 BUN 34 mg/dL (8-26) H 07/20/17 00:00 BUN/Creatinine Ratio 43 (6-26) H 07/20/17 00:00 Glucose 178 mg/dL (70-99) H 07/20/17 00:00 POC Glucose 138 (58-89) H 07/20/17 04:59 Calculated Osmolality 302 (280-300) H 07/20/17 00:00 Calcium 8.2 mg/dL (8.6-10.8) L 07/20/17 00:00 Venous Ioniz Calcium 1.10 mmol/L (1.15-1.35) L 07/19/17 08:27 B-Natriuretic Peptide 184 pg/mL (0-100) H 07/13/17 19:22 Serum Total Protein 5.8 g/dL (6.0-8.3) L 07/15/17 15:00 Urine Clarity Cloudy (Clear) A 07/13/17 20:10 Ur Specific [place] 1.029 (1.010-1.025) H 07/13/17 20:10 Urine Protein 30 mg/dL (Neg-Trace) H 07/13/17 20:10 Urine Bilirubin Small (Negative) H 07/13/17 20:10 Urine Microscopic RBC 5-15 per hpf (0-3) H 07/13/17 20:10 Ur Squamous Epith Cells Many per lpf (None-Few) H 07/13/17 20:10 Fluid Appearance Cloudy (Clear) A 07/14/17 09:29 Pleural Appearance Cloudy (Clear) A 07/15/17 12:30 Pleural Tot Nuc Cell 2828 TNC/mcL (0-1000) H 07/15/17 12:30 - Microbiology Findings Microbiology Findings: Microbiology, Last 48 Hours 07/14/17 04:20 Blood Culture - Final Central Venous Catheter No growth. 07/14/17 04:25 Blood Culture - Final Peripheral Venipuncture No growth. 07/15/17 12:30 Body Fluid Culture - Final Pleural Fluid - Clinical Findings Intake & Output: Intake & Output 07/19/17 07/20/17 07/20/17 23:59 07:59 15:59 Intake Total 280 / 280 20 / 20 Output Total 950 / 950 2460 / 2460 Balance -670 / -670 -2440 / -2440 - VTE Documentation of Mechanical Device: Intermittent pneumatic compression device Consult Discharge Plan - Plan Referrals: Zion Hernandes DO [Primary Care Provider] - <Sam Núñez - Last Filed: 07/21/17 00:02> Date of Encounter: 07/20/17 Objective PUL Vital signs: Last Vital Signs Temp 98.6 F 07/20/17 15:55 Pulse 110 07/20/17 18:00 Resp 20 07/20/17 18:00 BP 125/87 07/20/17 18:00 Pulse Ox 97 07/20/17 18:00 Results - Laboratory Findings CBC and BMP: 07/20/17 05:30 07/20/17 11:05 ABG ABG pH 7.50 pH Units (7.32-7.45) H 07/20/17 04:44 ABG pCO2 32 mmHg (35-45) L 07/20/17 04:44 ABG pO2 165 mmHg (85-104) H 07/20/17 04:44 ABG O2 Saturation 100 % (95-98) H 07/20/17 04:44 PT/INR, D-dimer PT 15.1 Seconds (9.4-12.1) H 07/15/17 03:10 Abnormal lab findings: Abnormal lab results WBC 20.1 K/mcL (4.3-11.1) H 07/20/17 05:30 Hgb 12.2 g/dL (12.9-16.9) L 07/20/17 05:30 MCH 27.1 pg (28.0-33.3) L 07/20/17 05:30 MCHC 31.0 g/dL (31.6-35.5) L 07/20/17 05:30 RDW 14.9 % (11.5-14.5) H 07/20/17 05:30 Neutrophils # 16.5 K/mcL (1.6-8.9) H 07/20/17 05:30 Monocytes # 1.4 K/mcL (0.0-1.3) H 07/20/17 05:30 PT 15.1 Seconds (9.4-12.1) H 07/15/17 03:10 ABG pH 7.50 pH Units (7.32-7.45) H 07/20/17 04:44 ABG pCO2 32 mmHg (35-45) L 07/20/17 04:44 ABG pO2 165 mmHg (85-104) H 07/20/17 04:44 ABG O2 Saturation 100 % (95-98) H 07/20/17 04:44 VBG pCO2 61 mmHg (41-51) H 07/20/17 11:22 VBG pO2 189 mmHg (25-50) H 07/20/17 11:22 VBG HCO3 31 mEq/L (21-27) H 07/20/17 11:22 BUN 34 mg/dL (8-26) H 07/20/17 00:00 BUN/Creatinine Ratio 43 (6-26) H 07/20/17 00:00 Glucose 178 mg/dL (70-99) H 07/20/17 00:00 POC Glucose 217 (58-89) H 07/20/17 17:41 Calculated Osmolality 302 (280-300) H 07/20/17 00:00 Calcium 8.2 mg/dL (8.6-10.8) L 07/20/17 00:00 Venous Ioniz Calcium 1.10 mmol/L (1.15-1.35) L 07/20/17 11:22 B-Natriuretic Peptide 184 pg/mL (0-100) H 07/13/17 19:22 Serum Total Protein 5.8 g/dL (6.0-8.3) L 07/15/17 15:00 Urine Clarity Cloudy (Clear) A 07/13/17 20:10 Ur Specific [place] 1.029 (1.010-1.025) H 07/13/17 20:10 Urine Protein 30 mg/dL (Neg-Trace) H 07/13/17 20:10 Urine Bilirubin Small (Negative) H 07/13/17 20:10 Urine Microscopic RBC 5-15 per hpf (0-3) H 07/13/17 20:10 Ur Squamous Epith Cells Many per lpf (None-Few) H 07/13/17 20:10 Fluid Appearance Cloudy (Clear) A 07/14/17 09:29 Pleural Appearance Cloudy (Clear) A 07/15/17 12:30 Pleural Tot Nuc Cell 2828 TNC/mcL (0-1000) H 07/15/17 12:30 - Microbiology Findings Microbiology Findings: Microbiology, Last 48 Hours 07/14/17 04:20 Blood Culture - Final Central Venous Catheter No growth. 07/14/17 04:25 Blood Culture - Final Peripheral Venipuncture No growth. - Clinical Findings Intake & Output: Intake & Output 07/20/17 07/20/17 07/20/17 07:59 15:59 23:59 Intake Total 280 / 280 500 / 500 480 / 480 Output Total 2460 / 2460 2700 / 2700 60 / 60 Balance -2180 / -2180 -2200 / -2200 420 / 420 - Attending Attestation I saw the patient with the resident agree with History and Physical exam findings. 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 Mobilizing him is a challenge because of morbid obesity Cardiac : Hemodynamically stable Nutrition/GI: Patient doesnt have any nausea to continue PPI IV BID, advance diet as tolerated Renal : Renal labs and output reviewed . Diuresis as tolerated Heme onc : No acute issues today ID : Broad spectrum antibiotics for pneumonia to descalate to follow cultures Disposition : To transfer to 2nd floor telemetry Code status: Full code
[2017-07-20 11:27] LABS: Magnesium 1.8 mg/dL (1.6-2.6); Phosphorous 2.8 mg/dL (2.3-4.7); Potassium 3.8 mEq/L (3.5-4.5)
[2017-07-20 11:27] LABS: VBG HCO3 31 mEq/L (21-27); VBG PCO2 61 mmHg (41-51); VBG PH 7.32 pH Units (7.32-7.42); VBG PO2 189 mmHg (25-50)
[2017-07-21 00:14] LABS: Magnesium 2.1 mg/dL (1.6-2.6); Phosphorous 2.2 mg/dL (2.3-4.7); Potassium 3.9 mEq/L (3.5-4.5)
[2017-07-21] MEDS: Acetaminophen 325 MG TABLET PO PRN ×3 (00:49→14:36)
[2017-07-21] MEDS: Potassium Chloride 40 MEQ/200 ML BAG IVPB PRN (00:53)
[2017-07-21] MEDS: Potassium Phosphate 44 MEQ in 0.9 % Sodium Chloride 250 ML IVPB PRN (01:22)
[2017-07-21 04:13] LABS: Basophils % 0.1 %; Eosinophils # 0.1 K/mcL (0.0-0.6); Eosinophils % 0.3 %; Hemoglobin 12.4 g/dL (12.9-16.9); Immature Granulocytes % 0.8 % (0-4); Lymphocytes # 1.6 K/mcL (0.6-4.6); Lymphocytes % 8.5 %; Mean Corpuscular Hemoglobin 26.8 pg (28.0-33.3); Mean Corpuscular Volume 86.4 fL (83.0-100.0); Mean Platelet Volume 9.3 fL (9.4-12.4); Monocytes # 1.3 K/mcL (0.0-1.3); Monocytes % 6.8 %; Neutrophils # 16.1 K/mcL (1.6-8.9); Platelet Count 242 K/mcL (140-400); Red Blood Count 4.63 M/mcL (4.19-5.50); Red Cell Distribution Width 14.7 % (11.5-14.5); Segmented Neutrophils % 83.5 %
[2017-07-21] MEDS: Pantoprazole 40 MG VIAL IVP SCH ×2 (06:11→17:14)
[2017-07-21] MEDS: Insulin LISPRO 300 UNITS/3 ML VIAL SQ SCH ×4 (06:14→20:43)
[2017-07-21] MEDS: *HR* Metoprolol 5 MG/5 ML VIAL IVP PRN ×3 (06:36→20:42)
[2017-07-21] MEDS: MethylPREDNISolone 40 MG/ML VIAL IVP SCH ×2 (08:07→20:36)
[2017-07-21] MEDS: Furosemide 40 MG/4 ML VIAL IVP SCH ×2 (08:07→17:14)
[2017-07-21] MEDS: Cefepime HCl 2,000 MG in Water for inj. (sterile) 20 ML IVP SCH ×2 (08:07→15:44)
[2017-07-21] MEDS: Insulin DETEMIR 100 UNIT/ML X5UNITS SQ SCH (08:09)
[2017-07-21] MEDS: Ipratropium/Albuterol Neb 3 ML IH SCH ×3 (08:35→23:15)
[2017-07-21 09:21] LABS: BUN/Creatinine Ratio 46 (6-26); Blood Urea Nitrogen 32 mg/dL (8-26); Calcium 7.5 mg/dL (8.6-10.8); Carbon Dioxide 30 mEq/L (19-29); Chloride 104 mEq/L (98-109); Glucose 135 mg/dL (70-99); Osmolality,Calculated 297 (280-300); Potassium 4.1 mEq/L (3.5-4.5); Sodium 139 mEq/L (136-145); eGFR For African Americans > 60 (> 60); eGFR For Non-African Americans > 60 (> 60)
--- NOTE | 2017-07-21 10:04 | Pulmonology Progress Note ---
<Caridad Callahan - Last Filed: 07/21/17 11:06> Date of Encounter: 07/21/17 Time of Encounter: 11:06 Assessment and Plan (1) Acute on chronic respiratory failure with hypoxia and hypercapnia Current Visit: Yes Status: Acute Patient admitted with reported hypoxia while at home. His CO2 121 per initial ABG. -07/21 WBC stable, Vitals stable, alkalosis resolved. Continue BIG IV lasix. Stable for transfer to telemetry flood bed. -Continue to FU BMP, BiPaP overnight, patient has been non-compliant, encourage compliance, needs education. -07/20- Respiratory alkalosis on ABG, will decrease IV furosemide to 40mg QD. -07/19- Alkalosis resolved. Will resume IV furosemide 40mg BID for diuresis of pulmonary edema. -07/18- Patient successfully extubated (07/18) -07/16- Patient with metabolic alkalosis likely secondary to post- hypercapnic alkalosis vs contraction alkalosis. Ph 7.42 this morning. We will continue to give Diamox 250 mg IV twice a day for the next 48 hours to continue to diurese patient. -Pleural fluid culture negative. -BAL-normal URT ron. -Likely multifactorial including pneumonia in the setting of COPD, CHF, GABRIELA/OHS. -Continue to hold home anticoagulation until inflammation improves despite chest tube placement with thoracentesis ruling out the presence of a left-sided hemothorax. -Continue IV antibiotics for pneumonia, cefepime day 6, (DC'ed Vanc on 07/17 completed 4 doses). -Continue steroids and bronchodilators for COPD. -Continue close monitoring in ICU. (2) Parapneumonic effusion Current Visit: Yes Status: Acute Chest tube with pigtail catheter inserted into the left pleural space on 07/15. -Pleural fluid analysis reveals exudative effusion consistent with parapneumonic effusion. -Cultures NGTD -Continue antibiotics, completed 4 days of vancomycin (stopped 07/17) and cefepime day 8. (3) Nausea & vomiting Current Visit: Yes Status: Acute Patient nausea and vomitting. Likely small ileus now resolving. -Patients symptoms resolving with 2 large BM's. -Nausea improving with metoclopramide and phenergan. -Movement improve nausea. Qualifiers: Vomiting type: unspecified Vomiting Intractability: unspecified Qualified Code(s): R11.2 - Nausea with vomiting, unspecified (4) Metabolic alkalosis Current Visit: Yes Status: Acute Metabolic alkalosis resolved. -continue to monitor -resume IV lasix (5) Lower extremity edema Current Visit: Yes Status: Acute Likely secondary to congestive heart failure. -Negative bilateral lower extremity venous Dopplers. (6) CHF (congestive heart failure) Current Visit: Yes Status: Acute Echocardiogram on 04/26/2017 shows an estimated LS EF of 50% -ContinueIV Lasix. -Monitor I&O's closely. Qualifiers: Congestive heart failure type: unspecified congestive heart failure type Congestive heart failure chronicity: chronic Qualified Code(s): I50.9 - Heart failure, unspecified (7) Pneumonia Current Visit: No Status: Acute CT of the chest demonstrating focal consolidation in the posterior segment of the right upper lobe in the entire right lower lobe, suspicious for pneumonia. -BAL gram stain shows gram-positive cocci, normal URT ron. -Pleural Fluid culture negative. -Pleural fluid analysis shows exudative pleural effusion c/w parapneumonic effusion. -WBC stable -Cefepime day 8. Qualifiers: Pneumonia type: due to unspecified organism Laterality: left Lung location: lower lobe of lung Qualified Code(s): J18.1 - Lobar pneumonia, unspecified organism (8) Sepsis Current Visit: No Status: Acute 3 SIRS criteria(tachycardia, tachypnea, and leukocytosis) with lactic acid 1.0 on initial presentation. -Likely secondary to pneumonia. -Blood cultures negative. -Continue IV cefepime day 8. Qualifiers: Sepsis type: sepsis due to unspecified organism Qualified Code(s): A41.9 - Sepsis, unspecified organism (9) COPD (chronic obstructive pulmonary disease) Current Visit: Yes Status: Chronic -Continue Solu-Medrol and bronchodilators. Qualifiers: COPD type: unspecified COPD Qualified Code(s): J44.9 - Chronic obstructive pulmonary disease, unspecified (10) Atrial fibrillation Current Visit: No Status: Chronic -Tachycardia yesterday. -Metoprolol 5mg q6hr PRN HR -Continue to hold Eliquis until patient improves clinically. Qualifiers: Atrial fibrillation type: chronic Qualified Code(s): I48.2 - Chronic atrial fibrillation (11) Diabetes Current Visit: No Status: Chronic -Continue insulin sliding scale ACHS with frequent glucose monitoring. - basal insulin at 10 units daily. 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 Minimal surrounding erythema. -Continue supportive care. Qualifiers: Diabetic foot ulcer location: unspecified part of foot Diabetes mellitus type: other specified (including LINH) Laterality: left Non-pressure ulcer stage: unspecified non-pressure ulcer stage Qualified Code(s): E13.621 - Other specified diabetes mellitus with foot ulcer; L97.529 - Non-pressure chronic ulcer of other part of left foot with unspecified severity; L97.529 - Non-pressure chronic ulcer of other part of left foot with unspecified severity ; L97.529 - Non-pressure chronic ulcer of other part of left foot with unspecified severity; L97.529 - Non-pressure chronic ulcer of other part of left foot with unspecified severity (13) DVT prophylaxis Current Visit: Yes Status: Acute -Continue to hold Eliquis until patient improves clinically. -EPCDs GI prophylaxis- IV protonix 40mg IV BID. Subjective Principal diagnosis: Acute on chronic respiratory failure with hypoxia and hypercapnia Interval history: Mr. Swenson was satting well this morning on 4 L nasal cannula. Nausea resolved. Asking for his diet to be advanced. Vitals stable, WBC stable. Chest tube output minimal overnight. No shortness of breath. States his bipap is too noisy for him to wear at night. Needs education. Objective PUL Vital signs: Last Vital Signs Temp 99.5 F 07/21/17 07:44 Pulse 113 07/21/17 10:00 Resp 24 07/21/17 10:00 BP 104/77 07/21/17 10:00 Pulse Ox 96 07/21/17 10:00 General appearance: no acute distress ENT: oropharynx dry Neck: supple Effort: normal Auscultation: left: diminished breath sounds (Basilar), right: rales (Slight basilar) Cardiovascular: regular rate and rhythm Gastrointestinal: normoactive bowel sounds, soft, non-tender, non-distended Integumentary: other (Bilateral lower extremity anterior atwood thickening and hyperpigmentation.) Extremities: edema (3+) Musculoskeletal: no deformities, other (Exam limited by patient's body habitus) normal mental status mood appropriate, affect normal Results - Laboratory Findings CBC and BMP: 07/21/17 03:50 07/21/17 09:00 ABG ABG pH 7.50 pH Units (7.32-7.45) H 07/20/17 04:44 ABG pCO2 32 mmHg (35-45) L 07/20/17 04:44 ABG pO2 165 mmHg (85-104) H 07/20/17 04:44 ABG O2 Saturation 100 % (95-98) H 07/20/17 04:44 PT/INR, D-dimer PT 15.1 Seconds (9.4-12.1) H 07/15/17 03:10 Abnormal lab findings: Abnormal lab results WBC 19.3 K/mcL (4.3-11.1) H 07/21/17 03:50 Hgb 12.4 g/dL (12.9-16.9) L 07/21/17 03:50 MCH 26.8 pg (28.0-33.3) L 07/21/17 03:50 MCHC 31.0 g/dL (31.6-35.5) L 07/21/17 03:50 RDW 14.7 % (11.5-14.5) H 07/21/17 03:50 MPV 9.3 fL (9.4-12.4) L 07/21/17 03:50 Neutrophils # 16.1 K/mcL (1.6-8.9) H 07/21/17 03:50 PT 15.1 Seconds (9.4-12.1) H 07/15/17 03:10 ABG pH 7.50 pH Units (7.32-7.45) H 07/20/17 04:44 ABG pCO2 32 mmHg (35-45) L 07/20/17 04:44 ABG pO2 165 mmHg (85-104) H 07/20/17 04:44 ABG O2 Saturation 100 % (95-98) H 07/20/17 04:44 VBG pCO2 61 mmHg (41-51) H 07/20/17 11:22 VBG pO2 189 mmHg (25-50) H 07/20/17 11:22 VBG HCO3 31 mEq/L (21-27) H 07/20/17 11:22 Carbon Dioxide 30 mEq/L (19-29) H 07/21/17 09:00 BUN 32 mg/dL (8-26) H 07/21/17 09:00 Creatinine 0.70 mg/dL (0.72-1.25) L 07/21/17 09:00 BUN/Creatinine Ratio 46 (6-26) H 07/21/17 09:00 Glucose 135 mg/dL (70-99) H 07/21/17 09:00 POC Glucose 149 (58-89) H 07/21/17 06:06 Calcium 7.5 mg/dL (8.6-10.8) L 07/21/17 09:00 Venous Ioniz Calcium 1.10 mmol/L (1.15-1.35) L 07/20/17 11:22 Phosphorus 2.2 mg/dL (2.3-4.7) L 07/20/17 23:45 B-Natriuretic Peptide 184 pg/mL (0-100) H 07/13/17 19:22 Serum Total Protein 5.8 g/dL (6.0-8.3) L 07/15/17 15:00 Urine Clarity Cloudy (Clear) A 07/13/17 20:10 Ur Specific [place] 1.029 (1.010-1.025) H 07/13/17 20:10 Urine Protein 30 mg/dL (Neg-Trace) H 07/13/17 20:10 Urine Bilirubin Small (Negative) H 07/13/17 20:10 Urine Microscopic RBC 5-15 per hpf (0-3) H 07/13/17 20:10 Ur Squamous Epith Cells Many per lpf (None-Few) H 07/13/17 20:10 Fluid Appearance Cloudy (Clear) A 07/14/17 09:29 Pleural Appearance Cloudy (Clear) A 07/15/17 12:30 Pleural Tot Nuc Cell 2828 TNC/mcL (0-1000) H 07/15/17 12:30 - Microbiology Findings Microbiology Findings: Microbiology, Last 48 Hours 07/14/17 04:20 Blood Culture - Final Central Venous Catheter No growth. 07/14/17 04:25 Blood Culture - Final Peripheral Venipuncture No growth. - Clinical Findings Intake & Output: Intake & Output 07/20/17 07/21/17 07/21/17 23:59 07:59 15:59 Intake Total 780 / 780 200 / 200 Output Total 2310 / 2310 1140 / 1140 Balance -1530 / -1530 -940 / -940 Weight 200.8 kg - VTE Documentation of Mechanical Device: Intermittent pneumatic compression device Consult Discharge Plan - Plan Referrals: Zion Hernandes DO [Primary Care Provider] - <Sam Núñez - Last Filed: 07/21/17 16:12> Date of Encounter: 07/21/17 Objective PUL Vital signs: Last Vital Signs Temp 99.6 F 07/21/17 12:22 Pulse 109 07/21/17 12:00 Resp 24 07/21/17 12:00 BP 117/71 07/21/17 12:00 Pulse Ox 98 07/21/17 12:00 Results - Laboratory Findings CBC and BMP: 07/21/17 03:50 07/21/17 09:00 ABG ABG pH 7.50 pH Units (7.32-7.45) H 07/20/17 04:44 ABG pCO2 32 mmHg (35-45) L 07/20/17 04:44 ABG pO2 165 mmHg (85-104) H 07/20/17 04:44 ABG O2 Saturation 100 % (95-98) H 07/20/17 04:44 PT/INR, D-dimer PT 15.1 Seconds (9.4-12.1) H 07/15/17 03:10 Abnormal lab findings: Abnormal lab results WBC 19.3 K/mcL (4.3-11.1) H 07/21/17 03:50 Hgb 12.4 g/dL (12.9-16.9) L 07/21/17 03:50 MCH 26.8 pg (28.0-33.3) L 07/21/17 03:50 MCHC 31.0 g/dL (31.6-35.5) L 07/21/17 03:50 RDW 14.7 % (11.5-14.5) H 07/21/17 03:50 MPV 9.3 fL (9.4-12.4) L 07/21/17 03:50 Neutrophils # 16.1 K/mcL (1.6-8.9) H 07/21/17 03:50 PT 15.1 Seconds (9.4-12.1) H 07/15/17 03:10 ABG pH 7.50 pH Units (7.32-7.45) H 07/20/17 04:44 ABG pCO2 32 mmHg (35-45) L 07/20/17 04:44 ABG pO2 165 mmHg (85-104) H 07/20/17 04:44 ABG O2 Saturation 100 % (95-98) H 07/20/17 04:44 VBG pO2 174 mmHg (25-50) H 07/21/17 12:58 VBG HCO3 31 mEq/L (21-27) H 07/21/17 12:58 Carbon Dioxide 30 mEq/L (19-29) H 07/21/17 09:00 BUN 32 mg/dL (8-26) H 07/21/17 09:00 Creatinine 0.70 mg/dL (0.72-1.25) L 07/21/17 09:00 BUN/Creatinine Ratio 46 (6-26) H 07/21/17 09:00 Glucose 135 mg/dL (70-99) H 07/21/17 09:00 POC Glucose 171 (58-89) H 07/21/17 15:40 Calcium 7.5 mg/dL (8.6-10.8) L 07/21/17 09:00 Venous Ioniz Calcium 1.06 mmol/L (1.15-1.35) L 07/21/17 12:58 Phosphorus 2.2 mg/dL (2.3-4.7) L 07/20/17 23:45 B-Natriuretic Peptide 184 pg/mL (0-100) H 07/13/17 19:22 Serum Total Protein 5.8 g/dL (6.0-8.3) L 07/15/17 15:00 Urine Clarity Cloudy (Clear) A 07/13/17 20:10 Ur Specific [place] 1.029 (1.010-1.025) H 07/13/17 20:10 Urine Protein 30 mg/dL (Neg-Trace) H 07/13/17 20:10 Urine Bilirubin Small (Negative) H 07/13/17 20:10 Urine Microscopic RBC 5-15 per hpf (0-3) H 07/13/17 20:10 Ur Squamous Epith Cells Many per lpf (None-Few) H 07/13/17 20:10 Fluid Appearance Cloudy (Clear) A 07/14/17 09:29 Pleural Appearance Cloudy (Clear) A 07/15/17 12:30 Pleural Tot Nuc Cell 2828 TNC/mcL (0-1000) H 07/15/17 12:30 - Clinical Findings Intake & Output: Intake & Output 07/20/17 07/21/17 07/21/17 23:59 07:59 15:59 Intake Total 780 / 780 200 / 200 Output Total 2310 / 2310 1140 / 1140 2080 / 2080 Balance -1530 / -1530 -940 / -940 -2080 / -2080 Weight 200.8 kg - Attending Attestation I saw the patient with the resident agree with History and Physical exam findings. Labs and Radiology were reviewed Patient is spontaneously breathing on Nasal cannula MEAT PASSER: Patient is conscious following commands oriented x 3 NECK : No JVD appreciated Pulmonary : Patient is hypoxic and hypercarbic secondary to Pneumonia , pleural effusion was drained to aid lung mechanics , pleural fluid turbid straw colored more of exudative effusion wait for pleural fluid cultures , BAL showed some gram positive cocci with minimal colonies , fluid overload will diurese him . Mobilizing him is a challenge because of morbid obesity . Left chest tube didnt show any drainage over 24 hrs if there is no drainage by tomorrow will plan on remove to the chest tube. Patient will need BIPAP qualification before discharge Cardiac : Hemodynamically stable Nutrition/GI: Patient doesnt have any nausea to continue PPI IV BID, advance diet as tolerated Renal : Renal labs and output reviewed . Diuresis as tolerated Heme onc : No acute issues today ID : Broad spectrum antibiotics for pneumonia to descalate to follow cultures Disposition : To transfer to 2nd floor telemetry Code status: Full code
[2017-07-21] MEDS ORDERED: Dextrose Gel 15 GM PO PRN ×2 (10:52)
[2017-07-21] MEDS ORDERED: *HR* Dextrose 50 % in Water (Syg) 50 ML SYRINGE IVP PRN (10:52)
[2017-07-21] MEDS ORDERED: D5% in Water 1,000 ML IVC PRN (10:52)
[2017-07-21] MEDS ORDERED: Naloxone 0.4 MG/ML INJ IVP PRN (10:52)
[2017-07-21] MEDS ORDERED: Ondansetron 4 MG/2 ML VIAL IVP PRN (10:52)
[2017-07-21] MEDS ORDERED: Insulin LISPRO 300 UNITS/3 ML VIAL SQ SCH ×2 (12:00)
[2017-07-21 13:02] LABS: VBG HCO3 31 mEq/L (21-27); VBG Ionized Calcium 1.06 mmol/L (1.15-1.35); VBG PCO2 50 mmHg (41-51); VBG PO2 174 mmHg (25-50)
[2017-07-22] MEDS: Cefepime HCl 2,000 MG in Water for inj. (sterile) 20 ML IVP SCH ×2 (00:08→08:23)
[2017-07-22] MEDS: Acetaminophen 325 MG TABLET PO PRN ×2 (00:21→10:20)
[2017-07-22] MEDS: *HR* Metoprolol 5 MG/5 ML VIAL IVP PRN (04:16)
[2017-07-22] MEDS: Pantoprazole 40 MG VIAL IVP SCH (05:46)
--- NOTE | 2017-07-22 07:33 | Pulmonology Progress Note ---
<Feroz Steele W - Last Filed: 07/22/17 10:11> Date of Encounter: 07/22/17 Objective PUL Vital signs: Last Vital Signs Temp 98.2 F 07/22/17 07:23 Pulse 102 07/22/17 08:15 Resp 20 07/22/17 08:15 BP 120/72 07/22/17 08:15 Pulse Ox 98 07/22/17 08:15 Results - Laboratory Findings CBC and BMP: 07/21/17 03:50 07/21/17 09:00 ABG ABG pH 7.50 pH Units (7.32-7.45) H 07/20/17 04:44 ABG pCO2 32 mmHg (35-45) L 07/20/17 04:44 ABG pO2 165 mmHg (85-104) H 07/20/17 04:44 ABG O2 Saturation 100 % (95-98) H 07/20/17 04:44 PT/INR, D-dimer PT 15.1 Seconds (9.4-12.1) H 07/15/17 03:10 Abnormal lab findings: Abnormal lab results WBC 19.3 K/mcL (4.3-11.1) H 07/21/17 03:50 Hgb 12.4 g/dL (12.9-16.9) L 07/21/17 03:50 MCH 26.8 pg (28.0-33.3) L 07/21/17 03:50 MCHC 31.0 g/dL (31.6-35.5) L 07/21/17 03:50 RDW 14.7 % (11.5-14.5) H 07/21/17 03:50 MPV 9.3 fL (9.4-12.4) L 07/21/17 03:50 Neutrophils # 16.1 K/mcL (1.6-8.9) H 07/21/17 03:50 PT 15.1 Seconds (9.4-12.1) H 07/15/17 03:10 ABG pH 7.50 pH Units (7.32-7.45) H 07/20/17 04:44 ABG pCO2 32 mmHg (35-45) L 07/20/17 04:44 ABG pO2 165 mmHg (85-104) H 07/20/17 04:44 ABG O2 Saturation 100 % (95-98) H 07/20/17 04:44 VBG pO2 174 mmHg (25-50) H 07/21/17 12:58 VBG HCO3 31 mEq/L (21-27) H 07/21/17 12:58 Carbon Dioxide 30 mEq/L (19-29) H 07/21/17 09:00 BUN 32 mg/dL (8-26) H 07/21/17 09:00 Creatinine 0.70 mg/dL (0.72-1.25) L 07/21/17 09:00 BUN/Creatinine Ratio 46 (6-26) H 07/21/17 09:00 Glucose 135 mg/dL (70-99) H 07/21/17 09:00 POC Glucose 129 (58-89) H 07/22/17 07:08 Calcium 7.5 mg/dL (8.6-10.8) L 07/21/17 09:00 Venous Ioniz Calcium 1.06 mmol/L (1.15-1.35) L 07/21/17 12:58 Phosphorus 2.2 mg/dL (2.3-4.7) L 07/20/17 23:45 B-Natriuretic Peptide 184 pg/mL (0-100) H 07/13/17 19:22 Serum Total Protein 5.8 g/dL (6.0-8.3) L 07/15/17 15:00 Urine Clarity Cloudy (Clear) A 07/13/17 20:10 Ur Specific Brewer 1.029 (1.010-1.025) H 07/13/17 20:10 Urine Protein 30 mg/dL (Neg-Trace) H 07/13/17 20:10 Urine Bilirubin Small (Negative) H 07/13/17 20:10 Urine Microscopic RBC 5-15 per hpf (0-3) H 07/13/17 20:10 Ur Squamous Epith Cells Many per lpf (None-Few) H 07/13/17 20:10 Fluid Appearance Cloudy (Clear) A 07/14/17 09:29 Pleural Appearance Cloudy (Clear) A 07/15/17 12:30 Pleural Tot Nuc Cell 2828 TNC/mcL (0-1000) H 07/15/17 12:30 - Clinical Findings Intake & Output: Intake & Output 12/0307/22/17 07/22/17 23:59 07:59 15:59 Intake Total / 20 Output Total 1830 / 1830 820 / 820 60 / 60 Balance -1830 / -1830 -800 / -800 -60 / -60 Weight 199.8 kg Consult Discharge Plan - Plan Referrals: Zion Hernandes DO [Primary Care Provider] - - Attending Attestation I examined this patient and my medical decision-making was reviewed with the Resident Physician. I agree with the documented findings, disposition and treatment plan as described except to the extent set forth below. We independently had [id number] contact with the patient Patient seen and examined at bedside Labs, radiology, chart personally reviewed. Management was reviewed during multidisciplinary critical care rounds. 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 Cont to monitor for delirium Pulm: Acute on chronic hypoxic/hypercapnic resp failure s/t GABRIELA, OHS, Volume overload and PNA. Improving. Remove chest tube today. stop Steroids. Bipap with qualification prior to discharge. Cards:Afib on BB. Cardiogenic Pulmonary edema. Cont Diuresis FEN-GI:Tolerating Diet. Renal:No CAMILO cont to monitor UOP ID:Deescalate Abx Heme/Onc: DVT prophylaxis given. Restart NOAC for afib Endo: Glucose Monitored. Restart Synthroid. Integ/MSK: Skin Care per routine ICU Nursing Protocol to prevent ulcers. Lines: All lines examined without evidence of infection : Dispo: Transfer to Medical Tele for ongoing care. CODE: Full. <Caridad Callahan H - Last Filed: 07/22/17 13:09> Date of Encounter: 07/22/17 Time of Encounter: 07:33 Assessment and Plan (1) Acute on chronic respiratory failure with hypoxia and hypercapnia Current Visit: Yes Status: Acute Patient admitted with reported hypoxia while at home. His CO2 121 per initial ABG. 07/22: -CXR on 07/22 shows small left sided pneumothorax likely due to presence of chest tube. We ordered CT chest without contrast which was unable to be performed 2/2 patient's body habitus. -Patient to be transferred to medical telemetry bed when becomes available. -Likely multifactorial including pneumonia in the setting of COPD, CHF, GABRIELA/OHS. -Resume home anticoagulation. -Removed chest tube. -DC oral steroids. -BiPAP education and desensitization. -DC cefepime 07/22 after 9 completed doses, (DC'ed Vanc on 07/17 completed 4 doses). -Continue bronchodilators for COPD. -07/21 WBC stable, Vitals stable, alkalosis resolved. Continue BIG IV lasix. Stable for transfer to telemetry flood bed. -Continue to FU BMP, BiPaP overnight, patient has been non-compliant, encourage compliance, needs education. -07/20- Respiratory alkalosis on ABG, will decrease IV furosemide to 40mg QD. -07/19- Alkalosis resolved. Will resume IV furosemide 40mg BID for diuresis of pulmonary edema. -07/18- Patient successfully extubated (07/18) -07/16- Patient with metabolic alkalosis likely secondary to post- hypercapnic alkalosis vs contraction alkalosis. Ph 7.42 this morning. We will continue to give Diamox 250 mg IV twice a day for the next 48 hours to continue to diurese patient. -Pleural fluid culture negative. -BAL-normal URT ron. (2) CHF (congestive heart failure) Current Visit: Yes Status: Acute Echocardiogram on 04/26/2017 shows an estimated LS EF of 50% -ContinueIV Lasix, decrease from BID yesterday to QD IV lasix today. -Monitor I&O's closely. Qualifiers: Congestive heart failure type: unspecified congestive heart failure type Congestive heart failure chronicity: chronic Qualified Code(s): I50.9 - Heart failure, unspecified (3) Parapneumonic effusion Current Visit: Yes Status: Acute Chest tube with pigtail catheter inserted into the left pleural space on . -To be discontinued today 07/22 -Pleural fluid analysis reveals exudative effusion consistent with parapneumonic effusion. -Cultures NGTD -Completed 4 days of vancomycin (stopped 07/17) and 9 days of cefepime ( stopped 07/22). (4) Metabolic alkalosis Current Visit: Yes Status: Acute Metabolic alkalosis resolved. -continue to monitor -Resume daily lasix (5) Lower extremity edema Current Visit: Yes Status: Acute Likely secondary to congestive heart failure. -Negative bilateral lower extremity venous Dopplers. (6) Pneumonia Current Visit: No Status: Acute CT of the chest demonstrating focal consolidation in the posterior segment of the right upper lobe in the entire right lower lobe, suspicious for pneumonia. -BAL gram stain shows gram-positive cocci, normal URT ron. -Pleural Fluid culture negative. -Pleural fluid analysis shows exudative pleural effusion c/w parapneumonic effusion. -WBC stable -Cefepime stopped today 07/22 after 9 completed doses. Qualifiers: Pneumonia type: due to unspecified organism Laterality: left Lung location: lower lobe of lung Qualified Code(s): J18.1 - Lobar pneumonia, unspecified organism (7) Sepsis Current Visit: No Status: Acute 3 SIRS criteria(tachycardia, tachypnea, and leukocytosis) with lactic acid 1.0 on initial presentation. -Likely secondary to pneumonia. -Blood cultures negative. -Patient received 9 days of cefepime. Qualifiers: Sepsis type: sepsis due to unspecified organism Qualified Code(s): A41.9 - Sepsis, unspecified organism (8) COPD (chronic obstructive pulmonary disease) Current Visit: Yes Status: Chronic -Continue bronchodilators and BiPAP. -DC Solu-Medrol on 07/22. Qualifiers: COPD type: unspecified COPD Qualified Code(s): J44.9 - Chronic obstructive pulmonary disease, unspecified (9) Atrial fibrillation Current Visit: No Status: Chronic -Tachycardia persisting. -Start metoprolol XL at 25 g dosage. -If blood pressure allows, increase this dose to the at-home dose of 50 mg metoprolol succinate extended release. -Resume eliquis. Qualifiers: Atrial fibrillation type: chronic Qualified Code(s): I48.2 - Chronic atrial fibrillation (10) Diabetes Current Visit: No Status: Chronic -Continue insulin sliding scale ACHS with frequent glucose monitoring. - basal insulin at 10 units daily. Qualifiers: Diabetes mellitus type: type 2 Diabetes mellitus complication status: with unspecified complications Diabetes mellitus long-term insulin use: with long-term use Qualified Code(s): E11.8 - Type 2 diabetes mellitus with unspecified complications; Z79.4 - watermaster (current) use of insulin; Z79.4 - watermaster ( current) use of insulin; Z79.4 - shelter (current) use of insulin; Z79.4 - watermaster (current) use of insulin (11) Diabetic foot ulcer Current Visit: No Status: Chronic Patient with well healing calcaneal ulcer with central scabbing. Minimal surrounding erythema. -Continue supportive care. Qualifiers: Diabetic foot ulcer location: unspecified part of foot Diabetes mellitus type: other specified (including LINH) Laterality: left Non-pressure ulcer stage: unspecified non-pressure ulcer stage Qualified Code(s): E13.621 - Other specified diabetes mellitus with foot ulcer; L97.529 - Non-pressure chronic ulcer of other part of left foot with unspecified severity; L97.529 - Non-pressure chronic ulcer of other part of left foot with unspecified severity ; L97.529 - Non-pressure chronic ulcer of other part of left foot with unspecified severity; L97.529 - Non-pressure chronic ulcer of other part of left foot with unspecified severity (12) Nausea & vomiting Current Visit: Yes Status: Resolved Patient nausea and vomitting. Likely small ileus now resolved. -Patients symptoms resolving with 2 large BM's. -Nausea improved with metoclopramide and phenergan. Qualifiers: Vomiting type: unspecified Vomiting Intractability: unspecified Qualified Code(s): R11.2 - Nausea with vomiting, unspecified (13) DVT prophylaxis Current Visit: Yes Status: Acute -Eliquis was restarted today -EPCDs GI prophylaxis- IV protonix 40mg IV BID. Subjective Principal diagnosis: Acute on chronic respiratory failure with hypoxia and hypercapnia Interval history: Mr. Swenson was satting well this morning on 4 L nasal cannula. Vitals stable, WBC stable. Chest tube output minimal overnight. Per nurse, patient had some lower abdominal pain overnight, which she states resolved after having 2 bowel movements this morning. Patient tolerated BiPAP for 1 hour and 45 minutes overnight. Objective PUL Vital signs: Last Vital Signs Temp 98.2 F 07/22/17 07:23 Pulse 104 07/22/17 06:00 Resp 20 07/22/17 06:00 BP 122/75 07/21/17 23:15 Pulse Ox 99 07/22/17 06:00 General appearance: no acute distress ENT: oropharynx dry Neck: supple Effort: normal Auscultation: left: diminished breath sounds, right: rales Cardiovascular: other (Regular and tachycardic. No murmurs, rubs or gallops.) Gastrointestinal: normoactive bowel sounds, soft, non-tender, non-distended Integumentary: other (Bilateral anterior skin thickening and hyperpigmentation.) Extremities: no cyanosis, pink and warm, edema (2+), other (Left-sided calcaneal ulcer with central scabbing, minimal surrounding erythema.) normal mental status mood appropriate, affect normal Results - Laboratory Findings CBC and BMP: 07/22/17 10:57 07/22/17 10:57 ABG ABG pH 7.50 pH Units (7.32-7.45) H 07/20/17 04:44 ABG pCO2 32 mmHg (35-45) L 07/20/17 04:44 ABG pO2 165 mmHg (85-104) H 07/20/17 04:44 ABG O2 Saturation 100 % (95-98) H 07/20/17 04:44 PT/INR, D-dimer PT 15.1 Seconds (9.4-12.1) H 07/15/17 03:10 Abnormal lab findings: Abnormal lab results WBC 19.3 K/mcL (4.3-11.1) H 07/21/17 03:50 Hgb 12.4 g/dL (12.9-16.9) L 07/21/17 03:50 MCH 26.8 pg (28.0-33.3) L 07/21/17 03:50 MCHC 31.0 g/dL (31.6-35.5) L 07/21/17 03:50 RDW 14.7 % (11.5-14.5) H 07/21/17 03:50 MPV 9.3 fL (9.4-12.4) L 07/21/17 03:50 Neutrophils # 16.1 K/mcL (1.6-8.9) H 07/21/17 03:50 PT 15.1 Seconds (9.4-12.1) H 07/15/17 03:10 ABG pH 7.50 pH Units (7.32-7.45) H 07/20/17 04:44 ABG pCO2 32 mmHg (35-45) L 07/20/17 04:44 ABG pO2 165 mmHg (85-104) H 07/20/17 04:44 ABG O2 Saturation 100 % (95-98) H 07/20/17 04:44 VBG pO2 174 mmHg (25-50) H 07/21/17 12:58 VBG HCO3 31 mEq/L (21-27) H 07/21/17 12:58 Carbon Dioxide 30 mEq/L (19-29) H 07/21/17 09:00 BUN 32 mg/dL (8-26) H 07/21/17 09:00 Creatinine 0.70 mg/dL (0.72-1.25) L 07/21/17 09:00 BUN/Creatinine Ratio 46 (6-26) H 07/21/17 09:00 Glucose 135 mg/dL (70-99) H 07/21/17 09:00 POC Glucose 129 (58-89) H 07/22/17 07:08 Calcium 7.5 mg/dL (8.6-10.8) L 07/21/17 09:00 Venous Ioniz Calcium 1.06 mmol/L (1.15-1.35) L 07/21/17 12:58 Phosphorus 2.2 mg/dL (2.3-4.7) L 07/20/17 23:45 B-Natriuretic Peptide 184 pg/mL (0-100) H 07/13/17 19:22 Serum Total Protein 5.8 g/dL (6.0-8.3) L 07/15/17 15:00 Urine Clarity Cloudy (Clear) A 07/13/17 20:10 Ur Specific Brewer 1.029 (1.010-1.025) H 07/13/17 20:10 Urine Protein 30 mg/dL (Neg-Trace) H 07/13/17 20:10 Urine Bilirubin Small (Negative) H 07/13/17 20:10 Urine Microscopic RBC 5-15 per hpf (0-3) H 07/13/17 20:10 Ur Squamous Epith Cells Many per lpf (None-Few) H 07/13/17 20:10 Fluid Appearance Cloudy (Clear) A 07/14/17 09:29 Pleural Appearance Cloudy (Clear) A 07/15/17 12:30 Pleural Tot Nuc Cell 2828 TNC/mcL (0-1000) H 07/15/17 12:30 - Clinical Findings Intake & Output: Intake & Output 07/21/17 07/21/17 07/22/17 15:59 23:59 07:59 Intake Total 40 / 40 20 / 20 Output Total 2430 / 2430 1830 / 1830 820 / 820 Balance -2390 / -2390 -1830 / -1830 -800 / -800 Weight 199.8 kg - VTE Documentation of Mechanical Device: Intermittent pneumatic compression device
[2017-07-22] MEDS: Ipratropium/Albuterol Neb 3 ML IH SCH ×3 (07:58→22:49)
[2017-07-22] MEDS: Insulin LISPRO 300 UNITS/3 ML VIAL SQ SCH ×4 (08:17→22:49)
[2017-07-22] MEDS: Furosemide 40 MG/4 ML VIAL IVP SCH (08:23)
[2017-07-22] MEDS: MethylPREDNISolone 40 MG/ML VIAL IVP SCH (08:24)
[2017-07-22] MEDS: Metoprolol XL (24 HR) Succ 25 MG TAB.ER.24H PO SCH (08:24)
[2017-07-22] MEDS: Insulin DETEMIR 100 UNIT/ML X5UNITS SQ SCH (08:36)
--- NOTE | 2017-07-22 10:27 | Internal Med Progress Note ---
Date of Encounter: 07/22/17 Time of Encounter: 10:23 - Assessment and plan (1) Acute and chronic respiratory failure ([id number]) Current Visit: Yes Status: Acute Assessment and plan: Multifactorial due to underlying obstructive sleep apnea, COPD with superimposed pneumonia and bilateral pleural effusions. Has been intubated and extubated. Received left-sided chest tube placement. Currently saturating well on 4 L/m nasal cannula. Continue to treat underlying conditions, supportive care. Qualifiers: Respiratory failure complication: hypoxia and hypercapnia Qualified Code(s) : J96.21 - Acute and chronic respiratory failure with hypoxia; J96.22 - Acute and chronic respiratory failure with hypercapnia; J96.22 - Acute and chronic respiratory failure with hypercapnia; J96.22 - Acute and chronic respiratory failure with hypercapnia (2) Parapneumonic effusion Current Visit: Yes Status: Acute Assessment and plan: Status post left chest tube placement. Continue care per pulmonology. Completed 4 days of IV vancomycin, currently on IV [id number]-D9. Blood and pleural fluid cultures remain negative. (3) HCAP (healthcare-associated pneumonia) Current Visit: Yes Status: Acute Assessment and plan: Plan as above. (4) Sepsis Current Visit: Yes Status: Resolved Qualifiers: Sepsis type: sepsis due to unspecified organism Qualified Code(s): A41.9 - Sepsis, unspecified organism (5) Foot ulcer Current Visit: Yes Status: Chronic Qualifiers: Laterality: left Non-pressure ulcer stage: unspecified non-pressure ulcer stage Qualified Code(s): L97.529 - Non-pressure chronic ulcer of other part of left foot with unspecified severity (6) Atrial fibrillation Current Visit: Yes Status: Chronic Assessment and plan: Heart rate currently faintly controlled, low 100s. Continue metoprolol. Continue long-term anticoagulation with Eliquis. Qualifiers: Atrial fibrillation type: chronic Qualified Code(s): I48.2 - Chronic atrial fibrillation (7) COPD (chronic obstructive pulmonary disease) Current Visit: Yes Status: Chronic Assessment and plan: Continue bronchodilators, taper down IV steroids as tolerated. Noted to have leukocytosis likely steroid-induced. Qualifiers: COPD type: unspecified COPD Qualified Code(s): J44.9 - Chronic obstructive pulmonary disease, unspecified (8) Obstructive sleep apnea Current Visit: Yes Status: Chronic Assessment and plan: Continue nocturnal BiPAP support. Encouraged compliance. Patient does have BiPAP at home. (9) CHF (congestive heart failure) Current Visit: Yes Status: Chronic Assessment and plan: Continue beta jose and Lasix. Fluid restriction. Qualifiers: Congestive heart failure type: diastolic Congestive heart failure chronicity: chronic Qualified Code(s): I50.32 - Chronic diastolic (congestive ) heart failure (10) Metabolic alkalosis Current Visit: Yes Status: Acute - Subjective Interval history: Reports feeling better; has not been out of bed since admission; denies chest pain, dyspnea, nausea, vomiting; does have some abdominal pain and constipation; - Constitutional Vitals: Temp Pulse Resp BP Pulse Ox 98.2 F 102 20 120/72 98 07/22/17 07:23 07/22/17 08:15 07/22/17 08:15 07/22/17 08:15 07/22/17 08:15 General appearance: Present: A&O X 3, morbidly obese, answers questions appropriately - Respiratory Respiratory exam: Present: decreased breath sounds (at B/L bases), CTAB. Absent : accessory muscle use, rales, rhonchi, wheezes Additional comments: left chest tube in place - Cardiovascular Cardiovascular exam: Present: RRR, +S1, +S2. Absent: diastolic murmur, gallop, rubs, systolic murmur - GI/Abdominal GI/Abdominal exam: Present: normal bowel sounds, soft (obese), no peritoneal signs. Absent: distended, tenderness - Extremities Exam Extremities exam: Present: pedal edema, warm, radial pulses palpable and symmetrical. Absent: calf tenderness, cyanotic Additional comments: chronic stasis dermatitis B/L lower legs - Neurological Exam Neurological exam: Present: CN II-XII intact, oriented X3, no focal deficits. Absent: pronater drift, facial droop, speech deficit Internal Medicine: Result - Labs CBC & Chem 7: 07/22/17 10:57 07/22/17 10:57 - ABG Interpretation ABG results: ABG ABG pH 7.50 pH Units (7.32-7.45) H 07/20/17 04:44 ABG pCO2 32 mmHg (35-45) L 07/20/17 04:44 ABG pO2 165 mmHg (85-104) H 07/20/17 04:44 ABG O2 Saturation 100 % (95-98) H 07/20/17 04:44 PT/INR, D-dimer PT 15.1 Seconds (9.4-12.1) H 07/15/17 03:10 - Impressions Impressions Chest X-Ray 07/22/17 08:44 IMPRESSION: 1. Decrease in size of the left pleural effusion with left chest tube in place. New small left pneumothorax, likely due to the presence of the chest tube and/or an element of trapped lung. 2. Small right pleural effusion with overlying atelectasis, decreased in size from the previous exam. Results verbally communicated to the patient's nurse, Jim, at 10:06 a.m. on 07/22/2017 by the [facility]. D/ / 07/22/2017 10:10:03 Moshe Whelan MD / mery Interpreting Provider: Moshe Whelan MD - VTE Documentation of Mechanical Device: Intermittent pneumatic compression device Consult Discharge Plan - Plan Referrals: Zion Hernandes DO [Primary Care Provider] -
[2017-07-22 11:04] LABS: Basophils % 0.1 %; Eosinophils # 0.1 K/mcL (0.0-0.6); Eosinophils % 0.4 %; Hemoglobin 13.2 g/dL (12.9-16.9); Immature Granulocytes % 0.8 % (0-4); Lymphocytes # 1.6 K/mcL (0.6-4.6); Lymphocytes % 8.4 %; Mean Corpuscular HGB Conc 31.4 g/dL (31.6-35.5); Mean Corpuscular Hemoglobin 26.5 pg (28.0-33.3); Mean Corpuscular Volume 84.2 fL (83.0-100.0); Mean Platelet Volume 9.3 fL (9.4-12.4); Monocytes # 1.2 K/mcL (0.0-1.3); Monocytes % 6.3 %; Platelet Count 249 K/mcL (140-400); Red Blood Count 4.99 M/mcL (4.19-5.50); Red Cell Distribution Width 14.6 % (11.5-14.5)
[2017-07-22 11:16] LABS: BUN/Creatinine Ratio 44 (6-26); Blood Urea Nitrogen 32 mg/dL (8-26); Calcium 7.9 mg/dL (8.6-10.8); Carbon Dioxide 36 mEq/L (19-29); Chloride 101 mEq/L (98-109); Glucose 189 mg/dL (70-99); Osmolality,Calculated 298 (280-300); Potassium 3.7 mEq/L (3.5-4.5); Sodium 138 mEq/L (136-145); eGFR For African Americans > 60 (> 60); eGFR For Non-African Americans > 60 (> 60)
--- NOTE | 2017-07-22 13:38 | Event Note ---
Date of Encounter: 07/22/17 Time of Encounter: 13:37 Reviewed chest x-ray from today there is a small residual pneumothorax with chest tube in place no air leak and the chest tube atrium I suspect this is related to pneumothorax ex vacuo has the chest tube was placed for pleural effusion not pneumothorax. Patient is unable to fit into the CT scanner for further evaluation of underlying along the anatomy however I feel that the risk of pulling chest tube is very low and we will pull at this time and repeat chest x-ray and follow closely clinically
[2017-07-22] MEDS ORDERED: APIXABAN 5 MG TABLET PO SCH (21:00)
[2017-07-22] MEDS ORDERED: Sennosides 8.6 MG TABLET PO SCH (22:00)
[2017-07-22] MEDS: APIXABAN 5 MG TABLET PO SCH (22:47)
[2017-07-22] MEDS: Metoclopramide 10 MG/2 ML VIAL IVP PRN (22:47)
[2017-07-23] MEDS: Acetaminophen 325 MG TABLET PO PRN ×2 (02:12→22:59)
[2017-07-23 04:38] LABS: Basophils % 0.1 %; Eosinophils # 0.3 K/mcL (0.0-0.6); Eosinophils % 1.8 %; Hematocrit 40.6 % (37.5-50.1); Hemoglobin 12.8 g/dL (12.9-16.9); Immature Granulocytes % 0.9 % (0-4); Lymphocytes # 2.4 K/mcL (0.6-4.6); Lymphocytes % 14.8 %; Mean Corpuscular HGB Conc 31.5 g/dL (31.6-35.5); Mean Corpuscular Hemoglobin 26.6 pg (28.0-33.3); Mean Corpuscular Volume 84.4 fL (83.0-100.0); Mean Platelet Volume 9.8 fL (9.4-12.4); Monocytes # 1.8 K/mcL (0.0-1.3); Monocytes % 11.2 %; Neutrophils # 11.4 K/mcL (1.6-8.9); Platelet Count 234 K/mcL (140-400); Red Blood Count 4.81 M/mcL (4.19-5.50); Red Cell Distribution Width 14.6 % (11.5-14.5); Segmented Neutrophils % 71.2 %
[2017-07-23 04:49] LABS: BUN/Creatinine Ratio 52 (6-26); Blood Urea Nitrogen 33 mg/dL (8-26); Calcium 7.7 mg/dL (8.6-10.8); Carbon Dioxide 31 mEq/L (19-29); Chloride 102 mEq/L (98-109); Glucose 151 mg/dL (70-99); Osmolality,Calculated 298 (280-300); Potassium 3.2 mEq/L (3.5-4.5); Sodium 139 mEq/L (136-145); eGFR For African Americans > 60 (> 60); eGFR For Non-African Americans > 60 (> 60)
[2017-07-23] MEDS: Ipratropium/Albuterol Neb 3 ML IH SCH ×3 (07:48→23:40)
[2017-07-23] MEDS: Insulin LISPRO 300 UNITS/3 ML VIAL SQ SCH ×4 (10:13→21:30)
[2017-07-23] MEDS: Metoprolol XL (24 HR) Succ 25 MG TAB.ER.24H PO SCH (10:13)
[2017-07-23] MEDS: APIXABAN 5 MG TABLET PO SCH ×2 (10:13→21:29)
[2017-07-23] MEDS: Sennosides 8.6 MG TABLET PO SCH ×2 (10:13→21:30)
[2017-07-23] MEDS: Furosemide 40 MG/4 ML VIAL IVP SCH (10:14)
[2017-07-23] MEDS: Insulin DETEMIR 100 UNIT/ML X5UNITS SQ SCH (10:14)
--- NOTE | 2017-07-23 12:15 | Internal Med Progress Note ---
Date of Encounter: 07/23/17 Time of Encounter: 12:14 - Assessment and plan (1) C. difficile colitis Current Visit: Yes Status: Acute Assessment and plan: stool studies positive for C-diff started Metronidazole (2) Hypokalemia Current Visit: Yes Status: Acute Assessment and plan: K supplemented continue to monitor electrolytes and replace as needed (3) Acute and chronic respiratory failure ([id number]) Current Visit: Yes Status: Acute Assessment and plan: Multifactorial due to underlying obstructive sleep apnea, COPD with superimposed pneumonia and bilateral pleural effusions. Has been intubated and extubated. s/p chest tube placement- removed on 07/22/17 Currently saturating well on 4 L/m nasal cannula. Continue to treat underlying conditions, supportive care. Qualifiers: Respiratory failure complication: hypoxia and hypercapnia Qualified Code(s) : J96.21 - Acute and chronic respiratory failure with hypoxia; J96.22 - Acute and chronic respiratory failure with hypercapnia; J96.22 - Acute and chronic respiratory failure with hypercapnia; J96.22 - Acute and chronic respiratory failure with hypercapnia (4) Parapneumonic effusion Current Visit: Yes Status: Acute Assessment and plan: Status post left chest tube placement. Continue care per pulmonology. Finished abx treatment (5) HCAP (healthcare-associated pneumonia) Current Visit: Yes Status: Acute Assessment and plan: Plan as above. (6) Atrial fibrillation Current Visit: Yes Status: Chronic Assessment and plan: Heart rate currently faintly controlled, low 100s. Continue metoprolol, increased to home dose of Metoprolol Continue long-term anticoagulation with Eliquis. Qualifiers: Atrial fibrillation type: chronic Qualified Code(s): I48.2 - Chronic atrial fibrillation (7) CHF (congestive heart failure) Current Visit: Yes Status: Chronic Assessment and plan: Continue beta jose and Lasix. Fluid restriction. Qualifiers: Congestive heart failure type: diastolic Congestive heart failure chronicity: chronic Qualified Code(s): I50.32 - Chronic diastolic (congestive ) heart failure (8) Diabetes Current Visit: No Status: Chronic Assessment and plan: continue ss insulin algorithm monitor FS and BG ADA diet Qualifiers: Diabetes mellitus type: type 2 Diabetes mellitus complication status: with unspecified complications Diabetes mellitus mcc insulin use: with exterminator use Qualified Code(s): E11.8 - Type 2 diabetes mellitus with unspecified complications; Z79.4 - long term care pharmacist (current) use of insulin; Z79.4 - long term care pharmacist ( current) use of insulin; Z79.4 - long term care pharmacist (current) use of insulin; Z79.4 - assisted (current) use of insulin (9) Foot ulcer Current Visit: Yes Status: Chronic Assessment and plan: continue wound care Qualifiers: Laterality: left Non-pressure ulcer stage: unspecified non-pressure ulcer stage Qualified Code(s): L97.529 - Non-pressure chronic ulcer of other part of left foot with unspecified severity (10) Obstructive sleep apnea Current Visit: Yes Status: Chronic Assessment and plan: Continue nocturnal BiPAP support. Encouraged compliance. Patient does have BiPAP at home. Bipap during the day during naps (11) Morbid obesity with BMI of 50.0-59.9, adult Current Visit: Yes Status: Chronic (12) DVT prophylaxis Current Visit: Yes Status: Acute Assessment and plan: anticoagulated with Eliquis - Subjective Interval history: Patient seen and examined with family present at bedside. Chest tube removed yesterday (07/22/17) currently saturating well on nasal cannula noted to have stool positive for c-diff - Constitutional Vitals: Temp Pulse Resp BP Pulse Ox 98.6 F 106 16 135/93 97 07/23/17 06:25 07/23/17 06:25 07/23/17 07:48 07/23/17 07:48 07/23/17 08:00 General appearance: Present: A&O X 3, morbidly obese, no acute distress, answers questions appropriately - Head Head exam: Present: atraumatic, normocephalic - Eye Eye exam: Present: conjuntiva pink, sclera anicteric - Respiratory Respiratory exam: Present: decreased breath sounds. Absent: respiratory distress, wheezes - Cardiovascular Cardiovascular exam: Present: +S1, +S2, tachycardia. Absent: diastolic murmur, systolic murmur - GI/Abdominal GI/Abdominal exam: Present: normal bowel sounds, soft, no peritoneal signs. Absent: distended, tenderness - Extremities Exam Extremities exam: Present: pedal edema (b/l chronic stasis dermatitis ), warm, radial pulses palpable and symmetrical. Absent: calf tenderness, tenderness - Neurological Exam Neurological exam: Present: alert, oriented X3 - Psychiatric Psychiatric exam: Present: normal affect, normal mood Internal Medicine: Result - Labs CBC & Chem 7: 07/23/17 04:21 07/23/17 04:21 Labs: Short CBC 07/23/17 Range/Units 04:21 WBC 16.0 H (4.3-11.1) K/mcL Hgb 12.8 L (12.9-16.9) g/dL Hct 40.6 (37.5-50.1) % Plt Count 234 (140-400) K/mcL Neutrophils # 11.4 H (1.6-8.9) K/mcL BMP 07/23/17 04:21 Sodium 139 Potassium 3.2 L Chloride 102 Carbon Dioxide 31 H BUN 33 H Creatinine 0.64 L Glucose 151 H Calcium 7.7 L - ABG Interpretation ABG results: ABG ABG pH 7.50 pH Units (7.32-7.45) H 07/20/17 04:44 ABG pCO2 32 mmHg (35-45) L 07/20/17 04:44 ABG pO2 165 mmHg (85-104) H 07/20/17 04:44 ABG O2 Saturation 100 % (95-98) H 07/20/17 04:44 PT/INR, D-dimer PT 15.1 Seconds (9.4-12.1) H 07/15/17 03:10 - Impressions Impressions Chest X-Ray 07/22/17 13:48 IMPRESSION: Status post removal of left basilar pleural catheter. Small left hydropneumothorax is present. No shift of midline structures. Stable bibasilar atelectasis and cardiomegaly. D/ / Zion Marks MD / Zion Marks MD Interpreting Provider: Zion Marks MD Chest X-Ray 07/23/17 06:00 IMPRESSION: 1. Stable mild left lateral pneumothorax. The exam partially excluded the left lateral costophrenic angle. 2. Stable patchy consolidation. D/ / 07/23/2017 08:16:16 Dean Benitez MD / mery Interpreting Provider: Dean Benitez MD - VTE Documentation of Mechanical Device: Intermittent pneumatic compression device Consult Discharge Plan - Plan Referrals: Zion Hernandes DO [Primary Care Provider] - 07/26/17 1:45 pm
[2017-07-23] MEDS: metroNIDAZOLE 500 MG TABLET PO SCH ×3 (12:35→21:29)
--- NOTE | 2017-07-23 13:43 | Pulmonology Progress Note ---
Date of Encounter: 07/23/17 Time of Encounter: 13:41 Assessment and Plan (1) Acute on chronic diastolic heart failure Current Visit: No Status: Acute Secondary to possible COPD morbid obesity obesity hypoventilation syndrome as her sleep apnea and cardiogenic pulmonary edema improving he will need to continue supple oxygen to keep saturation around 89% with BiPAP during night and with naps (2) C. difficile colitis Current Visit: Yes Status: Acute This is acute has been diagnosed with that in the past he is on treatment with metronidazole we will defer to the primary hospitalist service for further management (3) Atrial fibrillation Current Visit: Yes Status: Chronic rate conrtrolled cont NOAC Qualifiers: Atrial fibrillation type: chronic Qualified Code(s): I48.2 - Chronic atrial fibrillation (4) Pneumonia Current Visit: No Status: Acute Present was pneumonia this is been treated successfully with antimicrobials Qualifiers: Pneumonia type: due to unspecified organism Laterality: left Lung location: lower lobe of lung Qualified Code(s): J18.1 - Lobar pneumonia, unspecified organism (5) Obstructive sleep apnea Current Visit: Yes Status: Chronic Continue BiPAP at night and with this medicine is having the patient had CPAP at home but he actually has BiPAP and will not need to be qualify for BiPAP for home going (6) CHF (congestive heart failure) Current Visit: Yes Status: Chronic Would hold further aggressive diuresis while diarrhea in the context of C. difficile but will likely need ongoing chronic diuretic dose Qualifiers: Congestive heart failure type: diastolic Congestive heart failure chronicity: chronic Qualified Code(s): I50.32 - Chronic diastolic (congestive ) heart failure (7) Metabolic alkalosis Current Visit: Yes Status: Acute This is resolved and is in part due to chronic hypercapnia complicated by contraction alkalosis (8) Parapneumonic effusion Current Visit: Yes Status: Acute (9) Morbid obesity with BMI of 50.0-59.9, adult Current Visit: Yes Status: Acute Weight loss encouraged Pulmonary we will sign off please call with any questions he will need follow- up in the pulmonary/sleep clinic within 2-4 weeks attended discharge Subjective Principal diagnosis: Acute on chronic respiratory failure with hypoxia and hypercapnia Interval history: Was transferred out of the ICU yesterday. Worsening diarrhea overnight and a C. difficile stool sample was sent which was positive and his been started on therapy with metronidazole he is having a bit of abdominal pain with this. He has been trying to wear BiPAP mask but intermittently doing so Objective PUL Vital signs: Last Vital Signs Temp 98.6 F 07/23/17 12:14 Pulse 109 07/23/17 12:14 Resp 15 07/23/17 12:14 BP 115/79 07/23/17 12:14 Pulse Ox 97 07/23/17 12:14 General appearance: no acute distress Auscultation: bilateral: diminished breath sounds Cardiovascular: regular rate and rhythm Gastrointestinal: normoactive bowel sounds, tender normal mental status, non-focal exam mood appropriate Results - Laboratory Findings CBC and BMP: 07/23/17 04:21 07/23/17 04:21 ABG ABG pH 7.50 pH Units (7.32-7.45) H 07/20/17 04:44 ABG pCO2 32 mmHg (35-45) L 07/20/17 04:44 ABG pO2 165 mmHg (85-104) H 07/20/17 04:44 ABG O2 Saturation 100 % (95-98) H 07/20/17 04:44 PT/INR, D-dimer PT 15.1 Seconds (9.4-12.1) H 07/15/17 03:10 Abnormal lab findings: Abnormal lab results WBC 16.0 K/mcL (4.3-11.1) H 07/23/17 04:21 Hgb 12.8 g/dL (12.9-16.9) L 07/23/17 04:21 MCH 26.6 pg (28.0-33.3) L 07/23/17 04:21 MCHC 31.5 g/dL (31.6-35.5) L 07/23/17 04:21 RDW 14.6 % (11.5-14.5) H 07/23/17 04:21 Neutrophils # 11.4 K/mcL (1.6-8.9) H 07/23/17 04:21 Monocytes # 1.8 K/mcL (0.0-1.3) H 07/23/17 04:21 PT 15.1 Seconds (9.4-12.1) H 07/15/17 03:10 ABG pH 7.50 pH Units (7.32-7.45) H 07/20/17 04:44 ABG pCO2 32 mmHg (35-45) L 07/20/17 04:44 ABG pO2 165 mmHg (85-104) H 07/20/17 04:44 ABG O2 Saturation 100 % (95-98) H 07/20/17 04:44 VBG pO2 174 mmHg (25-50) H 07/21/17 12:58 VBG HCO3 31 mEq/L (21-27) H 07/21/17 12:58 Potassium 3.2 mEq/L (3.5-4.5) L 07/23/17 04:21 Carbon Dioxide 31 mEq/L (19-29) H 07/23/17 04:21 BUN 33 mg/dL (8-26) H 07/23/17 04:21 Creatinine 0.64 mg/dL (0.72-1.25) L 07/23/17 04:21 BUN/Creatinine Ratio 52 (6-26) H 07/23/17 04:21 Glucose 151 mg/dL (70-99) H 07/23/17 04:21 POC Glucose 133 (58-89) H 07/23/17 06:24 Calcium 7.7 mg/dL (8.6-10.8) L 07/23/17 04:21 Venous Ioniz Calcium 1.06 mmol/L (1.15-1.35) L 07/21/17 12:58 Phosphorus 2.2 mg/dL (2.3-4.7) L 07/20/17 23:45 B-Natriuretic Peptide 184 pg/mL (0-100) H 07/13/17 19:22 Serum Total Protein 5.8 g/dL (6.0-8.3) L 07/15/17 15:00 Urine Clarity Cloudy (Clear) A 07/13/17 20:10 Ur Specific [place] 1.029 (1.010-1.025) H 07/13/17 20:10 Urine Protein 30 mg/dL (Neg-Trace) H 07/13/17 20:10 Urine Bilirubin Small (Negative) H 07/13/17 20:10 Urine Microscopic RBC 5-15 per hpf (0-3) H 07/13/17 20:10 Ur Squamous Epith Cells Many per lpf (None-Few) H 07/13/17 20:10 Fluid Appearance Cloudy (Clear) A 07/14/17 09:29 Pleural Appearance Cloudy (Clear) A 07/15/17 12:30 Pleural Tot Nuc Cell 2828 TNC/mcL (0-1000) H 07/15/17 12:30 - Clinical Findings Intake & Output: Intake & Output 07/22/17 07/23/17 07/23/17 23:59 07:59 15:59 Intake Total 0 / 0 0 / 0 200 / 200 Output Total 350 / 350 750 / 750 1999 / 1999 Balance -350 / -350 -750 / -750 -1800 / -1800 Weight 175.7 kg - VTE Documentation of Mechanical Device: Intermittent pneumatic compression device Consult Discharge Plan - Plan Referrals: Zion Hernandes DO [Primary Care Provider] - 07/26/17 1:45 pm
[2017-07-23] MEDS ORDERED: Metoprolol XL (24 HR) Succ 25 MG TAB.ER.24H PO ONE (14:07)
[2017-07-23] MEDS: Metoclopramide 10 MG/2 ML VIAL IVP PRN (21:30)
--- NOTE | 2017-07-23 22:33 | Electrocardiograph Report ---
[place] [id number] Test Date: 2017-07-19 Pat Name: Luís Swenson Department: 109 Room: 2NE23 Gender: M Night Shift: REBECCA : 1950 Requested By: Sam Núñez Order Number: [id number] Reading MD: Candida Zuluaga Measurements Intervals Mathews Rate: 97 P: MN: 0 QRS: 127 QRSD: 104 T: 27 QT: 348 QTc: 403 Interpretive Statements ATRIAL FIBRILLATION POOR R WAVE PROGRESSION IN PRECORDIAL LEADS POSSIBLE ANTERIOR MYOCARDIAL INFARCTION, PROBABLY OLD Electronically Signed On 07-23-2017 22:32:05 EST by Candida Zuluaga
[2017-07-24 05:37] LABS: Basophils % 0.1 %; Eosinophils # 0.4 K/mcL (0.0-0.6); Eosinophils % 2.8 %; Hematocrit 39.1 % (37.5-50.1); Hemoglobin 12.4 g/dL (12.9-16.9); Immature Granulocytes % 0.7 % (0-4); Lymphocytes # 2.4 K/mcL (0.6-4.6); Lymphocytes % 16.5 %; Mean Corpuscular HGB Conc 31.7 g/dL (31.6-35.5); Mean Corpuscular Hemoglobin 26.6 pg (28.0-33.3); Mean Corpuscular Volume 83.7 fL (83.0-100.0); Mean Platelet Volume 9.9 fL (9.4-12.4); Monocytes # 1.4 K/mcL (0.0-1.3); Monocytes % 9.8 %; Neutrophils # 10.1 K/mcL (1.6-8.9); Platelet Count 243 K/mcL (140-400); Red Blood Count 4.67 M/mcL (4.19-5.50); Red Cell Distribution Width 14.6 % (11.5-14.5); Segmented Neutrophils % 70.1 %
[2017-07-24] MEDS: Metoclopramide 10 MG/2 ML VIAL IVP PRN (05:46)
[2017-07-24] MEDS: Acetaminophen 325 MG TABLET PO PRN (05:46)
[2017-07-24 05:49] LABS: BUN/Creatinine Ratio 38 (6-26); Calcium 7.5 mg/dL (8.6-10.8); Carbon Dioxide 27 mEq/L (19-29); Chloride 101 mEq/L (98-109); Glucose 135 mg/dL (70-99); Magnesium 1.3 mg/dL (1.6-2.6); Osmolality,Calculated 289 (280-300); Phosphorous 1.5 mg/dL (2.3-4.7); Potassium 2.9 mEq/L (3.5-4.5); Sodium 137 mEq/L (136-145); eGFR For African Americans > 60 (> 60); eGFR For Non-African Americans > 60 (> 60)
[2017-07-24 05:50] LABS: Blood Urea Nitrogen 22 mg/dL (8-26)
[2017-07-24] MEDS: Ipratropium/Albuterol Neb 3 ML IH SCH ×3 (07:21→22:45)
[2017-07-24] MEDS: Sennosides 8.6 MG TABLET PO SCH (08:30)
[2017-07-24] MEDS: Insulin LISPRO 300 UNITS/3 ML VIAL SQ SCH ×4 (08:31→19:07)
[2017-07-24] MEDS: Insulin DETEMIR 100 UNIT/ML X5UNITS SQ SCH (08:31)
[2017-07-24] MEDS: Metoprolol XL (24 HR) Succ 25 MG TAB.ER.24H PO SCH (08:31)
[2017-07-24] MEDS: metroNIDAZOLE 500 MG TABLET PO SCH ×3 (08:31→21:22)
[2017-07-24] MEDS: APIXABAN 5 MG TABLET PO SCH ×2 (08:31→21:22)
[2017-07-24] MEDS: Furosemide 40 MG/4 ML VIAL IVP SCH (08:35)
[2017-07-24] MEDS ORDERED: Potassium Chloride 20 MEQ, Lidocaine 1% 2 ML in D5% in Water 250 ML IVPB ONE (09:27)
[2017-07-24] MEDS ORDERED: Potassium Phosphate 44 MEQ in 0.9 % Sodium Chloride 250 ML IVPB ONE (09:27)
[2017-07-24] MEDS ORDERED: cefTRIAXone 1,000 MG in Water for inj. (sterile) 10 ML IVP SCH ×2 (10:00→20:00)
[2017-07-24] MEDS ORDERED: Nitroglycerin 0.4 MG TAB.SUBL SL ONE (11:13)
[2017-07-24] MEDS ORDERED: *HR* Morphine 2 MG/ML SYRINGE ONE (11:19)
[2017-07-24] MEDS ORDERED: *HR* Morphine 2 MG/ML SYRINGE IVP ONE (11:34)
--- NOTE | 2017-07-24 13:41 | Internal Med Progress Note ---
Date of Encounter: 07/24/17 Time of Encounter: 13:48 - Assessment and plan (1) C. difficile colitis Current Visit: Yes Status: Acute Assessment and plan: stool studies positive for C-diff Continue Metronidazole (2) Hypokalemia Current Visit: Yes Status: Acute Assessment and plan: K supplemented continue to monitor electrolytes and replace as needed (3) Acute and chronic respiratory failure ([id number]) Current Visit: Yes Status: Acute Assessment and plan: Multifactorial due to underlying obstructive sleep apnea, COPD with superimposed pneumonia and bilateral pleural effusions. Has been intubated and extubated. s/p chest tube placement- removed on 07/22/17 Currently saturating well on room air Continue to treat underlying conditions, supportive care. Qualifiers: Respiratory failure complication: hypoxia and hypercapnia Qualified Code(s) : J96.21 - Acute and chronic respiratory failure with hypoxia; J96.22 - Acute and chronic respiratory failure with hypercapnia; J96.22 - Acute and chronic respiratory failure with hypercapnia; J96.22 - Acute and chronic respiratory failure with hypercapnia (4) Parapneumonic effusion Current Visit: Yes Status: Acute Assessment and plan: Status post left chest tube placement. Continue care per pulmonology. Finished abx treatment (5) HCAP (healthcare-associated pneumonia) Current Visit: Yes Status: Acute Assessment and plan: Plan as above. (6) Atrial fibrillation Current Visit: Yes Status: Chronic Assessment and plan: Heart rate currently in 110s Added Cardizem 30mg PO q6h Continue home dose of Metoprolol Continue long-term anticoagulation with Eliquis. Qualifiers: Atrial fibrillation type: chronic Qualified Code(s): I48.2 - Chronic atrial fibrillation (7) CHF (congestive heart failure) Current Visit: Yes Status: Chronic Assessment and plan: Continue beta jose and Lasix. Fluid restriction. Qualifiers: Congestive heart failure type: diastolic Congestive heart failure chronicity: chronic Qualified Code(s): I50.32 - Chronic diastolic (congestive ) heart failure (8) Diabetes Current Visit: No Status: Chronic Assessment and plan: continue ss insulin algorithm monitor FS and BG ADA diet Qualifiers: Diabetes mellitus type: type 2 Diabetes mellitus complication status: with unspecified complications Diabetes mellitus fci insulin use: with fci use Qualified Code(s): E11.8 - Type 2 diabetes mellitus with unspecified complications; Z79.4 - senior care (current) use of insulin; Z79.4 - equipment operator intermodal yard ( current) use of insulin; Z79.4 - equipment operator intermodal yard (current) use of insulin; Z79.4 - equipment operator intermodal yard (current) use of insulin (9) Foot ulcer Current Visit: Yes Status: Chronic Assessment and plan: continue wound care Qualifiers: Laterality: left Non-pressure ulcer stage: unspecified non-pressure ulcer stage Qualified Code(s): L97.529 - Non-pressure chronic ulcer of other part of left foot with unspecified severity (10) Obstructive sleep apnea Current Visit: Yes Status: Chronic Assessment and plan: Continue nocturnal BiPAP support. Encouraged compliance. Patient does have BiPAP at home. Bipap during the day during naps (11) Morbid obesity with BMI of 50.0-59.9, adult Current Visit: Yes Status: Chronic (12) DVT prophylaxis Current Visit: Yes Status: Acute Assessment and plan: anticoagulated with Eliquis (13) Positive culture findings in wound Current Visit: Yes Status: Acute Assessment and plan: Neck Wound culture positive for Proteus Mirablis (preliminary report) will empirically start Rocephin f/u official wound culture report (14) Electrolyte abnormality Current Visit: Yes Status: Acute Assessment and plan: Hypomagnesemia, Hypophosphatemia Mg and phos supplemented monitor electrolytes and replace as needed - Subjective Interval history: Patient seen and examined with family present at bedside. Reports of having diffuse chest pain that is worst with deep inspiration and tender to touch. EKG reported Afib and no changes compared to previous EKG TNI negative currently saturating well on room air Noted to have uncontrolled afib with rvr Pt was noted to have a positive wound culture from neck with Proteus Mirablis, as per nursing reports, wound culture was obtained from the site of central line. Central line has been removed and site is clean and dry. Will empirically start pt on rocephin. PT/OT evaluation recommended Inpatient rehab social media senior associate on board for placement - Constitutional Vitals: Temp Pulse Resp BP Pulse Ox 98.3 F 113 25 110/80 96 07/24/17 05:00 07/24/17 07:30 07/24/17 07:30 07/24/17 07:30 07/24/17 07:30 General appearance: Present: A&O X 3, morbidly obese, no acute distress, answers questions appropriately - Head Head exam: Present: atraumatic, normocephalic - Eye Eye exam: Present: conjuntiva pink, sclera anicteric - Respiratory Respiratory exam: Present: decreased breath sounds. Absent: respiratory distress, wheezes - Cardiovascular Cardiovascular exam: Present: irregular rhythm, +S1, +S2, tachycardia - GI/Abdominal GI/Abdominal exam: Present: distended (obese), normal bowel sounds, soft, no peritoneal signs. Absent: tenderness - Extremities Exam Extremities exam: Present: warm, radial pulses palpable and symmetrical (b/l stasis dermatitis ). Absent: calf tenderness - Neurological Exam Neurological exam: Present: alert, oriented X3 Internal Medicine: Result - Labs CBC & Chem 7: 07/24/17 05:01 07/24/17 05:01 Labs: Short CBC 07/24/17 Range/Units 05:01 WBC 14.5 H (4.3-11.1) K/mcL Hgb 12.4 L (12.9-16.9) g/dL Hct 39.1 (37.5-50.1) % Plt Count 243 (140-400) K/mcL Neutrophils # 10.1 H (1.6-8.9) K/mcL BMP 07/24/17 05:01 Sodium 137 Potassium 2.9 L Chloride 101 Carbon Dioxide 27 BUN 22 D Creatinine 0.58 L Glucose 135 H Calcium 7.5 L Cardiac Enzymes 07/24/17 Range/Units 11:39 Troponin I 0.02 (0-0.03) ng/mL - ABG Interpretation ABG results: ABG ABG pH 7.50 pH Units (7.32-7.45) H 07/20/17 04:44 ABG pCO2 32 mmHg (35-45) L 07/20/17 04:44 ABG pO2 165 mmHg (85-104) H 07/20/17 04:44 ABG O2 Saturation 100 % (95-98) H 07/20/17 04:44 PT/INR, D-dimer PT 15.1 Seconds (9.4-12.1) H 07/15/17 03:10 - VTE Documentation of Mechanical Device: Intermittent pneumatic compression device Consult Discharge Plan - Plan Referrals: Zion Hernandes DO [Primary Care Provider] - 07/26/17 1:45 pm
[2017-07-24] MEDS: *HR* Morphine 2 MG/ML SYRINGE IVP PRN (21:23)
[2017-07-25 03:42] LABS: Basophils % 0.1 %; Eosinophils # 0.4 K/mcL (0.0-0.6); Eosinophils % 2.3 %; Hematocrit 37.9 % (37.5-50.1); Immature Granulocytes % 0.6 % (0-4); Lymphocytes # 2.3 K/mcL (0.6-4.6); Lymphocytes % 14.9 %; Mean Corpuscular HGB Conc 31.7 g/dL (31.6-35.5); Mean Corpuscular Hemoglobin 26.3 pg (28.0-33.3); Mean Corpuscular Volume 82.9 fL (83.0-100.0); Mean Platelet Volume 9.8 fL (9.4-12.4); Monocytes # 1.5 K/mcL (0.0-1.3); Monocytes % 9.3 %; Neutrophils # 11.3 K/mcL (1.6-8.9); Platelet Count 239 K/mcL (140-400); Red Blood Count 4.57 M/mcL (4.19-5.50); Red Cell Distribution Width 14.7 % (11.5-14.5); Segmented Neutrophils % 72.8 %
[2017-07-25 04:04] LABS: BUN/Creatinine Ratio 33 (6-26); Blood Urea Nitrogen 18 mg/dL (8-26); Calcium 7.3 mg/dL (8.6-10.8); Carbon Dioxide 27 mEq/L (19-29); Chloride 100 mEq/L (98-109); Glucose 149 mg/dL (70-99); Magnesium 1.4 mg/dL (1.6-2.6); Osmolality,Calculated 287 (280-300); Phosphorous 1.8 mg/dL (2.3-4.7); Sodium 136 mEq/L (136-145); eGFR For African Americans > 60 (> 60); eGFR For Non-African Americans > 60 (> 60)
[2017-07-25] MEDS: Ipratropium/Albuterol Neb 3 ML IH SCH ×3 (07:21→22:37)
[2017-07-25] MEDS ORDERED: Potassium Phosphate 44 MEQ in 0.9 % Sodium Chloride 250 ML IVPB ONE (07:59)
[2017-07-25] MEDS: Insulin LISPRO 300 UNITS/3 ML VIAL SQ SCH ×4 (09:50→21:13)
[2017-07-25] MEDS: Insulin DETEMIR 100 UNIT/ML X5UNITS SQ SCH (09:59)
[2017-07-25] MEDS: metroNIDAZOLE 500 MG TABLET PO SCH ×3 (10:00→22:38)
[2017-07-25] MEDS: APIXABAN 5 MG TABLET PO SCH ×2 (10:00→22:38)
[2017-07-25] MEDS: Furosemide 40 MG/4 ML VIAL IVP SCH (10:01)
[2017-07-25] MEDS: Metoprolol XL (24 HR) Succ 25 MG TAB.ER.24H PO SCH (10:01)
[2017-07-25] MEDS: Ertapenem 1,000 MG in Water for inj. (sterile) 10 ML IVP SCH (10:01)
[2017-07-25] MEDS: *HR* Morphine 2 MG/ML SYRINGE IVP PRN (10:16)
--- NOTE | 2017-07-25 10:56 | Internal Med Progress Note ---
Date of Encounter: 07/25/17 Time of Encounter: 10:54 - Assessment and plan (1) Positive culture findings in wound Current Visit: Yes Status: Acute Assessment and plan: Neck Wound culture positive for Proteus Mirablis d/c Rocephin and started Ertapenem as per culture sensitivities given worsening leukocytosis and persistent tachycardia,this could be the source of infection contributing to those symptoms Pt is to be discharged to inpatient rehab and can be discharged with IV abx once bed is available (2) C. difficile colitis Current Visit: Yes Status: Acute Assessment and plan: stool studies positive for C-diff Continue Metronidazole (3) Hypokalemia Current Visit: Yes Status: Acute Assessment and plan: K supplemented continue to monitor electrolytes and replace as needed (4) Acute and chronic respiratory failure ([id number]) Current Visit: Yes Status: Acute Assessment and plan: Multifactorial due to underlying obstructive sleep apnea, COPD with superimposed pneumonia and bilateral pleural effusions. Has been intubated and extubated. s/p chest tube placement- removed on 07/22/17 Currently saturating well on room air Continue to treat underlying conditions, supportive care. Qualifiers: Respiratory failure complication: hypoxia and hypercapnia Qualified Code(s) : J96.21 - Acute and chronic respiratory failure with hypoxia; J96.22 - Acute and chronic respiratory failure with hypercapnia; J96.22 - Acute and chronic respiratory failure with hypercapnia; J96.22 - Acute and chronic respiratory failure with hypercapnia (5) Parapneumonic effusion Current Visit: Yes Status: Acute Assessment and plan: Status post left chest tube placement. Continue care per pulmonology. Finished abx treatment (6) HCAP (healthcare-associated pneumonia) Current Visit: Yes Status: Acute Assessment and plan: Plan as above. (7) Atrial fibrillation Current Visit: Yes Status: Chronic Assessment and plan: Heart rate currently in 110s continue Cardizem 30mg PO q6h Continue home dose of Metoprolol Continue long-term anticoagulation with Eliquis. Qualifiers: Atrial fibrillation type: chronic Qualified Code(s): I48.2 - Chronic atrial fibrillation (8) CHF (congestive heart failure) Current Visit: Yes Status: Chronic Assessment and plan: Continue beta jose and Lasix. Fluid restriction. Qualifiers: Congestive heart failure type: diastolic Congestive heart failure chronicity: chronic Qualified Code(s): I50.32 - Chronic diastolic (congestive ) heart failure (9) Diabetes Current Visit: No Status: Chronic Assessment and plan: continue ss insulin algorithm monitor FS and BG ADA diet Qualifiers: Diabetes mellitus type: type 2 Diabetes mellitus complication status: with unspecified complications Diabetes mellitus religious ritual slaughterer insulin use: with longterm use Qualified Code(s): E11.8 - Type 2 diabetes mellitus with unspecified complications; Z79.4 - director of casework services (current) use of insulin; Z79.4 - jail ( current) use of insulin; Z79.4 - jail (current) use of insulin; Z79.4 - jail (current) use of insulin (10) Foot ulcer Current Visit: Yes Status: Chronic Assessment and plan: continue wound care Qualifiers: Laterality: left Non-pressure ulcer stage: unspecified non-pressure ulcer stage Qualified Code(s): L97.529 - Non-pressure chronic ulcer of other part of left foot with unspecified severity (11) Obstructive sleep apnea Current Visit: Yes Status: Chronic Assessment and plan: Continue nocturnal BiPAP support. Encouraged compliance. Patient does have BiPAP at home. Bipap during the day during naps Pt non compliant with bipap, states he can only use it for a few hours a day/ night (12) Morbid obesity with BMI of 50.0-59.9, adult Current Visit: Yes Status: Chronic (13) DVT prophylaxis Current Visit: Yes Status: Acute Assessment and plan: anticoagulated with Eliquis (14) Electrolyte abnormality Current Visit: Yes Status: Acute Assessment and plan: Hypomagnesemia, Hypophosphatemia Mg and phos supplemented monitor electrolytes and replace as needed - Subjective Interval history: Patient seen and examined with family present at bedside. Reports of generalized pain from laying in bed No overnight issues reported Wound culture reported Proteus Mirablis with sensitivity to Ertapenem. D/C rocephin and start IV ertapenem remains tachycardic, which could be secondary to the underlying infection blood cultures negative PT/OT evaluation recommended Inpatient rehab social media marketing analyst on board for placement Discharge pending placement and improvement in HR. pt encouraged to get out of bed to chair - Constitutional Vitals: Temp Pulse Resp BP Pulse Ox 97.8 F 112 16 141/77 96 07/25/17 06:49 07/25/17 06:49 07/25/17 07:21 07/25/17 07:21 07/25/17 07:21 General appearance: Present: A&O X 3, morbidly obese, no acute distress, answers questions appropriately - Head Head exam: Present: atraumatic, normocephalic - Eye Eye exam: Present: conjuntiva pink, sclera anicteric - Respiratory Respiratory exam: Present: decreased breath sounds. Absent: respiratory distress, wheezes - Cardiovascular Cardiovascular exam: Present: irregular rhythm, +S1, +S2, tachycardia. Absent: diastolic murmur, gallop, rubs, systolic murmur - GI/Abdominal GI/Abdominal exam: Present: normal bowel sounds, soft, no peritoneal signs. Absent: distended, tenderness - Extremities Exam Extremities exam: Present: warm, radial pulses palpable and symmetrical (b/l chronic stasis dermatitis ). Absent: calf tenderness - Neurological Exam Neurological exam: Present: alert, oriented X3 Internal Medicine: Result - Labs CBC & Chem 7: 07/25/17 03:11 07/25/17 03:11 Labs: Short CBC 07/25/17 Range/Units 03:11 WBC 15.6 H (4.3-11.1) K/mcL Hgb 12.0 L (12.9-16.9) g/dL Hct 37.9 (37.5-50.1) % Plt Count 239 (140-400) K/mcL Neutrophils # 11.3 H (1.6-8.9) K/mcL BMP 07/25/17 03:11 Sodium 136 Potassium 3.0 L Chloride 100 Carbon Dioxide 27 BUN 18 Creatinine 0.55 L Glucose 149 H Calcium 7.3 L Cardiac Enzymes 07/24/17 Range/Units 11:39 Troponin I 0.02 (0-0.03) ng/mL - ABG Interpretation ABG results: ABG ABG pH 7.50 pH Units (7.32-7.45) H 07/20/17 04:44 ABG pCO2 32 mmHg (35-45) L 07/20/17 04:44 ABG pO2 165 mmHg (85-104) H 07/20/17 04:44 ABG O2 Saturation 100 % (95-98) H 07/20/17 04:44 PT/INR, D-dimer PT 15.1 Seconds (9.4-12.1) H 07/15/17 03:10 - VTE Documentation of Mechanical Device: Intermittent pneumatic compression device Consult Discharge Plan - Plan Referrals: Zion Hernandes DO [Primary Care Provider] - 07/26/17 1:45 pm
--- NOTE | 2017-07-25 18:34 | Electrocardiograph Report ---
[place] [id number] Test Date: 2017-07-24 Pat Name: Luís Swenson Department: 111 Room: 2NE23 Gender: M [employer] Specialist: : [id number] Requested By: Claire Doyle Order Number: [id number] Reading MD: Alfred Mathis DO Measurements Intervals [place] Rate: 109 P: HI: 0 QRS: 145 QRSD: 104 T: 120 QT: 370 QTc: 434 Interpretive Statements ATRIAL FIBRILLATION WITH RAPID VENTRICULAR RESPONSE POSSIBLE ANTERIOR MYOCARDIAL INFARCTION, PROBABLY OLD POSSIBLE INFERIOR MYOCARDIAL INFARCTION, PROBABLY OLD Electronically Signed On 07-25-2017 18:32:28 EST by Alfred Mathis DO
[2017-07-25] MEDS: *HR* HYDROcodone/Acet 5/325 mg TABLET PO PRN (22:38)
[2017-07-26 06:08] LABS: Basophils % 0.2 %; Eosinophils # 0.4 K/mcL (0.0-0.6); Eosinophils % 2.4 %; Hematocrit 38.9 % (37.5-50.1); Immature Granulocytes % 0.4 % (0-4); Lymphocytes # 2.4 K/mcL (0.6-4.6); Lymphocytes % 16.2 %; Mean Corpuscular HGB Conc 30.8 g/dL (31.6-35.5); Mean Corpuscular Hemoglobin 26.1 pg (28.0-33.3); Mean Corpuscular Volume 84.7 fL (83.0-100.0); Mean Platelet Volume 10.2 fL (9.4-12.4); Monocytes # 1.1 K/mcL (0.0-1.3); Monocytes % 7.7 %; Neutrophils # 10.6 K/mcL (1.6-8.9); Platelet Count 249 K/mcL (140-400); Red Blood Count 4.59 M/mcL (4.19-5.50); Red Cell Distribution Width 14.7 % (11.5-14.5); Segmented Neutrophils % 73.1 %
[2017-07-26 06:20] LABS: BUN/Creatinine Ratio 32 (6-26); Blood Urea Nitrogen 18 mg/dL (8-26); Calcium 7.7 mg/dL (8.6-10.8); Carbon Dioxide 27 mEq/L (19-29); Chloride 100 mEq/L (98-109); Glucose 141 mg/dL (70-99); Magnesium 1.8 mg/dL (1.6-2.6); Osmolality,Calculated 290 (280-300); Phosphorous 2.1 mg/dL (2.3-4.7); Potassium 3.2 mEq/L (3.5-4.5); Sodium 138 mEq/L (136-145); eGFR For African Americans > 60 (> 60); eGFR For Non-African Americans > 60 (> 60)
[2017-07-26] MEDS: *HR* HYDROcodone/Acet 5/325 mg TABLET PO PRN ×2 (06:22→17:15)
[2017-07-26] MEDS: Ipratropium/Albuterol Neb 3 ML IH SCH ×3 (07:35→22:54)
[2017-07-26] MEDS: Insulin LISPRO 300 UNITS/3 ML VIAL SQ SCH ×4 (08:27→21:02)
[2017-07-26] MEDS ORDERED: Potassium Phosphate 44 MEQ in 0.9 % Sodium Chloride 250 ML IVPB ONE (08:37)
[2017-07-26] MEDS: Ertapenem 1,000 MG in Water for inj. (sterile) 10 ML IVP SCH (09:56)
[2017-07-26] MEDS: Metoprolol XL (24 HR) Succ 25 MG TAB.ER.24H PO SCH (09:57)
[2017-07-26] MEDS: metroNIDAZOLE 500 MG TABLET PO SCH ×3 (09:58→20:15)
[2017-07-26] MEDS: APIXABAN 5 MG TABLET PO SCH ×2 (09:58→20:15)
[2017-07-26] MEDS: Furosemide 40 MG TABLET PO SCH ×2 (10:03→17:14)
[2017-07-26] MEDS: Insulin DETEMIR 100 UNIT/ML X5UNITS SQ SCH (10:03)
--- NOTE | 2017-07-26 16:35 | Internal Med Progress Note ---
Date of Encounter: 07/26/17 Time of Encounter: 12:10 - Assessment and plan (1) Positive culture findings in wound Current Visit: Yes Status: Acute Assessment and plan: Neck Wound culture positive for Proteus Mirablis continue Ertapenem as per culture sensitivities (Day 2/7) Pt is to be discharged to inpatient rehab and can be discharged with IV abx once bed is available (2) C. difficile colitis Current Visit: Yes Status: Acute Assessment and plan: stool studies positive for C-diff Continue Metronidazole (3) Hypokalemia Current Visit: Yes Status: Acute Assessment and plan: K supplemented continue to monitor electrolytes and replace as needed (4) Acute and chronic respiratory failure ([id number]) Current Visit: Yes Status: Acute Assessment and plan: Multifactorial due to underlying obstructive sleep apnea, COPD with superimposed pneumonia and bilateral pleural effusions. Has been intubated and extubated. s/p chest tube placement- removed on 07/22/17 Currently saturating well on room air Continue to treat underlying conditions, supportive care. Qualifiers: Respiratory failure complication: hypoxia and hypercapnia Qualified Code(s) : J96.21 - Acute and chronic respiratory failure with hypoxia; J96.22 - Acute and chronic respiratory failure with hypercapnia; J96.22 - Acute and chronic respiratory failure with hypercapnia; J96.22 - Acute and chronic respiratory failure with hypercapnia (5) Parapneumonic effusion Current Visit: Yes Status: Acute Assessment and plan: Status post left chest tube placement. Continue care per pulmonology. Finished abx treatment (6) HCAP (healthcare-associated pneumonia) Current Visit: Yes Status: Acute Assessment and plan: Plan as above. (7) Atrial fibrillation Current Visit: Yes Status: Chronic Assessment and plan: Heart rate currently in 110s continue Cardizem 30mg PO q6h Continue home dose of Metoprolol Continue long-term anticoagulation with Eliquis. Qualifiers: Atrial fibrillation type: chronic Qualified Code(s): I48.2 - Chronic atrial fibrillation (8) CHF (congestive heart failure) Current Visit: Yes Status: Chronic Assessment and plan: Continue beta jose and Lasix. Fluid restriction. Qualifiers: Congestive heart failure type: diastolic Congestive heart failure chronicity: chronic Qualified Code(s): I50.32 - Chronic diastolic (congestive ) heart failure (9) Diabetes Current Visit: No Status: Chronic Assessment and plan: continue ss insulin algorithm monitor FS and BG ADA diet Qualifiers: Diabetes mellitus type: type 2 Diabetes mellitus complication status: with unspecified complications Diabetes mellitus assisted insulin use: with ferry terminal supervisor use Qualified Code(s): E11.8 - Type 2 diabetes mellitus with unspecified complications; Z79.4 - prison (current) use of insulin; Z79.4 - prison ( current) use of insulin; Z79.4 - ferry terminal supervisor (current) use of insulin; Z79.4 - prison (current) use of insulin (10) Foot ulcer Current Visit: Yes Status: Chronic Assessment and plan: continue wound care Qualifiers: Laterality: left Non-pressure ulcer stage: unspecified non-pressure ulcer stage Qualified Code(s): L97.529 - Non-pressure chronic ulcer of other part of left foot with unspecified severity (11) Obstructive sleep apnea Current Visit: Yes Status: Chronic Assessment and plan: Continue nocturnal BiPAP support. Encouraged compliance. Patient does have BiPAP at home. Bipap during the day during naps Pt non compliant with bipap, states he can only use it for a few hours a day/ night (12) Morbid obesity with BMI of 50.0-59.9, adult Current Visit: Yes Status: Chronic (13) DVT prophylaxis Current Visit: Yes Status: Acute Assessment and plan: anticoagulated with Eliquis (14) Electrolyte abnormality Current Visit: Yes Status: Acute Assessment and plan: Hypophosphatemia phos supplemented monitor electrolytes and replace as needed (15) Morbid obesity with BMI of 45.0-49.9, adult Current Visit: Yes Status: Chronic - Subjective Interval history: Patient seen and examined with family present at bedside. Reports of generalized pain from laying in bed No overnight issues reported Wound culture reported Proteus Mirablis with sensitivity to Ertapenem. Clinically improving, will continue PT/OT evaluation recommended Inpatient rehab older adult social work specialist on board for placement Discharge pending placement. pt encouraged to get out of bed to chair - Constitutional Vitals: Temp Pulse Resp BP Pulse Ox 98.2 F 97 18 133/89 96 07/26/17 16:00 07/26/17 16:00 07/26/17 16:00 07/26/17 16:00 07/26/17 16:00 General appearance: Present: A&O X 3, morbidly obese, no acute distress, answers questions appropriately - Head Head exam: Present: atraumatic, normocephalic - Eye Eye exam: Present: conjuntiva pink, sclera anicteric - Respiratory Respiratory exam: Absent: accessory muscle use, respiratory distress, wheezes - Cardiovascular Cardiovascular exam: Present: RRR, +S1, +S2. Absent: diastolic murmur, gallop, rubs, systolic murmur - GI/Abdominal GI/Abdominal exam: Present: normal bowel sounds, soft, no peritoneal signs. Absent: distended, tenderness - Extremities Exam Extremities exam: Present: pedal edema (b/l chronic stasis dermatitis in LE ), warm, radial pulses palpable and symmetrical. Absent: calf tenderness - Neurological Exam Neurological exam: Present: alert, oriented X3 - Psychiatric Psychiatric exam: Present: normal affect, normal mood Internal Medicine: Result - Labs CBC & Chem 7: 07/26/17 04:46 07/26/17 04:46 Labs: Short CBC 07/26/17 Range/Units 04:46 WBC 14.5 H (4.3-11.1) K/mcL Hgb 12.0 L (12.9-16.9) g/dL Hct 38.9 (37.5-50.1) % Plt Count 249 (140-400) K/mcL Neutrophils # 10.6 H (1.6-8.9) K/mcL BMP 07/26/17 04:46 Sodium 138 Potassium 3.2 L Chloride 100 Carbon Dioxide 27 BUN 18 Creatinine 0.56 L Glucose 141 H Calcium 7.7 L - ABG Interpretation ABG results: ABG ABG pH 7.50 pH Units (7.32-7.45) H 07/20/17 04:44 ABG pCO2 32 mmHg (35-45) L 07/20/17 04:44 ABG pO2 165 mmHg (85-104) H 07/20/17 04:44 ABG O2 Saturation 100 % (95-98) H 07/20/17 04:44 PT/INR, D-dimer PT 15.1 Seconds (9.4-12.1) H 07/15/17 03:10 - VTE Documentation of Mechanical Device: Intermittent pneumatic compression device Consult Discharge Plan - Plan Referrals: Zion Hernandes DO [Primary Care Provider] - 08/01/17 1:30 pm
[2017-07-26] MEDS: *HR* Morphine 2 MG/ML SYRINGE IVP PRN (20:27)
[2017-07-27] MEDS: *HR* HYDROcodone/Acet 5/325 mg TABLET PO PRN ×4 (02:26→22:52)
[2017-07-27] MEDS: Ipratropium/Albuterol Neb 3 ML IH SCH ×3 (08:19→22:31)
[2017-07-27] MEDS: Diltiazem CD (24hr) 120 MG CAPSULE PO SCH (08:48)
[2017-07-27] MEDS: APIXABAN 5 MG TABLET PO SCH ×2 (08:48→21:30)
[2017-07-27] MEDS: metroNIDAZOLE 500 MG TABLET PO SCH ×3 (08:48→21:30)
[2017-07-27] MEDS: Furosemide 40 MG TABLET PO SCH ×2 (08:48→16:39)
[2017-07-27] MEDS: Metoprolol XL (24 HR) Succ 25 MG TAB.ER.24H PO SCH (08:48)
[2017-07-27] MEDS: Ertapenem 1,000 MG in Water for inj. (sterile) 10 ML IVP SCH (08:49)
[2017-07-27] MEDS: Insulin DETEMIR 100 UNIT/ML X5UNITS SQ SCH (08:49)
[2017-07-27] MEDS: Insulin LISPRO 300 UNITS/3 ML VIAL SQ SCH ×4 (08:49→21:30)
--- NOTE | 2017-07-27 11:46 | Internal Med Progress Note ---
Date of Encounter: 07/27/17 Time of Encounter: 11:20 - Assessment and plan (1) Positive culture findings in wound Current Visit: Yes Status: Acute Assessment and plan: Neck Wound culture positive for Proteus Mirablis continue Ertapenem as per culture sensitivities (Day 3/7) Pt is to be discharged to inpatient rehab and can be discharged with IV abx once bed is available (2) C. difficile colitis Current Visit: Yes Status: Acute Assessment and plan: stool studies positive for C-diff Continue Metronidazole (3) Hypokalemia Current Visit: Yes Status: Acute Assessment and plan: will repeat today's labs and replace electrolytes as needed (4) Acute and chronic respiratory failure ([id number]) Current Visit: Yes Status: Acute Assessment and plan: Multifactorial due to underlying obstructive sleep apnea, COPD with superimposed pneumonia and bilateral pleural effusions. Has been intubated and extubated. s/p chest tube placement- removed on 07/22/17 Currently saturating well on room air Continue to treat underlying conditions, supportive care. Qualifiers: Respiratory failure complication: hypoxia and hypercapnia Qualified Code(s) : J96.21 - Acute and chronic respiratory failure with hypoxia; J96.22 - Acute and chronic respiratory failure with hypercapnia; J96.22 - Acute and chronic respiratory failure with hypercapnia; J96.22 - Acute and chronic respiratory failure with hypercapnia (5) Parapneumonic effusion Current Visit: Yes Status: Acute Assessment and plan: Status post left chest tube placement. Continue care per pulmonology. Finished abx treatment (6) HCAP (healthcare-associated pneumonia) Current Visit: Yes Status: Acute Assessment and plan: Plan as above. (7) Atrial fibrillation Current Visit: Yes Status: Chronic Assessment and plan: Heart rate better controlled started Cardizem 120mg PO qd Continue home dose of Metoprolol Continue long-term anticoagulation with Eliquis. Qualifiers: Atrial fibrillation type: chronic Qualified Code(s): I48.2 - Chronic atrial fibrillation (8) CHF (congestive heart failure) Current Visit: Yes Status: Chronic Assessment and plan: Continue beta jose and Lasix. Fluid restriction. Qualifiers: Congestive heart failure type: diastolic Congestive heart failure chronicity: chronic Qualified Code(s): I50.32 - Chronic diastolic (congestive ) heart failure (9) Diabetes Current Visit: No Status: Chronic Assessment and plan: continue ss insulin algorithm monitor FS and BG ADA diet Qualifiers: Diabetes mellitus type: type 2 Diabetes mellitus complication status: with unspecified complications Diabetes mellitus director long term care insulin use: with [facility] use Qualified Code(s): E11.8 - Type 2 diabetes mellitus with unspecified complications; Z79.4 - rn long term care (current) use of insulin; Z79.4 - halfway ( current) use of insulin; Z79.4 - rn long term care (current) use of insulin; Z79.4 - halfway (current) use of insulin (10) Foot ulcer Current Visit: Yes Status: Chronic Assessment and plan: continue wound care Qualifiers: Laterality: left Non-pressure ulcer stage: unspecified non-pressure ulcer stage Qualified Code(s): L97.529 - Non-pressure chronic ulcer of other part of left foot with unspecified severity (11) Obstructive sleep apnea Current Visit: Yes Status: Chronic Assessment and plan: Continue nocturnal BiPAP support. Encouraged compliance. Patient does have BiPAP at home. Bipap during the day during naps Pt non compliant with bipap, states he can only use it for a few hours a day/ night (12) Morbid obesity with BMI of 50.0-59.9, adult Current Visit: Yes Status: Chronic (13) DVT prophylaxis Current Visit: Yes Status: Acute Assessment and plan: anticoagulated with Eliquis (14) Morbid obesity with BMI of 45.0-49.9, adult Current Visit: Yes Status: Chronic - Subjective Interval history: Patient seen and examined at bedside. No overnight issues reported Wound culture reported Proteus Mirablis with sensitivity to Ertapenem. Clinically improving, will continue PT/OT evaluation recommended Inpatient rehab social work lecturer on board for placement Discharge pending placement. pt encouraged to get out of bed to chair - Constitutional Vitals: Temp Pulse Resp BP Pulse Ox 98.1 F 99 20 133/82 98 07/27/17 05:53 07/27/17 05:53 07/27/17 05:53 07/27/17 05:53 07/27/17 05:53 General appearance: Present: A&O X 3, morbidly obese, no acute distress, answers questions appropriately - Head Head exam: Present: atraumatic, normocephalic - Eye Eye exam: Present: conjuntiva pink, sclera anicteric - Respiratory Respiratory exam: Absent: accessory muscle use, respiratory distress, wheezes - Cardiovascular Cardiovascular exam: Present: +S1, +S2, tachycardia. Absent: diastolic murmur, gallop, rubs, systolic murmur - GI/Abdominal GI/Abdominal exam: Present: normal bowel sounds, soft, no peritoneal signs. Absent: distended, tenderness - Extremities Exam Extremities exam: Present: warm, radial pulses palpable and symmetrical (b/l feet dressing intact, b/l chronic stasis dermatitis ). Absent: calf tenderness - Neurological Exam Neurological exam: Present: alert, oriented X3 - Psychiatric Psychiatric exam: Present: normal affect, normal mood Internal Medicine: Result - Labs CBC & Chem 7: 07/26/17 04:46 07/26/17 04:46 - ABG Interpretation ABG results: ABG ABG pH 7.50 pH Units (7.32-7.45) H 07/20/17 04:44 ABG pCO2 32 mmHg (35-45) L 07/20/17 04:44 ABG pO2 165 mmHg (85-104) H 07/20/17 04:44 ABG O2 Saturation 100 % (95-98) H 07/20/17 04:44 PT/INR, D-dimer PT 15.1 Seconds (9.4-12.1) H 07/15/17 03:10 - VTE Documentation of Mechanical Device: Intermittent pneumatic compression device Consult Discharge Plan - Plan Referrals: Zion Hernandes DO [Primary Care Provider] - 08/01/17 1:30 pm
[2017-07-27 12:12] LABS: Basophils # 0.1 K/mcL (0.0-0.2); Basophils % 0.3 %; Eosinophils # 0.4 K/mcL (0.0-0.6); Eosinophils % 2.2 %; Hematocrit 39.2 % (37.5-50.1); Hemoglobin 12.4 g/dL (12.9-16.9); Immature Granulocytes % 0.6 % (0-4); Lymphocytes # 2.3 K/mcL (0.6-4.6); Lymphocytes % 12.5 %; Mean Corpuscular HGB Conc 31.6 g/dL (31.6-35.5); Mean Corpuscular Hemoglobin 26.6 pg (28.0-33.3); Mean Corpuscular Volume 84.1 fL (83.0-100.0); Mean Platelet Volume 9.9 fL (9.4-12.4); Monocytes # 1.2 K/mcL (0.0-1.3); Monocytes % 6.3 %; Neutrophils # 14.6 K/mcL (1.6-8.9); Platelet Count 262 K/mcL (140-400); Red Blood Count 4.66 M/mcL (4.19-5.50); Red Cell Distribution Width 14.7 % (11.5-14.5); Segmented Neutrophils % 78.1 %
[2017-07-27 12:25] LABS: BUN/Creatinine Ratio 23 (6-26); Blood Urea Nitrogen 15 mg/dL (8-26); Calcium 7.9 mg/dL (8.6-10.8); Carbon Dioxide 31 mEq/L (19-29); Chloride 98 mEq/L (98-109); Glucose 199 mg/dL (70-99); Magnesium 1.3 mg/dL (1.6-2.6); Osmolality,Calculated 290 (280-300); Potassium 3.3 mEq/L (3.5-4.5); Sodium 137 mEq/L (136-145); eGFR For African Americans > 60 (> 60); eGFR For Non-African Americans > 60 (> 60)
[2017-07-27] MEDS ORDERED: Mag Hydrox/Al Hydrox/Simeth 30 ML UDC PO PRN (12:31)
[2017-07-28 04:40] LABS: Basophils % 0.3 %; Eosinophils # 0.4 K/mcL (0.0-0.6); Eosinophils % 2.3 %; Hemoglobin 12.2 g/dL (12.9-16.9); Immature Granulocytes % 0.6 % (0-4); Lymphocytes # 2.5 K/mcL (0.6-4.6); Lymphocytes % 15.8 %; Mean Corpuscular HGB Conc 31.3 g/dL (31.6-35.5); Mean Corpuscular Hemoglobin 26.3 pg (28.0-33.3); Mean Corpuscular Volume 84.1 fL (83.0-100.0); Mean Platelet Volume 10.1 fL (9.4-12.4); Monocytes # 1.1 K/mcL (0.0-1.3); Monocytes % 6.9 %; Neutrophils # 11.8 K/mcL (1.6-8.9); Platelet Count 272 K/mcL (140-400); Red Blood Count 4.64 M/mcL (4.19-5.50); Red Cell Distribution Width 14.6 % (11.5-14.5); Segmented Neutrophils % 74.1 %
[2017-07-28] MEDS: *HR* HYDROcodone/Acet 5/325 mg TABLET PO PRN (04:49)
[2017-07-28 04:51] LABS: BUN/Creatinine Ratio 20 (6-26); Blood Urea Nitrogen 13 mg/dL (8-26); Carbon Dioxide 32 mEq/L (19-29); Chloride 98 mEq/L (98-109); Glucose 137 mg/dL (70-99); Magnesium 1.4 mg/dL (1.6-2.6); Osmolality,Calculated 286 (280-300); Phosphorous 1.6 mg/dL (2.3-4.7); Potassium 3.1 mEq/L (3.5-4.5); Sodium 137 mEq/L (136-145); eGFR For African Americans > 60 (> 60); eGFR For Non-African Americans > 60 (> 60)
[2017-07-28] MEDS: Ipratropium/Albuterol Neb 3 ML IH SCH ×3 (07:37→23:29)
[2017-07-28] MEDS: Diltiazem CD (24hr) 120 MG CAPSULE PO SCH (08:14)
[2017-07-28] MEDS: Metoprolol XL (24 HR) Succ 25 MG TAB.ER.24H PO SCH (08:14)
[2017-07-28] MEDS: metroNIDAZOLE 500 MG TABLET PO SCH ×3 (08:14→21:34)
[2017-07-28] MEDS: APIXABAN 5 MG TABLET PO SCH ×2 (08:14→21:34)
[2017-07-28] MEDS: Furosemide 40 MG TABLET PO SCH ×2 (08:14→16:08)
[2017-07-28] MEDS: Ertapenem 1,000 MG in Water for inj. (sterile) 10 ML IVP SCH (08:17)
[2017-07-28] MEDS: Insulin LISPRO 300 UNITS/3 ML VIAL SQ SCH ×4 (08:36→21:15)
[2017-07-28] MEDS: Potassium Phosphate 44 MEQ in 0.9 % Sodium Chloride 250 ML IVPB ONE ×2 (09:57→14:04)
[2017-07-28] MEDS: Magnesium Sulfate 1 GM in D5% in Water 100 ML IVPB SCH ×3 (10:09→12:05)
[2017-07-28] MEDS: Insulin DETEMIR 100 UNIT/ML X5UNITS SQ SCH (10:47)
--- NOTE | 2017-07-28 14:20 | Internal Med Progress Note ---
Date of Encounter: 07/28/17 Time of Encounter: 11:45 - Assessment and plan (1) Positive culture findings in wound Current Visit: Yes Status: Acute Assessment and plan: Neck Wound culture positive for Proteus Mirablis continue Ertapenem as per culture sensitivities (Day 11/23) Pt is to be discharged to inpatient rehab and can be discharged with IV abx once bed is available (2) C. difficile colitis Current Visit: Yes Status: Acute Assessment and plan: stool studies positive for C-diff Continue Metronidazole (day 01/26) Code(s): A04.72 - Enterocolitis due to Clostridium difficile, not specified as recurrent (3) Hypokalemia Current Visit: Yes Status: Acute Assessment and plan: K supplemented continue to monitor electrolytes and replace as needed (4) Acute and chronic respiratory failure ([id number]) Current Visit: Yes Status: Resolved Assessment and plan: Multifactorial due to underlying obstructive sleep apnea, COPD with superimposed pneumonia and bilateral pleural effusions. Has been intubated and extubated. s/p chest tube placement- removed on 07/22/17 Currently saturating well on room air Continue to treat underlying conditions, supportive care. Qualifiers: Respiratory failure complication: hypoxia and hypercapnia Qualified Code(s) : J96.21 - Acute and chronic respiratory failure with hypoxia; J96.22 - Acute and chronic respiratory failure with hypercapnia; J96.22 - Acute and chronic respiratory failure with hypercapnia; J96.22 - Acute and chronic respiratory failure with hypercapnia (5) Parapneumonic effusion Current Visit: Yes Status: Resolved Assessment and plan: Status post left chest tube placement. Continue care per pulmonology. Finished abx treatment (6) HCAP (healthcare-associated pneumonia) Current Visit: Yes Status: Resolved Assessment and plan: Plan as above. (7) Atrial fibrillation Current Visit: Yes Status: Chronic Assessment and plan: Heart rate better controlled continue Cardizem 120mg PO qd Continue home dose of Metoprolol Continue long-term anticoagulation with Eliquis. Qualifiers: Atrial fibrillation type: chronic Qualified Code(s): I48.2 - Chronic atrial fibrillation (8) CHF (congestive heart failure) Current Visit: Yes Status: Chronic Assessment and plan: Continue beta jose and Lasix. Fluid restriction. Qualifiers: Congestive heart failure type: diastolic Congestive heart failure chronicity: chronic Qualified Code(s): I50.32 - Chronic diastolic (congestive ) heart failure (9) Diabetes Current Visit: No Status: Chronic Assessment and plan: continue ss insulin algorithm monitor FS and BG ADA diet Qualifiers: Diabetes mellitus type: type 2 Diabetes mellitus complication status: with unspecified complications Diabetes mellitus jail insulin use: with jail use Qualified Code(s): E11.8 - Type 2 diabetes mellitus with unspecified complications; Z79.4 - terminal gauger supervisor (current) use of insulin; Z79.4 - terminal gauger supervisor ( current) use of insulin; Z79.4 - terminal gauger supervisor (current) use of insulin; Z79.4 - terminal gauger supervisor (current) use of insulin (10) Foot ulcer Current Visit: Yes Status: Chronic Assessment and plan: continue wound care Qualifiers: Laterality: left Non-pressure ulcer stage: unspecified non-pressure ulcer stage Qualified Code(s): L97.529 - Non-pressure chronic ulcer of other part of left foot with unspecified severity (11) Obstructive sleep apnea Current Visit: Yes Status: Chronic Assessment and plan: Continue nocturnal BiPAP support. Encouraged compliance. Patient does have BiPAP at home. Bipap during the day during naps (12) Morbid obesity with BMI of 50.0-59.9, adult Current Visit: Yes Status: Chronic (13) DVT prophylaxis Current Visit: Yes Status: Acute Assessment and plan: anticoagulated with Eliquis (14) Electrolyte abnormality Current Visit: Yes Status: Acute Assessment and plan: Hypophosphatemia and Hypomagnesemia phos and Mg supplemented monitor electrolytes and replace as needed - Subjective Interval history: Patient seen and examined at bedside. No overnight issues reported Reported of abd discomfort, negative physical exam, will closely monitor Wound culture reported Proteus Mirablis with sensitivity to Ertapenem. Clinically improving, will continue PT/OT evaluation recommended Inpatient rehab child welfare social worker on board for placement Discharge pending placement. pt encouraged to get out of bed to chair - Constitutional Vitals: Temp Pulse Resp BP Pulse Ox 98.9 F 82 18 138/89 100 07/27/17 19:54 07/28/17 07:00 07/28/17 07:37 07/28/17 07:37 07/28/17 10:39 General appearance: Present: A&O X 3, morbidly obese, no acute distress, answers questions appropriately - Head Head exam: Present: atraumatic, normocephalic - Eye Eye exam: Present: conjuntiva pink, sclera anicteric - Respiratory Respiratory exam: Absent: rales, respiratory distress, wheezes - Cardiovascular Cardiovascular exam: Present: RRR, +S1, +S2. Absent: diastolic murmur, gallop, rubs, systolic murmur - GI/Abdominal GI/Abdominal exam: Present: normal bowel sounds, soft, no peritoneal signs. Absent: distended, tenderness - Extremities Exam Extremities exam: Present: warm, radial pulses palpable and symmetrical ( chronic stasis dermatitis bilaterally, dressing intact in left foot ). Absent: calf tenderness - Neurological Exam Neurological exam: Present: alert, oriented X3 Internal Medicine: Result - Labs CBC & Chem 7: 07/28/17 03:53 07/28/17 03:53 Labs: Short CBC 07/28/17 Range/Units 03:53 WBC 15.9 H (4.3-11.1) K/mcL Hgb 12.2 L (12.9-16.9) g/dL Hct 39.0 (37.5-50.1) % Plt Count 272 (140-400) K/mcL Neutrophils # 11.8 H (1.6-8.9) K/mcL BMP 07/28/17 03:53 Sodium 137 Potassium 3.1 L Chloride 98 Carbon Dioxide 32 H BUN 13 Creatinine 0.64 L Glucose 137 H Calcium 8.0 L - ABG Interpretation ABG results: ABG ABG pH 7.50 pH Units (7.32-7.45) H 07/20/17 04:44 ABG pCO2 32 mmHg (35-45) L 07/20/17 04:44 ABG pO2 165 mmHg (85-104) H 07/20/17 04:44 ABG O2 Saturation 100 % (95-98) H 07/20/17 04:44 PT/INR, D-dimer PT 15.1 Seconds (9.4-12.1) H 07/15/17 03:10 - VTE Documentation of Mechanical Device: Intermittent pneumatic compression device Consult Discharge Plan - Plan Referrals: Zion Hernandes DO [Primary Care Provider] - 08/01/17 1:30 pm
[2017-07-28] MEDS: *HR* Morphine 2 MG/ML SYRINGE IVP PRN ×2 (16:07→21:33)
[2017-07-29] MEDS: *HR* Morphine 2 MG/ML SYRINGE IVP PRN (01:33)
[2017-07-29 05:03] LABS: Basophils # 0.1 K/mcL (0.0-0.2); Basophils % 0.5 %; Eosinophils # 0.4 K/mcL (0.0-0.6); Eosinophils % 2.7 %; Hematocrit 37.6 % (37.5-50.1); Immature Granulocytes % 0.4 % (0-4); Lymphocytes # 2.5 K/mcL (0.6-4.6); Lymphocytes % 17.6 %; Mean Corpuscular HGB Conc 31.9 g/dL (31.6-35.5); Mean Corpuscular Hemoglobin 26.7 pg (28.0-33.3); Mean Corpuscular Volume 83.7 fL (83.0-100.0); Mean Platelet Volume 9.3 fL (9.4-12.4); Monocytes # 0.8 K/mcL (0.0-1.3); Monocytes % 5.9 %; Neutrophils # 10.2 K/mcL (1.6-8.9); Platelet Count 237 K/mcL (140-400); Red Blood Count 4.49 M/mcL (4.19-5.50); Red Cell Distribution Width 14.5 % (11.5-14.5); Segmented Neutrophils % 72.9 %
[2017-07-29 05:15] LABS: BUN/Creatinine Ratio 19 (6-26); Blood Urea Nitrogen 12 mg/dL (8-26); Calcium 7.5 mg/dL (8.6-10.8); Carbon Dioxide 31 mEq/L (19-29); Chloride 97 mEq/L (98-109); Glucose 140 mg/dL (70-99); Magnesium 1.5 mg/dL (1.6-2.6); Osmolality,Calculated 284 (280-300); Phosphorous 2.2 mg/dL (2.3-4.7); Potassium 3.4 mEq/L (3.5-4.5); Sodium 136 mEq/L (136-145); eGFR For African Americans > 60 (> 60); eGFR For Non-African Americans > 60 (> 60)
[2017-07-29] MEDS: *HR* HYDROcodone/Acet 5/325 mg TABLET PO PRN ×3 (05:55→21:23)
[2017-07-29] MEDS: Ipratropium/Albuterol Neb 3 ML IH SCH ×3 (07:40→22:14)
[2017-07-29] MEDS: Insulin LISPRO 300 UNITS/3 ML VIAL SQ SCH ×4 (10:30→21:19)
[2017-07-29] MEDS: Diltiazem CD (24hr) 120 MG CAPSULE PO SCH (10:36)
[2017-07-29] MEDS: Furosemide 40 MG TABLET PO SCH ×2 (10:37→16:08)
[2017-07-29] MEDS: APIXABAN 5 MG TABLET PO SCH ×2 (10:37→21:23)
[2017-07-29] MEDS: Metoprolol XL (24 HR) Succ 25 MG TAB.ER.24H PO SCH (10:37)
[2017-07-29] MEDS: metroNIDAZOLE 500 MG TABLET PO SCH ×3 (10:37→21:23)
[2017-07-29] MEDS: Ertapenem 1,000 MG in Water for inj. (sterile) 10 ML IVP SCH (10:37)
[2017-07-29] MEDS: Insulin DETEMIR 100 UNIT/ML X5UNITS SQ SCH (10:42)
[2017-07-29] MEDS: Lactobacillus 1 EACH CAP.SPRINK PO SCH (12:09)
--- NOTE | 2017-07-29 12:10 | Internal Med Progress Note ---
Date of Encounter: 07/29/17 Time of Encounter: 09:00 - Assessment and plan (1) Foot ulcer Current Visit: Yes Status: Chronic Assessment and plan: continue wound care. Patient will follow-up with podiatry in [place] after discharge Qualifiers: Laterality: left Non-pressure ulcer stage: unspecified non-pressure ulcer stage Qualified Code(s): L97.529 - Non-pressure chronic ulcer of other part of left foot with unspecified severity (2) Diabetes Current Visit: No Status: Chronic Assessment and plan: continue ss insulin algorithm monitor FS and BG ADA diet Qualifiers: Diabetes mellitus type: type 2 Diabetes mellitus complication status: with unspecified complications Diabetes mellitus [facility] insulin use: with terminal block assembler use Qualified Code(s): E11.8 - Type 2 diabetes mellitus with unspecified complications; Z79.4 - extermination inspector (current) use of insulin; Z79.4 - shelter ( current) use of insulin; Z79.4 - extermination inspector (current) use of insulin; Z79.4 - extermination inspector (current) use of insulin (3) Atrial fibrillation Current Visit: Yes Status: Chronic Assessment and plan: Heart rate generally well controlled continue Cardizem 120mg PO qd Continue home dose of Metoprolol Continue long-term anticoagulation with Eliquis. Qualifiers: Atrial fibrillation type: chronic Qualified Code(s): I48.2 - Chronic atrial fibrillation (4) HCAP (healthcare-associated pneumonia) Current Visit: Yes Status: Resolved Assessment and plan: Finished antibiotic course of pneumonia. Patient has no cough, fever at this point. Mild shortness of breath, will continue supportive treatment (5) Obstructive sleep apnea Current Visit: Yes Status: Chronic Assessment and plan: Continue nocturnal BiPAP support. Encouraged compliance. Patient does have BiPAP at home. Bipap during the day during naps (6) CHF (congestive heart failure) Current Visit: Yes Status: Chronic Assessment and plan: Continue beta jose and Lasix. Fluid restriction. Appears euvolemic at this point Qualifiers: Congestive heart failure type: diastolic Congestive heart failure chronicity: chronic Qualified Code(s): I50.32 - Chronic diastolic (congestive ) heart failure (7) Acute and chronic respiratory failure ([id number]) Current Visit: Yes Status: Resolved Assessment and plan: Multifactorial due to underlying obstructive sleep apnea, COPD with superimposed pneumonia and bilateral pleural effusions. Has been intubated and extubated. s/p chest tube placement- removed on 07/22/17 Currently saturating well with oxygen Continue to treat underlying conditions, supportive care. Qualifiers: Respiratory failure complication: hypoxia and hypercapnia Qualified Code(s) : J96.21 - Acute and chronic respiratory failure with hypoxia; J96.22 - Acute and chronic respiratory failure with hypercapnia; J96.22 - Acute and chronic respiratory failure with hypercapnia; J96.22 - Acute and chronic respiratory failure with hypercapnia (8) Parapneumonic effusion Current Visit: Yes Status: Resolved Assessment and plan: Status post left chest tube placement. Chest tube removed. Finished abx treatment (9) C. difficile colitis Current Visit: Yes Status: Acute Assessment and plan: stool studies positive for C-diff, still complaining watery diarrhea. Second time of C. difficile. Continue Metronidazole (day 02/25), add vancomycin by mouth 125 mg 4 times a day. Add the probiotics (10) Hypokalemia Current Visit: Yes Status: Acute Assessment and plan: K supplemented continue to monitor electrolytes and replace as needed (11) Positive culture findings in wound Current Visit: Yes Status: Acute Assessment and plan: Neck Wound culture positive for Proteus Mirablis continue Ertapenem as per culture sensitivities (Day 12/23) - Subjective Interval history: I have seen and examined the patient today. Patient has mild shortness of breath. Denies chest pain. Denies fever. Has bowel movement yesterday, still watery. Vitals generally stable. Patient has history of C. difficile previously, still watery diarrhea after 7 days of Flagyl, will add vancomycin by mouth 125 mg 4 times a day as patient is still on antibiotic. Also add probiotics. - Constitutional Vitals: Temp Pulse Resp BP Pulse Ox 99.5 F 106 16 142/85 98 07/29/17 11:31 07/29/17 11:31 07/29/17 11:31 07/29/17 11:31 07/29/17 11:31 General appearance: Present: A&O X 3, morbidly obese, no acute distress, answers questions appropriately - Head Head exam: Present: atraumatic, normocephalic - Eye Eye exam: Present: PERRL, conjuntiva pink, sclera anicteric Pupils: Present: PERRL - Neck Neck exam general surgery: Present: supple, trachea midline. Absent: lymphadenopathy Additional comments: Small inflammatory spots on the IJ line site (IJ removed already). - Respiratory Respiratory exam: Present: CTAB. Absent: accessory muscle use, rales, rhonchi, wheezes - Cardiovascular Cardiovascular exam: Present: RRR, +S1, +S2. Absent: diastolic murmur, gallop, rubs, systolic murmur - GI/Abdominal GI/Abdominal exam: Present: normal bowel sounds, soft, tenderness (Mild tenderness without rebound or guarding), no peritoneal signs. Absent: distended - Extremities Exam Extremities exam: Present: warm, radial pulses palpable and symmetrical. Absent : calf tenderness, cyanotic, pedal edema - Neurological Exam Neurological exam: Present: CN II-XII intact, oriented X3, no focal deficits. Absent: pronater drift, facial droop, speech deficit - Skin Skin exam: Present: dry, intact Internal Medicine: Result - Labs CBC & Chem 7: 07/29/17 Unknown 07/29/17 Unknown Labs: Short CBC 07/29/17 Range/Units Unknown WBC 14.0 H (4.3-11.1) K/mcL Hgb 12.0 L (12.9-16.9) g/dL Hct 37.6 (37.5-50.1) % Plt Count 237 (140-400) K/mcL Neutrophils # 10.2 H (1.6-8.9) K/mcL BMP 07/29/17 Unknown Sodium 136 Potassium 3.4 L Chloride 97 L Carbon Dioxide 31 H BUN 12 Creatinine 0.63 L Glucose 140 H Calcium 7.5 L - ABG Interpretation ABG results: ABG ABG pH 7.50 pH Units (7.32-7.45) H 07/20/17 04:44 ABG pCO2 32 mmHg (35-45) L 07/20/17 04:44 ABG pO2 165 mmHg (85-104) H 07/20/17 04:44 ABG O2 Saturation 100 % (95-98) H 07/20/17 04:44 PT/INR, D-dimer PT 15.1 Seconds (9.4-12.1) H 07/15/17 03:10 - VTE Documentation of Mechanical Device: Intermittent pneumatic compression device Consult Discharge Plan - Plan Referrals: Zion Hernandes DO [Primary Care Provider] - 08/01/17 1:30 pm
[2017-07-29] MEDS: Vancomycin Oral Soln 250 MG/5 ML UDC PO SCH ×3 (14:04→21:24)
[2017-07-30] MEDS: *HR* HYDROcodone/Acet 5/325 mg TABLET PO PRN ×4 (02:51→23:45)
[2017-07-30 06:11] LABS: Basophils # 0.1 K/mcL (0.0-0.2); Basophils % 0.5 %; Eosinophils # 0.3 K/mcL (0.0-0.6); Eosinophils % 1.6 %; Hematocrit 38.2 % (37.5-50.1); Hemoglobin 12.1 g/dL (12.9-16.9); Immature Granulocytes % 0.5 % (0-4); Lymphocytes # 1.7 K/mcL (0.6-4.6); Lymphocytes % 11.2 %; Mean Corpuscular HGB Conc 31.7 g/dL (31.6-35.5); Mean Corpuscular Hemoglobin 26.5 pg (28.0-33.3); Mean Corpuscular Volume 83.8 fL (83.0-100.0); Mean Platelet Volume 9.7 fL (9.4-12.4); Monocytes % 6.4 %; Neutrophils # 12.2 K/mcL (1.6-8.9); Platelet Count 234 K/mcL (140-400); Red Blood Count 4.56 M/mcL (4.19-5.50); Red Cell Distribution Width 14.6 % (11.5-14.5); Segmented Neutrophils % 79.8 %
[2017-07-30 06:29] LABS: BUN/Creatinine Ratio 16 (6-26); Blood Urea Nitrogen 10 mg/dL (8-26); Calcium 8.2 mg/dL (8.6-10.8); Carbon Dioxide 32 mEq/L (19-29); Chloride 98 mEq/L (98-109); Glucose 152 mg/dL (70-99); Osmolality,Calculated 284 (280-300); Potassium 3.6 mEq/L (3.5-4.5); Sodium 136 mEq/L (136-145); eGFR For African Americans > 60 (> 60); eGFR For Non-African Americans > 60 (> 60)
[2017-07-30] MEDS: Ipratropium/Albuterol Neb 3 ML IH SCH ×3 (07:47→23:28)
[2017-07-30] MEDS: Lactobacillus 1 EACH CAP.SPRINK PO SCH (08:19)
[2017-07-30] MEDS: metroNIDAZOLE 500 MG TABLET PO SCH ×3 (08:19→20:50)
[2017-07-30] MEDS: Furosemide 40 MG TABLET PO SCH ×2 (08:19→16:56)
[2017-07-30] MEDS: APIXABAN 5 MG TABLET PO SCH ×2 (08:19→20:47)
[2017-07-30] MEDS: Diltiazem CD (24hr) 120 MG CAPSULE PO SCH (08:19)
[2017-07-30] MEDS: Metoprolol XL (24 HR) Succ 25 MG TAB.ER.24H PO SCH (08:20)
[2017-07-30] MEDS: Vancomycin Oral Soln 250 MG/5 ML UDC PO SCH ×4 (08:21→20:48)
[2017-07-30] MEDS: Ertapenem 1,000 MG in Water for inj. (sterile) 10 ML IVP SCH (08:22)
[2017-07-30] MEDS: Insulin LISPRO 300 UNITS/3 ML VIAL SQ SCH ×4 (08:28→20:50)
[2017-07-30] MEDS: Insulin DETEMIR 100 UNIT/ML X5UNITS SQ SCH (11:21)
--- NOTE | 2017-07-30 12:14 | Internal Med Progress Note ---
Date of Encounter: 07/30/17 Time of Encounter: 11:55 - Assessment and plan (1) Positive culture findings in wound Current Visit: Yes Status: Acute Assessment and plan: Neck Wound culture positive for Proteus Mirablis continue Ertapenem as per culture sensitivities (Day 6/) (2) C. difficile colitis Current Visit: Yes Status: Acute Assessment and plan: stool studies positive for C-diff, still complaining watery diarrhea. Second time of C. difficile. Continue Metronidazole (day 8), vancomycin by mouth 125 mg 4 times a day ( day 09/28) continue probiotics Code(s): A04.72 - Enterocolitis due to Clostridium difficile, not specified as recurrent (3) Hypokalemia Current Visit: Yes Status: Resolved (4) Acute and chronic respiratory failure ([id number]) Current Visit: Yes Status: Resolved Assessment and plan: Multifactorial due to underlying obstructive sleep apnea, COPD with superimposed pneumonia and bilateral pleural effusions. Has been intubated and extubated. s/p chest tube placement- removed on 07/22/17 Currently saturating well with oxygen Continue to treat underlying conditions, supportive care. Qualifiers: Respiratory failure complication: hypoxia and hypercapnia Qualified Code(s) : J96.21 - Acute and chronic respiratory failure with hypoxia; J96.22 - Acute and chronic respiratory failure with hypercapnia; J96.22 - Acute and chronic respiratory failure with hypercapnia; J96.22 - Acute and chronic respiratory failure with hypercapnia (5) Parapneumonic effusion Current Visit: Yes Status: Resolved Assessment and plan: Status post left chest tube placement. Chest tube removed. Finished abx treatment (6) HCAP (healthcare-associated pneumonia) Current Visit: Yes Status: Resolved Assessment and plan: Finished antibiotic course of pneumonia. Patient has no cough, fever at this point. Mild shortness of breath, will continue supportive treatment (7) Atrial fibrillation Current Visit: Yes Status: Chronic Assessment and plan: Heart rate generally well controlled continue Cardizem 120mg PO qd Continue home dose of Metoprolol Continue long-term anticoagulation with Eliquis. Qualifiers: Atrial fibrillation type: chronic Qualified Code(s): I48.2 - Chronic atrial fibrillation (8) CHF (congestive heart failure) Current Visit: Yes Status: Chronic Assessment and plan: Continue beta jose and Lasix. Fluid restriction. Appears euvolemic at this point Qualifiers: Congestive heart failure type: diastolic Congestive heart failure chronicity: chronic Qualified Code(s): I50.32 - Chronic diastolic (congestive ) heart failure (9) Diabetes Current Visit: No Status: Chronic Assessment and plan: continue ss insulin algorithm monitor FS and BG ADA diet Qualifiers: Diabetes mellitus type: type 2 Diabetes mellitus complication status: with unspecified complications Diabetes mellitus terminal operator insulin use: with halfway use Qualified Code(s): E11.8 - Type 2 diabetes mellitus with unspecified complications; Z79.4 - jail (current) use of insulin; Z79.4 - jail ( current) use of insulin; Z79.4 - termite control technician (current) use of insulin; Z79.4 - jail (current) use of insulin (10) Foot ulcer Current Visit: Yes Status: Chronic Assessment and plan: continue wound care. Patient will follow-up with podiatry in [place] after discharge Qualifiers: Laterality: left Non-pressure ulcer stage: unspecified non-pressure ulcer stage Qualified Code(s): L97.529 - Non-pressure chronic ulcer of other part of left foot with unspecified severity (11) Obstructive sleep apnea Current Visit: Yes Status: Chronic Assessment and plan: Continue nocturnal BiPAP support. Encouraged compliance. Patient does have BiPAP at home. Bipap during the day during naps (12) Morbid obesity with BMI of 50.0-59.9, adult Current Visit: Yes Status: Chronic (13) DVT prophylaxis Current Visit: Yes Status: Acute Assessment and plan: anticoagulated with Eliquis (14) Electrolyte abnormality Current Visit: Yes Status: Acute - Subjective Interval history: Patient seen and examined with present at bedside. Pt reports of improvement in abd discomfort from previous day Pt did not get approved for inpatient rehab and patient/ adamantly refusing ECF patient will be discharged to home with home health in [place] if remains clinically stable after finishing 7 days of IV abx for positive wound culture. - Constitutional Vitals: Temp Pulse Resp BP Pulse Ox 98 F 89 18 112/82 97 07/30/17 12:00 07/30/17 12:00 07/30/17 12:00 07/30/17 12:00 07/30/17 12:00 General appearance: Present: A&O X 3, morbidly obese, no acute distress, answers questions appropriately - Head Head exam: Present: atraumatic, normocephalic - Eye Eye exam: Present: conjuntiva pink, sclera anicteric - Respiratory Respiratory exam: Present: decreased breath sounds. Absent: respiratory distress, wheezes - Cardiovascular Cardiovascular exam: Present: RRR, +S1, +S2. Absent: diastolic murmur, gallop, rubs, systolic murmur - GI/Abdominal GI/Abdominal exam: Present: normal bowel sounds, soft, no peritoneal signs. Absent: distended, tenderness - Extremities Exam Extremities exam: Present: warm, radial pulses palpable and symmetrical (b/l chronic stasis dermatitis, left foot dressing intact ). Absent: calf tenderness - Neurological Exam Neurological exam: Present: alert, oriented X3 - Psychiatric Psychiatric exam: Present: normal affect, normal mood Internal Medicine: Result - Labs CBC & Chem 7: 07/30/17 05:12 07/30/17 05:12 Labs: Short CBC 07/30/17 Range/Units 05:12 WBC 15.2 H (4.3-11.1) K/mcL Hgb 12.1 L (12.9-16.9) g/dL Hct 38.2 (37.5-50.1) % Plt Count 234 (140-400) K/mcL Neutrophils # 12.2 H (1.6-8.9) K/mcL BMP 07/30/17 05:12 Sodium 136 Potassium 3.6 Chloride 98 Carbon Dioxide 32 H BUN 10 Creatinine 0.62 L Glucose 152 H Calcium 8.2 L - ABG Interpretation ABG results: ABG ABG pH 7.50 pH Units (7.32-7.45) H 07/20/17 04:44 ABG pCO2 32 mmHg (35-45) L 07/20/17 04:44 ABG pO2 165 mmHg (85-104) H 07/20/17 04:44 ABG O2 Saturation 100 % (95-98) H 07/20/17 04:44 PT/INR, D-dimer PT 15.1 Seconds (9.4-12.1) H 07/15/17 03:10 - VTE Documentation of Mechanical Device: Intermittent pneumatic compression device Consult Discharge Plan - Plan Instructions: Heart Failure (DC), Atrial Fibrillation (DC), Diabetes Mellitus Type 2 in Adults (DC), Chronic Obstructive Pulmonary Disease (DC), Sepsis (DC), Clostridium Difficile Infection (DC), Pneumonia (DC) Referrals: Zion Hernandes DO [Primary Care Provider] - 08/01/17 1:30 pm
[2017-07-30] MEDS ORDERED: Artificial Tears SOLN 15 ML BOTTLE BOTH EYES PRN (22:09)
[2017-07-31 05:15] LABS: Basophils # 0.1 K/mcL (0.0-0.2); Basophils % 0.4 %; Eosinophils # 0.2 K/mcL (0.0-0.6); Eosinophils % 1.7 %; Hematocrit 36.1 % (37.5-50.1); Hemoglobin 11.6 g/dL (12.9-16.9); Immature Granulocytes % 0.4 % (0-4); Lymphocytes # 2.3 K/mcL (0.6-4.6); Lymphocytes % 17.2 %; Mean Corpuscular HGB Conc 32.1 g/dL (31.6-35.5); Mean Platelet Volume 9.7 fL (9.4-12.4); Monocytes # 0.9 K/mcL (0.0-1.3); Monocytes % 6.7 %; Neutrophils # 9.7 K/mcL (1.6-8.9); Platelet Count 209 K/mcL (140-400); Red Cell Distribution Width 14.6 % (11.5-14.5); Segmented Neutrophils % 73.6 %
[2017-07-31 05:33] LABS: BUN/Creatinine Ratio 16 (6-26); Blood Urea Nitrogen 10 mg/dL (8-26); Calcium 8.2 mg/dL (8.6-10.8); Carbon Dioxide 32 mEq/L (19-29); Chloride 97 mEq/L (98-109); Glucose 217 mg/dL (70-99); Magnesium 1.4 mg/dL (1.6-2.6); Osmolality,Calculated 288 (280-300); Phosphorous 2.8 mg/dL (2.3-4.7); Potassium 3.3 mEq/L (3.5-4.5); Sodium 136 mEq/L (136-145); eGFR For African Americans > 60 (> 60); eGFR For Non-African Americans > 60 (> 60)
[2017-07-31] MEDS: Ipratropium/Albuterol Neb 3 ML IH SCH ×3 (08:14→22:04)
[2017-07-31] MEDS: Diltiazem CD (24hr) 120 MG CAPSULE PO SCH (09:05)
[2017-07-31] MEDS: metroNIDAZOLE 500 MG TABLET PO SCH ×3 (09:05→20:25)
[2017-07-31] MEDS: Furosemide 40 MG TABLET PO SCH ×2 (09:05→16:52)
[2017-07-31] MEDS: Metoprolol XL (24 HR) Succ 25 MG TAB.ER.24H PO SCH (09:05)
[2017-07-31] MEDS: Lactobacillus 1 EACH CAP.SPRINK PO SCH (09:05)
[2017-07-31] MEDS: Insulin LISPRO 300 UNITS/3 ML VIAL SQ SCH ×4 (09:06→20:28)
[2017-07-31] MEDS: APIXABAN 5 MG TABLET PO SCH ×2 (09:06→20:26)
[2017-07-31] MEDS: Insulin DETEMIR 100 UNIT/ML X5UNITS SQ SCH (09:06)
[2017-07-31] MEDS: Ertapenem 1,000 MG in Water for inj. (sterile) 10 ML IVP SCH (09:07)
[2017-07-31] MEDS: Vancomycin Oral Soln 250 MG/5 ML UDC PO SCH ×4 (09:09→20:26)
[2017-07-31] MEDS: *HR* HYDROcodone/Acet 5/325 mg TABLET PO PRN ×2 (11:24→20:26)
--- NOTE | 2017-07-31 14:31 | Internal Med Progress Note ---
Date of Encounter: 07/31/17 Time of Encounter: 13:50 - Assessment and plan (1) Positive culture findings in wound Current Visit: Yes Status: Acute Assessment and plan: Neck Wound culture positive for Proteus Mirablis continue Ertapenem as per culture sensitivities (Day 02/22) (2) C. difficile colitis Current Visit: Yes Status: Acute Assessment and plan: stool studies positive for C-diff, still complaining watery diarrhea. Second time of C. difficile. Continue Metronidazole (day 9), vancomycin by mouth 125 mg 4 times a day ( day 10/26) continue probiotics Code(s): A04.72 - Enterocolitis due to Clostridium difficile, not specified as recurrent (3) Hypokalemia Current Visit: Yes Status: Resolved Assessment and plan: K supplemented continue to monitor electrolytes and replace as needed (4) Acute and chronic respiratory failure ([id number]) Current Visit: Yes Status: Resolved Assessment and plan: Multifactorial due to underlying obstructive sleep apnea, COPD with superimposed pneumonia and bilateral pleural effusions. Has been intubated and extubated. s/p chest tube placement- removed on 07/22/17 Currently saturating well with oxygen Continue to treat underlying conditions, supportive care. Qualifiers: Respiratory failure complication: hypoxia and hypercapnia Qualified Code(s) : J96.21 - Acute and chronic respiratory failure with hypoxia; J96.22 - Acute and chronic respiratory failure with hypercapnia; J96.22 - Acute and chronic respiratory failure with hypercapnia; J96.22 - Acute and chronic respiratory failure with hypercapnia (5) Parapneumonic effusion Current Visit: Yes Status: Resolved Assessment and plan: Status post left chest tube placement. Chest tube removed. Finished abx treatment (6) HCAP (healthcare-associated pneumonia) Current Visit: Yes Status: Resolved Assessment and plan: Finished antibiotic course of pneumonia. Patient has no cough, fever at this point. Mild shortness of breath, will continue supportive treatment (7) Atrial fibrillation Current Visit: Yes Status: Chronic Assessment and plan: Heart rate generally well controlled continue Cardizem 120mg PO qd Continue home dose of Metoprolol Continue long-term anticoagulation with Eliquis. Qualifiers: Atrial fibrillation type: chronic Qualified Code(s): I48.2 - Chronic atrial fibrillation (8) CHF (congestive heart failure) Current Visit: Yes Status: Chronic Assessment and plan: Continue beta jose and Lasix. Fluid restriction. Appears euvolemic at this point Qualifiers: Congestive heart failure type: diastolic Congestive heart failure chronicity: chronic Qualified Code(s): I50.32 - Chronic diastolic (congestive ) heart failure (9) Diabetes Current Visit: No Status: Chronic Assessment and plan: continue ss insulin algorithm monitor FS and BG ADA diet Qualifiers: Diabetes mellitus type: type 2 Diabetes mellitus complication status: with unspecified complications Diabetes mellitus mcc insulin use: with mcc use Qualified Code(s): E11.8 - Type 2 diabetes mellitus with unspecified complications; Z79.4 - intermodal dispatcher (current) use of insulin; Z79.4 - intermodal dispatcher ( current) use of insulin; Z79.4 - nursing home (current) use of insulin; Z79.4 - intermodal dispatcher (current) use of insulin (10) Foot ulcer Current Visit: Yes Status: Chronic Assessment and plan: continue wound care. Patient will follow-up with podiatry in [place] after discharge Qualifiers: Laterality: left Non-pressure ulcer stage: unspecified non-pressure ulcer stage Qualified Code(s): L97.529 - Non-pressure chronic ulcer of other part of left foot with unspecified severity (11) Obstructive sleep apnea Current Visit: Yes Status: Chronic Assessment and plan: Continue nocturnal BiPAP support. Encouraged compliance. Patient does have BiPAP at home. Bipap during the day during naps (12) Morbid obesity with BMI of 50.0-59.9, adult Current Visit: Yes Status: Chronic (13) DVT prophylaxis Current Visit: Yes Status: Acute Assessment and plan: anticoagulated with Eliquis (14) Electrolyte abnormality Current Visit: Yes Status: Acute Assessment and plan: Hypomagnesemia Mg supplemented monitor electrolytes and replace as needed - Subjective Interval history: Patient seen and examined with present at bedside. Noted to have low grade fevers. Denies any fever at this time given persistent fevers, will monitor overnight, if remains stable, likely d/c to home with home health in am Pt did not get approved for inpatient rehab and patient/ adamantly refusing ECF - Constitutional Vitals: Temp Pulse Resp BP Pulse Ox 99.6 F 98 16 129/81 95 07/31/17 07:00 07/31/17 07:00 07/31/17 07:00 07/31/17 07:00 07/31/17 09:00 General appearance: Present: A&O X 3, morbidly obese, no acute distress, answers questions appropriately - Head Head exam: Present: atraumatic, normocephalic - Eye Eye exam: Present: conjuntiva pink, sclera anicteric - Respiratory Respiratory exam: Absent: rales, respiratory distress, wheezes, tachypnea - Cardiovascular Cardiovascular exam: Present: RRR, +S1, +S2. Absent: diastolic murmur, gallop, rubs, systolic murmur - GI/Abdominal GI/Abdominal exam: Present: normal bowel sounds, soft, no peritoneal signs. Absent: distended, tenderness - Extremities Exam Extremities exam: Present: warm, radial pulses palpable and symmetrical. Absent : calf tenderness Additional comments: left foot dressing intact - Neurological Exam Neurological exam: Present: alert, oriented X3 Internal Medicine: Result - Labs CBC & Chem 7: 07/31/17 04:16 07/31/17 04:16 Labs: Short CBC 07/31/17 Range/Units 04:16 WBC 13.2 H (4.3-11.1) K/mcL Hgb 11.6 L (12.9-16.9) g/dL Hct 36.1 L (37.5-50.1) % Plt Count 209 (140-400) K/mcL Neutrophils # 9.7 H (1.6-8.9) K/mcL BMP 07/31/17 04:16 Sodium 136 Potassium 3.3 L Chloride 97 L Carbon Dioxide 32 H BUN 10 Creatinine 0.62 L Glucose 217 H Calcium 8.2 L - ABG Interpretation ABG results: ABG ABG pH 7.50 pH Units (7.32-7.45) H 07/20/17 04:44 ABG pCO2 32 mmHg (35-45) L 07/20/17 04:44 ABG pO2 165 mmHg (85-104) H 07/20/17 04:44 ABG O2 Saturation 100 % (95-98) H 07/20/17 04:44 PT/INR, D-dimer PT 15.1 Seconds (9.4-12.1) H 07/15/17 03:10 - VTE Documentation of Mechanical Device: Intermittent pneumatic compression device Consult Discharge Plan - Plan Instructions: Heart Failure (DC), Atrial Fibrillation (DC), Diabetes Mellitus Type 2 in Adults (DC), Chronic Obstructive Pulmonary Disease (DC), Sepsis (DC), Clostridium Difficile Infection (DC), Pneumonia (DC) Referrals: Zion Hernandes DO [Primary Care Provider] - 08/01/17 1:30 pm
[2017-08-01] MEDS: *HR* HYDROcodone/Acet 5/325 mg TABLET PO PRN (04:12)
[2017-08-01 07:41] VITALS: BP 106/72
[2017-08-01] MEDS: Ipratropium/Albuterol Neb 3 ML IH SCH (07:48)
--- NOTE | 2017-08-01 09:37 | Discharge Summary ---
Date of Encounter: 08/01/17 Time of Encounter: 09:29 - Discharge Diagnosis (1) Positive culture findings in wound Priority: Secondary Status: Acute (2) C. difficile colitis Priority: Secondary Status: Acute Code(s): A04.72 - Enterocolitis due to Clostridium difficile, not specified as recurrent (3) Hypokalemia Priority: Secondary Status: Resolved (4) Acute and chronic respiratory failure ([id number]) Priority: Primary Status: Resolved Qualifiers: Respiratory failure complication: hypoxia and hypercapnia Qualified Code(s) : J96.21 - Acute and chronic respiratory failure with hypoxia; J96.22 - Acute and chronic respiratory failure with hypercapnia; J96.22 - Acute and chronic respiratory failure with hypercapnia; J96.22 - Acute and chronic respiratory failure with hypercapnia (5) Parapneumonic effusion Priority: Secondary Status: Resolved (6) HCAP (healthcare-associated pneumonia) Priority: Primary Status: Resolved (7) Atrial fibrillation Priority: Secondary Status: Chronic Qualifiers: Atrial fibrillation type: chronic Qualified Code(s): I48.2 - Chronic atrial fibrillation (8) CHF (congestive heart failure) Priority: Secondary Status: Chronic Qualifiers: Congestive heart failure type: diastolic Congestive heart failure chronicity: chronic Qualified Code(s): I50.32 - Chronic diastolic (congestive ) heart failure (9) Diabetes Priority: Secondary Status: Chronic Qualifiers: Diabetes mellitus type: type 2 Diabetes mellitus complication status: with unspecified complications Diabetes mellitus ferry terminal supervisor insulin use: with ferry terminal supervisor use Qualified Code(s): E11.8 - Type 2 diabetes mellitus with unspecified complications; Z79.4 - senior care (current) use of insulin; Z79.4 - long term care pharmacist ( current) use of insulin; Z79.4 - long term care pharmacist (current) use of insulin; Z79.4 - long term care pharmacist (current) use of insulin (10) Foot ulcer Priority: Secondary Status: Chronic Qualifiers: Laterality: left Non-pressure ulcer stage: unspecified non-pressure ulcer stage Qualified Code(s): L97.529 - Non-pressure chronic ulcer of other part of left foot with unspecified severity (11) Obstructive sleep apnea Priority: Secondary Status: Chronic (12) Morbid obesity with BMI of 50.0-59.9, adult Priority: Secondary Status: Chronic (13) DVT prophylaxis Priority: Secondary Status: Acute (14) Electrolyte abnormality Priority: Secondary Status: Acute - Discharge Medications Prescriptions: Ipratropium/Albuterol Neb [Duoneb] 3 ml IH [id number] #2 inhsol Dicyclomine [Bentyl] 20 mg PO Q6H PRN #20 capsule PRN Reason: cramps Diltiazem CD (24hr) [Cardizem CD] 120 mg PO DAILY #30 cap.er.24h Furosemide [Lasix] 40 mg PO BIDDIURETIC #60 tablet Lactobacillus [Culturelle] 2 each PO DAILY #20 cap.sprink Vancomycin Oral Soln [Vancocin] 125 mg PO QID #27 udc Home Medications: Folic Acid 1 mg PO QAM 04/26/15 [History] Hydroxychloroquine [Plaquenuil] 400 mg PO QAM 04/26/15 [History] Levothyroxine [Synthroid] 50 mcg PO QAM 04/27/15 [History] Apixaban [Eliquis] 5 mg PO BID 09/05/15 [History] Ipratropium/Albuterol Neb [Duoneb] 3 ml IH Q4H PRN 09/05/15 [History] Insulin Lispro Protamin/Lispro [Humalog Mix 75-25 Kwikpen] 25 unit SQ BID [History] Duloxetine HCl [Cymbalta] 60 mg PO DAILY 04/16/17 [History] Lisinopril [Zestril] 5 mg PO DAILY 04/16/17 [History] Metoprolol XL (24 HR) Succ [Toprol Xl] 50 mg PO DAILY 04/16/17 [History] Potassium Chloride [K-Tab ER] 20 meq PO BID 04/16/17 [History] Tamsulosin [Flomax] 0.4 mg PO DAILY 04/16/17 [History] Multivits,Ca,Min/Iron/FA/Lycop [Centrum Men's Tablet] 1 tab PO DAILY 04/26/17 [ History] Oxycodone HCl [Oxycontin] 40 mg PO Q8H PRN 07/14/17 [History] Tofacitinib Citrate [Xeljanz Xr] 11 mg PO DAILY 07/14/17 [History] Dicyclomine [Bentyl] 20 mg PO Q6H PRN #20 capsule 08/01/17 [Rx] Diltiazem CD (24hr) [Cardizem CD] 120 mg PO DAILY #30 cap.er.24h 08/01/17 [Rx] Furosemide [Lasix] 40 mg PO BIDDIURETIC #60 tablet 08/01/17 [Rx] Ipratropium/Albuterol Neb [Duoneb] 3 ml IH [id number] #2 inhsol 08/01/17 [Rx] Lactobacillus [Culturelle] 2 each PO DAILY #20 cap.sprink 08/01/17 [Rx] Vancomycin Oral Soln [Vancocin] 125 mg PO QID #27 udc 08/01/17 [Rx] Allergies/Adverse Reactions: 3 Allergy/AdvReac Type Severity Reaction Status Date / Time clindamycin AdvReac Diarrhea Verified 06/02/17 07:17 Date of admission: 07/14/17 02:00 Primary care physician: Martin Chua Consults: 07/14/17 02:40 Consult to Pulmonology [CONS] Routine Consulting Provider: Pulm Crit Care & Sleep Holder Reason for Consult: patient intubated in the ICU due to hypercapia respiratory failure Call Completed: No 07/15/17 07:11 Consult to Interventional Radiology [CONS] Routine Consulting Provider: Radiology Interventional Cols Reason for Consult: Suspected left hemothorax. Appreciate chest tube placement Call Completed: Yes 07/23/17 10:39 Consult to Physical Therapy [CONS] Routine Comment: Evaluate, develop and implement POC Reason for Consult: possible home health setup OT [Consult to Occupational Therapy] [CONS] Routine Comment: Evaluate, develop and implement POC Reason for Consult: possible home health 07/24/17 13:51 Consult to Wirer Maintenance [CONS] Routine Reason for SW Consult: PT/OT recommending inpatient swing bed Discharging clinician: Claire Doyle Anticipated date of discharge: 08/01/17 - Patient Status Disposition: Home Health Service Condition: Good Functional capacity at discharge: uses cane/walker Overall status at discharge: patient is back to baseline - Discharge Instructions Instructions: Heart Failure (DC), Atrial Fibrillation (DC), Diabetes Mellitus Type 2 in Adults (DC), Chronic Obstructive Pulmonary Disease (DC), Sepsis (DC), Clostridium Difficile Infection (DC), Pneumonia (DC) Follow Up With: Zion Hernandes DO [Primary Care Provider] - 12/14/17 1:30 pm Additional Instructions: Please follow up with your primary care physician within five days after your discharge from the hospital. Your home medications have been changed as follows: 1. Cardizem 120mg once a day has been added 2. Lasix has been decreased to 40mg twice a day 3. Hold your home dose of Lisinopril if you are noted to have systolic blood pressure less than 110. 4. Vancomycin 125mg four times a day for 6 more days 5. continue take probiotic (Lactobacillus) while you are on the antibiotics Resume all other medications as prescribed by your primary care physician. Please seek medical help immediately if you have difficulty breathing Continue bipap support at bedtime and during naps - Diet and Activity Activity: as per physical therapy Diet: diabetic diet, low fat, low cholesterol, low salt diet Hospital course: Mr. Swenson is a 66 year old male with PMH of COPD on LTOT, CHF, DM, Afib on AC, morbid obesity who was admitted for who was admitted for acute respiratory failure secondary to Pneumonia, COPD exacerbation. His hospital course was complicated by worsening of respiratory failure requiring intubation and transfer to the ICU. He was followed by pulmonary/critical care service. He was further found to have a parapneumonic effusion requiring chest tube placement. He continued IV abx, systemic steroids. He was successfully extubated on 07/18 and was transferred to [facility] floor shortly after. Chest tube was removed on 07/22/17. His hospital course was further complicated by a neck wound infection with Proteus Mirablis sensitive to Ertapenem. He was started on IV abx. He was also found to have C-diff for which he was started on IV abx. He initially improved, however the diarrhea and abd discomfort persisted, so he was started on PO Vancomycin. He was evaluated by physical therapy and inpatient rehab was recommended, however patient did not get authorization from insurance to be discharged to an inpatient rehab facility. Patient and refused ECF care. Pt has finished abx for the wound infection, PNA, and is currently on PO vanco for Cdiff. He is stable for discharge and will follow up with his PCP after discharge. Pt and demonstrate understanding of his diagnosis and agree with the discharge care and plan. - Time Spent with Patient Total time spent providing and/or coordinating discharge services: Greater than 30 minutes - Constitutional Vitals: Temp Pulse Resp BP Pulse Ox 98.3 F 94 16 106/72 100 08/01/17 07:39 08/01/17 07:39 08/01/17 07:48 08/01/17 07:39 08/01/17 07:48 General appearance: Present: A&O X 3, morbidly obese, no acute distress, answers questions appropriately - Head Head exam: Present: atraumatic, normocephalic - Eye Eye exam: Present: conjuntiva pink, sclera anicteric - Respiratory Respiratory exam: Absent: accessory muscle use, rales, respiratory distress, wheezes - Cardiovascular Cardiovascular exam: Present: RRR, +S1, +S2. Absent: diastolic murmur, gallop, rubs, systolic murmur - GI/Abdominal GI/Abdominal exam: Present: normal bowel sounds, soft, no peritoneal signs. Absent: distended, tenderness - Extremities Exam Extremities exam: Present: warm, radial pulses palpable and symmetrical (left foot dressing intact, b/l chronic stasis dermatitis). Absent: calf tenderness - Neurological Exam Neurological exam: Present: alert, oriented X3 - Psychiatric Psychiatric exam: Present: normal affect, normal mood - VTE Documentation of Mechanical Device: Intermittent pneumatic compression device
--- NOTE | 2017-08-01 09:51 | Physician Discharge Referral ---
Home Health/Hosp Referral Info Transfer to: Home Health Provider in Charge Post Discharge: PCP - Diagnosis (1) Positive culture findings in wound Priority: Secondary Status: Acute (2) C. difficile colitis Priority: Secondary Status: Acute (3) Hypokalemia Priority: Secondary Status: Resolved (4) Acute and chronic respiratory failure ([id number]) Priority: Primary Status: Resolved (5) Parapneumonic effusion Priority: Primary Status: Resolved (6) HCAP (healthcare-associated pneumonia) Priority: Primary Status: Resolved (7) Atrial fibrillation Priority: Secondary Status: Chronic (8) CHF (congestive heart failure) Priority: Secondary Status: Chronic (9) Diabetes Priority: Secondary Status: Chronic (10) Foot ulcer Priority: Secondary Status: Chronic (11) Obstructive sleep apnea Priority: Secondary Status: Chronic (12) Morbid obesity with BMI of 50.0-59.9, adult Priority: Secondary Status: Chronic (13) DVT prophylaxis Priority: Secondary Status: Acute (14) Electrolyte abnormality Priority: Secondary Status: Acute - Respiratory Orders Smoking Cessation: Smoking cessation has been advised. For more information, call the [place] Tobacco Quit Line at 8-739-PCONNOW. - Services Needed Following services are medically necessary services: Nursing, Home Health Aide, Physical Therapy, Occupational Therapy Other Treatments: Left foot wound care - Transfer Medications Prescriptions: Ipratropium/Albuterol Neb [Duoneb] 3 ml IH [id number] #2 inhsol Dicyclomine [Bentyl] 20 mg PO Q6H PRN #20 capsule PRN Reason: cramps Diltiazem CD (24hr) [Cardizem CD] 120 mg PO DAILY #30 cap.er.24h Furosemide [Lasix] 40 mg PO BIDDIURETIC #60 tablet Lactobacillus [Culturelle] 2 each PO DAILY #20 cap.sprink Vancomycin Oral Soln [Vancocin] 125 mg PO QID #27 udc Home Medications: Folic Acid 1 mg PO QAM 04/26/15 [History] Hydroxychloroquine [Plaquenuil] 400 mg PO QAM 04/26/15 [History] Levothyroxine [Synthroid] 50 mcg PO QAM 04/27/15 [History] Apixaban [Eliquis] 5 mg PO BID 09/05/15 [History] Ipratropium/Albuterol Neb [Duoneb] 3 ml IH Q4H PRN 01/18/16 [History] Insulin Lispro Protamin/Lispro [Humalog Mix 75-25 Kwikpen] 25 unit SQ BID [History] Duloxetine HCl [Cymbalta] 60 mg PO DAILY 04/16/17 [History] Lisinopril [Zestril] 5 mg PO DAILY 04/16/17 [History] Metoprolol XL (24 HR) Succ [Toprol Xl] 50 mg PO DAILY 04/16/17 [History] Potassium Chloride [K-Tab ER] 20 meq PO BID 04/16/17 [History] Tamsulosin [Flomax] 0.4 mg PO DAILY 04/16/17 [History] Multivits,Ca,Min/Iron/FA/Lycop [Centrum Men's Tablet] 1 tab PO DAILY 04/26/17 [ History] Oxycodone HCl [Oxycontin] 40 mg PO Q8H PRN 07/14/17 [History] Tofacitinib Citrate [Xeljanz Xr] 11 mg PO DAILY 07/14/17 [History] Dicyclomine [Bentyl] 20 mg PO Q6H PRN #20 capsule 08/01/17 [Rx] Diltiazem CD (24hr) [Cardizem CD] 120 mg PO DAILY #30 cap.er.24h 08/01/17 [Rx] Furosemide [Lasix] 40 mg PO BIDDIURETIC #60 tablet 08/01/17 [Rx] Ipratropium/Albuterol Neb [Duoneb] 3 ml IH [id number] #2 inhsol 08/01/17 [Rx] Lactobacillus [Culturelle] 2 each PO DAILY #20 cap.sprink 08/01/17 [Rx] Vancomycin Oral Soln [Vancocin] 125 mg PO QID #27 udc 08/01/17 [Rx] Allergies/Adverse Reactions: 3 Allergy/AdvReac Type Severity Reaction Status Date / Time clindamycin AdvReac Diarrhea Verified 06/02/17 07:17 Certification: Further, I certify that my clinical findings support that this patient is homebound (i.e. absences from home require considerable and taxing effort and are for medical reasons or roman cath[employer] services or infrequently or short duration when for other reasons) because: Homebound Reason: Patient requires assistance of a person or device to safely leave home Attestation: My signature below is to certify that this patient is under my care and that I, or nurse practitioner, or a physician's golf course assistant working with me, has a face-to -face encounter with this patient.
[2017-08-01] MEDS: Lactobacillus 1 EACH CAP.SPRINK PO SCH (10:32)
[2017-08-01] MEDS: APIXABAN 5 MG TABLET PO SCH (10:33)
[2017-08-01] MEDS: metroNIDAZOLE 500 MG TABLET PO SCH (10:33)
[2017-08-01] MEDS: Insulin LISPRO 300 UNITS/3 ML VIAL SQ SCH (10:34)
[2017-08-01] MEDS: Furosemide 40 MG TABLET PO SCH (10:34)
[2017-08-01] MEDS: Diltiazem CD (24hr) 120 MG CAPSULE PO SCH (10:34)
[2017-08-01] MEDS: Metoprolol XL (24 HR) Succ 25 MG TAB.ER.24H PO SCH (10:53)
[2017-08-01] MEDS: Acetaminophen 325 MG TABLET PO PRN (10:53)
[2017-08-01] MEDS: Vancomycin Oral Soln 250 MG/5 ML UDC PO SCH (10:55)
[2017-08-01] MEDS: Insulin DETEMIR 100 UNIT/ML X5UNITS SQ SCH (10:57)
== END 2017-08-01 12:30 | disposition home health service (06) | DRG 853 ==
LOC: EMEROO 19:12 → ICNU 19:12 → SUATTDRO 07-14 02:00 → 2NENU 07-22 18:00
PROVIDERS: ADMIT Internal Medicine; ATTEND Internal Medicine

== ENCOUNTER 2017-10-07 12:36 | Inpatient (IN) ==
[2017-10-07] MEDS ORDERED: Furosemide 40 MG/4 ML VIAL IVP ONE (12:40)
[2017-10-07] MEDS ORDERED: Ipratropium/Albuterol Neb 3 ML IH ONE (12:40)
[2017-10-07] MEDS ORDERED: methylPREDNISolone 125 MG/2 ML VIAL IVP ONE (12:40)
--- NOTE | 2017-10-07 12:43 | Emergency Department Note ---
Disposition Clinical Impression: Acute exacerbation of chronic obstructive airways disease, Acute on chronic respiratory failure with hypoxia and hypercapnia Acute exacerbation of congestive heart failure Qualifiers: Heart failure type: unspecified Qualified Code(s): I50.9 - Heart failure, unspecified Disposition: Admitted As Inpatient Condition: Serious Referrals: Zion Hernandes DO [Primary Care Provider] - Forms: ED Satisfaction Letter Time of Disposition: 14:42 SOB HPI - General Chief Complaint: ED Shortness of Breath/Dyspnea Stated Complaint: KARIN Time Seen by Provider: 10/07/17 12:40 Source: patient, family, EMS Mode of arrival: EMS Limitations: no limitations Nursing Notes Reviewed: Yes Vital Signs Reviewed: Yes - History of Present Illness 67-year-old male history of chronic respiratory failure, CHF, presents complaining of cough and congestion shortness of breath the last 3-4 days, patient was brought in by EMS BiPAP going, he has been requiring more BiPAP for the last 3-4 days, normally just requires us at night but he has been eating and drinking today. No recent intubations but multiple admissions in the past. Patient said fever, cough, increased work of breathing for last few days. He has has some chest tightness he rates a 3 out of 10. He has had some diaphoresis as well and nausea but no emesis. Denies hemoptysis, DVTs. History of recent surgeries or prolonged recumbency Pt Subjective Complaint: shortness of breath Context: recent illness Severity: severe Consistency/Duration: gradually worsening Improves with: oxygen Known history of: COPD, congestive heart failure Associated symptoms: Reports: cough. Denies: chest pain, pain with inspiration , wheezing, sputum production, orthopnea Cough present: Yes Cough Description: Voluntary - Related Data Home oxygen amount: CPAP Home Medications Medication Instructions Recorded Confirmed Folic Acid 1 mg PO QAM 04/26/15 10/07/17 Hydroxychloroquine [Plaquenuil] 400 mg PO QAM 04/26/15 10/07/17 Levothyroxine [Synthroid] 50 mcg PO QAM 04/27/15 10/07/17 Apixaban [Eliquis] 5 mg PO BID 09/05/15 10/07/17 Ipratropium/Albuterol Neb [Duoneb] 3 ml IH Q4H PRN 09/05/15 10/07/17 Insulin Lispro Protamin/Lispro 25 unit SQ BID 09/11/15 10/07/17 [Humalog Mix 75-25 Kwikpen] Duloxetine HCl [Cymbalta] 60 mg PO DAILY 04/16/17 10/07/17 Lisinopril [Zestril] 5 mg PO DAILY 04/16/17 10/07/17 Metoprolol XL (24 HR) Succ [Toprol 50 mg PO DAILY 04/16/17 10/07/17 Xl] Potassium Chloride [K-Tab ER] 20 meq PO BID 04/16/17 10/07/17 Tamsulosin [Flomax] 0.4 mg PO DAILY 04/16/17 10/07/17 Multivits,Ca,Min/Iron/FA/Lycop 1 tab PO DAILY 04/26/17 10/07/17 [Centrum Men's Tablet] OxyCODONE ER (12 HR) [OxyCONTIN] 80 mg PO Q12H 10/07/17 10/07/17 Previous Rx's Medication Instructions Recorded Diltiazem CD (24hr) [Cardizem CD] 120 mg PO DAILY #30 cap.er.24h 08/01/17 Furosemide [Lasix] 40 mg PO BIDDIURETIC #60 tablet 08/01/17 Lactobacillus [Culturelle] 2 each PO DAILY #20 cap.sprink 08/01/17 Allergies Allergy/AdvReac Type Severity Reaction Status Date / Time clindamycin AdvReac Diarrhea Verified 06/02/17 07:17 All systems ED: reviewed and negative except as stated. Review of Systems: As Per HPI Constitutional: Reports: fever. Denies: chills Eyes: Denies: eye pain ENT ED: Denies: ear pain Cardiovascular: Reports: chest pain Respiratory: Reports: as per HPI, cough, dyspnea Gastrointestinal: Denies: abdominal pain Genitourinary: Denies: urgency, dysuria Musculoskeletal: Denies: back pain Integumentary: Denies: rash Neurological: Denies: headache Psychiatric: Denies: anxiety Past Medical History - Past Medical History Attestation: Yes The following information was validated with the patient. Source: patient Medical history: Reports: atrial fibrillation, diabetes, hypertension, RA, thyroid disease Surgical history: Reports: orthopedic, other Psychiatric history: Reports: no psych history - Social History Smoking Status: Former smoker Smokeless Tobacco Status: No Alcohol use: Reports: none Drug use: Reports: none Physical Exam Constitutional: Morbidly obese male appears to Tachycardic on BiPAP. Eyes: PERRLA, sclera anicteric ENT & Mouth: MMM Neck: normal inspection, neck is supple Resp: Decreased breath sounds at the bases bilaterally, coarse rhonchi bilaterally CV: irregularly irregular, no m/g/r GI: normal inspection, soft, obese no guarding or rigidity Neuro: A&O3, CNII-XII grossly intact, DENIS Skin: on limited exam, skin intact with no rashes or lesions - General General appearance: in distress (mod resp distress) Course Course Narrative: 67-year-old male presents complaining shortness of breath, moderate respiratory failure on BiPAP, placed on BiPAP at bedside call respiratory therapist or ABG, facial gas shows no acidemia, but chronic respiratory failure with hypercarbia and hypoxia, patient will get CBC BMP troponin, EKG shows no acute ischemic changes, atrial fibrillation rate controlled. - Reevaluation(s) Reevaluation #1: Lab work was markable for negative troponin, chest x-ray shows low volumes suggestive of CHF, patient is diuresis given DuoNeb treatment, hospice recommended Levaquin as well, and repeat ABG admitted to for inpatient [facility] at [facility] time. Time: 14:41 Vital Signs Temperature 99.0 F 10/07/17 12:39 Pulse Rate 102 10/07/17 12:39 Respiratory Rate 40 10/07/17 12:39 Blood Pressure 0/0 10/07/17 12:39 O2 Sat by Pulse Oximetry 94 10/07/17 12:39 Temperature 99.0 F 10/07/17 12:39 Pulse Rate 87 10/07/17 18:37 Respiratory Rate 22 10/07/17 18:37 Blood Pressure 121/82 10/07/17 18:37 O2 Sat by Pulse Oximetry 95 10/07/17 18:37 Oxygen Delivery Oxygen Delivery Bipap Shortness of Breath/Dyspnea - Differential Diagnosis Likely: acute exacerbation of chronic obstructive airways disease, congestive heart failure, pneumonia, asthma with exacerbation - Medical Records Medical records reviewed: Yes I reviewed the patient's medical records. - Lab Data Lab results reviewed: Yes I reviewed the patient's lab results. Result diagrams: 10/07/17 12:48 10/07/17 12:48 Lab Results 10/07/17 10/07/17 10/07/17 Range/Units 12:48 12:48 12:48 WBC 12.2 H (4.3-11.1) K/mcL RBC 4.63 (4.19-5.50) M/mcL Hgb 11.7 L (12.9-16.9) g/dL Hct 40.0 (37.5-50.1) % MCV 86.4 (83.0-100.0) fL MCH 25.3 L (28.0-33.3) pg MCHC 29.3 L (31.6-35.5) g/dL RDW 15.4 H (11.5-14.5) % Plt Count 295 (140-400) K/mcL MPV 8.9 L (9.4-12.4) fL Immature Gran % 0.3 (0-4) % Seg Neutrophils % 71.6 % Lymphocytes % 13.0 % Monocytes % 3.8 % Eosinophils % 10.9 % Basophils % 0.4 % Neutrophils # 8.7 (1.6-8.9) K/mcL Lymphocytes # 1.6 (0.6-4.6) K/mcL Monocytes # 0.5 (0.0-1.3) K/mcL Eosinophils # 1.3 H (0.0-0.6) K/mcL Basophils # 0.1 (0.0-0.2) K/mcL PT 15.7 H (9.4-12.1) Seconds INR 1.4 ABG pH (7.32-7.45) pH Units ABG pCO2 (35-45) mmHg ABG pO2 (85-104) mmHg ABG HCO3 (21-27) mEq/L ABG Total CO2 (20-26) mEq/L ABG O2 Saturation (95-98) % ABG Base Excess (-2 to 3) mEq/L VBG pH (7.32-7.42) pH Units VBG pCO2 (41-51) mmHg VBG pO2 (25-50) mmHg VBG HCO3 (21-27) mEq/L O2 Delivery Device Inspired O2 (1-15=lpm [id number]=%) Sodium 138 (136-145) mEq/L Potassium 4.0 (3.5-5.1) mEq/L Chloride 92 L (98-107) mEq/L Carbon Dioxide 39 H (23-29) mEq/L BUN 18 (8-23) mg/dL Creatinine 0.68 L (0.70-1.30) mg/dL Est GFR ( Amer) > 60 (> 60) Est GFR (Non-Af Amer) > 60 (> 60) BUN/Creatinine Ratio 26 (6-26) Glucose 146 H (70-105) mg/dL Est Mean Plasma Glucose mg/dl Hemoglobin A1c ( - 5.6) % Calculated Osmolality 291 (280-300) Lactic Acid (0.5-2.2) mmol/L Calcium 8.9 (8.6-10.3) mg/dL Troponin I (< 0.04) ng/mL B-Natriuretic Peptide (Less than 100) pg/mL 10/07/17 10/07/17 10/07/17 Range/Units 12:48 12:48 12:48 WBC (4.3-11.1) K/mcL RBC (4.19-5.50) M/mcL Hgb (12.9-16.9) g/dL Hct (37.5-50.1) % MCV (83.0-100.0) fL MCH (28.0-33.3) pg MCHC (31.6-35.5) g/dL RDW (11.5-14.5) % Plt Count (140-400) K/mcL MPV (9.4-12.4) fL Immature Gran % (0-4) % Seg Neutrophils % % Lymphocytes % % Monocytes % % Eosinophils % % Basophils % % Neutrophils # (1.6-8.9) K/mcL Lymphocytes # (0.6-4.6) K/mcL Monocytes # (0.0-1.3) K/mcL Eosinophils # (0.0-0.6) K/mcL Basophils # (0.0-0.2) K/mcL PT (9.4-12.1) Seconds INR ABG pH (7.32-7.45) pH Units ABG pCO2 (35-45) mmHg ABG pO2 (85-104) mmHg ABG HCO3 (21-27) mEq/L ABG Total CO2 (20-26) mEq/L ABG O2 Saturation (95-98) % ABG Base Excess (-2 to 3) mEq/L VBG pH (7.32-7.42) pH Units VBG pCO2 (41-51) mmHg VBG pO2 (25-50) mmHg VBG HCO3 (21-27) mEq/L O2 Delivery Device Inspired O2 (1-15=lpm [id number]=%) Sodium (136-145) mEq/L Potassium (3.5-5.1) mEq/L Chloride (98-107) mEq/L Carbon Dioxide (23-29) mEq/L BUN (8-23) mg/dL Creatinine (0.70-1.30) mg/dL Est GFR ( Amer) (> 60) Est GFR (Non-Af Amer) (> 60) BUN/Creatinine Ratio (6-26) Glucose (70-105) mg/dL Est Mean Plasma Glucose mg/dl Hemoglobin A1c ( - 5.6) % Calculated Osmolality (280-300) Lactic Acid 1.7 (0.5-2.2) mmol/L Calcium (8.6-10.3) mg/dL Troponin I < 0.03 (< 0.04) ng/mL B-Natriuretic Peptide 69 (Less than 100) pg/mL 10/07/17 10/07/17 10/07/17 Range/Units 13:05 15:14 18:12 WBC (4.3-11.1) K/mcL RBC (4.19-5.50) M/mcL Hgb (12.9-16.9) g/dL Hct (37.5-50.1) % MCV (83.0-100.0) fL MCH (28.0-33.3) pg MCHC (31.6-35.5) g/dL RDW (11.5-14.5) % Plt Count (140-400) K/mcL MPV (9.4-12.4) fL Immature Gran % (0-4) % Seg Neutrophils % % Lymphocytes % % Monocytes % % Eosinophils % % Basophils % % Neutrophils # (1.6-8.9) K/mcL Lymphocytes # (0.6-4.6) K/mcL Monocytes # (0.0-1.3) K/mcL Eosinophils # (0.0-0.6) K/mcL Basophils # (0.0-0.2) K/mcL PT (9.4-12.1) Seconds INR ABG pH 7.44 7.32 D (7.32-7.45) pH Units ABG pCO2 56 H 80 H* D (35-45) mmHg ABG pO2 48 L* 113 H D (85-104) mmHg ABG HCO3 38 H 41 H (21-27) mEq/L ABG Total CO2 40 H 44 H (20-26) mEq/L ABG O2 Saturation 83 L 98 (95-98) % ABG Base Excess 12 H 11 H (-2 to 3) mEq/L VBG pH (7.32-7.42) pH Units VBG pCO2 (41-51) mmHg VBG pO2 (25-50) mmHg VBG HCO3 (21-27) mEq/L O2 Delivery Device BiPAP Inspired O2 50.0 (1-15=lpm bx02-326=%) Sodium (136-145) mEq/L Potassium (3.5-5.1) mEq/L Chloride (98-107) mEq/L Carbon Dioxide (23-29) mEq/L BUN (8-23) mg/dL Creatinine (0.70-1.30) mg/dL Est GFR ( Amer) (> 60) Est GFR (Non-Af Amer) (> 60) BUN/Creatinine Ratio (6-26) Glucose (70-105) mg/dL Est Mean Plasma Glucose 105 mg/dl Hemoglobin A1c 5.3 ( - 5.6) % Calculated Osmolality (280-300) Lactic Acid (0.5-2.2) mmol/L Calcium (8.6-10.3) mg/dL Troponin I (< 0.04) ng/mL B-Natriuretic Peptide (Less than 100) pg/mL 10/07/17 Range/Units 18:26 WBC (4.3-11.1) K/mcL RBC (4.19-5.50) M/mcL Hgb (12.9-16.9) g/dL Hct (37.5-50.1) % MCV (83.0-100.0) fL MCH (28.0-33.3) pg MCHC (31.6-35.5) g/dL RDW (11.5-14.5) % Plt Count (140-400) K/mcL MPV (9.4-12.4) fL Immature Gran % (0-4) % Seg Neutrophils % % Lymphocytes % % Monocytes % % Eosinophils % % Basophils % % Neutrophils # (1.6-8.9) K/mcL Lymphocytes # (0.6-4.6) K/mcL Monocytes # (0.0-1.3) K/mcL Eosinophils # (0.0-0.6) K/mcL Basophils # (0.0-0.2) K/mcL PT (9.4-12.1) Seconds INR ABG pH (7.32-7.45) pH Units ABG pCO2 (35-45) mmHg ABG pO2 (85-104) mmHg ABG HCO3 (21-27) mEq/L ABG Total CO2 (20-26) mEq/L ABG O2 Saturation (95-98) % ABG Base Excess (-2 to 3) mEq/L VBG pH 7.35 (7.32-7.42) pH Units VBG pCO2 69 H (41-51) mmHg VBG pO2 89 H (25-50) mmHg VBG HCO3 38 H (21-27) mEq/L O2 Delivery Device Inspired O2 (1-15=lpm ia97-763=%) Sodium (136-145) mEq/L Potassium (3.5-5.1) mEq/L Chloride (98-107) mEq/L Carbon Dioxide (23-29) mEq/L BUN (8-23) mg/dL Creatinine (0.70-1.30) mg/dL Est GFR ( Amer) (> 60) Est GFR (Non-Af Amer) (> 60) BUN/Creatinine Ratio (6-26) Glucose (70-105) mg/dL Est Mean Plasma Glucose mg/dl Hemoglobin A1c ( - 5.6) % Calculated Osmolality (280-300) Lactic Acid (0.5-2.2) mmol/L Calcium (8.6-10.3) mg/dL Troponin I (< 0.04) ng/mL B-Natriuretic Peptide (Less than 100) pg/mL - Radiology Data Radiology results reviewed: Yes I reviewed the patient's radiology results. Chest X-Ray 10/07/17 12:40 IMPRESSION: Constellation of findings as described is consistent with advanced CHF. D/ / Zach Garcia MD / Zach Garcia MD Interpreting Provider: Zach Garcia MD - EKG Data EKG attestation: Yes I reviewed and interpreted this EKG. Rhythm: Reports: A.Fib (99 bpm QRS 100 QTC 373 left axis low voltage, A. fib with no skin changes) Attestation Statement - Attestation Attestation: I, Sam Bethea, examined this patient and my medical decision-making was reviewed with the [employer] ASSEMBLER/PA/Advanced Practice Nurse/Resident Physician. I agree with the documented findings, disposition and treatment plan as described except to the extent set forth below. 57-year-old male presents emergency Department with concerns of increasing shortness of breath. Patient has a long history of respiratory failure with emphysema and COPD. Patient states his symptoms worsened over the past 24 hours. This feels similar to his previous COPD exacerbations. Patient denies nausea, vomiting, diarrhea. Patient in respiratory distress on initial evaluation. Patient given breathing treatment and placed on BiPAP in the emergency department with significant improvement of his symptoms. On reevaluation the patient looks significantly improved and is able to have a conversation regarding his care. He will be admitted to the hospital for further care and evaluation of acute respiratory distress and likely COPD exacerbation.
[2017-10-07 13:02] LABS: Basophils # 0.1 K/mcL (0.0-0.2); Basophils % 0.4 %; Eosinophils # 1.3 K/mcL (0.0-0.6); Eosinophils % 10.9 %; Hemoglobin 11.7 g/dL (12.9-16.9); Immature Granulocytes % 0.3 % (0-4); Lymphocytes # 1.6 K/mcL (0.6-4.6); Mean Corpuscular HGB Conc 29.3 g/dL (31.6-35.5); Mean Corpuscular Hemoglobin 25.3 pg (28.0-33.3); Mean Corpuscular Volume 86.4 fL (83.0-100.0); Mean Platelet Volume 8.9 fL (9.4-12.4); Monocytes # 0.5 K/mcL (0.0-1.3); Monocytes % 3.8 %; Neutrophils # 8.7 K/mcL (1.6-8.9); Platelet Count 295 K/mcL (140-400); Red Blood Count 4.63 M/mcL (4.19-5.50); Red Cell Distribution Width 15.4 % (11.5-14.5); Segmented Neutrophils % 71.6 %
[2017-10-07 13:07] LABS: INR 1.4; Prothrombin Time 15.7 Seconds (9.4-12.1)
[2017-10-07 13:10] LABS: ABG Base Excess 12 mEq/L (-2 to 3); ABG HCO3 38 mEq/L (21-27); ABG Oxygen Saturation 83 % (95-98); ABG PCO2 56 mmHg (35-45); ABG PH 7.44 pH Units (7.32-7.45); ABG PO2 48 mmHg (85-104); ABG TCO2 40 mEq/L (20-26)
[2017-10-07 13:17] LABS: BUN/Creatinine Ratio 26 (6-26); Blood Urea Nitrogen 18 mg/dL (8-23); Calcium 8.9 mg/dL (8.6-10.3); Carbon Dioxide 39 mEq/L (23-29); Chloride 92 mEq/L (98-107); Glucose 146 mg/dL (70-105); Osmolality,Calculated 291 (280-300); Sodium 138 mEq/L (136-145); eGFR For African Americans > 60 (> 60); eGFR For Non-African Americans > 60 (> 60)
[2017-10-07] MEDS ORDERED: Levofloxacin 750 MG/150 ML 750 MG/150 ML BAG IVPB ONE (14:08)
[2017-10-07 15:25] LABS: ABG Base Excess 11 mEq/L (-2 to 3); ABG HCO3 41 mEq/L (21-27); ABG Oxygen Saturation 98 % (95-98); ABG PCO2 80 mmHg (35-45); ABG PH 7.32 pH Units (7.32-7.45); ABG PO2 113 mmHg (85-104); ABG TCO2 44 mEq/L (20-26)
--- NOTE | 2017-10-07 16:07 | Internal Med History&Physical ---
<Linda Toney - Last Filed: 10/07/17 16:53> Date of Encounter: 10/07/17 Time of Encounter: 15:58 Assessment and Plan (1) Acute on chronic respiratory failure with hypoxia and hypercapnia Current visit: Yes Status: Acute Presented with a RR 40 decreased to 17 after being placed on BIPAP and Duonebs administered. Original ABG showed normal PH, repeat showed respiratory acidosis with metabolic compensation. Patient currently talking and able to drink fluids without worsening. Plan: - Continue on BIPAP - continuous pulse ox - Lasix 80mg BID - duonebs Q4hrs - Solu-medrol 60mg Q6hr (2) CHF (congestive heart failure) Current visit: Yes Status: Acute Polysom Tech Dr. Mathis. Last Echo 04/26/17 showed EF 50%, RA mild dilation, Valves limited to visualize. BMP: 69, unsure if falsely low due to high BMI, previously high with CHF CXR: bilateral pleural effusion, vascular congestion. Plan: - Lasix 80mg BID - strict I&Os Qualifiers: Heart failure type: unspecified Heart failure chronicity: acute Qualified Code(s): I50.9 - Heart failure, unspecified (3) Acute exacerbation of chronic obstructive airways disease Current visit: Yes Status: Acute See plan above under acute resp failure (4) Paroxysmal A-fib Current visit: Yes Status: Acute rate controlled currently. Will continue to monitor. Continue home meds Apixaban and Cardizem. (5) Morbid obesity with BMI of 45.0-49.9, adult Current visit: No Status: Chronic Plan: - PT/OT eval - sitting up TID (6) Diabetes mellitus type 2 in obese Current visit: Yes Status: Acute plan: - Levemir 15mg BID - premeal 6 units - SSI low - accu checks with meals (7) DVT prophylaxis Current visit: Yes Status: Acute [facility] Internal Medicine - H&P: HPI Chief complaint: SOB Admitted From: Home Plans for Post Hospital Care: Home History of present illness: Mr. Swenson is a 67 year old male with a past medical history of COPD, CHF, GABRIELA, A. fib on Elliquis, DM2, hypertension, and thyroid disease presented to the ED from home with SOB. Patient states that on Saturday he was having trouble taking a deep breath. Patient denies coughing, sputum, or recent sick contacts. Patient normally uses 2-1/2 L during the day and BiPAP at night. Patient states that on Saturday he increased the number of liters of oxygen during the day then on Saturday he was using BiPAP all day long and all night. Patient does not weigh himself. has noticed increased lower extremity edema. Patient has been taking his medications as prescribed and has been taking his Lasix 40 mg twice a day. Patient admits to associated decreased appetite on Saturday, increased sweating, changes in vision, chest heaviness and dizziness. Patient denies fevers, chills, diarrhea, calf tenderness, LE pain, and abdominal pain. In the ED, chest x-ray was obtained and showed bilateral pleural effusions and vascular congestion. EKG showed afib rate controlled. Patient was given Lasix 60mg, DuoNebs and placed on BIPAP. patient is currently able to talk without SOB. RR decreased from 40bpm to 17bpm since arrival. Initial ABG showed no acidosis but repeat showed respiratory acidosis. Of not patient is unable to move his left foot 2/2 to prior foot ulcer and has foot drop. 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 Past Med Surg Social Fam HX - Past Medical History Medical history: atrial fibrillation, CHF, COPD, diabetes (insulin dependent ), hypertension, RA, thyroid disease, other (GABRIELA, ) Psychiatric history: no psych history - Past Surgical History Surgical History: orthopedic, other - Social History Smoking Status: Former smoker Smokeless Tobacco Status: No Alcohol use: none Drug use: none - Family History Mother Living Status: Hx Family Cardiac Disorders: Yes Hx Family Endocrine Disorder: Yes (DM) Father Living Status: Hx Family Cardiac Disorders: Yes Internal Medicine - H&P: Meds Folic Acid 1 mg PO QAM 04/26/15 [History] Hydroxychloroquine [Plaquenuil] 400 mg PO QAM 04/26/15 [History] Levothyroxine [Synthroid] 50 mcg PO QAM 04/27/15 [History] Apixaban [Eliquis] 5 mg PO BID 09/05/15 [History] Ipratropium/Albuterol Neb [Duoneb] 3 ml IH Q4H PRN 09/05/15 [History] Insulin Lispro Protamin/Lispro [Humalog Mix 75-25 Kwikpen] 25 unit SQ BID [History] Duloxetine HCl [Cymbalta] 60 mg PO DAILY 04/16/17 [History] Lisinopril [Zestril] 5 mg PO DAILY 04/16/17 [History] Metoprolol XL (24 HR) Succ [Toprol Xl] 50 mg PO DAILY 04/16/17 [History] Potassium Chloride [K-Tab ER] 20 meq PO BID 04/16/17 [History] Tamsulosin [Flomax] 0.4 mg PO DAILY 04/16/17 [History] Multivits,Ca,Min/Iron/FA/Lycop [Centrum Men's Tablet] 1 tab PO DAILY 04/26/17 [ History] Diltiazem CD (24hr) [Cardizem CD] 120 mg PO DAILY #30 cap.er.24h 08/01/17 [Rx] Furosemide [Lasix] 40 mg PO BIDDIURETIC #60 tablet 08/01/17 [Rx] Lactobacillus [Culturelle] 2 each PO DAILY #20 cap.sprink 08/01/17 [Rx] OxyCODONE ER (12 HR) [OxyCONTIN] 80 mg PO Q12H 10/07/17 [History] 3 Allergy/AdvReac Type Severity Reaction Status Date / Time clindamycin AdvReac Diarrhea Verified 06/02/17 07:17 All Systems PM: A 10-system review of systems was performed and is negative for pertinent findings except as documented above in the HPI. - Constitutional Constitutional: as per HPI - Constitutional Vitals: Temp Pulse Resp BP Pulse Ox 99.0 F 83 18 121/70 95 10/07/17 12:39 10/07/17 15:42 10/07/17 15:42 10/07/17 15:42 10/07/17 15:42 Exam: Constitutional: Alert, talking, no acute distress, Head: Normocephalic, atraumatic, Heart: irregulary rhythm, regular rate, no murmurs Lungs: decrease breath sounds bilaterally, expiratory wheezing present, no rales, or rhonchi Abdomen: morbid obesity, mild tenderness in the RLQ, Soft, nondistended, and no masses palpable, bowel sounds present and normal, no guarding or rigidity. Extremities: bilateral lower extremities with chronic venous stasis changes, bilateral pitting +2 edema distal to the knees, skin discoloration of purple/ blue and capillary refill 3 seconds bilaterally, unable to wiggle toes in left foot but chronic, right foot able to wiggle toes, no calf tenderness bilaterally , LE skin is dry, No clubbing, cyanosis, Skin: xeros derma bilaterally of feet and legs, no lesions, no rashes, no jaundice Neurologic, drop foot present on left side, CNII-XI grossly intact Psych: Cooperative with exam, good eye contact, cognitive function intact, judgment good insight good, speech clear, thought process logical, and goal directed Internal Med - H&P Results - Labs CBC & Chem 7: 10/07/17 12:48 10/07/17 12:48 Labs: Short CBC 10/07/17 Range/Units 12:48 WBC 12.2 H (4.3-11.1) K/mcL Hgb 11.7 L (12.9-16.9) g/dL Hct 40.0 (37.5-50.1) % Plt Count 295 (140-400) K/mcL Neutrophils # 8.7 (1.6-8.9) K/mcL BMP 10/07/17 12:48 Sodium 138 Potassium 4.0 Chloride 92 L Carbon Dioxide 39 H BUN 18 Creatinine 0.68 L Glucose 146 H Calcium 8.9 Cardiac Enzymes 10/07/17 Range/Units 12:48 Troponin I < 0.03 (< 0.04) ng/mL - ABG Interpretation ABG results: 10/07/17 10/07/17 13:05 15:14 ABG pH 7.44 7.32 D ABG pCO2 56 H 80 H* D ABG pO2 48 L* 113 H D ABG HCO3 38 H 41 H ABG Total CO2 40 H 44 H ABG O2 Saturation 83 L 98 ABG Base Excess 12 H 11 H - Impressions ITS Impressions Chest X-Ray 10/07/17 12:40 IMPRESSION: Constellation of findings as described is consistent with advanced CHF. D/ / Zach Garcia MD / Zach Garcia MD Interpreting Provider: Zach Garcia MD <Felipe Castro - Last Filed: 10/07/17 19:52> Date of Encounter: 10/07/17 Internal Medicine - H&P: HPI History of present illness: Mr. Swenson is a 67 year old male All Systems PM: A 10-system review of systems was performed and is negative for pertinent findings except as documented above in the HPI. - Constitutional Vitals: Temp Pulse Resp BP Pulse Ox 99.0 F 77 24 123/78 96 10/07/17 12:39 10/07/17 19:46 10/07/17 19:46 10/07/17 19:46 10/07/17 19:46 Internal Med - H&P Results - Labs CBC & Chem 7: 10/07/17 12:48 10/07/17 12:48 Labs: Short CBC 10/07/17 Range/Units 12:48 WBC 12.2 H (4.3-11.1) K/mcL Hgb 11.7 L (12.9-16.9) g/dL Hct 40.0 (37.5-50.1) % Plt Count 295 (140-400) K/mcL Neutrophils # 8.7 (1.6-8.9) K/mcL BMP 10/07/17 12:48 Sodium 138 Potassium 4.0 Chloride 92 L Carbon Dioxide 39 H BUN 18 Creatinine 0.68 L Glucose 146 H Calcium 8.9 Cardiac Enzymes 10/07/17 Range/Units 12:48 Troponin I < 0.03 (< 0.04) ng/mL - ABG Interpretation ABG results: 10/07/17 10/07/17 10/07/17 13:05 15:14 18:26 ABG pH 7.44 7.32 D ABG pCO2 56 H 80 H* D ABG pO2 48 L* 113 H D ABG HCO3 38 H 41 H ABG Total CO2 40 H 44 H ABG O2 Saturation 83 L 98 ABG Base Excess 12 H 11 H VBG pH 7.35 VBG pCO2 69 H VBG pO2 89 H VBG HCO3 38 H - Impressions ITS Impressions Chest X-Ray 10/07/17 12:40 IMPRESSION: Constellation of findings as described is consistent with advanced CHF. D/ / Zach Garcia MD / Zach Garcia MD Interpreting Provider: Zach Garcia MD - Attending Attestation I had a [id number] diagnostic evaluation of this patient and my medical decision-making was reviewed with the Resident Physician Dr Toney. I agree with the documented findings, disposition and treatment plan as described except to the extent set forth below. Patient well-known to me brought to the hospital for evaluation of shortness of breath. On exam lungs sounds are diminished. Heart is irregular. His mental status is awake alert oriented, he is in no acute distress wearing BiPAP. Plan: We will treat him for COPD exacerbation, CHF exacerbation contributing to acute on chronic hypoxic respiratory failure. We will repeat ABG in 2 hours. Felipe Castro MD
[2017-10-07] MEDS ORDERED: Ibuprofen 400 MG TABLET PO PRN (17:00)
[2017-10-07] MEDS ORDERED: Naloxone 0.4 MG/ML INJ IVP PRN (17:00)
[2017-10-07] MEDS ORDERED: *HR* Dextrose 50 % in Water (Syg) 50 ML SYRINGE IVP PRN (17:16)
[2017-10-07] MEDS ORDERED: D5% in Water 1,000 ML IVC PRN (17:16)
[2017-10-07] MEDS ORDERED: Dextrose Gel 15 GM/37.5 ML TUBE PO PRN ×2 (17:16)
[2017-10-07] MEDS ORDERED: Ipratropium/Albuterol Neb 3 ML IH PRN (17:19)
[2017-10-07 18:29] LABS: VBG HCO3 38 mEq/L (21-27); VBG PCO2 69 mmHg (41-51); VBG PH 7.35 pH Units (7.32-7.42); VBG PO2 89 mmHg (25-50)
[2017-10-07 19:13] LABS: Hemoglobin A1C 5.3 %
[2017-10-07] MEDS: *HR* Enoxaparin 40 MG/0.4 ML SYRINGE SQ SCH (19:44)
[2017-10-07] MEDS: Insulin LISPRO 300 UNITS/3 ML VIAL SQ SCH ×3 (21:00→23:19)
[2017-10-07] MEDS: Ipratropium/Albuterol Neb 3 ML IH SCH ×2 (21:13→23:57)
[2017-10-07] MEDS: *HR* OxyCODONE ER (12 HR) 40 MG TABLET PO SCH (23:13)
[2017-10-07] MEDS: methylPREDNISolone 125 MG/2 ML VIAL IVP SCH (23:14)
[2017-10-07] MEDS: Furosemide 40 MG/4 ML VIAL IVP SCH (23:14)
[2017-10-07] MEDS: Apixaban 5 MG TABLET PO SCH (23:19)
[2017-10-08] MEDS: Insulin DETEMIR 100 UNIT/ML X5UNITS SQ SCH ×3 (00:30→20:10)
[2017-10-08] MEDS: methylPREDNISolone 125 MG/2 ML VIAL IVP SCH ×4 (01:51→20:09)
[2017-10-08] MEDS: Ipratropium/Albuterol Neb 3 ML IH SCH ×5 (03:43→19:30)
[2017-10-08 03:49] LABS: Basophils % 0.1 %; Hematocrit 36.6 % (37.5-50.1); Hemoglobin 11.2 g/dL (12.9-16.9); Immature Granulocytes % 0.5 % (0-4); Lymphocytes # 0.6 K/mcL (0.6-4.6); Lymphocytes % 7.5 %; Mean Corpuscular HGB Conc 30.6 g/dL (31.6-35.5); Mean Corpuscular Hemoglobin 25.7 pg (28.0-33.3); Mean Corpuscular Volume 83.9 fL (83.0-100.0); Mean Platelet Volume 9.3 fL (9.4-12.4); Monocytes # 0.1 K/mcL (0.0-1.3); Monocytes % 1.2 %; Platelet Count 273 K/mcL (140-400); Red Blood Count 4.36 M/mcL (4.19-5.50); Red Cell Distribution Width 15.2 % (11.5-14.5); Segmented Neutrophils % 90.7 %
[2017-10-08 04:14] LABS: BUN/Creatinine Ratio 27 (6-26); Blood Urea Nitrogen 20 mg/dL (8-23); Calcium 8.7 mg/dL (8.6-10.3); Carbon Dioxide 40 mEq/L (23-29); Chloride 92 mEq/L (98-107); Glucose 198 mg/dL (70-105); Osmolality,Calculated 296 (280-300); Potassium 3.8 mEq/L (3.5-5.1); Sodium 139 mEq/L (136-145); eGFR For African Americans > 60 (> 60); eGFR For Non-African Americans > 60 (> 60)
--- NOTE | 2017-10-08 07:25 | Internal Med Progress Note ---
<Harvinder Braga R - Last Filed: 10/08/17 16:32> Date of Encounter: 10/08/17 - Constitutional Vitals: Temp Pulse Resp BP Pulse Ox 98.4 F 90 18 106/62 91 10/08/17 16:10 10/08/17 16:10 10/08/17 16:20 10/08/17 16:10 10/08/17 16:20 Internal Medicine: Result - Labs CBC & Chem 7: 10/08/17 02:39 10/08/17 02:39 Labs: Short CBC 10/08/17 Range/Units 02:39 WBC 7.8 (4.3-11.1) K/mcL Hgb 11.2 L (12.9-16.9) g/dL Hct 36.6 L (37.5-50.1) % Plt Count 273 (140-400) K/mcL Neutrophils # 7.0 (1.6-8.9) K/mcL BMP 10/08/17 02:39 Sodium 139 Potassium 3.8 Chloride 92 L Carbon Dioxide 40 H* BUN 20 Creatinine 0.74 Glucose 198 H Calcium 8.7 - ABG Interpretation ABG results: ABG ABG pH 7.32 pH Units (7.32-7.45) D 10/07/17 15:14 ABG pCO2 80 mmHg (35-45) H* D 10/07/17 15:14 ABG pO2 113 mmHg (85-104) H D 10/07/17 15:14 ABG O2 Saturation 98 % (95-98) 10/07/17 15:14 PT/INR, D-dimer PT 15.7 Seconds (9.4-12.1) H 10/07/17 12:48 Consult Discharge Plan - Plan Referrals: Zion Hernandes DO [Primary Care Provider] - 10/15/17 3:00 pm () - Attending Attestation I personally interviewed and examined this patient. I agree with the findings, assessment, and plan of Dr. Toney, internal medicine dietetic intern. We did increase Lasix to 80 mg IV 3 times a day to enhance diuresis. We will continue the diuresis as renal function allows. He will continue with BiPAP as necessary. Will use scheduled DuoNeb's and when necessary albuterol as necessary. Suspect patient has multifactorial restrictive failure to include acute on chronic diastolic CHF, suspect acute COPD exacerbation, also suspect underlying obesity hypoventilation syndrome with likely pulmonary hypertension. Physical exam Gen.: Increased work of breathing, full sentence dyspnea Skin is warm and dry Neck supple Lungs Show crackles at the bases bilaterally with occasional expiratory wheeze Heart irregular rhythm Abdomen is obese soft nontender nondistended with normal active bowel sounds Extremities show pitting edema bilaterally Neurological exam is nonfocal with the exception of what appears to be a left foot drop. <FengSabihaLinda - Last Filed: 10/08/17 18:03> Date of Encounter: 10/08/17 Time of Encounter: 07:20 - Assessment and plan (1) Acute on chronic respiratory failure with hypoxia and hypercapnia Current Visit: Yes Status: Acute Assessment and plan: Presented with a RR 40 decreased to 17 after being placed on BIPAP and Duonebs administered. Original ABG showed normal PH, repeat showed respiratory acidosis with metabolic compensation. Patient currently talking and able to drink fluids without worsening. Plan: - Continue on BIPAP - continuous pulse ox - Lasix 80mg BID - duonebs Q4hrs - Solu-medrol 60mg Q6hr -BC no growth x 1 day (2) CHF (congestive heart failure) Current Visit: Yes Status: Acute Assessment and plan: Foam Dispenser Dr. Mathis. Last Echo 04/26/17 showed EF 50%, RA mild dilation, Valves limited to visualize. BMP: 69, unsure if falsely low due to high BMI, previously high with CHF CXR: bilateral pleural effusion, vascular congestion. Plan: - Lasix 80mg BID - strict I&Os - limit of 1.5L fluid intake Qualifiers: Heart failure type: diastolic Heart failure chronicity: acute Qualified Code(s): I50.31 - Acute diastolic (congestive) heart failure (3) Acute exacerbation of chronic obstructive airways disease Current Visit: Yes Status: Acute Assessment and plan: See plan above under acute resp failure (4) Paroxysmal A-fib Current Visit: Yes Status: Acute Assessment and plan: rate controlled currently. Will continue to monitor. Continue home meds Apixaban and Cardizem. (5) Morbid obesity with BMI of 45.0-49.9, adult Current Visit: No Status: Chronic Assessment and plan: Plan: - PT/OT eval - sitting up TID (6) Diabetes mellitus type 2 in obese Current Visit: Yes Status: Acute Assessment and plan: morning blood sugar = 203. Will consider increasing Levemir dose to 20 BID plan: - Levemir 15mg BID - premeal 6 units - SSI low - accu checks with meals (7) DVT prophylaxis Current Visit: Yes Status: Acute Assessment and plan: Patient is already anticoagulated on Apixaban - Subjective Interval history: Mr. Swenson is a 18-year-old male with past medical history of COPD, CHF, diabetes, A. fib on Man who presented to the ED with worsening shortness of breath and was found to have COPD exacerbation and CHF. Patient states that from last name to today he has had a little bit of improvement in breathing. And has voided 3 times. Patient is currently on BiPAP and is able to talk, drink, and eat. Patient's states that he has not had a bowel movement in 4 days. - Constitutional Vitals: Temp Pulse Resp BP Pulse Ox 99.0 F 92 25 110/60 95 10/08/17 04:18 10/08/17 04:18 10/08/17 04:18 10/08/17 04:18 10/08/17 04:18 Exam: Constitutional: Alert, talking, no acute distress, Head: Normocephalic, atraumatic, Heart: irregular rhythm, regular rate, no murmurs Lungs: decrease breath sounds bilaterally, expiratory wheezing present, no rales, or rhonchi Abdomen: morbid obesity, non-tender, Soft, nondistended, and no masses palpable , bowel sounds present and normal, no guarding or rigidity. Extremities: bilateral lower extremities with chronic venous stasis changes, bilateral pitting +2 edema distal to the knees, skin discoloration of purple/ blue unable to wiggle toes in left foot but chronic, right foot able to wiggle toes, no calf tenderness bilaterally, LE skin is dry, No clubbing, cyanosis, Skin: xeros derma bilaterally of feet and legs, no lesions, no rashes, no jaundice Neurologic, drop foot present on left side, CNII-XI grossly intact Psych: Cooperative with exam, good eye contact, cognitive function intact, judgment good insight good, speech clear, thought process logical, and goal directed Internal Medicine: Result - Labs CBC & Chem 7: 10/08/17 02:39 10/08/17 02:39 Labs: Short CBC 02/20/18 Range/Units 02:39 WBC 7.8 (4.3-11.1) K/mcL Hgb 11.2 L (12.9-16.9) g/dL Hct 36.6 L (37.5-50.1) % Plt Count 273 (140-400) K/mcL Neutrophils # 7.0 (1.6-8.9) K/mcL BMP 10/08/17 02:39 Sodium 139 Potassium 3.8 Chloride 92 L Carbon Dioxide 40 H* BUN 20 Creatinine 0.74 Glucose 198 H Calcium 8.7 - ABG Interpretation ABG results: ABG ABG pH 7.32 pH Units (7.32-7.45) D 10/07/17 15:14 ABG pCO2 80 mmHg (35-45) H* D 10/07/17 15:14 ABG pO2 113 mmHg (85-104) H D 10/07/17 15:14 ABG O2 Saturation 98 % (95-98) 10/07/17 15:14 PT/INR, D-dimer PT 15.7 Seconds (9.4-12.1) H 10/07/17 12:48
[2017-10-08] MEDS: Furosemide 40 MG/4 ML VIAL IVP SCH ×3 (08:23→20:09)
[2017-10-08] MEDS: Lactobacillus 1 EACH CAP.SPRINK PO SCH (08:24)
[2017-10-08] MEDS: Diltiazem CD (24hr) 120 MG CAPSULE PO SCH (08:24)
[2017-10-08] MEDS: Folic Acid 1 MG TABLET PO SCH (08:24)
[2017-10-08] MEDS: Metoprolol XL (24 HR) Succ 50 MG TAB.ER.24H PO SCH (08:25)
[2017-10-08] MEDS: Apixaban 5 MG TABLET PO SCH ×2 (08:25→20:10)
[2017-10-08] MEDS: *HR* Enoxaparin 40 MG/0.4 ML SYRINGE SQ SCH (08:25)
[2017-10-08] MEDS: Insulin LISPRO 300 UNITS/3 ML VIAL SQ SCH ×7 (08:25→20:09)
--- NOTE | 2017-10-08 10:12 | Electrocardiograph Report ---
[facility] Test Date: 2017-10-07 Pat Name: Luís Swenson Department: 102 Room: 2N04 Gender: M [employer]: : 1950 Requested By: Mj Kruger Order Number: [id number] Reading MD: Zion Hernandes DO Measurements Intervals [place] Rate: 99 P: [place]: 0 QRS: 132 QRSD: 100 T: 39 QT: 317 QTc: 373 Interpretive Statements ATRIAL FIBRILLATION POSSIBLE RIGHT VENTRICULAR HYPERTROPHY [SOME/ALL OF: PROMINENT R IN V1, LATE TRANSITION, RAD, CLARISA, SSS] POSSIBLE ANTERIOR MYOCARDIAL INFARCTION [30 ms Q WAVE IN V3/V4, OR R < 0.2 mV IN V4], PROBABLY OLD Electronically Signed On 10-08-2017 10:10:35 EST by Zion Hernandes DO
[2017-10-08] MEDS: *HR* OxyCODONE ER (12 HR) 40 MG TABLET PO SCH ×2 (12:19→23:24)
[2017-10-09] MEDS: Ipratropium/Albuterol Neb 3 ML IH SCH ×7 (00:03→23:36)
[2017-10-09] MEDS: methylPREDNISolone 125 MG/2 ML VIAL IVP SCH ×3 (01:11→11:43)
[2017-10-09] MEDS: Insulin LISPRO 300 UNITS/3 ML VIAL SQ SCH ×7 (07:54→20:23)
[2017-10-09 08:21] LABS: Alanine Aminotransferase 7 Units/L (7-52); Albumin 2.8 g/dL (3.5-5.7); Albumin/Globulin Ratio 0.9 (1.1-2.2); Alkaline Phosphatase 39 Units/L (34-104); Aspartate Amino Transferase 7 Units/L (13-39); BUN/Creatinine Ratio 36 (6-26); Bilirubin,Total 0.2 mg/dL (0.3-1.0); Blood Urea Nitrogen 26 mg/dL (8-23); Calcium 8.4 mg/dL (8.6-10.3); Carbon Dioxide 43 mEq/L (23-29); Chloride 94 mEq/L (98-107); Globulin 3.1 g/dL (2.4-3.5); Glucose 250 mg/dL (70-105); Osmolality,Calculated 305 (280-300); Potassium 3.7 mEq/L (3.5-5.1); Sodium 141 mEq/L (136-145); Total Protein 5.9 g/dL (6.4-8.9); eGFR For African Americans > 60 (> 60); eGFR For Non-African Americans > 60 (> 60)
--- NOTE | 2017-10-09 09:23 | Internal Med Progress Note ---
<Harvinder Braga R - Last Filed: 10/09/17 12:53> Date of Encounter: 10/09/17 - Constitutional Vitals: Temp Pulse Resp BP Pulse Ox 97.9 F 72 20 109/62 94 10/09/17 11:24 10/09/17 11:24 10/09/17 11:24 10/09/17 11:24 10/09/17 11:24 Internal Medicine: Result - Labs CBC & Chem 7: 10/08/17 02:39 10/09/17 06:38 Labs: BMP 10/09/17 06:38 Sodium 141 Potassium 3.7 Chloride 94 L Carbon Dioxide 43 H* BUN 26 H Creatinine 0.72 Glucose 250 H Calcium 8.4 L Liver Function 10/09/17 Range/Units 06:38 Total Bilirubin 0.2 L (0.3-1.0) mg/dL AST 7 L (13-39) Units/L ALT 7 (7-52) Units/L Alkaline Phosphatase 39 (34-104) Units/L Albumin 2.8 L (3.5-5.7) g/dL - ABG Interpretation ABG results: ABG ABG pH 7.32 pH Units (7.32-7.45) D 10/07/17 15:14 ABG pCO2 80 mmHg (35-45) H* D 10/07/17 15:14 ABG pO2 113 mmHg (85-104) H D 10/07/17 15:14 ABG O2 Saturation 98 % (95-98) 10/07/17 15:14 PT/INR, D-dimer PT 15.7 Seconds (9.4-12.1) H 10/07/17 12:48 Consult Discharge Plan - Plan Referrals: Zion Hernandes DO [Primary Care Provider] - 10/15/17 3:00 pm () - Attending Attestation I personally interviewed and examined this patient. I agree with the findings, assessment, and plan of Dr. Elias, internal medicine internet architect. Patient is responding well to Lasix 80 mg IV 3 times a day and we will continue to do so as renal function allows. Overall he is significantly improved. I suspect he has more diuresis to go. His atrial fibrillation remained under good control, he is anticoagulated with Eliquis. Blood sugars elevated likely related to steroids and acute illness. We will titrate insulin accordingly. All else as outlined above. <Pasquale Elias - Last Filed: 10/09/17 13:11> Date of Encounter: 10/09/17 Time of Encounter: 09:21 - Assessment and plan (1) Acute on chronic respiratory failure with hypoxia and hypercapnia Current Visit: No Status: Acute Assessment and plan: Presented with a RR 40 decreased to 17 after being placed on BIPAP and Duonebs administered. Original ABG showed normal PH, repeat showed respiratory acidosis with metabolic compensation. Patient currently talking and able to drink fluids without worsening. 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 Plan: - Strict I&Os; limit of 1.5L fluid intake - Lasix 80mg BID; will continue to diurese as patient tolerates Qualifiers: Heart failure type: diastolic Heart failure chronicity: acute Qualified Code(s): I50.31 - Acute diastolic (congestive) heart failure (3) Paroxysmal A-fib Current Visit: Yes Status: Acute Assessment and plan: -Patient is currently rate controlled at 78 BPM. -Continue to monitor -Eliquis 5 mg PO BID -Cardizem 120 mg PO daily (4) Diabetes mellitus type 2 in obese Current Visit: Yes Status: Acute Assessment and plan: Morning blood sugar = 203. Will consider increasing Levemir dose to 20 BID plan: - Levemir 15mg BID - premeal 6 units - SSI low - accu checks with meals (5) Morbid obesity with BMI of 45.0-49.9, adult Current Visit: No Status: Chronic Assessment and plan: Plan: - PT/OT eval (6) DVT prophylaxis Current Visit: No Status: Acute Assessment and plan: -Eliquis 5 mg PO BID - Subjective Interval history: Patient was seen and examined at bedside this morning. Patient reports feeling well today, with a moderate improvement in his breathing. No complaints at this time. - Constitutional Vitals: Temp Pulse Resp BP Pulse Ox 98.4 F 71 18 108/58 98 10/09/17 07:31 10/09/17 07:31 10/09/17 07:31 10/09/17 07:31 10/09/17 07:31 General appearance: Present: A&O X 3, morbidly obese, answers questions appropriately - Head Head exam: Present: atraumatic, normocephalic - Eye Eye exam: Present: PERRL, conjuntiva pink, sclera anicteric Pupils: Present: PERRL - Neck Neck exam general surgery: Present: supple, trachea midline. Absent: lymphadenopathy - Respiratory Respiratory exam: Present: prolonged expiratory phase. Absent: accessory muscle use, rales, rhonchi, wheezes Additional comments: Bibasilar crackles - Cardiovascular Cardiovascular exam: Present: RRR, +S1, +S2. Absent: diastolic murmur, gallop, rubs, systolic murmur - GI/Abdominal GI/Abdominal exam: Present: normal bowel sounds, soft, no peritoneal signs. Absent: distended, tenderness - Extremities Exam Extremities exam: Present: warm, radial pulses palpable and symmetrical. Absent : calf tenderness, cyanotic, pedal edema - Neurological Exam Neurological exam: Present: CN II-XII intact, oriented X3, no focal deficits. Absent: pronater drift, facial droop, speech deficit - Skin Skin exam: Present: dry, intact Internal Medicine: Result - Labs CBC & Chem 7: 10/08/17 02:39 10/09/17 06:38 Labs: BMP 10/09/17 06:38 Sodium 141 Potassium 3.7 Chloride 94 L Carbon Dioxide 43 H* BUN 26 H Creatinine 0.72 Glucose 250 H Calcium 8.4 L Liver Function 10/09/17 Range/Units 06:38 Total Bilirubin 0.2 L (0.3-1.0) mg/dL AST 7 L (13-39) Units/L ALT 7 (7-52) Units/L Alkaline Phosphatase 39 (34-104) Units/L Albumin 2.8 L (3.5-5.7) g/dL - ABG Interpretation ABG results: ABG ABG pH 7.32 pH Units (7.32-7.45) D 10/07/17 15:14 ABG pCO2 80 mmHg (35-45) H* D 10/07/17 15:14 ABG pO2 113 mmHg (85-104) H D 10/07/17 15:14 ABG O2 Saturation 98 % (95-98) 10/07/17 15:14 PT/INR, D-dimer PT 15.7 Seconds (9.4-12.1) H 10/07/17 12:48
[2017-10-09] MEDS: Apixaban 5 MG TABLET PO SCH ×2 (09:27→20:21)
[2017-10-09] MEDS: Folic Acid 1 MG TABLET PO SCH (09:28)
[2017-10-09] MEDS: Furosemide 40 MG/4 ML VIAL IVP SCH ×3 (09:28→20:21)
[2017-10-09] MEDS: Metoprolol XL (24 HR) Succ 50 MG TAB.ER.24H PO SCH (09:28)
[2017-10-09] MEDS: Lactobacillus 1 EACH CAP.SPRINK PO SCH (09:28)
[2017-10-09] MEDS: Diltiazem CD (24hr) 120 MG CAPSULE PO SCH (09:28)
[2017-10-09] MEDS: Insulin DETEMIR 100 UNIT/ML X5UNITS SQ SCH ×2 (09:28→20:21)
[2017-10-09] MEDS: *HR* OxyCODONE ER (12 HR) 40 MG TABLET PO SCH ×2 (11:44→23:46)
[2017-10-10] MEDS: Ipratropium/Albuterol Neb 3 ML IH SCH ×6 (04:04→23:09)
[2017-10-10] MEDS ORDERED: MethylPREDNISolone 40 MG/ML VIAL IVP SCH (06:00)
[2017-10-10 06:41] LABS: Hematocrit 36.3 % (37.5-50.1); Hemoglobin 10.7 g/dL (12.9-16.9); Mean Corpuscular HGB Conc 29.5 g/dL (31.6-35.5); Mean Corpuscular Hemoglobin 25.1 pg (28.0-33.3); Mean Corpuscular Volume 85.2 fL (83.0-100.0); Mean Platelet Volume 8.9 fL (9.4-12.4); Platelet Count 295 K/mcL (140-400); Red Blood Count 4.26 M/mcL (4.19-5.50); Red Cell Distribution Width 15.3 % (11.5-14.5)
[2017-10-10 07:17] LABS: BUN/Creatinine Ratio 37 (6-26); Blood Urea Nitrogen 29 mg/dL (8-23); Calcium 8.3 mg/dL (8.6-10.3); Carbon Dioxide 44 mEq/L (23-29); Chloride 95 mEq/L (98-107); Glucose 273 mg/dL (70-105); Osmolality,Calculated 312 (280-300); Potassium 3.3 mEq/L (3.5-5.1); Sodium 143 mEq/L (136-145); eGFR For African Americans > 60 (> 60); eGFR For Non-African Americans > 60 (> 60)
--- NOTE | 2017-10-10 07:23 | Internal Med Progress Note ---
Date of Encounter: 10/10/17 Time of Encounter: 09:03 - Assessment and plan (1) Acute on chronic respiratory failure with hypoxia and hypercapnia Current Visit: No Status: Acute Assessment and plan: Presented with a RR 40 decreased to 17 after being placed on BIPAP and Duonebs administered Original ABG showed normal PH, repeat showed respiratory acidosis with metabolic compensation Patient currently talking and able to drink fluids without worsening Reports good urine output -Total I/O: 3420/8660; -5240 -Yesterday, I/O was -3030 -Continue strict I/O measurement Plan: - BIPAP as needed; continuous pulse ox - Lasix 80mg TID - Solu-medrol 60mg Q6hr - Duonebs 3ml IH Q4 CARA (2) CHF (congestive heart failure) Current Visit: Yes Status: Acute Assessment and plan: 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 Plan: -Strict I&Os; limit of 1.5L fluid intake; total I/O -5240 -Lasix 80mg BID; will continue to diurese as patient tolerates Qualifiers: Heart failure type: diastolic Heart failure chronicity: acute Qualified Code(s): I50.31 - Acute diastolic (congestive) heart failure (3) Paroxysmal A-fib Current Visit: Yes Status: Acute Assessment and plan: -Patient is currently rate controlled. -Continue to monitor -Eliquis 5 mg PO BID -Cardizem 120 mg PO daily (4) Diabetes mellitus type 2 in obese Current Visit: Yes Status: Acute Assessment and plan: -Levemir 15mg BID - premeal 6 units - SSI - accu checks WM (5) Morbid obesity with BMI of 45.0-49.9, adult Current Visit: No Status: Chronic Assessment and plan: Plan: - PT/OT eval (6) DVT prophylaxis Current Visit: No Status: Acute Assessment and plan: -Eliquis 5 mg PO BID - Subjective Interval history: Patient was seen and examined at bedside this morning. Patient reports feeling well today, with a moderate improvement in his breathing. No complaints at this time. - Constitutional Vitals: Temp Pulse Resp BP Pulse Ox 97.9 F 80 20 105/66 97 10/10/17 03:58 10/10/17 03:58 10/10/17 03:58 10/10/17 03:58 10/10/17 03:58 General appearance: Present: A&O X 3, morbidly obese, answers questions appropriately - Head Head exam: Present: atraumatic, normocephalic - Eye Eye exam: Present: PERRL, conjuntiva pink, sclera anicteric Pupils: Present: PERRL - Neck Neck exam general surgery: Present: supple, trachea midline. Absent: lymphadenopathy - Respiratory Respiratory exam: Present: prolonged expiratory phase, rales. Absent: accessory muscle use, rhonchi, wheezes - Cardiovascular Cardiovascular exam: Present: RRR, +S1, +S2. Absent: diastolic murmur, gallop, rubs, systolic murmur - GI/Abdominal GI/Abdominal exam: Present: normal bowel sounds, soft, no peritoneal signs. Absent: distended, tenderness - Extremities Exam Extremities exam: Present: warm, radial pulses palpable and symmetrical. Absent : calf tenderness, cyanotic, pedal edema - Neurological Exam Neurological exam: Present: CN II-XII intact, oriented X3, no focal deficits. Absent: pronater drift, facial droop, speech deficit - Skin Skin exam: Present: dry, intact Internal Medicine: Result - Labs CBC & Chem 7: 10/10/17 06:14 10/10/17 06:14 Labs: Short CBC 10/10/17 Range/Units 06:14 WBC 12.4 H D (4.3-11.1) K/mcL Hgb 10.7 L (12.9-16.9) g/dL Hct 36.3 L (37.5-50.1) % Plt Count 295 (140-400) K/mcL BMP 10/09/17 10/10/17 06:38 06:14 Sodium 141 143 Potassium 3.7 3.3 L Chloride 94 L 95 L Carbon Dioxide 43 H* 44 H* BUN 26 H 29 H Creatinine 0.72 0.79 Glucose 250 H 273 H Calcium 8.4 L 8.3 L Liver Function 10/09/17 Range/Units 06:38 Total Bilirubin 0.2 L (0.3-1.0) mg/dL AST 7 L (13-39) Units/L ALT 7 (7-52) Units/L Alkaline Phosphatase 39 (34-104) Units/L Albumin 2.8 L (3.5-5.7) g/dL - ABG Interpretation ABG results: ABG ABG pH 7.32 pH Units (7.32-7.45) D 10/07/17 15:14 ABG pCO2 80 mmHg (35-45) H* D 10/07/17 15:14 ABG pO2 113 mmHg (85-104) H D 10/07/17 15:14 ABG O2 Saturation 98 % (95-98) 10/07/17 15:14 PT/INR, D-dimer PT 15.7 Seconds (9.4-12.1) H 10/07/17 12:48 Consult Discharge Plan - Plan Referrals: Zion Hernandes DO [Primary Care Provider] - 10/15/17 3:00 pm ()
[2017-10-10] MEDS: Insulin LISPRO 300 UNITS/3 ML VIAL SQ SCH ×7 (08:16→20:47)
[2017-10-10] MEDS: Metoprolol XL (24 HR) Succ 50 MG TAB.ER.24H PO SCH (09:24)
[2017-10-10] MEDS: Folic Acid 1 MG TABLET PO SCH (09:24)
[2017-10-10] MEDS: Diltiazem CD (24hr) 120 MG CAPSULE PO SCH (09:24)
[2017-10-10] MEDS: Lactobacillus 1 EACH CAP.SPRINK PO SCH (09:24)
[2017-10-10] MEDS: Apixaban 5 MG TABLET PO SCH ×2 (09:24→20:46)
[2017-10-10] MEDS: Furosemide 40 MG/4 ML VIAL IVP SCH ×3 (09:25→20:46)
[2017-10-10] MEDS: Insulin DETEMIR 100 UNIT/ML X5UNITS SQ SCH ×2 (09:25→20:46)
--- NOTE | 2017-10-10 10:24 | Internal Med Progress Note ---
<Harvinder Braga R - Last Filed: 10/10/17 15:24> Date of Encounter: 10/10/17 - Constitutional Vitals: Temp Pulse Resp BP Pulse Ox 97.7 F 91 18 115/60 91 10/10/17 11:49 10/10/17 11:49 10/10/17 11:49 10/10/17 11:49 10/10/17 11:49 Internal Medicine: Result - Labs CBC & Chem 7: 10/10/17 06:14 10/10/17 06:14 Labs: Short CBC 10/10/17 Range/Units 06:14 WBC 12.4 H D (4.3-11.1) K/mcL Hgb 10.7 L (12.9-16.9) g/dL Hct 36.3 L (37.5-50.1) % Plt Count 295 (140-400) K/mcL BMP 10/10/17 06:14 Sodium 143 Potassium 3.3 L Chloride 95 L Carbon Dioxide 44 H* BUN 29 H Creatinine 0.79 Glucose 273 H Calcium 8.3 L - ABG Interpretation ABG results: ABG ABG pH 7.32 pH Units (7.32-7.45) D 10/07/17 15:14 ABG pCO2 80 mmHg (35-45) H* D 10/07/17 15:14 ABG pO2 113 mmHg (85-104) H D 10/07/17 15:14 ABG O2 Saturation 98 % (95-98) 10/07/17 15:14 PT/INR, D-dimer PT 15.7 Seconds (9.4-12.1) H 10/07/17 12:48 Consult Discharge Plan - Plan Referrals: Zion Hernandes DO [Primary Care Provider] - 10/15/17 3:00 pm () - Attending Attestation I personally interviewed and examined this patient. I agree with the findings, assessment, and plan of Dr. Toney, internal medicine property management intern. Her note reflects our simultaneous evaluation and discussion on rounds. Patient with multifactorial respiratory failure as previously discussed. Continues on BiPAP as necessary and at night. Patient is diuresing well with Lasix 80 mg IV 3 times a day, and will continue to do so his renal function allows. We will continue with steroids for suspected COPD exacerbation. He had negative to date. With regards to his CHF, his last echo showed EF of 50%. Suspect he has diastolic dysfunction and probable cor pulmonale physiology. Patient's A. fib remains under good control, and he is on eloquent S4 stroke prevention. He is breathing much better today. Increasing his activity. Anticipate changes diuretics to oral soon. Will increase activity as tolerated. All else as outlined above. Patient is breathing much better. He does still have swelling in his legs with stasis improved. He is uncomfortable in his bed and states his home that is much better. Pt states all his joints hurt which is not new for him. Other than history of present illness a 10 point review of systems is negative <FengLinda - Last Filed: 10/10/17 15:53> Date of Encounter: 10/10/17 Time of Encounter: 09:00 - Assessment and plan (1) Acute on chronic respiratory failure with hypoxia and hypercapnia Current Visit: Yes Status: Acute Assessment and plan: Presented with a RR 40 decreased to 17 after being placed on BIPAP and Duonebs administered. Original ABG showed normal PH, repeat showed respiratory acidosis with metabolic compensation. Patient currently talking and able to drink fluids without worsening. 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 Plan: -Strict I&Os; limit of 1.5L fluid intake; total I/O last 24: -3030 -Lasix 80mg TID; will continue to diurese as patient tolerates Qualifiers: Heart failure type: diastolic Heart failure chronicity: acute Qualified Code(s): I50.31 - Acute diastolic (congestive) heart failure (3) Acute exacerbation of chronic obstructive airways disease Current Visit: Yes Status: Acute Assessment and plan: See plan above under acute resp failure (4) Paroxysmal A-fib Current Visit: Yes Status: Acute Assessment and plan: -Patient is currently rate controlled but in afib. -Continue to monitor -Eliquis 5 mg PO BID -Cardizem 120 mg PO daily (5) Morbid obesity with BMI of 45.0-49.9, adult Current Visit: No Status: Chronic Assessment and plan: Plan: - PT/OT eval - recommend SNF but patient's is his primary care management specialist and he does have home health with PT/OT - sitting up TID (6) Diabetes mellitus type 2 in obese Current Visit: Yes Status: Acute Assessment and plan: Blood glucoses still 242, fastin Plan: -increase Levemir 20mg BID - premeal 6 units - SSI - accu checks WM (7) DVT prophylaxis Current Visit: Yes Status: Acute Assessment and plan: Patient is already anticoagulated on Apixaban - Subjective Interval history: Mr. Swenson is a 18-year-old male with past medical history of COPD, CHF, diabetes, A. fib who presented to the ED with worsening shortness of breath and was found to have COPD exacerbation and CHF. Today patient states that he is breathing much better. He has been on the nasal cannula throughout the day. He thinks that the swelling in his hands and legs is decreased. He has had an "explosive BM" last night and has had increase gas. - Constitutional Vitals: Temp Pulse Resp BP Pulse Ox 97.7 F 85 18 115/77 96 10/10/17 07:22 10/10/17 07:22 10/10/17 07:30 10/10/17 07:22 10/10/17 07:30 General appearance: Present: A&O X 3, morbidly obese, answers questions appropriately Exam: Constitutional: Alert, talking, no acute distress, Head: Normocephalic, atraumatic, Heart: irregular rhythm, regular rate, no murmurs Lungs: decrease breath sounds bilaterally,, no wheezing, rales, or rhonchi Abdomen: morbid obesity, non-tender, Soft, nondistended, and no masses palpable , bowel sounds present and normal, no guarding or rigidity. Extremities: bilateral lower extremities with chronic venous stasis changes, bilateral pitting +2 edema distal to the knees improving, skin discoloration of purple/blue unable to wiggle toes in left foot but chronic, right foot able to wiggle toes, no calf tenderness bilaterally, LE skin is dry but improving No clubbing, cyanosis, Skin: xeros derma bilaterally of feet and legs improving, , no lesions, no rashes, no jaundice Neurologic, drop foot present on left side, CNII-XI grossly intact Psych: Cooperative with exam, good eye contact, cognitive function intact, judgment good insight good, speech clear, thought process logical, and goal directed Internal Medicine: Result - Labs CBC & Chem 7: 10/10/17 06:14 10/10/17 06:14 Labs: Short CBC 10/10/17 Range/Units 06:14 WBC 12.4 H D (4.3-11.1) K/mcL Hgb 10.7 L (12.9-16.9) g/dL Hct 36.3 L (37.5-50.1) % Plt Count 295 (140-400) K/mcL BMP 10/10/17 06:14 Sodium 143 Potassium 3.3 L Chloride 95 L Carbon Dioxide 44 H* BUN 29 H Creatinine 0.79 Glucose 273 H Calcium 8.3 L - ABG Interpretation ABG results: ABG ABG pH 7.32 pH Units (7.32-7.45) D 10/07/17 15:14 ABG pCO2 80 mmHg (35-45) H* D 10/07/17 15:14 ABG pO2 113 mmHg (85-104) H D 10/07/17 15:14 ABG O2 Saturation 98 % (95-98) 10/07/17 15:14 PT/INR, D-dimer PT 15.7 Seconds (9.4-12.1) H 10/07/17 12:48
[2017-10-10] MEDS: *HR* OxyCODONE ER (12 HR) 40 MG TABLET PO SCH ×2 (11:55→22:47)
[2017-10-11] MEDS: Ipratropium/Albuterol Neb 3 ML IH SCH ×2 (03:53→07:26)
[2017-10-11 06:50] LABS: BUN/Creatinine Ratio 36 (6-26); Blood Urea Nitrogen 30 mg/dL (8-23); Calcium 8.4 mg/dL (8.6-10.3); Carbon Dioxide 49 mEq/L (23-29); Chloride 94 mEq/L (98-107); Glucose 230 mg/dL (70-105); Osmolality,Calculated 311 (280-300); Potassium 3.4 mEq/L (3.5-5.1); Sodium 144 mEq/L (136-145); eGFR For African Americans > 60 (> 60); eGFR For Non-African Americans > 60 (> 60)
[2017-10-11 07:10] VITALS: BP 120/75
[2017-10-11] MEDS ORDERED: predniSONE 20 MG TABLET PO SCH (09:00)
[2017-10-11] MEDS: Diltiazem CD (24hr) 120 MG CAPSULE PO SCH (09:13)
[2017-10-11] MEDS: Apixaban 5 MG TABLET PO SCH (09:13)
[2017-10-11] MEDS: Metoprolol XL (24 HR) Succ 50 MG TAB.ER.24H PO SCH (09:14)
[2017-10-11] MEDS: Folic Acid 1 MG TABLET PO SCH (09:14)
[2017-10-11] MEDS: Insulin DETEMIR 100 UNIT/ML X5UNITS SQ SCH (09:15)
[2017-10-11] MEDS: Lactobacillus 1 EACH CAP.SPRINK PO SCH (09:15)
[2017-10-11] MEDS: Insulin LISPRO 300 UNITS/3 ML VIAL SQ SCH ×2 (09:18→09:19)
[2017-10-11] MEDS: Furosemide 40 MG/4 ML VIAL IVP SCH (09:19)
--- NOTE | 2017-10-11 09:38 | Discharge Summary ---
<Linda Toney - Last Filed: 10/11/17 13:40> - NOTES TO OUTPATIENT PROVIDER Notes to Outpatient Provider: Lasix was increased from 40mg BID to 80mg BID, continue to monitor and adjust accordingly. Date of Encounter: 10/11/17 Time of Encounter: 09:00 - Discharge Diagnosis (1) Acute on chronic respiratory failure with hypoxia and hypercapnia Priority: Primary Status: Acute (2) CHF (congestive heart failure) Priority: Secondary Status: Acute Qualifiers: Heart failure type: diastolic Heart failure chronicity: acute Qualified Code(s): I50.31 - Acute diastolic (congestive) heart failure (3) Acute exacerbation of chronic obstructive airways disease Priority: Secondary Status: Acute (4) Paroxysmal A-fib Priority: Secondary Status: Acute (5) Morbid obesity with BMI of 45.0-49.9, adult Priority: Secondary Status: Chronic (6) Diabetes mellitus type 2 in obese Priority: Secondary Status: Acute (7) DVT prophylaxis Priority: Secondary Status: Acute Hospital course: Mr. Swenson is a 67 year old male with past medical history of COPD, CHF, diabetes type 2, hypertension, and A. fib presented to the ED from home with shortness of breath and was found to have COPD exacerbation and acute on chronic CHF. Chest x-ray showed diffuse vascular congestion consistent with advanced congestive heart failure. Patient was placed on BiPAP with an initial ABG of 7.32, Co2= 80, HCO3= 41. Patient was given Lasix and also a total of about 7.5 L while in the hospital. Patient's respiratory status gradually improved and patient was weaned off BiPAP to nasal cannula 3 L which is his baseline home oxygen level. Patient stated that he weighs feeling much better and was close to baseline. Due to patient's hospital stay previously patient became deconditioned and was evaluated to receive a swing bed but insurance would not cover. OT and PT reevaluated and recommended swing bed patient's insurance approved of bed and patient was discharged to their facility. Patient was instructed and given an order for a BMP on Saturday. Patient's Lasix was increased from home dose to 80 mg twice a day and potassium increased to 40 mg twice a day. Patient is given a prednisone taper of 20 mg for 3 days then 10 mg for 3 days. Patient is instructed to follow-up with his primary care physician or the swing bed doctor in 2-3 days. Patient was prescribed his home dose of oxycodone to be given at the [facility] facility. Discharge discussed with: patient, family - Time Spent with Patient Total time spent providing and/or coordinating discharge services: - Discharge Medications Prescriptions: Furosemide [Lasix] 80 mg PO BID #30 tablet RX: Potassium Chloride 40 meq PO BID #30 tab.er.prt RX: predniSONE [PredniSONE] 20 mg PO DAILY #4 tablet Home Medications: RX: Folic Acid 1 mg PO QAM 04/26/15 [History] RX: Levothyroxine [Synthroid] 50 mcg PO QAM 04/27/15 [History] RX: Apixaban [Eliquis] 5 mg PO BID 09/05/15 [History] RX: Ipratropium/Albuterol Neb [Duoneb] 3 ml IH Q4H PRN 09/05/15 [History] RX: Insulin Lispro Protamin/Lispro [Humalog Mix 75-25 Kwikpen] 25 unit SQ BID [History] RX: Duloxetine HCl [Cymbalta] 60 mg PO DAILY 04/16/17 [History] RX: Lisinopril [Zestril] 5 mg PO DAILY 04/16/17 [History] RX: Metoprolol XL (24 HR) Succ [Toprol Xl] 50 mg PO DAILY 04/16/17 [History] RX: Tamsulosin [Flomax] 0.4 mg PO DAILY 04/16/17 [History] RX: Multivits,Ca,Min/Iron/FA/Lycop [Centrum Men's Tablet] 1 tab PO DAILY [History] RX: Diltiazem CD (24hr) [Cardizem CD] 120 mg PO DAILY #30 cap.er.24h 08/01/17 [ Rx] RX: Lactobacillus [Culturelle] 2 each PO DAILY #20 cap.sprink 08/01/17 [Rx] RX: OxyCODONE ER (12 HR) [OxyCONTIN] 80 mg PO Q12H 10/07/17 [History] Furosemide [Lasix] 80 mg PO BID #30 tablet 10/11/17 [Rx] RX: Hydroxychloroquine [Plaquenuil] 400 mg PO QAM tablet 10/11/17 [Rx] RX: Potassium Chloride 40 meq PO BID #30 tab.er.prt 10/11/17 [Rx] RX: predniSONE [PredniSONE] 20 mg PO DAILY #4 tablet 10/11/17 [Rx] Allergies/Adverse Reactions: 3 Allergy/AdvReac Type Severity Reaction Status Date / Time clindamycin AdvReac Diarrhea Verified 06/02/17 07:17 Date of admission: 10/07/17 20:50 Primary care physician: Martin Chua Consults: 10/07/17 23:38 Consult to Compliance Associate [CONS] Routine Reason for SW Consult: DISCHARGE PLANNING Discharging clinician: Harvinder Braga Anticipated date of discharge: 10/11/17 - Constitutional Vitals: Temp Pulse Resp BP Pulse Ox 98.4 F 89 16 120/75 96 10/11/17 07:02 10/11/17 07:02 10/11/17 07:29 10/11/17 07:02 10/11/17 07:29 General appearance: Present: A&O X 3, morbidly obese, answers questions appropriately Exam: Constitutional: Alert, talking, no acute distress, Head: Normocephalic, atraumatic, Heart: irregular rhythm, regular rate, no murmurs Lungs: NC 3L, CTAB with full breath sounds, no wheezing, rales, or rhonchi Abdomen: morbid obesity, non-tender, Soft, nondistended, and no masses palpable , bowel sounds present and normal, no guarding or rigidity. Extremities: bilateral lower extremities with chronic venous stasis changes, bilateral pitting +2 edema distal to the knees improving, skin discoloration of purple/blue unable to wiggle toes in left foot but chronic, right foot able to wiggle toes, no calf tenderness bilaterally, LE skin is dry but improving No clubbing, cyanosis, Skin: xeros derma bilaterally of feet and legs improving, , no lesions, no rashes, no jaundice Neurologic, drop foot present on left side, CNII-XI grossly intact Psych: Cooperative with exam, good eye contact, cognitive function intact, judgment good insight good, speech clear, thought process logical, and goal directed - Patient Status Disposition: Transfer Hospital Swing Bed Condition: Serious Functional capacity at discharge: uses cane/walker Overall status at discharge: patient is progressing back to baseline - Discharge Instructions Instructions: Heart Failure (DC) Follow Up With: Zion Hernandes DO [Primary Care Provider] - (Patient is going to a swing bed in [place] they will need to make a follow up appointment when he leaves) Additional Instructions: Please continue to watch her fluid intake and try to take an less than 1.5 L per day. Continue to monitor her diet and keep a very low salt diet. Please wear BiPAP at night as this helps your lungs not to develop fluid overnight. I have increased your Lasix dose form 40mg twice a day to 80mg and increased K to 40mg daily. You will need to follow-up with your primary care physician or the swing doctor in 2-3 days and make sure these medications do not need to be adjusted. He will need to get a basic metabolic panel lab on Saturday. We will also place you on a prednisone taper and decrease the dose with 20 mg for 3 days and 10 mg for 3 days. - Diet and Activity Activity: as per physical therapy Diet: diabetic diet, low salt diet <Harvinder Braga - Last Filed: 10/11/17 16:32> Date of Encounter: 10/11/17 Hospital course: Mr. Swenson is a 67 year old male - Time Spent with Patient Total time spent providing and/or coordinating discharge services: Date of admission: 10/07/17 20:50 Primary care physician: Martin Chua Consults: 10/07/17 23:38 Consult to Compliance Associate [CONS] Routine Reason for SW Consult: DISCHARGE PLANNING - Constitutional Vitals: Temp Pulse Resp BP Pulse Ox 98.4 F 89 16 120/75 96 10/11/17 07:02 10/11/17 07:02 10/11/17 07:29 10/11/17 07:02 10/11/17 07:29 - Attending Attestation I personally interviewed and examined this patient. I agree with the findings, assessment, and plan of Dr. Toney, internal medicine internal controls specialist. Patient did well with diuresis. He continues on BiPAP at night and with naps. We did increase his Lasix to 80 mg by mouth twice a day. He will also receive a prednisone taper. No evidence of infection was noted. Patient is being transferred to a swing bed facility prior to going home. Given CHF discharge instructions. He will need close follow-up with a repeat BMP next week. Condition on discharge stable. 39 minutes spent on discharge and coordination of care
--- NOTE | 2017-10-11 10:00 | Physician Discharge Referral ---
ExtendedCare Referral Info Transfer To: [facility] Provider in Charge: Harvinder Braga Provider in Charge after Transfer: PCP Institutional Level of Care: Intermediate - Diagnosis (1) Acute on chronic respiratory failure with hypoxia and hypercapnia Priority: Primary Status: Acute (2) CHF (congestive heart failure) Priority: Secondary Status: Acute (3) Acute exacerbation of chronic obstructive airways disease Priority: Secondary Status: Acute (4) Paroxysmal A-fib Priority: Secondary Status: Acute (5) Morbid obesity with BMI of 45.0-49.9, adult Priority: Secondary Status: Chronic (6) Diabetes mellitus type 2 in obese Priority: Secondary Status: Acute (7) DVT prophylaxis Priority: Secondary Status: Acute Expected Duration of Placement: 10 days Prognosis: Good Aware of Diagnosis: Patient, Family Aware of Prognosis: Patient, Family - Transfer Medications Prescriptions: Furosemide [Lasix] 80 mg PO BID #30 tablet OxyCODONE ER (12 HR) [OxyCONTIN] 80 mg PO Q12H PRN 4 Days #8 tab.er.12h PRN Reason: Pain Potassium Chloride 40 meq PO BID #30 tab.er.prt predniSONE [PredniSONE] 20 mg PO DAILY #4 tablet Home Medications: Folic Acid 1 mg PO QAM 04/26/15 [History] Hydroxychloroquine [Plaquenuil] 400 mg PO QAM 04/26/15 [History] Levothyroxine [Synthroid] 50 mcg PO QAM 04/27/15 [History] Apixaban [Eliquis] 5 mg PO BID 09/05/15 [History] Ipratropium/Albuterol Neb [Duoneb] 3 ml IH Q4H PRN 09/05/15 [History] Insulin Lispro Protamin/Lispro [Humalog Mix 75-25 Kwikpen] 25 unit SQ BID [History] Duloxetine HCl [Cymbalta] 60 mg PO DAILY 04/16/17 [History] Lisinopril [Zestril] 5 mg PO DAILY 04/16/17 [History] Metoprolol XL (24 HR) Succ [Toprol Xl] 50 mg PO DAILY 04/16/17 [History] Tamsulosin [Flomax] 0.4 mg PO DAILY 04/16/17 [History] Multivits,Ca,Min/Iron/FA/Lycop [Centrum Men's Tablet] 1 tab PO DAILY 04/26/17 [ History] Diltiazem CD (24hr) [Cardizem CD] 120 mg PO DAILY #30 cap.er.24h 08/01/17 [Rx] Lactobacillus [Culturelle] 2 each PO DAILY #20 cap.sprink 08/01/17 [Rx] OxyCODONE ER (12 HR) [OxyCONTIN] 80 mg PO Q12H 10/07/17 [History] Furosemide [Lasix] 80 mg PO BID #30 tablet 10/11/17 [Rx] Hydroxychloroquine [Plaquenuil] 400 mg PO QAM tablet 10/11/17 [Rx] OxyCODONE ER (12 HR) [OxyCONTIN] 80 mg PO Q12H PRN 4 Days #8 tab.er.12h [Rx] Potassium Chloride 40 meq PO BID #30 tab.er.prt 10/11/17 [Rx] predniSONE [PredniSONE] 20 mg PO DAILY #4 tablet 10/11/17 [Rx] Allergies/Adverse Reactions: 3 Allergy/AdvReac Type Severity Reaction Status Date / Time clindamycin AdvReac Diarrhea Verified 06/02/17 07:17 - Respiratory Orders Oxygen / L per min (3L per minute or as needed L/min) Smoking Cessation: Smoking cessation has been advised. For more information, call the [place] Tobacco Quit Line at 4-443-PSVV-NOW. - Lab Orders Lab Orders: Other (include drug levels w/frequency) (BMP on Saturday to check renal function and potassium) - Mobility Orders Other (with walker and per PT/OT eval) - Rehabiliation Orders Rehab Potential: Good Rehab Orders: ROM Exercises, Evaluation for Physical Therapy, Evaluation for Occupational Therapy - Treatments Skin tear care topically daily PRN per policy, May check for fecal impaction rectally daily PRN, Fleet enema rectally every other day PRN cleansing purposes - Diet Orders No Added Salt (SUSAN), Cardiac House Supplement per Dietary: Diabetic diet CERTIFICATION: I certify that the transfer of the above named patient to an Extended Care Facility is necessary for the continuing treatment of the diagnosis listed. The above information is true and accurate reflection of patient's current condition. Confidential - Redisclosure prohibited without a patient's written consent.
[2017-10-11] MEDS: *HR* OxyCODONE ER (12 HR) 40 MG TABLET PO SCH (10:53)
== END 2017-10-11 11:01 | disposition other institution (70) | DRG 291 ==
LOC: EMEROO 12:36 → 2NNU 12:36
PROVIDERS: ADMIT Internal Medicine; ATTEND Hospitalist

== ENCOUNTER 2018-12-26 09:26 | Inpatient (IN) ==
[2018-12-26] MEDS ORDERED: Ipratropium/Albuterol Neb 3 ML ONE (09:39)
[2018-12-26] MEDS ORDERED: Ipratropium/Albuterol Neb 3 ML IH ONE (09:41)
[2018-12-26] MEDS ORDERED: 0.9 % Sodium Chloride 1,000 ML IVC ONE (09:41)
[2018-12-26] MEDS ORDERED: methylPREDNISolone 125 MG/2 ML VIAL IVP ONE (09:41)
[2018-12-26 09:45] LABS: ABG Base Excess 17 mEq/L (-2 to 3); ABG HCO3 47 mEq/L (21-27); ABG Oxygen Saturation 95 % (95-98); ABG PCO2 86 mmHg (35-45); ABG PH 7.35 pH Units (7.32-7.45); ABG PO2 87 mmHg (85-104); ABG TCO2 49 mEq/L (20-26)
[2018-12-26 09:52] LABS: Basophils % 0.4 %; Hemoglobin 10.9 g/dL (12.9-16.9); Immature Granulocytes % 0.6 % (0-4); Red Cell Distribution Width 16.3 % (11.5-14.5)
[2018-12-26 09:54] LABS: Basophils # 0.1 K/mcL (0.0-0.2); Eosinophils # 0.6 K/mcL (0.0-0.6); Eosinophils % 4.3 %; Hematocrit 38.4 % (37.5-50.1); Lymphocytes # 2.2 K/mcL (0.6-4.6); Lymphocytes % 15.8 %; Mean Corpuscular HGB Conc 28.4 g/dL (31.6-35.5); Mean Corpuscular Hemoglobin 24.7 pg (28.0-33.3); Mean Corpuscular Volume 87.1 fL (83.0-100.0); Mean Platelet Volume 9.1 fL (9.4-12.4); Monocytes # 0.7 K/mcL (0.0-1.3); Monocytes % 5.3 %; Neutrophils # 10.1 K/mcL (1.6-8.9); Platelet Count 287 K/mcL (140-400); Red Blood Count 4.41 M/mcL (4.19-5.50); Segmented Neutrophils % 73.6 %
[2018-12-26 10:08] LABS: Anisocytosis 1+ (Not Present); Hypochromasia Present (Not Present); Macrocytosis Present (Not Present); Platelet Estimate Normal (Normal)
--- NOTE | 2018-12-26 10:08 | Emergency Department Note ---
Disposition Clinical Impression: Acute exacerbation of chronic obstructive airways disease, Diabetes mellitus type 2 in obese, Morbid obesity with BMI of 50.0-59.9, adult, Chronic atrial fibrillation Community acquired pneumonia Qualifiers: Laterality: right Lung location: middle lobe of lung Qualified Code(s): J18.1 - Lobar pneumonia, unspecified organism Disposition: Admitted As Inpatient Condition: Serious Forms: ED Satisfaction Letter Time of Disposition: 10:34 SOB HPI - General Chief Complaint: ED Shortness of Breath/Dyspnea Stated Complaint: KARIN Time Seen by Provider: 12/26/18 09:29 Source: family, EMS Mode of arrival: EMS Limitations: no limitations Nursing Notes Reviewed: Yes Vital Signs Reviewed: Yes - History of Present Illness 68 yo male with past medical history of atrial fibrillation, hypothyroidism, COPD, diabetes, high blood pressure presents to the emergency department via EMS with the complaint of difficulty in breathing. The patient is normally on 3 L of oxygen at home but his states that she increased his oxygen to 5 L today because he was complaining of shortness of breath. This did not help therefore she placed the patient on BiPAP. Patient was also given breathing treatments at home. None of this was helping with the patient shortness of breath and therefore he has the squad called for transportation to the hospital for further treatment. Patient's states that the patient has needed to be intubated before for respiratory distress. She denies any history of heart failure in the patient. He has been coughing more frequently lately but it has been nonproductive. The patient does complain of chest pain due to his increased work of breathing. He denies abdominal pain, nausea and vomiting, increased leg swelling. He has been afebrile at home. The patient does use 25 units of Humalog twice a day for control of his diabetes and is on Lovenox for his atrial fibrillation. - Related Data Home Medications Medication Instructions Recorded Confirmed Apixaban [Eliquis] 5 mg PO BID 09/05/15 12/26/18 Ipratropium/Albuterol Neb [Duoneb] 3 ml IH Q4H PRN 09/05/15 12/26/18 Insulin Lispro Protamin/Lispro 25 unit SQ BID 09/11/15 12/26/18 [Humalog Mix 75-25 Kwikpen] Metoprolol XL (24 HR) Succ [Toprol 50 mg PO DAILY 04/16/17 12/26/18 Xl] Tamsulosin [Flomax] 0.4 mg PO DAILY 04/16/17 12/26/18 Multivits,Ca,Min/Iron/FA/Lycop 1 tab PO DAILY 04/26/17 12/26/18 [Centrum Men's Tablet] OxyCODONE ER (12 HR) [OxyCONTIN] 80 mg PO Q12H 10/07/17 12/26/18 Clotrimazole/Betamethasone Dip 15 gm TP BID PRN 12/26/18 12/26/18 [Lotrisone Cream] Colestipol HCl [Colestid] 2 gm PO BID 12/26/18 12/26/18 Ferrous Sulfate 650 mg PO QAM 12/26/18 12/26/18 Hyoscyamine SL [Levsin SL] 0.125 mg SL Q4HR PRN 12/26/18 12/26/18 Levothyroxine Sodium 100 mcg PO QAM 12/26/18 12/26/18 Vilazodone HCl [Viibryd] 40 mg PO DAILY 12/26/18 12/26/18 Previous Rx's Medication Instructions Recorded Furosemide [Lasix] 80 mg PO BID #30 tablet 10/11/17 Potassium Chloride 40 meq PO BID #30 tab.er.prt 10/11/17 Ascorbic Acid [Vitamin C] 500 mg PO 0630 #30 tablet 10/25/17 Folic Acid 1 mg PO Q48H tablet 10/25/17 Allergies Allergy/AdvReac Type Severity Reaction Status Date / Time clindamycin AdvReac Diarrhea Verified 06/02/17 07:17 All systems ED: reviewed and negative except as stated. Review of Systems: As Per HPI Constitutional: Denies: fever, chills, weakness Cardiovascular: Reports: chest pain, dyspnea on exertion, orthopnea. Denies: palpitations, edema, syncope Respiratory: Reports: cough, dyspnea, wheezes. Denies: hemoptysis, stridor, sputum production Gastrointestinal: Denies: abdominal pain, nausea, vomiting Musculoskeletal: Denies: back pain, neck pain Integumentary: Denies: rash Neurological: Reports: weakness. Denies: headache, numbness, paresthesias Endocrine: Reports: fatigue Past Medical History - Past Medical History Medical history: Reports: atrial fibrillation, COPD, diabetes, hypertension, RA, thyroid disease Surgical history: Reports: orthopedic, other Psychiatric history: Reports: depression - Social History Smoking Status: Former smoker Smokeless Tobacco Status: No Alcohol use: Reports: none Drug use: Reports: none Physical Exam Patient presents with large body habitus and significant work of breathing noted by accessory muscle use and abdominal breathing. - General Limitations: no limitations General appearance: alert, in distress - Head Head exam: atraumatic, normocephalic - Eye Eye exam: Present: normal appearance, PERRL, EOMI - Neck Neck exam: Present: normal inspection. Absent: tenderness - Chest Chest inspection: Present: normal inspection. Absent: tenderness - Respiratory Respiratory exam: Present: wheezes, other (Decreased breath sounds in all lung olson, potentially due to patient's body habitus versus severe bronchoconstriction) - Cardiovascular Cardiovascular exam: Present: regular rate, irregular rhythm - Abdominal Exam Abdominal exam: Present: soft, Non-Tender. Absent: distention, guarding, rebound, rigidity - Extremities Exam Extremities exam: Present: other (Patient's legs with large amount of nonpitting edema and chronic venous stasis dermatitis. Legs are unchanged from baseline according to patient and .). Absent: tenderness, calf tenderness - Neurological Exam Neurological exam: Present: alert, oriented X3 - Psychiatric Psychiatric exam: Present: anxious - Skin Skin exam: Present: warm, dry, intact Course Vital Signs Temperature 100 F H 12/26/18 09:28 Pulse Rate 88 12/26/18 09:28 Respiratory Rate 28 12/26/18 09:28 Blood Pressure 116/98 12/26/18 09:28 O2 Sat by Pulse Oximetry 92 12/26/18 09:28 Temperature 100 F H 12/26/18 09:38 Pulse Rate 101 12/26/18 09:38 Respiratory Rate 29 12/26/18 09:38 Blood Pressure 116/98 12/26/18 09:38 O2 Sat by Pulse Oximetry 97 12/26/18 09:38 Oxygen Delivery Oxygen Delivery Bipap Shortness of Breath/Dyspnea - MDM Narrative Medical decision making narrative: Patient presents in significant respiratory distress concerning for COPD exacerbation versus CHF exacerbation versus pneumonia versus pulmonary embolus. The patient has significantly decreased breath sounds and diffuse wheezing in al l lung olson and respiratory therapy was called to bedside stat. Patient was placed on BiPAP and ABG was drawn to look at the patient's respiratory status. 2 nebs and steroids were immediately ordered, and patient triggered a sepsis alert secondary to his vital signs. Sepsis workup was initiated and cardiac labs were added onto the patient's chest pain and shortness of breath. Fluid bolus was also started, but only 1 L was ordered initially to not fluid overload patient in case this is a new onset heart failure. 1030 - patient reevaluated and states he is feeling better but is still having some shortness of breath. He does have more air movement on lung exam and his wheezes have diminished but are not completely gone. The patient has not been hospitalized within the last year therefore we will cover him for what looks like community-acquired lobar pneumonia on the right side on his chest x-ray. The patient has been admitted to the hospital for treatment of his pneumonia and further monitoring of his respiratory status, accepting physician is Dr. Tuttle. - Medical Records Medical records reviewed: Yes I reviewed the patient's medical records. - Lab Data Lab results reviewed: Yes I reviewed the patient's lab results. Result diagrams: 12/26/18 09:35 12/26/18 09:35 Lab Results 12/26/18 12/26/18 12/26/18 Range/Units 09:35 09:35 09:42 WBC 13.7 H (4.3-11.1) K/mcL RBC 4.41 (4.19-5.50) M/mcL Hgb 10.9 L (12.9-16.9) g/dL Hct 38.4 (37.5-50.1) % MCV 87.1 (83.0-100.0) fL MCH 24.7 L (28.0-33.3) pg MCHC 28.4 L (31.6-35.5) g/dL RDW 16.3 H (11.5-14.5) % Plt Count 287 (140-400) K/mcL MPV 9.1 L (9.4-12.4) fL Sample Site L Radial ABG pH 7.35 (7.32-7.45) pH Units ABG pCO2 86 H* (35-45) mmHg ABG pO2 87 (85-104) mmHg ABG HCO3 47 H (21-27) mEq/L ABG Total CO2 49 H (20-26) mEq/L ABG O2 Saturation 95 (95-98) % ABG Base Excess 17 H (-2 to 3) mEq/L Alberto Test Positive O2 Delivery Device BiPAP Inspired O2 60.0 (1-15=lpm [id number]=%) Lactic Acid 1.1 (0.5-2.2) mmol/L Person Notif of Veronika jones - Radiology Data Radiology results reviewed: Yes I reviewed the patient's radiology results. - EKG Data EKG attestation: Yes I reviewed and interpreted this EKG. EKG results narrative: EKG obtained at 9:33 on 12/26/2018 Heart rate 99 bpm, temperature estrogen 120, QT 340, QTC [address] without any ST segment elevations or depressions. No other T-wave abnormalities. Unchanged when compared to previous EKG dated 10/07/2017 Attestation Statement - Attestation Attestation: Resident Attestation: I examined this patient and my medical decision making was reviewed with the Resident Physician. I agree with the documented findings, disposition and treatment plan as described except to the extent set forth below. We independently had [id number] contact with the patient. Patient presenting for evaluation of shortness of breath. Patient does have a history of COPD. Patient overall has had symptoms started approximately 1 week ago. Patient with worsening shortness of breath partially relieved by home albuterol. Patient with significant worsening of symptoms today. Overall concern for COPD exacerbation versus pneumonia. Patient says does limit overall physical exam patient does have some mild swelling but states that is chronic. Patient will undergo further visualization for possible underlying cardiac condition as well. Mild distress secondary to shortness of breath, associated anterior wheezing described as bilateral moderate.
[2018-12-26] MEDS ORDERED: cefTRIAXone 1,000 MG in 0.9 % Sodium Chloride Mini Bag 100 ML IVPB ONE (10:13)
[2018-12-26] MEDS ORDERED: Azithromycin 500 MG in D5% in Water 250 ML IVPB ONE (10:13)
[2018-12-26 10:16] LABS: BUN/Creatinine Ratio 25 (6-26); Blood Urea Nitrogen 21 mg/dL (8-23); Calcium 8.8 mg/dL (8.6-10.3); Carbon Dioxide 42 mEq/L (23-29); Chloride 95 mEq/L (98-107); Glucose 141 mg/dL (70-105); Osmolality,Calculated 297 (280-300); Potassium 4.6 mEq/L (3.5-5.1); Sodium 141 mEq/L (136-145); Troponin I < 0.03 ng/mL (< 0.04); eGFR For Non-African Americans > 60 (> 60)
[2018-12-26 10:26] LABS: Thyroid Stimulating Hormone 4.705 mcIU/mL (0.340-5.600)
[2018-12-26] MEDS ORDERED: Naloxone 0.4 MG/ML INJ IVP PRN (10:31)
--- NOTE | 2018-12-26 11:24 | Electrocardiograph Report ---
[address] [address] Test Date: 2018-12-26 Pat Name: Luís Swenson Department: [id number] Room: Gender: M Chief Electrician: : 1950 Requested By: Aaron Ricks Order Number: [id number] Reading MD: Alfred Mathis Measurements Intervals [place] Rate: 99 P: [place]: QRS: 179 QRSD: 120 T: 59 QT: 340 QTc: 421 Interpretive Statements Atrial fibrillation Baseline artifact complicates interpretation Electronically Signed On 12-26-2018 11:23:42 EDT by Alfred Mathis
[2018-12-26] MEDS: Ipratropium/Albuterol Neb 3 ML IH SCH ×3 (11:31→21:02)
[2018-12-26] MEDS ORDERED: *HR* Dextrose 50 % in Water (Syg) 50 ML SYRINGE IVP PRN (11:43)
[2018-12-26] MEDS ORDERED: D5% in Water 1,000 ML IVC PRN (11:43)
[2018-12-26] MEDS ORDERED: Dextrose Gel 15 GM/37.5 ML TUBE PO PRN ×2 (11:43)
--- NOTE | 2018-12-26 11:53 | Internal Med History&Physical ---
Date of Encounter: 12/26/18 Time of Encounter: 11:30 Internal Medicine - H&P: HPI Chief complaint: Shortness of breath for the past 1 week Plans for Post Hospital Care: Home History of present illness: Mr. Swenson is a 68 year old male with pmh of obesity hypoventilation syndrome, diastolic CHF, COPD on 3L of oxygen, morbid obesity presenting with complaints of intermittent shortness of breath which has been getting worse since saturday. History was mostly provided by patient's as patient is on BIPAP. she reports that at baseline patient is not very physically active due to his weight but noticed he has been getting more lethargic and has had severely decreased exercise tolerance over the last week. She says he's barely able to t urn or assist in any meaningful way when she tries to bathe him. he denies any chest pain, fevers , chills or any other acute symptoms. She says he has also had a cough but cough is non productive. This morning his sats dropped to the low 70s and she could n't get it up despite turning up his oxygen and putting him on BIPAP and that's why he was brought to the ER In the ER, ABG showed high CO2 and he was placed on BIPAP and he is being admitted for further management Past Med Surg Social Fam HX - Past Medical History Medical history: atrial fibrillation, COPD, diabetes, hypertension, RA, thyroid disease Additional medical history: Lymphedema Psychiatric history: depression - Past Surgical History Surgical History: orthopedic, other Additional surgical history: LEFT 5TH TOE REMOVED - Social History Smoking Status: Former smoker Smokeless Tobacco Status: No Alcohol use: none Drug use: none - Family History Mother Living Status: Hx Family Cardiac Disorders: Yes Hx Family Endocrine Disorder: Yes (DM) Father Living Status: Hx Family Cardiac Disorders: Yes Internal Medicine - H&P: Meds Levothyroxine [Synthroid] 50 mcg PO QAM 04/27/15 [History] Apixaban [Eliquis] 5 mg PO BID 09/05/15 [History] Ipratropium/Albuterol Neb [Duoneb] 3 ml IH Q4H PRN 09/05/15 [History] Insulin Lispro Protamin/Lispro [Humalog Mix 75-25 Kwikpen] 25 unit SQ BID 01/24/16 [History] Duloxetine HCl [Cymbalta] 60 mg PO DAILY 04/16/17 [History] Metoprolol XL (24 HR) Succ [Toprol Xl] 50 mg PO DAILY 04/16/17 [History] Tamsulosin [Flomax] 0.4 mg PO DAILY 04/16/17 [History] Multivits,Ca,Min/Iron/FA/Lycop [Centrum Men's Tablet] 1 tab PO DAILY 04/26/17 [History] OxyCODONE ER (12 HR) [OxyCONTIN] 80 mg PO Q12H 10/07/17 [History] Furosemide [Lasix] 80 mg PO BID #30 tablet 10/11/17 [Rx] Hydroxychloroquine [Plaquenuil] 400 mg PO QAM tablet 10/11/17 [Rx] Potassium Chloride 40 meq PO BID #30 tab.er.prt 10/11/17 [Rx] Ascorbic Acid [Vitamin C] 500 mg PO 0630 #30 tablet 10/25/17 [Rx] Clotrimazole/Betamethasone Dip [Lotrisone Cream] 15 gm TP BID 5 Days #1 pkg 10/25/17 [Rx] Ferrous Sulfate 325 mg PO 0630 #30 tablet 10/25/17 [Rx] Folic Acid 1 mg PO Q48H tablet 10/25/17 [Rx] Allergy/AdvReac Type Severity Reaction Status Date / Time clindamycin AdvReac Diarrhea Verified 06/02/17 07:17 All Systems PM: A 10-system review of systems was performed and is negative for pertinent findings except as documented above in the HPI. - Constitutional Constitutional: no chills, no fever(s), no night sweats - EENT Eyes: no change in vision, no discharge, no pain, no photophobia Ears: no ear discharge, no ear pain, no tinnitus Nose, mouth and throat: no dysphagia, no nasal discharge, no neck pain, no sore throat - Cardiovascular Cardiovascular ROS IM: dyspnea, no chest pain, no diaphoresis, no lightheadedness, no palpitations, no syncope - Respiratory Respiratory: cough, dyspnea, no wheezing, no excessive phlegm production - Gastrointestinal Gastrointestinal: no abdominal pain, no diarrhea, no hematemesis, no hematochezia, no melena, no nausea, no vomiting - Musculoskeletal Musculoskeletal ROS IM: no numbness, no tingling - Integumentary Integumentary IM: no rash, no unusual bruising - Neurological Neurological ROS: no confusion, no convulsions, no focal weakness, no numbness, no tingling, no tremor(s) - Hematologic/Lymphatic Hematologic/Lymphatic: no easy bruising - Constitutional Vitals: Temp Pulse Resp BP Pulse Ox 100 F H 101 20 114/62 95 12/26/18 09:38 12/26/18 11:07 12/26/18 11:31 12/26/18 11:31 12/26/18 11:31 General appearance: Present: A&O X 3, morbidly obese Exam: moderate respiratory distress on BIPAP - Head Head exam: Present: atraumatic, normocephalic - Eye Eye exam: Present: PERRL, conjuntiva pink, sclera anicteric Pupils: Present: PERRL - Neck Neck exam general surgery: Present: supple, trachea midline. Absent: lymphadenopathy - Respiratory Respiratory exam: Present: decreased breath sounds. Absent: accessory muscle use, rales, rhonchi, wheezes - Cardiovascular Cardiovascular exam: Present: RRR, +S1, +S2. Absent: diastolic murmur, gallop, rubs, systolic murmur - GI/Abdominal GI/Abdominal exam: Present: normal bowel sounds, soft, no peritoneal signs. Absent: distended, tenderness - Extremities Exam Extremities exam: Present: warm, radial pulses palpable and symmetrical. Absent: calf tenderness, cyanotic, pedal edema - Neurological Exam Neurological exam: Present: CN II-XII intact, oriented X3, no focal deficits. Absent: pronater drift, facial droop, speech deficit - Skin Skin exam: Present: dry, intact Internal Med - H&P Results - Labs CBC & Chem 7: 12/26/18 09:35 12/26/18 09:35 Labs: Short CBC 12/26/18 Range/Units 09:35 WBC 13.7 H (4.3-11.1) K/mcL Hgb 10.9 L (12.9-16.9) g/dL Hct 38.4 (37.5-50.1) % Plt Count 287 (140-400) K/mcL Neutrophils # 10.1 H (1.6-8.9) K/mcL BMP 12/26/18 09:35 Sodium 141 Potassium 4.6 Chloride 95 L Carbon Dioxide 42 H* BUN 21 Creatinine 0.83 Glucose 141 H Calcium 8.8 Cardiac Enzymes 12/26/18 Range/Units 09:35 Troponin I < 0.03 (< 0.04) ng/mL - ABG Interpretation ABG results: 12/26/18 09:42 ABG pH 7.35 ABG pCO2 86 H* ABG pO2 87 ABG HCO3 47 H ABG Total CO2 49 H ABG O2 Saturation 95 ABG Base Excess 17 H - Impressions ITS Impressions Chest X-Ray 12/26/18 09:36 IMPRESSION: 1. Moderate to severe bilateral airspace disease, favored to be secondary to edema, less likely pneumonia. 2. Question of small pleural effusions, which are recurrent. D/ / Moshe Whelan MD / Moshe Whelan MD Interpreting Provider: Moshe Whelan MD - Assessment and Plan (1) Acute on chronic respiratory failure with hypoxia and hypercapnia Current Visit: Yes Status: Acute Assessment and plan: Pt comes in with shortness of a breath of a week's duration likely secondary to acute worsening of chronic diastolic CHF, pneumonia, obesity hypoventilation syndrome and COPD exacerbation ABG showed CO2 retention and patient is in moderate respiratory distress Continue on BIPAP, nebs, steroids and antibiotics Continue lasix. Repeat ABG (2) Acute on chronic diastolic heart failure Current Visit: Yes Status: Acute Assessment and plan: Pt has shortness of breath with worsening pulmonary edema on xray. Continue lasix Daily weights, fluid restriction (3) Acute exacerbation of chronic obstructive airways disease Current Visit: Yes Status: Acute Assessment and plan: Continue on nebs,steroids and antibiotics. Continue BIPAP Repeat ABG (4) Obesity hypoventilation syndrome Current Visit: Yes Status: Acute Assessment and plan: Has increased neck size and elevated CO2 and bicarb Continue bipap (5) Community acquired pneumonia Current Visit: Yes Status: Acute Assessment and plan: On antibiotics. Obtain cultures, urine streptococcal antigen and legionella Qualifiers: Laterality: right Lung location: middle lobe of lung Qualified Code(s): J18.1 - Lobar pneumonia, unspecified organism (6) Diabetes mellitus type 2 in obese Current Visit: Yes Status: Chronic Assessment and plan: Insulin and monitor fingersticks (7) Morbid obesity with BMI of 50.0-59.9, adult Current Visit: Yes Status: Chronic Assessment and plan: diet and exercise (8) Chronic atrial fibrillation Current Visit: Yes Status: Acute Assessment and plan: Continue rate control meds and anticoagulation (9) DVT prophylaxis Current Visit: Yes Status: Acute Assessment and plan: On apixaban - Time Spent With Patient Total time spent is greater than 50% in coordination of care (as documented) at patient's floor/unit and/or counseling patient:
[2018-12-26 13:18] LABS: Estimated Average Glucose 128 mg/dl; Hemoglobin A1C 6.1 %
[2018-12-26] MEDS ORDERED: *HR* OxyCODONE ER (12 HR) 40 MG TABLET PO STA (14:14)
[2018-12-26] MEDS: Metoprolol XL (24 HR) Succ 50 MG TAB.ER.24H PO SCH (14:39)
[2018-12-26] MEDS ORDERED: methylPREDNISolone 125 MG/2 ML VIAL IVP SCH (16:00)
[2018-12-26] MEDS: Insulin LISPRO 300 UNITS/3 ML VIAL SQ SCH (17:09)
[2018-12-26] MEDS: Budesonide/Formoterol 160/4.5 1 PUFF INH IH SCH (21:02)
[2018-12-26 22:08] LABS: ABG Base Excess 12 mEq/L (-2 to 3); ABG HCO3 40 mEq/L (21-27); ABG Oxygen Saturation 87 % (95-98); ABG PCO2 70 mmHg (35-45); ABG PH 7.37 pH Units (7.32-7.45); ABG PO2 57 mmHg (85-104); ABG TCO2 43 mEq/L (20-26)
[2018-12-26] MEDS: Furosemide 40 MG/4 ML VIAL IVP SCH ×2 (22:13→22:22)
[2018-12-26] MEDS: Apixaban 5 MG TABLET PO SCH (22:17)
[2018-12-27] MEDS: Ipratropium/Albuterol Neb 3 ML IH SCH ×6 (00:16→20:35)
[2018-12-27] MEDS: Furosemide 40 MG/4 ML VIAL IVP SCH ×3 (01:52→17:53)
[2018-12-27] MEDS: methylPREDNISolone 125 MG/2 ML VIAL IVP SCH ×3 (04:47→20:56)
[2018-12-27] MEDS: Budesonide/Formoterol 160/4.5 1 PUFF INH IH SCH ×2 (07:38→20:35)
--- NOTE | 2018-12-27 09:35 | Internal Med Progress Note ---
Hospitalist Progress Note - Encounter Date of Encounter: 12/27/18 Time of Encounter: 09:13 - Subjective Interval History: Patient seen and examined this morning at bedside. No acute overnight events. Shortness of breath minimally improved. Off BiPAP this morning. Denies any nausea vomiting or diarrhea. Having his breakfast. Denies any chest pain. He mentions increased leg swelling or past few days. - Exam Vitals: Temp Pulse Resp BP Pulse Ox 98.8 F 78 25 125/83 94 12/27/18 07:21 12/27/18 07:21 12/27/18 07:39 12/27/18 07:21 12/27/18 07:39 Exam: General: In mild respiratory distress. Morbidly obese Respiratory exam: some accessory muscle use. occasional rhonchi but difficult to auscultate given body habitus Cardiovascular exam: RRR irregular, +S1, +S2. no murmur, gallop, rubs. GI/Abdominal exam: ObeseNon-tender, Non-distended, soft, no peritoneal signs. Extremities exam: 1+ pedal edema, no calf tenderness Neurological exam: CN II-XII intact, AO X3, no focal deficits. Skin exam: chronic dermatitis changes b/l legs - Assessment and Plan (1) Acute on chronic diastolic heart failure Current Visit: Yes Status: Acute (2) Chronic atrial fibrillation Current Visit: Yes Status: Acute (3) Acute on chronic respiratory failure with hypoxia and hypercapnia Current Visit: Yes Status: Acute (4) Morbid obesity with BMI of 50.0-59.9, adult Current Visit: Yes Status: Chronic (5) Diabetes mellitus type 2 in obese Current Visit: Yes Status: Chronic (6) Community acquired pneumonia Current Visit: Yes Status: Acute (7) Acute exacerbation of chronic obstructive airways disease Current Visit: Yes Status: Acute (8) Obesity hypoventilation syndrome Current Visit: Yes Status: Acute (9) DVT prophylaxis Current Visit: Yes Status: Acute - Summary of Assessment and Plan Summary of Assessment and Plan: Acute on chronic respiratory failure with hypoxia and hypercapnia - likely secondary to acute on chronic diastolic CHF, possible pneumonia, obesity hypoventilation syndrome and COPD exacerbation - ABG with CO2 retention . repeat abg improved. f/u repeat this morning - Continue on BIPAP, nebs, steroids and empiric ceftriaxone/azithromycin - Continue lasix. Monitor renal function - Obtain CT to further evaluate. CXR favoring pul edema. - c/w Daily weights, fluid restriction - urine antigens negative. BC NGTD 12/26 Acute on chronic diastolic heart failure - as above - ECHO from jun 2017 was poor quality. Had decreased EF grossly. - Obtain ECHO with contrast for LV function. Acute exacerbation of chronic obstructive airways disease - as abve Obesity hypoventilation syndrome - c/w bipap Community acquired pneumonia - as above - Obtain CT to evaluate for infiltrates. Diabetes mellitus type 2 in obese - Insulin and monitor fingersticks - add HS levemir Morbid obesity with BMI of 50.0-59.9, adult Hypothyrodism - c/w home levothyroxin. Chronic atrial fibrillation - c/w home metoprolol and apixaban DVT prophylaxis - On apixaban - Time Spent with Patient Total time spent is greater than 50% in coordination of care (as documented) at patient's floor/unit and/or counseling patient: Internal Medicine: Result - Labs CBC & Chem 7: 12/26/18 09:35 12/26/18 09:35 Labs: Short CBC 12/26/18 Range/Units 09:35 WBC 13.7 H (4.3-11.1) K/mcL Hgb 10.9 L (12.9-16.9) g/dL Hct 38.4 (37.5-50.1) % Plt Count 287 (140-400) K/mcL Neutrophils # 10.1 H (1.6-8.9) K/mcL BMP 12/26/18 09:35 Sodium 141 Potassium 4.6 Chloride 95 L Carbon Dioxide 42 H* BUN 21 Creatinine 0.83 Glucose 141 H Calcium 8.8 Cardiac Enzymes 12/26/18 Range/Units 09:35 Troponin I < 0.03 (< 0.04) ng/mL - ABG Interpretation ABG results: ABG ABG pH 7.37 pH Units (7.32-7.45) 12/26/18 22:05 ABG pCO2 70 mmHg (35-45) H* 12/26/18 22:05 ABG pO2 57 mmHg (85-104) L 12/26/18 22:05 ABG O2 Saturation 87 % (95-98) L 12/26/18 22:05 - Impressions Impressions Chest X-Ray 12/26/18 09:36 IMPRESSION: 1. Moderate to severe bilateral airspace disease, favored to be secondary to edema, less likely pneumonia. 2. Question of small pleural effusions, which are recurrent. D/ / Moshe Whelan MD / Moshe Whelan MD Interpreting Provider: Moshe Whelan MD Consult Discharge Plan - Plan Referrals: Zion Hernandes DO [Primary Care Provider] - (6) Community acquired pneumonia Qualifiers: Laterality: right Lung location: middle lobe of lung Qualified Code(s): J18.1 - Lobar pneumonia, unspecified organism
[2018-12-27 09:39] LABS: Basophils % 0.2 %; Hemoglobin 10.9 g/dL (12.9-16.9); Immature Granulocytes % 0.3 % (0-4); Mean Corpuscular HGB Conc 29.5 g/dL (31.6-35.5); Mean Corpuscular Hemoglobin 24.7 pg (28.0-33.3); Mean Corpuscular Volume 83.7 fL (83.0-100.0); Mean Platelet Volume 9.3 fL (9.4-12.4); Monocytes # 0.4 K/mcL (0.0-1.3); Platelet Count 287 K/mcL (140-400); Red Blood Count 4.42 M/mcL (4.19-5.50); Red Cell Distribution Width 16.2 % (11.5-14.5); Segmented Neutrophils % 88.5 %
[2018-12-27 09:41] LABS: BUN/Creatinine Ratio 37 (6-26); Blood Urea Nitrogen 24 mg/dL (8-23); Calcium 8.7 mg/dL (8.6-10.3); Carbon Dioxide 39 mEq/L (23-29); Chloride 97 mEq/L (98-107); Glucose 231 mg/dL (70-105); Magnesium 2.1 mg/dL (1.6-2.6); Osmolality,Calculated 303 (280-300); Phosphorous 2.4 mg/dL (2.7-4.5); Potassium 4.4 mEq/L (3.5-5.1); Sodium 141 mEq/L (136-145); eGFR For Non-African Americans > 60 (> 60)
[2018-12-27] MEDS: Apixaban 5 MG TABLET PO SCH ×2 (09:41→20:56)
[2018-12-27] MEDS: Metoprolol XL (24 HR) Succ 50 MG TAB.ER.24H PO SCH (09:41)
[2018-12-27] MEDS: cefTRIAXone 1,000 MG in Water for inj. (sterile) 20 ML 10 ML IVP SCH (09:42)
[2018-12-27] MEDS: Insulin LISPRO 300 UNITS/3 ML VIAL SQ SCH ×3 (09:42→17:53)
[2018-12-27 10:32] LABS: ABG Base Excess 18 mEq/L (-2 to 3); ABG HCO3 45 mEq/L (21-27); ABG Oxygen Saturation 95 % (95-98); ABG PCO2 66 mmHg (35-45); ABG PH 7.44 pH Units (7.32-7.45); ABG PO2 78 mmHg (85-104); ABG TCO2 47 mEq/L (20-26); Blood Gas Respiration Rate 12; Blood Gas VT 550 cc
[2018-12-27] MEDS: Azithromycin 500 MG in D5% in Water 250 ML IVPB SCH (12:29)
[2018-12-27] MEDS ORDERED: Perflutren Lipid Microsphere 1.3 ML in 0.9 % Sodium Chloride 8.7 ML IVP ONE (13:26)
[2018-12-27] MEDS ORDERED: Hyoscyamine SL 0.125 MG TAB.SUBL SL PRN (16:30)
[2018-12-27] MEDS: *HR* OxyCODONE ER (12 HR) 40 MG TABLET PO SCH (18:02)
[2018-12-27] MEDS: Insulin DETEMIR 100 UNIT/ML X5UNITS SQ SCH (21:03)
[2018-12-28] MEDS: Ipratropium/Albuterol Neb 3 ML IH SCH ×6 (00:02→20:39)
[2018-12-28] MEDS: *HR* OxyCODONE ER (12 HR) 40 MG TABLET PO SCH ×2 (06:19→16:29)
[2018-12-28] MEDS: methylPREDNISolone 125 MG/2 ML VIAL IVP SCH ×3 (06:19→23:43)
[2018-12-28 07:20] LABS: Basophils % 0.1 %; Hematocrit 36.4 % (37.5-50.1); Hemoglobin 10.7 g/dL (12.9-16.9); Immature Granulocytes % 0.9 % (0-4); Lymphocytes # 0.9 K/mcL (0.6-4.6); Lymphocytes % 6.5 %; Mean Corpuscular HGB Conc 29.4 g/dL (31.6-35.5); Mean Corpuscular Hemoglobin 24.8 pg (28.0-33.3); Mean Corpuscular Volume 84.5 fL (83.0-100.0); Mean Platelet Volume 9.4 fL (9.4-12.4); Monocytes # 0.6 K/mcL (0.0-1.3); Monocytes % 4.4 %; Neutrophils # 12.1 K/mcL (1.6-8.9); Platelet Count 286 K/mcL (140-400); Red Blood Count 4.31 M/mcL (4.19-5.50); Red Cell Distribution Width 16.8 % (11.5-14.5); Segmented Neutrophils % 88.1 %
[2018-12-28] MEDS: Budesonide/Formoterol 160/4.5 1 PUFF INH IH SCH ×2 (07:46→20:39)
[2018-12-28 08:18] LABS: BUN/Creatinine Ratio 36 (6-26); Blood Urea Nitrogen 27 mg/dL (8-23); Calcium 8.9 mg/dL (8.6-10.3); Carbon Dioxide 36 mEq/L (23-29); Chloride 96 mEq/L (98-107); Glucose 327 mg/dL (70-105); Osmolality,Calculated 306 (280-300); Potassium 3.8 mEq/L (3.5-5.1); Sodium 139 mEq/L (136-145); eGFR For Non-African Americans > 60 (> 60)
[2018-12-28] MEDS: Metoprolol XL (24 HR) Succ 50 MG TAB.ER.24H PO SCH (08:19)
[2018-12-28] MEDS: cefTRIAXone 1,000 MG in Water for inj. (sterile) 20 ML 10 ML IVP SCH (08:19)
[2018-12-28] MEDS: Apixaban 5 MG TABLET PO SCH ×2 (08:19→21:21)
[2018-12-28] MEDS: Furosemide 40 MG/4 ML VIAL IVP SCH ×2 (08:19→16:29)
[2018-12-28] MEDS: Insulin LISPRO 300 UNITS/3 ML VIAL SQ SCH ×3 (08:29→16:29)
--- NOTE | 2018-12-28 11:12 | Internal Med Progress Note ---
Hospitalist Progress Note - Encounter Date of Encounter: 12/28/18 Time of Encounter: 10:10 - Subjective Interval History: Patient seen and examined this morning in with her. No acute overnight events. Breathing improved. Swelling lower extremities slightly improved. Denies any chest pain. Denies any nausea vomiting or diarrhea. - Exam Vitals: Temp Pulse Resp BP Pulse Ox 97.9 F 85 16 128/66 92 12/28/18 08:04 12/28/18 08:04 12/28/18 08:04 12/28/18 08:04 12/28/18 08:04 Exam: General: In no distress. Morbidly obese. difficulty hearing Respiratory exam: CTAB, difficult to auscultate given body habitus Cardiovascular exam: RRR irregular, +S1, +S2. no murmur, gallop, rubs. GI/Abdominal exam: Obese, Non-tender, Non-distended, soft, no peritoneal signs. Extremities exam: 2+ pedal edema, no calf tenderness Neurological exam: CN II-XII intact, AO X3, no focal deficits. Skin exam: chronic dermatitis changes b/l legs - Assessment and Plan (1) Acute on chronic diastolic heart failure Current Visit: Yes Status: Acute (2) Chronic atrial fibrillation Current Visit: Yes Status: Acute (3) Acute on chronic respiratory failure with hypoxia and hypercapnia Current Visit: Yes Status: Acute (4) Morbid obesity with BMI of 50.0-59.9, adult Current Visit: Yes Status: Chronic (5) Diabetes mellitus type 2 in obese Current Visit: Yes Status: Chronic (6) Community acquired pneumonia Current Visit: Yes Status: Acute (7) Acute exacerbation of chronic obstructive airways disease Current Visit: Yes Status: Acute (8) Obesity hypoventilation syndrome Current Visit: Yes Status: Acute (9) DVT prophylaxis Current Visit: Yes Status: Acute - Summary of Assessment and Plan Summary of Assessment and Plan: Acute on chronic respiratory failure with hypoxia and hypercapnia - likely secondary to acute on chronic diastolic CHF, possible pneumonia, obesity hypoventilation syndrome and COPD exacerbation - uses bipap at home, c/w prn and night BIPAP, nebs, tapered steroids and empiric ceftriaxone/azithromycin - CT with consolidation. Continue lasix. Monitor renal function. Likely will need 2-3 more days of lasix. Having good output - c/w Daily weights, fluid restriction. - urine antigens negative. BC NGTD 12/26 Acute on chronic diastolic heart failure - as above - ECHO from jun 2017 was poor quality. Had decreased EF grossly. - repeat ECHO with grossly normal EF, diastolic dysfunction. NWM Acute exacerbation of chronic obstructive airways disease - as abve Obesity hypoventilation syndrome - c/w bipap at night Community acquired pneumonia - as above Diabetes mellitus type 2 in obese - SSI , levemir and monitor fingersticks Morbid obesity with BMI of 50.0-59.9, adult Hypothyrodism - c/w home levothyroxin. Chronic atrial fibrillation - c/w home metoprolol and apixaban DVT prophylaxis - On apixaban - Time Spent with Patient Total time spent is greater than 50% in coordination of care (as documented) at patient's floor/unit and/or counseling patient: Internal Medicine: Result - Labs CBC & Chem 7: 12/28/18 06:31 12/28/18 06:31 Labs: Short CBC 12/28/18 Range/Units 06:31 WBC 13.8 H (4.3-11.1) K/mcL Hgb 10.7 L (12.9-16.9) g/dL Hct 36.4 L (37.5-50.1) % Plt Count 286 (140-400) K/mcL Neutrophils # 12.1 H (1.6-8.9) K/mcL BMP 12/28/18 06:31 Sodium 139 Potassium 3.8 Chloride 96 L Carbon Dioxide 36 H BUN 27 H Creatinine 0.76 Glucose 327 H Calcium 8.9 - ABG Interpretation ABG results: ABG ABG pH 7.44 pH Units (7.32-7.45) 12/27/18 10:29 ABG pCO2 66 mmHg (35-45) H 12/27/18 10:29 ABG pO2 78 mmHg (85-104) L 12/27/18 10:29 ABG O2 Saturation 95 % (95-98) 12/27/18 10:29 - Impressions Impressions Chest CT 12/27/18 09:23 IMPRESSION: Peribronchovascular groundglass and consolidative opacities in the right upper and right middle lobes have an appearance suggestive of pneumonia. Asymmetric alveolar edema in the setting of congestive heart failure could appear similar and should be considered given interstitial edema, mild cardiomegaly, and trace to small bilateral effusions. D/ / Jono Gonzales MD / Jono Gonzales MD Interpreting Provider: Jono Gonzales MD Echocardiogram 12/27/18 09:42 Impressions: Technically sub-optimal due to body habitus and poor echocardiographic windows. LVEF 55%. Grossly, overall LV function appears to be normal. Mildly dilated left ventricle. Atypical septal motion consistent with bundle branch block. Indeterminate diastolic function. Grossly, the right ventricle appears to be dilated and mildly hypokinetic. No obvious significant valvular dysfunction. Unable to estimate RVSP due to lack of adequate TR jet. Left Ventricular Wall Motion: Rest Echo Findings All wall segments showed normal motion. Findings: Study Quality * Technically sub-optimal due to body habitus and poor echocardiographic windows. ECG Findings * Atrial fibrillation, bundle branch block. Left Ventricle * LVEF 55%. Grossly, overall LV function appears to be normal. * Mildly dilated left ventricle. * Atypical septal motion consistent with bundle branch block. * Indeterminate diastolic function. Right Ventricle * Grossly, the right ventricle appears to be dilated and mildly hypokinetic. Left Atrium * Severely dilated left atrium. Right Atrium * Grossly, moderate to severely dilated right atrium. Interatrial Septum * Interatrial septum not well evaluated. Aortic Valve * Aortic valve not well visualized. * No aortic stenosis. * No aortic regurgitation. Mitral Valve * Mild mitral annular calcification * Trace mitral regurgitation. * No mitral stenosis. Tricuspid Valve * Tricuspid valve not well visualized. * Trace tricuspid regurgitation. * Unable to estimate RVSP due to lack of TR jet. Pulmonic Valve * Pulmonic valve not well visualized. Aorta * Normally sized aortic root. Pericardium * The pericardium appears normal. IVC * The IVC is dilated. * > 50% respiratory change Pulmonary Artery * Pulmonary artery not well visualized. Consult Discharge Plan - Plan Referrals: Zion Hernandes DO [Primary Care Provider] - (6) Community acquired pneumonia Qualifiers: Laterality: right Lung location: middle lobe of lung Qualified Code(s): J18.1 - Lobar pneumonia, unspecified organism
[2018-12-28] MEDS: Azithromycin 500 MG in D5% in Water 250 ML IVPB SCH (12:21)
[2018-12-28] MEDS: Insulin DETEMIR 100 UNIT/ML X5UNITS SQ SCH (21:21)
[2018-12-29] MEDS: Ipratropium/Albuterol Neb 3 ML IH SCH ×6 (00:39→20:31)
[2018-12-29] MEDS: *HR* OxyCODONE ER (12 HR) 40 MG TABLET PO SCH ×2 (05:11→17:42)
[2018-12-29] MEDS: Budesonide/Formoterol 160/4.5 1 PUFF INH IH SCH ×2 (07:46→20:31)
[2018-12-29] MEDS: Furosemide 40 MG/4 ML VIAL IVP SCH ×2 (09:04→16:51)
[2018-12-29] MEDS: Metoprolol XL (24 HR) Succ 50 MG TAB.ER.24H PO SCH (09:04)
[2018-12-29] MEDS: Apixaban 5 MG TABLET PO SCH ×2 (09:04→21:15)
[2018-12-29] MEDS: cefTRIAXone 1,000 MG in Water for inj. (sterile) 20 ML 10 ML IVP SCH (09:05)
[2018-12-29] MEDS: Insulin LISPRO 300 UNITS/3 ML VIAL SQ SCH ×3 (09:06→16:53)
[2018-12-29] MEDS: methylPREDNISolone 125 MG/2 ML VIAL IVP SCH ×2 (11:46→22:53)
[2018-12-29] MEDS: Azithromycin 500 MG in D5% in Water 250 ML IVPB SCH (11:48)
[2018-12-29] MEDS: Insulin DETEMIR 100 UNIT/ML X5UNITS SQ SCH ×2 (11:54→21:16)
--- NOTE | 2018-12-29 19:21 | Internal Med Progress Note ---
Hospitalist Progress Note - Encounter Date of Encounter: 12/29/18 Time of Encounter: 19:19 - Subjective Interval History: Pt states SOB improving. He denies chest pain. He denies fever, chills, N/V or diarrhea. - Exam Vitals: Temp Pulse Resp BP Pulse Ox 98.1 F 84 22 121/75 93 12/29/18 16:22 12/29/18 16:22 12/29/18 16:22 12/29/18 16:22 12/29/18 16:22 Exam: General: In no distress. Morbidly obese. difficulty hearing Respiratory exam: CTAB but diminished breath sounds B/L, difficult to auscultate given body habitus Cardiovascular exam: RRR irregular, +S1, +S2. no murmur, gallop, rubs. GI/Abdominal exam: Obese, Non-tender, Non-distended, soft, no peritoneal signs. Extremities exam: 2+ pedal edema, no calf tenderness Neurological exam: CN II-XII intact, AO X3, no focal deficits. Skin exam: chronic dermatitis changes b/l legs - Assessment and Plan (1) Acute on chronic respiratory failure with hypoxia and hypercapnia Current Visit: Yes Status: Acute Assessment and Plan: Pt comes in with shortness of a breath of a week's duration likely secondary to acute worsening of chronic diastolic CHF, pneumonia, obesity hypoventilation syndrome and COPD exacerbation ABG showed CO2 retention and patient is in moderate respiratory distress Continue on BIPAP, nebs, steroids and antibiotics Continue lasix. Repeat ABG showed improvement and pt states he is feeling better. (2) Acute exacerbation of chronic obstructive airways disease Current Visit: Yes Status: Acute Assessment and Plan: Continue on nebs,steroids and antibiotics. Continue BIPAP. Repeat ABG showed some improvement. Pt also states he is feeling better. (3) Acute on chronic diastolic heart failure Current Visit: Yes Status: Acute Assessment and Plan: Pt presented with shortness of breath with worsening pulmonary edema on xray. Continue lasix 40 mg IV BID Daily weights, fluid restriction (4) Chronic atrial fibrillation Current Visit: Yes Status: Acute Assessment and Plan: Continue rate control meds and anticoagulation (5) Morbid obesity with BMI of 50.0-59.9, adult Current Visit: Yes Status: Chronic Assessment and Plan: diet and exercise highly recommended (6) Diabetes mellitus type 2 in obese Current Visit: Yes Status: Chronic Assessment and Plan: Insulin and monitor fingersticks. Explained to taylor hyperglycemia due to being on steroid. Will increase basal as he is on Humalog 25 units BOID at home and on Levemir 10 units QHS here. Will adjust SSI as needed. (7) Community acquired pneumonia Current Visit: Yes Status: Acute Assessment and Plan: On antibiotics. Obtained cultures and pending. Urine streptococcal antigen and legionella negative (8) Obesity hypoventilation syndrome Current Visit: Yes Status: Acute Assessment and Plan: Has increased neck size and elevated CO2 and bicarb Continue bipap PRN and QHS DVT Prophylaxis: Eliquis - Time Spent with Patient Total time spent is greater than 50% in coordination of care (as documented) at patient's floor/unit and/or counseling patient: less than 15 minutes Plan of Care Discussed with: patient Internal Medicine: Result - Labs CBC & Chem 7: 12/28/18 06:31 12/28/18 06:31 - ABG Interpretation ABG results: ABG ABG pH 7.44 pH Units (7.32-7.45) 12/27/18 10:29 ABG pCO2 66 mmHg (35-45) H 12/27/18 10:29 ABG pO2 78 mmHg (85-104) L 12/27/18 10:29 ABG O2 Saturation 95 % (95-98) 12/27/18 10:29 Consult Discharge Plan - Plan Referrals: Zion Hernandes DO [Primary Care Provider] - (7) Community acquired pneumonia Qualifiers: Laterality: right Lung location: middle lobe of lung Qualified Code(s): J18.1 - Lobar pneumonia, unspecified organism
[2018-12-29 20:36] LABS: BUN/Creatinine Ratio 35 (6-26); Blood Urea Nitrogen 31 mg/dL (8-23); Calcium 8.5 mg/dL (8.6-10.3); Carbon Dioxide 42 mEq/L (23-29); Chloride 95 mEq/L (98-107); Glucose 377 mg/dL (70-105); Osmolality,Calculated 314 (280-300); Potassium 3.6 mEq/L (3.5-5.1); Sodium 141 mEq/L (136-145); eGFR For Non-African Americans > 60 (> 60)
[2018-12-29] MEDS: Artificial Tears SOLN 15 ML BOTTLE BOTH EYES SCH (22:19)
[2018-12-29] MEDS: Fluticasone Propionate Nasal 50 MCG/SPRAY BOTTLE NS SCH (22:19)
[2018-12-29] MEDS ORDERED: Acetaminophen 325 MG TABLET PO ONE (23:05)
[2018-12-30] MEDS: Ipratropium/Albuterol Neb 3 ML IH SCH ×6 (00:08→20:07)
[2018-12-30] MEDS: *HR* OxyCODONE ER (12 HR) 40 MG TABLET PO SCH ×2 (05:33→17:08)
[2018-12-30] MEDS: Budesonide/Formoterol 160/4.5 1 PUFF INH IH SCH ×2 (07:37→20:07)
--- NOTE | 2018-12-30 07:49 | Internal Med Progress Note ---
Hospitalist Progress Note - Encounter Date of Encounter: 12/30/18 Time of Encounter: 09:45 - Subjective Interval History: awake, at bedside. sob cont to improve. le edema improving. + cough, no sputum, denies wheezing, fevers, chills. bl thigh and lower abd skin redness, without blisters, skin peeling, itching or pain. only new med is nasal spray. he is angry about having to adhere to a fluid restriction. remains on o2 at rate higher than home as confirmed by SW. will bring in his home dial soap as only change is the soap she is bathing him with here. They will notify staff of any further skin changes - Exam Vitals: Temp Pulse Resp BP Pulse Ox 98 F 86 19 135/85 95 12/30/18 07:16 12/30/18 07:16 12/30/18 07:16 12/30/18 07:16 12/30/18 07:16 Exam: General: In no distress. Morbidly obese. appears stated age Respiratory exam: crackles bl bases, diminished breath throughout difficult to auscultate given body habitus, normal resp effort on o2 nc Cardiovascular exam: reg rate, irreg/irreg rhythm, 1 + pitting edema bl le to shins GI/Abdominal exam: Obese, Non-tender, Non-distended, soft,+ bs Neurological exam: AO X3, no focal deficits. Skin exam: chronic venous stasis changes b/l legs, erythema bl thighes and lower abd , no desquamation of skin, no wounds, no increased warmth, no hives - Assessment and Plan (1) Acute on chronic diastolic heart failure Current Visit: Yes Status: Acute Assessment and Plan: Pt presented with shortness of breath with worsening pulmonary edema on xray. Continue lasix 40 mg IV BID Daily weights, fluid restriction (2) Chronic atrial fibrillation Current Visit: Yes Status: Acute Assessment and Plan: Continue rate control meds and anticoagulation (3) Acute on chronic respiratory failure with hypoxia and hypercapnia Current Visit: Yes Status: Acute Assessment and Plan: 2/2 acute on chronic diastolic CHF, pneumonia, obesity hypoventilation syndrome and COPD exacerbation ABG showed CO2 retention and patient is in moderate respiratory distress Continue on BIPAP, O2 nc, nebs, -decrease IV steroids today to 40 mg q 12 hr -cont IV lasix BID - cont antibiotics azithro + rocephin -still requires higher than home o2 2L NC (SW confirmed home amount) (4) Morbid obesity with BMI of 50.0-59.9, adult Current Visit: Yes Status: Chronic Assessment and Plan: diet and exercise highly recommended (5) Diabetes mellitus type 2 in obese Current Visit: Yes Status: Chronic Assessment and Plan: Insulin and monitor fingersticks. Hyperglycemia on steroid Will increase basal Levemir 15 units BID Will adjust SSI as needed. wean steroids (6) Community acquired pneumonia Current Visit: Yes Status: Acute Assessment and Plan: organism unknown treatment as above (7) Acute exacerbation of chronic obstructive airways disease Current Visit: Yes Status: Acute Assessment and Plan: 2/2 chf exacerbation and pna tx as above (8) Obesity hypoventilation syndrome Current Visit: Yes Status: Acute Assessment and Plan: Has increased neck size and elevated CO2 and bicarb Continue bipap PRN and QHS (9) Rash Current Visit: Yes Status: Acute Assessment and Plan: BL thighes and lower abdomen Not consistent with cellulitis No skin desquamation or blistering at this time ?possible contact dermatitis or reaction to soap being used her for bathing -meds reviewed, only new med flonase and unlikely cause, you can see med reac tion from lasix, however he takes this at home -cont to monitor, pt to report new sxs, bringing in home dial DVT Prophylaxis: eliquis - Time Spent with Patient Total time spent is greater than 50% in coordination of care (as documented) at patient's floor/unit and/or counseling patient: Plan of Care Discussed with: patient Internal Medicine: Result - Labs CBC & Chem 7: 12/28/18 06:31 12/29/18 19:40 Labs: BMP 12/29/18 19:40 Sodium 141 Potassium 3.6 Chloride 95 L Carbon Dioxide 42 H* BUN 31 H Creatinine 0.88 Glucose 377 H Calcium 8.5 L - ABG Interpretation ABG results: ABG ABG pH 7.44 pH Units (7.32-7.45) 12/27/18 10:29 ABG pCO2 66 mmHg (35-45) H 12/27/18 10:29 ABG pO2 78 mmHg (85-104) L 12/27/18 10:29 ABG O2 Saturation 95 % (95-98) 12/27/18 10:29 Consult Discharge Plan - Plan Referrals: Zion Hernandes DO [Primary Care Provider] - (6) Community acquired pneumonia Qualifiers: Laterality: right Lung location: middle lobe of lung Qualified Code(s): J18.1 - Lobar pneumonia, unspecified organism
[2018-12-30] MEDS: Metoprolol XL (24 HR) Succ 50 MG TAB.ER.24H PO SCH (08:11)
[2018-12-30] MEDS: Apixaban 5 MG TABLET PO SCH ×2 (08:12→21:09)
[2018-12-30] MEDS: cefTRIAXone 1,000 MG in Water for inj. (sterile) 20 ML 10 ML IVP SCH (08:12)
[2018-12-30] MEDS: Furosemide 40 MG/4 ML VIAL IVP SCH ×2 (08:12→17:05)
[2018-12-30] MEDS: Azithromycin 250 MG TABLET PO SCH (08:12)
[2018-12-30] MEDS: Insulin DETEMIR 100 UNIT/ML X5UNITS SQ SCH ×2 (08:13→21:10)
[2018-12-30] MEDS: Insulin LISPRO 300 UNITS/3 ML VIAL SQ SCH ×4 (08:13→21:27)
[2018-12-30] MEDS: Fluticasone Propionate Nasal 50 MCG/SPRAY BOTTLE NS SCH (08:14)
[2018-12-30] MEDS: Artificial Tears SOLN 15 ML BOTTLE BOTH EYES SCH ×4 (08:14→21:09)
[2018-12-30] MEDS: methylPREDNISolone 125 MG/2 ML VIAL IVP SCH (11:55)
[2018-12-30] MEDS: MethylPREDNISolone 40 MG/ML VIAL IVP SCH (21:10)
[2018-12-31] MEDS: Ipratropium/Albuterol Neb 3 ML IH SCH ×7 (00:22→23:42)
[2018-12-31] MEDS: *HR* OxyCODONE ER (12 HR) 40 MG TABLET PO SCH ×2 (05:14→17:53)
[2018-12-31 06:02] LABS: Basophils % 0.2 %; Mean Corpuscular HGB Conc 28.6 g/dL (31.6-35.5); Mean Corpuscular Hemoglobin 24.4 pg (28.0-33.3); Monocytes % 5.1 %
[2018-12-31 06:04] LABS: Hematocrit 39.8 % (37.5-50.1); Hemoglobin 11.4 g/dL (12.9-16.9); Immature Granulocytes % 1.8 % (0-4); Lymphocytes # 0.8 K/mcL (0.6-4.6); Lymphocytes % 7.1 %; Mean Corpuscular Volume 85.2 fL (83.0-100.0); Mean Platelet Volume 9.2 fL (9.4-12.4); Monocytes # 0.6 K/mcL (0.0-1.3); Neutrophils # 9.7 K/mcL (1.6-8.9); Platelet Count 268 K/mcL (140-400); Red Blood Count 4.67 M/mcL (4.19-5.50); Red Cell Distribution Width 16.1 % (11.5-14.5); Segmented Neutrophils % 85.8 %
[2018-12-31 06:24] LABS: BUN/Creatinine Ratio 45 (6-26); Blood Urea Nitrogen 39 mg/dL (8-23); Calcium 8.5 mg/dL (8.6-10.3); Carbon Dioxide 41 mEq/L (23-29); Chloride 96 mEq/L (98-107); Glucose 353 mg/dL (70-105); Magnesium 2.4 mg/dL (1.6-2.6); Osmolality,Calculated 318 (280-300); Sodium 142 mEq/L (136-145); eGFR For Non-African Americans > 60 (> 60)
[2018-12-31 06:44] LABS: Anisocytosis 1+ (Not Present); Hypochromasia Present (Not Present); Platelet Estimate Normal (Normal)
[2018-12-31] MEDS: Budesonide/Formoterol 160/4.5 1 PUFF INH IH SCH ×2 (07:34→20:51)
[2018-12-31] MEDS: cefTRIAXone 1,000 MG in Water for inj. (sterile) 20 ML 10 ML IVP SCH (07:42)
[2018-12-31] MEDS: Azithromycin 250 MG TABLET PO SCH (07:42)
[2018-12-31] MEDS: Metoprolol XL (24 HR) Succ 50 MG TAB.ER.24H PO SCH (07:42)
[2018-12-31] MEDS: MethylPREDNISolone 40 MG/ML VIAL IVP SCH (07:42)
[2018-12-31] MEDS: Furosemide 40 MG/4 ML VIAL IVP SCH ×2 (07:42→16:52)
[2018-12-31] MEDS: Insulin DETEMIR 100 UNIT/ML X5UNITS SQ SCH ×2 (07:43→20:32)
[2018-12-31] MEDS: Insulin LISPRO 300 UNITS/3 ML VIAL SQ SCH ×4 (07:56→20:37)
[2018-12-31] MEDS: Apixaban 5 MG TABLET PO SCH ×2 (08:01→20:32)
[2018-12-31] MEDS: Artificial Tears SOLN 15 ML BOTTLE BOTH EYES SCH ×4 (08:01→20:38)
[2018-12-31] MEDS: Fluticasone Propionate Nasal 50 MCG/SPRAY BOTTLE NS SCH (08:02)
--- NOTE | 2018-12-31 09:50 | Internal Med Progress Note ---
Hospitalist Progress Note - Encounter Date of Encounter: 12/31/18 Time of Encounter: 09:48 - Subjective Interval History: Patient seen and examined this morning at bedside. No acute overnight events. Breathing improving gradually. Denies any chest pain. Still with mild abdominal and thigh redness. Denies any diarrhea nausea or vomiting. - Exam Vitals: Temp Pulse Resp BP Pulse Ox 97.5 F L 86 16 136/95 95 12/31/18 07:46 12/31/18 07:46 12/31/18 07:46 12/31/18 07:46 12/31/18 07:46 Exam: General: In no distress. Morbidly obese. Respiratory exam: diminished breath throughout difficult to auscultate given body habitus. No adventitious lung sound Cardiovascular exam: reg rate, irreg/irreg rhythm, 1 + pitting edema bl le to shins GI/Abdominal exam: Obese, Non-tender, Non-distended, soft,+ bs Neurological exam: AOX3, no focal deficits. Skin exam: chronic venous stasis changes b/l legs, erythema bl thighes and lower abd , no desquamation of skin, no wounds, no increased warmth, no hives - Assessment and Plan (1) Acute on chronic diastolic heart failure Current Visit: Yes Status: Acute (2) Chronic atrial fibrillation Current Visit: Yes Status: Acute (3) Acute on chronic respiratory failure with hypoxia and hypercapnia Current Visit: Yes Status: Acute (4) Morbid obesity with BMI of 50.0-59.9, adult Current Visit: Yes Status: Chronic (5) Diabetes mellitus type 2 in obese Current Visit: Yes Status: Chronic (6) Community acquired pneumonia Current Visit: Yes Status: Acute (7) Acute exacerbation of chronic obstructive airways disease Current Visit: Yes Status: Acute (8) Obesity hypoventilation syndrome Current Visit: Yes Status: Acute (9) Rash Current Visit: Yes Status: Acute - Summary of Assessment and Plan Summary of Assessment and Plan: Acute on chronic respiratory failure with hypoxia and hypercapnia - likely secondary to acute on chronic diastolic CHF, possible pneumonia, obesity hypoventilation syndrome and COPD exacerbation - uses bipap at home, c/w prn with sleep and night BIPAP, nebs, tapered steroi ds and empiric ceftriaxone/azithromycin. Will dc antibiotic tomorrow. - CT with consolidation. Continue lasix 40 IV BID. Monitor renal function. -5 L negative. Will c/w one more day of diuresis. - c/w Daily weights, fluid restriction. - urine antigens negative. BC NGTD 12/26 - will titrate oxygen down to keep Sat between 92-94. Acute on chronic diastolic heart failure - as above - ECHO from jun 2017 was poor quality. Had decreased EF grossly. - repeat ECHO with grossly normal EF, diastolic dysfunction. NWM Rash - may be contact dermatitis with soap. Possible allergic reaction. - monitor for now. Acute exacerbation of chronic obstructive airways disease - as abve Obesity hypoventilation syndrome - c/w bipap at night Community acquired pneumonia - as above Diabetes mellitus type 2 in obese - SSI , levemir and monitor fingersticks Morbid obesity with BMI of 50.0-59.9, adult Hypothyrodism - c/w home levothyroxin. Chronic atrial fibrillation - c/w home metoprolol and apixaban DVT prophylaxis - On apixaban PT/OT for home health evaluation. - Time Spent with Patient Total time spent is greater than 50% in coordination of care (as documented) at patient's floor/unit and/or counseling patient: Internal Medicine: Result - Labs CBC & Chem 7: 12/31/18 05:13 12/31/18 05:13 Labs: Short CBC 12/31/18 Range/Units 05:13 WBC 11.3 H (4.3-11.1) K/mcL Hgb 11.4 L (12.9-16.9) g/dL Hct 39.8 (37.5-50.1) % Plt Count 268 (140-400) K/mcL Neutrophils # 9.7 H (1.6-8.9) K/mcL BMP 12/31/18 05:13 Sodium 142 Potassium 4.0 Chloride 96 L Carbon Dioxide 41 H* BUN 39 H Creatinine 0.87 Glucose 353 H Calcium 8.5 L - ABG Interpretation ABG results: ABG ABG pH 7.44 pH Units (7.32-7.45) 12/27/18 10:29 ABG pCO2 66 mmHg (35-45) H 12/27/18 10:29 ABG pO2 78 mmHg (85-104) L 12/27/18 10:29 ABG O2 Saturation 95 % (95-98) 12/27/18 10:29 Consult Discharge Plan - Plan Referrals: Zion Hernandes DO [Primary Care Provider] - (6) Community acquired pneumonia Qualifiers: Laterality: right Lung location: middle lobe of lung Qualified Code(s): J18.1 - Lobar pneumonia, unspecified organism
[2019-01-01] MEDS: Ipratropium/Albuterol Neb 3 ML IH SCH ×4 (03:53→15:49)
[2019-01-01] MEDS: *HR* OxyCODONE ER (12 HR) 40 MG TABLET PO SCH (05:22)
[2019-01-01 06:58] LABS: Basophils % 0.2 %; Eosinophils # 0.2 K/mcL (0.0-0.6); Eosinophils % 1.5 %; Hematocrit 39.8 % (37.5-50.1); Hemoglobin 11.7 g/dL (12.9-16.9); Lymphocytes # 2.2 K/mcL (0.6-4.6); Lymphocytes % 14.8 %; Mean Corpuscular HGB Conc 29.4 g/dL (31.6-35.5); Mean Corpuscular Hemoglobin 24.6 pg (28.0-33.3); Mean Corpuscular Volume 83.6 fL (83.0-100.0); Mean Platelet Volume 8.7 fL (9.4-12.4); Monocytes # 1.1 K/mcL (0.0-1.3); Monocytes % 7.4 %; Platelet Count 249 K/mcL (140-400); Red Blood Count 4.76 M/mcL (4.19-5.50); Red Cell Distribution Width 16.1 % (11.5-14.5); Segmented Neutrophils % 75.1 %
[2019-01-01 07:21] LABS: BUN/Creatinine Ratio 54 (6-26); Blood Urea Nitrogen 42 mg/dL (8-23); Calcium 8.3 mg/dL (8.6-10.3); Carbon Dioxide 40 mEq/L (23-29); Chloride 96 mEq/L (98-107); Glucose 194 mg/dL (70-105); Osmolality,Calculated 308 (280-300); Potassium 3.7 mEq/L (3.5-5.1); Sodium 141 mEq/L (136-145); eGFR For Non-African Americans > 60 (> 60)
[2019-01-01] MEDS: Budesonide/Formoterol 160/4.5 1 PUFF INH IH SCH (07:56)
[2019-01-01] MEDS ORDERED: MethylPREDNISolone 40 MG/ML VIAL IVP SCH (09:00)
[2019-01-01] MEDS ORDERED: (Vilazodone Hcl [Viibryd] 40 MG) PO SCH (09:00)
[2019-01-01] MEDS: Apixaban 5 MG TABLET PO SCH (09:39)
[2019-01-01] MEDS: Azithromycin 250 MG TABLET PO SCH (09:39)
[2019-01-01] MEDS: cefTRIAXone 1,000 MG in Water for inj. (sterile) 20 ML 10 ML IVP SCH (09:40)
[2019-01-01] MEDS: Metoprolol XL (24 HR) Succ 50 MG TAB.ER.24H PO SCH (09:40)
[2019-01-01] MEDS: Furosemide 40 MG/4 ML VIAL IVP SCH (09:40)
[2019-01-01] MEDS: Insulin DETEMIR 100 UNIT/ML X5UNITS SQ SCH (09:42)
[2019-01-01] MEDS: Insulin LISPRO 300 UNITS/3 ML VIAL SQ SCH ×2 (09:43→12:08)
[2019-01-01] MEDS: Fluticasone Propionate Nasal 50 MCG/SPRAY BOTTLE NS SCH (09:43)
[2019-01-01] MEDS: Artificial Tears SOLN 15 ML BOTTLE BOTH EYES SCH ×2 (09:43→12:08)
[2019-01-01 11:50] VITALS: BP 132/78
--- NOTE | 2019-01-01 14:52 | Discharge Summary ---
- NOTES TO OUTPATIENT PROVIDER Notes to Outpatient Provider: Patient presented to follow-up with pulmonology as outpatient. Discharge to taper steroids. Finished antibiotic course. Will need to be on BiPAP at home during night and when sleeping. We will need to continue diuresis aggressively with close follow for otherwise at risk for readmission due to CHF. Date of Encounter: 01/01/19 Time of Encounter: 11:49 - Discharge Diagnosis (1) Acute on chronic diastolic heart failure Priority: Primary Status: Acute (2) Chronic atrial fibrillation Priority: Secondary Status: Acute (3) Acute on chronic respiratory failure with hypoxia and hypercapnia Priority: Primary Status: Acute (4) Morbid obesity with BMI of 50.0-59.9, adult Priority: Secondary Status: Chronic (5) Diabetes mellitus type 2 in obese Priority: Secondary Status: Chronic (6) Community acquired pneumonia Priority: Primary Status: Acute Qualifiers: Laterality: right Lung location: middle lobe of lung Qualified Code(s): J18.1 - Lobar pneumonia, unspecified organism (7) Acute exacerbation of chronic obstructive airways disease Priority: Primary Status: Acute (8) Obesity hypoventilation syndrome Priority: Secondary Status: Acute (9) Rash Priority: Secondary Status: Acute Hospital course: Mr. Swenson is a 68 year old male past medical history of COPD, atrial fibrillation, diabetes, hypertension, diastolic CHF on 3 L oxygen and BiPAP came in with complaint of shortness of breath found to have acute on chronic respiratory failure with hypoxia and hypercapnia. Patient was started on empiric antibiotics and put on BiPAP. Patient had groundglass opacities and consolidated processes CT which could represent both pneumonia or CHF. Patient was started on diuresis IV and had total of 70 L negative fluid output. Patient oxygen needs are back to baseline to his home oxygen needs. Patient still volume overloaded however okay to be discharged home to be followed as outpatient. Blood cultures remain negative and urine antigens negative for streptococcal and Legionella. We will need to continue home oral Lasix. Patient finished antibiotic course and would be discharged on prednisone taper. Discussed about close glucose monitoring given patient on steroids and lifestyle changes to promote weight loss. Patient has BiPAP at home she discussed to use as prescribed. Discharge discussed with: patient, family, nurse, social work - Time Spent with Patient Total time spent providing and/or coordinating discharge services: Time spent: Greater than 30 minutes (40) - Discharge Medications Prescriptions: New predniSONE [PredniSONE] See Taper PO DAILY 12 Days #30 tablet Continued Ipratropium/Albuterol Neb [Duoneb] 3 ml IH Q4H PRN PRN Reason: Shortness Of Breath Apixaban [Eliquis] 5 mg PO BID Insulin Lispro Protamin/Lispro [Humalog Mix 75-25 Kwikpen] 25 unit SQ BID Tamsulosin [Flomax] 0.4 mg PO DAILY Metoprolol XL (24 HR) Succ [Toprol Xl] 50 mg PO DAILY Multivits,Ca,Min/Iron/FA/Lycop [Centrum Men's Tablet] 1 tab PO DAILY OxyCODONE ER (12 HR) [OxyCONTIN] 80 mg PO Q12H Furosemide [Lasix] 80 mg PO BID #30 tablet Potassium Chloride 40 meq PO BID #30 tab.er.prt Clotrimazole/Betamethasone Dip [Lotrisone Cream] 15 gm TP BID PRN PRN Reason: IRRITATED SKIN Colestipol HCl [Colestid] 2 gm PO BID Ferrous Sulfate 650 mg PO QAM Hyoscyamine SL [Levsin Sl] 0.125 mg SL Q4HR PRN PRN Reason: CRAMPING Levothyroxine Sodium 100 mcg PO QAM Vilazodone HCl [Viibryd] 40 mg PO DAILY Ascorbic Acid [Vitamin C] 500 mg PO 0630 #30 tablet Folic Acid 1 mg PO Q48H tablet Home Medications: Apixaban [Eliquis] 5 mg PO BID 09/05/15 [History] Ipratropium/Albuterol Neb [Duoneb] 3 ml IH Q4H PRN 09/05/15 [History] Insulin Lispro Protamin/Lispro [Humalog Mix 75-25 Kwikpen] 25 unit SQ BID 09/11/15 [History] Metoprolol XL (24 HR) Succ [Toprol Xl] 50 mg PO DAILY 04/16/17 [History] Tamsulosin [Flomax] 0.4 mg PO DAILY 04/16/17 [History] Multivits,Ca,Min/Iron/FA/Lycop [Centrum Men's Tablet] 1 tab PO DAILY 04/26/17 [History] OxyCODONE ER (12 HR) [OxyCONTIN] 80 mg PO Q12H 10/07/17 [History] Furosemide [Lasix] 80 mg PO BID #30 tablet 10/11/17 [Rx] Potassium Chloride 40 meq PO BID #30 tab.er.prt 10/11/17 [Rx] Ascorbic Acid [Vitamin C] 500 mg PO 0630 #30 tablet 10/25/17 [Rx] Folic Acid 1 mg PO Q48H tablet 10/25/17 [Rx] Clotrimazole/Betamethasone Dip [Lotrisone Cream] 15 gm TP BID PRN 12/26/18 [History] Colestipol HCl [Colestid] 2 gm PO BID 12/26/18 [History] Ferrous Sulfate 650 mg PO QAM 12/26/18 [History] Hyoscyamine SL [Levsin Sl] 0.125 mg SL Q4HR PRN 12/26/18 [History] Levothyroxine Sodium 100 mcg PO QAM 12/26/18 [History] Vilazodone HCl [Viibryd] 40 mg PO DAILY 12/26/18 [History] predniSONE [PredniSONE] See Taper PO DAILY 12 Days #30 tablet 01/01/19 [Rx] Allergies/Adverse Reactions: Allergy/AdvReac Type Severity Reaction Status Date / Time clindamycin AdvReac Diarrhea Verified 06/02/17 07:17 Date of admission: 12/26/18 18:26 Primary care physician: Zion Hernandes DO Consults: 12/31/18 12:12 Consult to Occupational Therapy [CONS] Routine Comment: Evaluate, develop and implement POC Reason for Consult: BMAT score 2. Please assess for HH vs rehab Does patient have active BEDREST order?: No Is patient medically & hemodynamically stable?: Yes Consult to Physical Therapy [CONS] Routine Comment: Evaluate, develop and implement POC Reason for Consult: BMAT score 2. Please assess for HH vs rehab Does patient have active BEDREST order?: No Is patient medically & hemodynamically stable?: Yes Discharging clinician: Angi Saab - Constitutional Vitals: Temp Pulse Resp BP Pulse Ox 98.4 F 92 20 132/78 93 01/01/19 11:45 01/01/19 11:45 01/01/19 11:45 01/01/19 11:45 01/01/19 11:45 Exam: General: In no distress. Morbidly obese. Respiratory exam: diminished breath throughout difficult to auscultate given body habitus. No adventitious lung sound Cardiovascular exam: reg rate, irreg/irreg rhythm, 1 + pitting edema bl le to shins. Somewhat improved. GI/Abdominal exam: Obese, Non-tender, Non-distended, soft,+ bs Neurological exam: AOX3, no focal deficits. Skin exam: chronic venous stasis changes b/l legs, redness on abdomen and thighs resolved - Patient Status Disposition: Home Health Service Condition: Serious - Discharge Instructions Follow Up With: Zion Hernandes DO [Primary Care Provider] - - Diet and Activity Activity: as per physical therapy
--- NOTE | 2019-01-01 15:08 | Physician Discharge Referral ---
Home Health/Hosp Referral Info Transfer to: Home Health - Diagnosis (1) Acute on chronic diastolic heart failure Status: Acute (2) Chronic atrial fibrillation Status: Acute (3) Acute on chronic respiratory failure with hypoxia and hypercapnia Status: Acute (4) Morbid obesity with BMI of 50.0-59.9, adult Status: Chronic (5) Diabetes mellitus type 2 in obese Status: Chronic (6) Community acquired pneumonia Status: Acute (7) Acute exacerbation of chronic obstructive airways disease Status: Acute (8) Obesity hypoventilation syndrome Status: Acute (9) Rash Status: Acute - Respiratory Orders Smoking Cessation: Smoking cessation has been advised. For more information, call the [place] Tobacco Quit Line at 1-944-LFEINOW. - Services Needed Following services are medically necessary services: Nursing, Physical Therapy, Occupational Therapy - Transfer Medications Prescriptions: predniSONE [PredniSONE] See Taper PO DAILY 12 Days #30 tablet Home Medications: Apixaban [Eliquis] 5 mg PO BID 09/05/15 [History] Ipratropium/Albuterol Neb [Duoneb] 3 ml IH Q4H PRN 09/05/15 [History] Insulin Lispro Protamin/Lispro [Humalog Mix 75-25 Kwikpen] 25 unit SQ BID 09/11/15 [History] Metoprolol XL (24 HR) Succ [Toprol Xl] 50 mg PO DAILY 04/16/17 [History] Tamsulosin [Flomax] 0.4 mg PO DAILY 04/16/17 [History] Multivits,Ca,Min/Iron/FA/Lycop [Centrum Men's Tablet] 1 tab PO DAILY 04/26/17 [History] OxyCODONE ER (12 HR) [OxyCONTIN] 80 mg PO Q12H 10/07/17 [History] Furosemide [Lasix] 80 mg PO BID #30 tablet 10/11/17 [Rx] Potassium Chloride 40 meq PO BID #30 tab.er.prt 10/11/17 [Rx] Ascorbic Acid [Vitamin C] 500 mg PO 0630 #30 tablet 10/25/17 [Rx] Folic Acid 1 mg PO Q48H tablet 10/25/17 [Rx] Clotrimazole/Betamethasone Dip [Lotrisone Cream] 15 gm TP BID PRN 12/26/18 [History] Colestipol HCl [Colestid] 2 gm PO BID 12/26/18 [History] Ferrous Sulfate 650 mg PO QAM 12/26/18 [History] Hyoscyamine SL [Levsin Sl] 0.125 mg SL Q4HR PRN 12/26/18 [History] Levothyroxine Sodium 100 mcg PO QAM 12/26/18 [History] Vilazodone HCl [Viibryd] 40 mg PO DAILY 12/26/18 [History] predniSONE [PredniSONE] See Taper PO DAILY 12 Days #30 tablet 01/01/19 [Rx] Allergies/Adverse Reactions: Allergy/AdvReac Type Severity Reaction Status Date / Time clindamycin AdvReac Diarrhea Verified 06/02/17 07:17 Certification: Further, I certify that my clinical findings support that this patient is homebound (i.e. absences from home require considerable and taxing effort and are for medical reasons or scientology services or infrequently or short duration when for other reasons) because: Homebound Reason: Patient requires assistance of a person or device to safely leave home Attestation: My signature below is to certify that this patient is under my care and that I, or nurse practitioner, or a physician's stylist assistant working with me, has a [id number] encounter with this patient.
== END 2019-01-01 17:45 | disposition home health service (06) | DRG 291 ==
LOC: EMEROOARM 09:26 → SUATTDRO 18:26 → 2NENU 18:26
PROVIDERS: ADMIT Student in an Organized Health Care Education/Training Program; ATTEND Internal Medicine

== ENCOUNTER 2019-01-27 18:41 | Inpatient (IN) ==
[2019-01-27] MEDS ORDERED: methylPREDNISolone 125 MG/2 ML VIAL IVP ONE (19:01)
--- NOTE | 2019-01-27 19:17 | Emergency Department Note ---
Disposition Clinical Impression: Hypercapnic respiratory failure Qualifiers: Chronicity: chronic Qualified Code(s): J96.12 - Chronic respiratory failure with hypercapnia Sepsis Qualifiers: Sepsis type: sepsis due to unspecified organism Qualified Code(s): A41.9 - Sepsis, unspecified organism Disposition: Admitted As Inpatient Condition: Fair Time of Disposition: 19:20 General Adult HPI - General Chief complaint: ED Shortness of Breath/Dyspnea Stated complaint: KARIN Time Seen by Provider: 01/27/19 18:50 Source: patient, EMS Mode of arrival: EMS Limitations: altered mental status Nursing Notes Reviewed: Yes Vital Signs Reviewed: Yes - History of Present Illness HPI Narrative: Attestation note: Patient was seen with the emergency medicine resident/nurse practitioner/physician bookkeeper assistant/transitional resident/medical student: Dr. Virgil Friend. I was present for the significant portions of the performance and interpretation of procedures and EKGs. I have personally performed a face to face evaluation on this patient. I have reviewed and agree with history and physical examination patient management and disposition. Briefly the salient points of the case are as follows: 68-year-old male by EMS for hypoxia and respiratory failure. Patient has morbid obesity, obstructive sleep apnea, hypertension, hypercarbic respiratory failure. Presents with increasing shortness of breath. When the medics arrived to the home patient sat was as low as the low 60s. They placed him on CPAP and got him up to 88 and then to 90. Is at bedside and were able to inform her and get information about the history. Patient is able to talk in limited sentences. Patient is febrile. And tachycardic. Sepsis screen positive. Blood cultures ordered we are following the sepsis protocol will hold off on IV fluid boluses at this time because the patient is normotensive. Patient will get an appropriate IV antibiotic patient will be admitted. Patient is DNI, DO NOT INTUBATE. Per the patient and the lites wishes. Providing 45 minutes critical care service this patient. Patient got several 2 nebs prior to arrival. Patient is satting at about 93-95% on BiPAP 04/03 in our emergency department. Patient appears to be comfortable with good improvement in reverse Trendelenburg position to maximize his respiratory effort and oxygenation. Admission disposition pending Pain Scale: 5 - Related Data Home Medications Medication Instructions Recorded Confirmed Apixaban [Eliquis] 5 mg PO BID 09/05/15 12/26/18 Ipratropium/Albuterol Neb [Duoneb] 3 ml IH Q4H PRN 09/05/15 12/26/18 Insulin Lispro Protamin/Lispro 25 unit SQ BID 09/11/15 12/26/18 [Humalog Mix 75-25 Kwikpen] Metoprolol XL (24 HR) Succ [Toprol 50 mg PO DAILY 04/16/17 12/26/18 Xl] Tamsulosin [Flomax] 0.4 mg PO DAILY 04/16/17 12/26/18 Multivits,Ca,Min/Iron/FA/Lycop 1 tab PO DAILY 04/26/17 12/26/18 [Centrum Men's Tablet] OxyCODONE ER (12 HR) [OxyCONTIN] 80 mg PO Q12H 10/07/17 12/26/18 Clotrimazole/Betamethasone Dip 15 gm TP BID PRN 12/26/18 12/26/18 [Lotrisone Cream] Colestipol HCl [Colestid] 2 gm PO BID 12/26/18 12/26/18 Ferrous Sulfate 650 mg PO QAM 12/26/18 12/26/18 Hyoscyamine SL [Levsin Sl] 0.125 mg SL Q4HR PRN 12/26/18 12/26/18 Levothyroxine Sodium 100 mcg PO QAM 12/26/18 12/26/18 Vilazodone HCl [Viibryd] 40 mg PO DAILY 12/26/18 12/26/18 Previous Rx's Medication Instructions Recorded Furosemide [Lasix] 80 mg PO BID #30 tablet 10/11/17 Potassium Chloride 40 meq PO BID #30 tab.er.prt 10/11/17 Ascorbic Acid [Vitamin C] 500 mg PO 0630 #30 tablet 10/25/17 Folic Acid 1 mg PO Q48H tablet 10/25/17 Allergies Allergy/AdvReac Type Severity Reaction Status Date / Time clindamycin AdvReac Diarrhea Verified 06/02/17 07:17 Past Medical History - Past Medical History Medical history: Reports: atrial fibrillation, COPD, diabetes, hypertension, RA, thyroid disease Surgical history: Reports: orthopedic, other Psychiatric history: Reports: depression - Social History Smoking Status: Former smoker Smokeless Tobacco Status: No Alcohol use: Reports: none Drug use: Reports: none Physical Exam - General Limitations: altered mental status General appearance: alert, in distress Course Vital Signs Temperature 99.2 F 01/27/19 18:43 Pulse Rate 127 01/27/19 18:43 Respiratory Rate 19 01/27/19 18:43 Blood Pressure 138/100 01/27/19 18:43 O2 Sat by Pulse Oximetry 91 01/27/19 18:43 Temperature 99.2 F 01/27/19 18:43 Pulse Rate 103 01/27/19 18:59 Respiratory Rate 22 01/27/19 18:59 Blood Pressure 117/66 01/27/19 18:59 O2 Sat by Pulse Oximetry 93 01/27/19 18:59 Oxygen Delivery Oxygen Delivery Bipap
[2019-01-27] MEDS ORDERED: Levofloxacin 750 MG/150 ML 750 MG/150 ML BAG IVPB ONE (19:19)
[2019-01-27] MEDS ORDERED: Piperacillin/Tazobactam 3.375 GM in Water for inj. (sterile) 20 ML 20 ML IVP ONE (19:19)
[2019-01-27 19:25] LABS: Basophils # 0.1 K/mcL (0.0-0.2); Basophils % 0.6 %; Eosinophils # 0.1 K/mcL (0.0-0.6); Eosinophils % 0.4 %; Hematocrit 38.4 % (37.5-50.1); Hemoglobin 11.3 g/dL (12.9-16.9); Immature Granulocytes % 1.3 % (0-4); Lymphocytes # 1.7 K/mcL (0.6-4.6); Lymphocytes % 9.9 %; Mean Corpuscular HGB Conc 29.4 g/dL (31.6-35.5); Mean Corpuscular Hemoglobin 24.7 pg (28.0-33.3); Mean Platelet Volume 8.6 fL (9.4-12.4); Monocytes # 1.1 K/mcL (0.0-1.3); Monocytes % 6.2 %; Neutrophils # 14.2 K/mcL (1.6-8.9); Nucleated Red Blood Cells 0.1 /100 WBC (0); Platelet Count 508 K/mcL (140-400); Red Blood Count 4.57 M/mcL (4.19-5.50); Red Cell Distribution Width 16.5 % (11.5-14.5); Segmented Neutrophils % 81.6 %; White Blood Count 17.4 K/mcL (4.3-11.1)
[2019-01-27] MEDS ORDERED: Piperacillin/Tazobactam 3.375 GM in 0.9 % Sodium Chloride Mini Bag 100 ML IVPB ONE (19:30)
[2019-01-27 19:37] LABS: BUN/Creatinine Ratio 23 (6-26); Blood Urea Nitrogen 18 mg/dL (8-23); Calcium 8.6 mg/dL (8.6-10.3); Carbon Dioxide 38 mEq/L (23-29); Chloride 94 mEq/L (98-107); Glucose 183 mg/dL (70-105); Osmolality,Calculated 295 (280-300); Potassium 3.9 mEq/L (3.5-5.1); Sodium 139 mEq/L (136-145); eGFR For African Americans > 60 (> 60); eGFR For Non-African Americans > 60 (> 60)
[2019-01-27 19:38] LABS: Troponin I < 0.03 ng/mL (< 0.04)
--- NOTE | 2019-01-27 19:55 | Emergency Department Note ---
Disposition Clinical Impression: Hypercapnic respiratory failure Qualifiers: Chronicity: chronic Qualified Code(s): J96.12 - Chronic respiratory failure with hypercapnia Sepsis Qualifiers: Sepsis type: sepsis due to unspecified organism Qualified Code(s): A41.9 - Sepsis, unspecified organism Asthma with exacerbation Qualifiers: Asthma severity: severe Asthma persistence: persistent Qualified Code(s): J45.51 - Severe persistent asthma with (acute) exacerbation Disposition: Admitted As Inpatient Condition: Fair Forms: ED Satisfaction Letter Time of Disposition: 20:41 SOB HPI - General Chief Complaint: ED Shortness of Breath/Dyspnea Stated Complaint: KARIN Time Seen by Provider: 01/27/19 18:50 Source: patient, EMS Mode of arrival: EMS Limitations: altered mental status Nursing Notes Reviewed: Yes Vital Signs Reviewed: Yes - History of Present Illness 68-year-old male presented to the emergency department via EMS in respiratory distress. says he does have a history of COPD does have BiPAP and oxygen at home he says pulse ox well on 4 L went down to 60 and is having a hard time breathing this they called EMS for further evaluation. There is been no cough congestion no fevers recently. This is a otherwise is been no advises was sudden onset of shortness of breath and low pulse ox. He has had to be intubated in the past. Is followed pulmonology does have extensive COPD history. - Related Data Home Medications Medication Instructions Recorded Confirmed Apixaban [Eliquis] 5 mg PO BID 09/05/15 12/26/18 Ipratropium/Albuterol Neb [Duoneb] 3 ml IH Q4H PRN 09/05/15 12/26/18 Insulin Lispro Protamin/Lispro 25 unit SQ BID 09/11/15 12/26/18 [Humalog Mix 75-25 Kwikpen] Metoprolol XL (24 HR) Succ [Toprol 50 mg PO DAILY 04/16/17 12/26/18 Xl] Tamsulosin [Flomax] 0.4 mg PO DAILY 04/16/17 12/26/18 Multivits,Ca,Min/Iron/FA/Lycop 1 tab PO DAILY 04/26/17 12/26/18 [Centrum Men's Tablet] OxyCODONE ER (12 HR) [OxyCONTIN] 80 mg PO Q12H 10/07/17 12/26/18 Clotrimazole/Betamethasone Dip 15 gm TP BID PRN 12/26/18 12/26/18 [Lotrisone Cream] Colestipol HCl [Colestid] 2 gm PO BID 12/26/18 12/26/18 Ferrous Sulfate 650 mg PO QAM 12/26/18 12/26/18 Hyoscyamine SL [Levsin Sl] 0.125 mg SL Q4HR PRN 12/26/18 12/26/18 Levothyroxine Sodium 100 mcg PO QAM 12/26/18 12/26/18 Vilazodone HCl [Viibryd] 40 mg PO DAILY 12/26/18 12/26/18 Ascorbic Acid [Vitamin C] 500 mg PO QAM 01/27/19 01/27/19 Previous Rx's Medication Instructions Recorded Furosemide [Lasix] 80 mg PO BID #30 tablet 10/11/17 Potassium Chloride 40 meq PO BID #30 tab.er.prt 10/11/17 Folic Acid 1 mg PO Q48H tablet 10/25/17 Allergies Allergy/AdvReac Type Severity Reaction Status Date / Time clindamycin AdvReac Diarrhea Verified 06/02/17 07:17 Limitations: ROS unobtainable due to patients medical condition Past Medical History - Past Medical History Attestation: Yes The following information was validated with the patient. Source: patient Medical history: Reports: atrial fibrillation, COPD, diabetes, hypertension, RA, thyroid disease Surgical history: Reports: orthopedic, other Psychiatric history: Reports: depression - Social History Smoking Status: Former smoker Smokeless Tobacco Status: No Alcohol use: Reports: none Drug use: Reports: none Physical Exam - General Limitations: altered mental status General appearance: alert, in distress - Head Head exam: atraumatic, normocephalic, normal inspection - Eye Eye exam: Present: normal appearance, PERRL, EOMI - ENT ENT exam: normal exam, normal oropharynx, mucous membranes moist - Neck Neck exam: Present: normal inspection, full ROM, trachea midline - Chest Chest inspection: Present: normal inspection, symmetric chest wall rise - Respiratory Respiratory exam: Present: respiratory distress, accessory muscle use, prolonged expiratory phase. Absent: wheezes - Cardiovascular Cardiovascular exam: Present: normal rhythm, tachycardia, normal heart sounds - Abdominal Exam Abdominal exam: Present: soft, Non-Tender, normal bowel sounds. Absent: tenderness, distention, guarding, rebound, rigidity - Extremities Exam Extremities exam: Present: normal inspection, full ROM. Absent: tenderness, pedal edema - Back Exam Back exam: Present: normal inspection, full ROM. Absent: tenderness, CVA tenderness (R), CVA tenderness (L) - Neurological Exam Neurological exam: Present: alert, oriented X3 - Skin Skin exam: Present: warm, dry, intact, normal color Course Vital Signs Temperature 99.2 F 01/27/19 18:43 Pulse Rate 127 01/27/19 18:43 Respiratory Rate 19 01/27/19 18:43 Blood Pressure 138/100 01/27/19 18:43 O2 Sat by Pulse Oximetry 91 01/27/19 18:43 Temperature 99.2 F 01/27/19 18:43 Pulse Rate 105 01/27/19 19:44 Respiratory Rate 26 01/27/19 19:44 Blood Pressure 123/63 01/27/19 19:44 O2 Sat by Pulse Oximetry 95 01/27/19 19:44 Oxygen Delivery Oxygen Delivery Bipap Shortness of Breath/Dyspnea - [facility] Narrative Medical decision making narrative: 68-year-old male presented to the emergency prior and respiratory distress. He was on BiPAP when he arrived we put him on BiPAP immediately he was having oxygen saturation of 96% while on that breathing comfortably. We did get 2 IVs. Blood cultures are pending. Patient did meet Sirs criteria and does meet sepsis criteria does not to be seemed to be in septic shock at this time blood pressure was normal. Due to patient having history of CHF as well as his obesity I did not want to fluid overload him so really got 1 L of IV fluids I am not going to give him the 30 mL/kg bolus. Patient was started on antibiotics including vancomycin, Zosyn, Levaquin. Patient's EKG just showed tachycardia., A. fib. I spoke with family and they say that he is a DNI. Patient will be admitted to the hospitalist service for further evaluation for most likely COPD exacerbation as well as pneumonia based on chest x-ray he does meet Sirs criteria was not severe sepsis or septic shock at this time. Spoke with Dr. Andrade who agreed to admit the patient to their service. Patient admitted in fair condition condition. Chest X-Ray 01/27/19 19:01 IMPRESSION: Suspected pulmonary edema versus multifocal pneumonia. D/ / Ronnie Stubbs MD / Ronnie Stubbs MD Interpreting Provider: Ronnie Stubbs MD - Medical Records Medical records reviewed: Yes I reviewed the patient's medical records. - Lab Data Lab results reviewed: Yes I reviewed the patient's lab results. Result diagrams: 01/27/19 18:48 01/27/19 18:48 Lab Results 01/27/19 01/27/19 01/27/19 Range/Units 18:48 18:48 18:48 WBC 17.4 H (4.3-11.1) K/mcL RBC 4.57 (4.19-5.50) M/mcL Hgb 11.3 L (12.9-16.9) g/dL Hct 38.4 (37.5-50.1) % MCV 84.0 (83.0-100.0) fL MCH 24.7 L (28.0-33.3) pg MCHC 29.4 L (31.6-35.5) g/dL RDW 16.5 H (11.5-14.5) % Plt Count 508 H (140-400) K/mcL MPV 8.6 L (9.4-12.4) fL Immature Gran % 1.3 (0-4) % Seg Neutrophils % 81.6 % Lymphocytes % 9.9 % Monocytes % 6.2 % Eosinophils % 0.4 % Basophils % 0.6 % Neutrophils # 14.2 H (1.6-8.9) K/mcL Lymphocytes # 1.7 (0.6-4.6) K/mcL Monocytes # 1.1 (0.0-1.3) K/mcL Eosinophils # 0.1 (0.0-0.6) K/mcL Basophils # 0.1 (0.0-0.2) K/mcL Nucleated RBCs/100 WBC 0.1 H (0) /100 WBC Sodium 139 (136-145) mEq/L Potassium 3.9 (3.5-5.1) mEq/L Chloride 94 L (98-107) mEq/L Carbon Dioxide 38 H (23-29) mEq/L BUN 18 (8-23) mg/dL Creatinine 0.78 (0.70-1.30) mg/dL Est GFR ( Amer) > 60 (> 60) Est GFR (Non-Af Amer) > 60 (> 60) BUN/Creatinine Ratio 23 (6-26) Glucose 183 H (70-105) mg/dL Calculated Osmolality 295 (280-300) Calcium 8.6 (8.6-10.3) mg/dL Troponin I < 0.03 (< 0.04) ng/mL B-Natriuretic Peptide 189 H (Less than 100) pg/mL Urine Color (Yellow) Urine Clarity (Clear) Urine pH (5.0-8.0) pH Units Ur Specific [place] (1.010-1.025) Urine Protein (Neg-Trace) mg/dL Urine Glucose (UA) (Normal) mg/dL Urine Ketones (Negative) mg/dL Urine Blood (Negative) Urine Nitrite (Negative) Urine Bilirubin (Negative) Urine Urobilinogen (Normal) mg/dL Ur Leukocyte Esterase (Negative) 01/27/19 Range/Units 19:57 WBC (4.3-11.1) K/mcL RBC (4.19-5.50) M/mcL Hgb (12.9-16.9) g/dL Hct (37.5-50.1) % MCV (83.0-100.0) fL MCH (28.0-33.3) pg MCHC (31.6-35.5) g/dL RDW (11.5-14.5) % Plt Count (140-400) K/mcL MPV (9.4-12.4) fL Immature Gran % (0-4) % Seg Neutrophils % % Lymphocytes % % Monocytes % % Eosinophils % % Basophils % % Neutrophils # (1.6-8.9) K/mcL Lymphocytes # (0.6-4.6) K/mcL Monocytes # (0.0-1.3) K/mcL Eosinophils # (0.0-0.6) K/mcL Basophils # (0.0-0.2) K/mcL Nucleated RBCs/100 WBC (0) /100 WBC Sodium (136-145) mEq/L Potassium (3.5-5.1) mEq/L Chloride (98-107) mEq/L Carbon Dioxide (23-29) mEq/L BUN (8-23) mg/dL Creatinine (0.70-1.30) mg/dL Est GFR ( Amer) (> 60) Est GFR (Non-Af Amer) (> 60) BUN/Creatinine Ratio (6-26) Glucose (70-105) mg/dL Calculated Osmolality (280-300) Calcium (8.6-10.3) mg/dL Troponin I (< 0.04) ng/mL B-Natriuretic Peptide (Less than 100) pg/mL Urine Color Yellow (Yellow) Urine Clarity Clear (Clear) Urine pH 5.5 (5.0-8.0) pH Units Ur Specific [place] 1.019 (1.010-1.025) Urine Protein 30 H (Neg-Trace) mg/dL Urine Glucose (UA) Normal (Normal) mg/dL Urine Ketones Negative (Negative) mg/dL Urine Blood Negative (Negative) Urine Nitrite Negative (Negative) Urine Bilirubin Negative (Negative) Urine Urobilinogen Normal (Normal) mg/dL Ur Leukocyte Esterase Negative (Negative) - Radiology Data Radiology results reviewed: Yes I reviewed the patient's radiology results. - EKG Data EKG attestation: Yes I reviewed and interpreted this EKG. EKG results narrative: EKG done at 1847 review myself and the attending shows atrial fibrillation a rate of 113, NH interval 0, QRS 98, QTC 473. There is no acute ST changes no acute T-wave changes no other signs of ischemia. No signs of hypertrophy, heart rate, heart block. No Dilma. O2 sats regards/HOCM. No changes based on old EKG done 12/26/18 Sepsis Event Note - Evaluation Sepsis Screen: Sepsis Risk Current Stage of Suspected Sepsis: sepsis Possible Source of Sepsis: pulmonary - Focused Exam Date of Encounter: 01/27/19 Time of Encounter: 19:58 Vital Signs: Vital Signs Temp Pulse Resp BP Pulse Ox 01/27/19 19:44 105 26 123/63 95 01/27/19 18:59 103 22 117/66 93 01/27/19 18:55 94 01/27/19 18:49 30 96 01/27/19 18:43 99.2 F 127 19 138/100 91 Respiratory Exam: Present: rales, respiratory distress, accessory muscle use Cardiovascular Exam: Present: tachycardia. Absent: murmur, rubs, gallop Capillary Refill: < 2 seconds Peripheral Pulse Strength: 0+ absent Peripheral Pulse Location: Radial Skin Exam: diaphoretic - Bedside Monitoring Bedside Ultrasound Performed: No Passive Leg raise/fluid bolus: not performed
[2019-01-27 20:26] LABS: Bilirubin,Urine Negative (Negative); Blood,Urine Negative (Negative); Clarity,Urine Clear (Clear); Color,Urine Yellow (Yellow); Glucose,Urine (UA) Normal (Normal); Ketones,Urine Negative (Negative); Leukocyte Esterase,Urine Negative (Negative); Nitrite,Urine Negative (Negative); PH,Urine 5.5 pH Units (5.0-8.0); Protein,Urine 30 mg/dL (Neg-Trace); Specific Gravity,Urine 1.019 (1.010-1.025); Urobilinogen,Urine Normal (Normal)
[2019-01-27 20:33] LABS: Bacteria,Urine None Seen per hpf (None-Few); RBC,Urine 0-3 per hpf (0-3); Squamous Epithelial Cell,Urine Many per lpf (None-Few); WBC,Urine 0-3 per hpf (0-3)
[2019-01-27 20:46] LABS: Amorphous Sediment,Urine Moderate (Few); Hyaline Casts,Urine Many per lpf (None-Few); Mucus,Urine Few (Few)
[2019-01-27 20:47] LABS: INR 1.5; Prothrombin Time 16.8 Seconds (9.4-12.1)
[2019-01-27 20:50] LABS: Activated Partial Thrombo Time 35.6 Seconds (26.0-36.0)
[2019-01-27 20:57] LABS: Alanine Aminotransferase 9 Units/L (7-52); Albumin 3.1 g/dL (3.5-5.7); Albumin/Globulin Ratio 0.9 (1.1-2.2); Alkaline Phosphatase 50 Units/L (34-104); Aspartate Amino Transferase 11 Units/L (13-39); Bilirubin,Direct 0.2 mg/dL (0.0-0.2); Bilirubin,Indirect 0.3 mg/dL (0.0-1.2); Bilirubin,Total 0.5 mg/dL (0.3-1.0); Globulin 3.3 g/dL (2.4-3.5); Magnesium 1.9 mg/dL (1.6-2.6); Phosphorous 4.4 mg/dL (2.7-4.5); Total Protein 6.4 g/dL (6.4-8.9)
[2019-01-27 21:12] LABS: VBG HCO3 38 mEq/L (21-27); VBG PCO2 62 mmHg (41-51); VBG PO2 143 mmHg (25-50)
[2019-01-27] MEDS ORDERED: Naloxone 0.4 MG/ML INJ IVP PRN (22:22)
--- NOTE | 2019-01-27 22:33 | Internal Med History&Physical ---
Date of Encounter: 01/27/19 Time of Encounter: 21:30 Internal Medicine - H&P: HPI Chief complaint: Acute hypoxic respiratory failure Admitted From: Emergency Dept Plans for Post Hospital Care: Home History of present illness: Mr. Swenson is a 68 year old male Patient presented to the emergency room with 2 day history of shortness of breath. He has a history of COPD, and uses oxygen at home as well as a BiPAP machine. He has home physical therapists have been working with him and they have not noted that his oxygen drops with getting the patient up out of bed. On home pulse ox on 4 L patient's oxygen was noted to be 60%. Ambulance was called and patient was brought to the emergency room for further evaluation. In the emergency room patient's vital signs initially showed a temperature 99.2, pulse of 127, respiratory rate 19, blood pressure 138/100, and O2 saturation 96% on 50% BiPAP. CBC: White count 17.4, platelets 508, hemoglobin 11.3. BMP notable for glucose of 183 VBG: PH 7.40 Troponin undetectable BNP 189 Urinalysis negative for infection. Chest x-ray showed pulmonary edema versus multifocal pneumonia EKG showed sinus tachycardia with rate of 113 and QTC of 473. There are no ischemic changes. Blood cultures were drawn, patient met sepsis criteria and was started on vancomycin, Zosyn and Levaquin. He is also given IV steroids. Patient was admitted to the hospital for further management. Upon my evaluation, patient is resting comfortably in the hospital bed in no acute distress. He denies chest pain, abdominal pain, nausea, vomiting, diarrhea and constipation. He denies a productive cough as well. He also has not had fevers at home. His is at bedside. Family medical history includes diabetes and heart disease on his mother's side of the family. Patient is a DNI, but otherwise chest compressions okay. He is aware that if BiPAP does not work, there will be no further interventions. confirms this. Past Med Surg Social Fam HX - Past Medical History Medical history: atrial fibrillation, COPD, diabetes, hypertension, RA, thyroid disease Additional medical history: Lymphedema Psychiatric history: depression - Past Surgical History Surgical History: orthopedic, other Additional surgical history: LEFT 5TH TOE REMOVED - Social History Smoking Status: Former smoker Smokeless Tobacco Status: No Alcohol use: none Drug use: none - Family History Mother Living Status: Hx Family Cardiac Disorders: Yes Hx Family Endocrine Disorder: Yes (DM) Father Living Status: Hx Family Cardiac Disorders: Yes Internal Medicine - H&P: Meds Apixaban [Eliquis] 5 mg PO BID 09/05/15 [History] Ipratropium/Albuterol Neb [Duoneb] 3 ml IH Q4H PRN 09/05/15 [History] Insulin Lispro Protamin/Lispro [Humalog Mix 75-25 Kwikpen] 25 unit SQ BID 09/11/15 [History] Metoprolol XL (24 HR) Succ [Toprol Xl] 50 mg PO DAILY 04/16/17 [History] Tamsulosin [Flomax] 0.4 mg PO DAILY 04/16/17 [History] Multivits,Ca,Min/Iron/FA/Lycop [Centrum Men's Tablet] 1 tab PO DAILY 04/26/17 [ History] OxyCODONE ER (12 HR) [OxyCONTIN] 80 mg PO Q12H 10/07/17 [History] Furosemide [Lasix] 80 mg PO BID #30 tablet 10/11/17 [Rx] Potassium Chloride 40 meq PO BID #30 tab.er.prt 10/11/17 [Rx] Folic Acid 1 mg PO Q48H tablet 10/25/17 [Rx] Clotrimazole/Betamethasone Dip [Lotrisone Cream] 15 gm TP BID PRN 12/26/18 [History] Colestipol HCl [Colestid] 2 gm PO BID 12/26/18 [History] Ferrous Sulfate 650 mg PO QAM 12/26/18 [History] Hyoscyamine SL [Levsin Sl] 0.125 mg SL Q4HR PRN 12/26/18 [History] Levothyroxine Sodium 100 mcg PO 0630 12/26/18 [History] Vilazodone HCl [Viibryd] 40 mg PO DAILY 12/26/18 [History] Ascorbic Acid [Vitamin C] 500 mg PO QAM 01/27/19 [History] Allergy/AdvReac Type Severity Reaction Status Date / Time clindamycin AdvReac Diarrhea Verified 06/02/17 07:17 All Systems PM: A 10-system review of systems was performed and is negative for pertinent findings except as documented above in the HPI. - Constitutional Vitals: Temp Pulse Resp BP Pulse Ox 98.6 F 99 21 114/67 93 01/27/19 22:10 01/27/19 22:10 01/27/19 22:10 01/27/19 21:51 01/27/19 22:10 General appearance: Present: cooperative, A&O X 3, pleasant, no acute distress, obese, answers questions appropriately Exam: - - Head Head exam: Present: normal inspection Additional comments: BiPAP mask applied - Eye Eye exam: Present: EOMI, normal appearance - Respiratory Respiratory exam: Present: decreased breath sounds, CTAB. Absent: rales, respiratory distress, rhonchi Additional comments: Difficult to examine secondary to body habitus - Cardiovascular Cardiovascular exam: Present: irregular rhythm. Absent: diastolic murmur, systolic murmur - GI/Abdominal GI/Abdominal exam: Present: normal bowel sounds, soft. Absent: tenderness - Extremities Exam Extremities exam: Present: pedal edema, tenderness, warm, radial pulses palpable and symmetrical. Absent: calf tenderness Additional comments: Neuropathy pain bilaterally Lower extremity edema bilaterally, nonpitting - Neurological Exam Neurological exam: Present: motor sensory deficit. Absent: no focal deficits, strengths equal and symetr throughout, facial droop, speech deficit Additional comments: Right arm weakness secondary to brachial plexus injury Left foot drop - Skin Skin exam: Present: dry, normal color, warm Internal Med - H&P Results - Labs CBC & Chem 7: 01/27/19 18:48 01/27/19 18:48 Labs: Short CBC 01/27/19 Range/Units 18:48 WBC 17.4 H (4.3-11.1) K/mcL Hgb 11.3 L (12.9-16.9) g/dL Hct 38.4 (37.5-50.1) % Plt Count 508 H (140-400) K/mcL Neutrophils # 14.2 H (1.6-8.9) K/mcL BMP 01/27/19 18:48 Sodium 139 Potassium 3.9 Chloride 94 L Carbon Dioxide 38 H BUN 18 Creatinine 0.78 Glucose 183 H Calcium 8.6 Cardiac Enzymes 01/27/19 Range/Units 18:48 Troponin I < 0.03 (< 0.04) ng/mL Liver Function 01/27/19 Range/Units 18:48 Total Bilirubin 0.5 (0.3-1.0) mg/dL Direct Bilirubin 0.2 (0.0-0.2) mg/dL AST 11 L (13-39) Units/L ALT 9 (7-52) Units/L Alkaline Phosphatase 50 (34-104) Units/L Albumin 3.1 L (3.5-5.7) g/dL Urine 01/27/19 Range/Units 19:57 Urine Color Yellow (Yellow) Urine Clarity Clear (Clear) Urine pH 5.5 (5.0-8.0) pH Units Ur Specific [place] 1.019 (1.010-1.025) Urine Protein 30 H (Neg-Trace) mg/dL Urine Glucose (UA) Normal (Normal) mg/dL - ABG Interpretation ABG results: 01/27/19 21:07 VBG pH 7.40 VBG pCO2 62 H VBG pO2 143 H VBG HCO3 38 H - Impressions ITS Impressions Chest X-Ray 01/27/19 19:01 IMPRESSION: Suspected pulmonary edema versus multifocal pneumonia. D/ / Ronnie Stubbs MD / Ronnie Stubbs MD Interpreting Provider: Ronnie Stubbs MD - Assessment and Plan (1) Sepsis Current Visit: Yes Status: Acute Assessment and plan: Patient met sepsis criteria with initial vital signs of elevated pulse rate, white count of 17.4, and likely pneumonia as source. Treating pneumonia as below Initial lactate 0.8, repeat lactic acid pending. Qualifiers: Sepsis type: sepsis due to unspecified organism Qualified Code(s): A41.9 - Sepsis, unspecified organism (2) HCAP (healthcare-associated pneumonia) Current Visit: No Status: Resolved Assessment and plan: As seen on patient's chest x-ray, patient has multifocal pneumonia. Patient recently seen in the hospital and admitted December 26, and discharged on the . Continue IV antibiotics Follow-up blood cultures when available Follow-up MRSA surveillance screen Oxygen supplementation as below Monitor for worsening signs of infection (3) Acute on chronic respiratory failure with hypoxia and hypercapnia Current Visit: No Status: Acute Assessment and plan: Secondary to pneumonia and COPD history. Patient currently stable on BiPAP. Further intubation not desired by patient. Continue treating pneumonia as above Treating COPD as below (4) COPD (chronic obstructive pulmonary disease) Current Visit: No Status: Chronic Assessment and plan: Patient given IV steroids in the emergency room. Hypoxic on initial exam. Continue IV steroids Continue breathing treatments Oxygen supplementation as needed Respiratory therapy consult Treating pneumonia as above Qualifiers: COPD type: unspecified COPD Qualified Code(s): J44.9 - Chronic obstructive pulmonary disease, unspecified (5) Chronic atrial fibrillation Current Visit: No Status: Acute Assessment and plan: Patient on Eliquis, rate controlled Continue Eliquis (6) Congestive heart failure Current Visit: Yes Status: Chronic Assessment and plan: Patient has history of CHF. No Rales heard on exam. Caution use of IV fluids Continue to monitor Qualifiers: Heart failure type: unspecified Heart failure chronicity: unspecified Qualified Code(s): I50.9 - Heart failure, unspecified (7) Diabetes mellitus type 2 in obese Current Visit: No Status: Chronic Assessment and plan: Patient is an insulin dependent diabetic Monitor sugars every 6 hours then before meals at bedtime in the morning Nothing by mouth overnight then Diabetic diet at breakfast Low dose insulin sliding scale as needed Hold home meds. (8) DVT prophylaxis Current Visit: No Status: Acute Assessment and plan: Continue Eliquis - Time Spent With Patient Total time spent is greater than 50% in coordination of care (as documented) at patient's floor/unit and/or counseling patient: Greater than 35 minutes
[2019-01-27] MEDS ORDERED: D5% in Water 1,000 ML IVC PRN (23:28)
[2019-01-27] MEDS ORDERED: Dextrose Gel 15 GM/37.5 ML TUBE PO PRN ×2 (23:28)
[2019-01-27] MEDS ORDERED: *HR* Dextrose 50 % in Water (Syg) 50 ML SYRINGE IVP PRN (23:28)
[2019-01-27] MEDS ORDERED: Albuterol 2.5 MG/3 ML NEBULIZER IH PRN (23:33)
[2019-01-28 00:30] LABS: Hemoglobin 10.9 g/dL (12.9-16.9); Mean Corpuscular HGB Conc 29.5 g/dL (31.6-35.5); Mean Corpuscular Hemoglobin 24.5 pg (28.0-33.3); Mean Corpuscular Volume 83.1 fL (83.0-100.0); Platelet Count 433 K/mcL (140-400); Red Blood Count 4.45 M/mcL (4.19-5.50); Red Cell Distribution Width 16.3 % (11.5-14.5); White Blood Count 14.2 K/mcL (4.3-11.1)
[2019-01-28 00:31] LABS: Mean Platelet Volume 8.7 fL (9.4-12.4)
[2019-01-28 00:46] LABS: BUN/Creatinine Ratio 26 (6-26); Blood Urea Nitrogen 19 mg/dL (8-23); Calcium 8.4 mg/dL (8.6-10.3); Carbon Dioxide 37 mEq/L (23-29); Chloride 94 mEq/L (98-107); Glucose 189 mg/dL (70-105); Osmolality,Calculated 297 (280-300); Sodium 140 mEq/L (136-145); eGFR For African Americans > 60 (> 60); eGFR For Non-African Americans > 60 (> 60)
[2019-01-28] MEDS: Ipratropium/Albuterol Neb 3 ML IH SCH ×4 (03:39→22:49)
[2019-01-28] MEDS: Insulin LISPRO 300 UNITS/3 ML VIAL SQ SCH ×4 (03:50→17:23)
[2019-01-28] MEDS: MethylPREDNISolone 40 MG/ML VIAL IVP SCH ×5 (03:53→23:07)
[2019-01-28] MEDS: Piperacillin/Tazobactam 3.375 GM in 0.9 % Sodium Chloride Mini Bag 100 ML IVPB SCH ×4 (03:53→23:08)
[2019-01-28] MEDS: Apixaban 5 MG TABLET PO SCH ×2 (09:06→23:07)
[2019-01-28] MEDS: Metoprolol XL (24 HR) Succ 50 MG TAB.ER.24H PO SCH (09:06)
[2019-01-28] MEDS: Levofloxacin 750 MG/150 ML 750 MG/150 ML BAG IVPB SCH (09:26)
--- NOTE | 2019-01-28 10:06 | Internal Med Progress Note ---
Hospitalist Progress Note - Encounter Date of Encounter: 01/28/19 Time of Encounter: 09:31 - Subjective Interval History: Patient is still on BiPAP. Still has shortness of breath but slight better. Oxygen saturation declined to mid 80s while on 4 L oxygen by nasal cannula-given the trial but nursing staff in the morning. Review the lab with trending down white count. Reviewed the consulted note Denies fever chills headache dizziness nausea vomiting abdominal pain chest pain diarrhea urinary complaint. - Exam Vitals: Temp Pulse Resp BP Pulse Ox 99 F 81 28 125/79 97 01/28/19 07:57 01/28/19 07:57 01/28/19 07:57 01/28/19 07:57 01/28/19 07:57 Exam: General appearance: On BiPAP., A&O X 3. at bedside. Severe Morbid obese Head exam: Atraumatic Eye exam: EOMI, PERRLA ENT exam: Moist oral mucosa Neck nontender, supple Respiratory exam: Diminished sounds bilateral. No wheezing Cardiovascular exam: Regular rate and rhythm, no systolic murmur Abdominal exam: Soft, nontender, nondistended, positive bowel sounds Extremities exam: No calf tenderness, +1/2 pedal edema Present: Skin-no rash, warm, dry, intact Neurological exam: Alert, awake, oriented 3, CN II-XII intact, no focal deficits. No facial droop. - Assessment and Plan (1) Acute on chronic respiratory failure with hypoxia and hypercapnia Current Visit: No Status: Acute Assessment and Plan: Multifactorial including COPD exacerbation, decompensated heart failure, pneumonia, hypoventilation syndrome. At present on BiPAP. ABG ordered. Consulted production controller. Please see below for the detailed Patient and family discussed about the Code status and they changed to full code Spent more than 35 minutes inpatient care and communication with family nursing staff and consultants (2) COPD (chronic obstructive pulmonary disease) Current Visit: No Status: Chronic Assessment and Plan: CO PD exacerbation. Acute on chronic. Continue IV steroid, oxygen supplemen tation, BiPAP, breathing treatment. Consulted production controller. Patient states that he never had evaluation by production controller. Respiratory panel negative. (3) HCAP (healthcare-associated pneumonia) Current Visit: No Status: Resolved Assessment and Plan: As seen on patient's chest x-ray, patient has multifocal pneumonia. Patient recently seen in the hospital and admitted December 26, and discharged on the . Continue IV antibiotics. Respiratory panel negative. MRSA swab positive Follow-up blood cultures report Pro calcitonin high.-Continue triple antibiotic for now but will restart de- escalate based on clinical response. Pulmonologists on board-reviewed the note (4) Chronic atrial fibrillation Current Visit: No Status: Acute Assessment and Plan: Patient on Eliquis, rate controlled Continue Eliquis (5) Diabetes mellitus type 2 in obese Current Visit: No Status: Chronic Assessment and Plan: Well controlled. Continue Accu-Chek. Diabetes diet once able to tolerate diet. Patient takes insulin 75/25 25 unit twice a day at home. SSI coverage for now. (6) Congestive heart failure Current Visit: Yes Status: Chronic Assessment and Plan: Possible acute exacerbation. Increase shortness of breath with decreased breath sound in pedal edema. Raised BNP. Chest x-ray suspected pulmonary edema versus multifocal pneumonia. IV Lasix 40 mg IV twice a day, a strict I&O's, daily weight. Continue home dose of potassium supplementation Echocardiogram done in December 2018 Impressions: Technically sub-optimal due to body habitus and poor echocardiographic windows. LVEF 55%. Grossly, overall LV function appears to be normal. Mildly dilated left ventricle. Atypical septal motion consistent with bundle branch block. Indeterminate diastolic function. Grossly, the right ventricle appears to be dilated and mildly hypokinetic. No obvious significant valvular dysfunction. Unable to estimate RVSP due to lack of adequate TR jet. Left Ventricular Wall Motion: Rest Echo Findings All wall segments showed normal motion. (7) Sepsis Current Visit: Yes Status: Acute Assessment and Plan: Patient met sepsis criteria with initial vital signs of elevated pulse rate, white count of 17.4, and likely pneumonia as source. Lactic acid normal on admission. Pro-calcitonin high.Treating pneumonia with vancomycin, Zosyn, Levaquin-started on admission. Will de-escalate eventually. (8) DVT prophylaxis Current Visit: No Status: Acute Assessment and Plan: Continue Eliquis - Time Spent with Patient Total time spent is greater than 50% in coordination of care (as documented) at patient's floor/unit and/or counseling patient: Greater than 35 minutes Plan of Care Discussed with: consultant internship Internal Medicine: Result - Labs CBC & Chem 7: 01/28/19 00:13 01/28/19 00:13 Labs: Short CBC 01/27/19 01/28/19 Range/Units 18:48 00:13 WBC 17.4 H 14.2 H (4.3-11.1) K/mcL Hgb 11.3 L 10.9 L (12.9-16.9) g/dL Hct 38.4 37.0 L (37.5-50.1) % Plt Count 508 H 433 H (140-400) K/mcL Neutrophils # 14.2 H (1.6-8.9) K/mcL BMP 01/27/19 01/28/19 18:48 00:13 Sodium 139 140 Potassium 3.9 4.0 Chloride 94 L 94 L Carbon Dioxide 38 H 37 H BUN 18 19 Creatinine 0.78 0.73 Glucose 183 H 189 H Calcium 8.6 8.4 L Cardiac Enzymes 01/27/19 Range/Units 18:48 Troponin I < 0.03 (< 0.04) ng/mL Liver Function 01/27/19 Range/Units 18:48 Total Bilirubin 0.5 (0.3-1.0) mg/dL Direct Bilirubin 0.2 (0.0-0.2) mg/dL AST 11 L (13-39) Units/L ALT 9 (7-52) Units/L Alkaline Phosphatase 50 (34-104) Units/L Albumin 3.1 L (3.5-5.7) g/dL Urine 01/27/19 Range/Units 19:57 Urine Color Yellow (Yellow) Urine Clarity Clear (Clear) Urine pH 5.5 (5.0-8.0) pH Units Ur Specific [place] 1.019 (1.010-1.025) Urine Protein 30 H (Neg-Trace) mg/dL Urine Glucose (UA) Normal (Normal) mg/dL - ABG Interpretation ABG results: PT/INR, D-dimer PT 16.8 Seconds (9.4-12.1) H 01/27/19 18:48 - Impressions Impressions Chest X-Ray 01/27/19 19:01 IMPRESSION: Suspected pulmonary edema versus multifocal pneumonia. D/ / Ronnie Stubbs MD / Ronnie Stubbs MD Interpreting Provider: Ronnie Stubbs MD Consult Discharge Plan - Plan Referrals: Zion Hernandes DO [Primary Care Provider] - (2) COPD (chronic obstructive pulmonary disease) Qualifiers: COPD type: unspecified COPD Qualified Code(s): J44.9 - Chronic obstructive pulmonary disease, unspecified (6) Congestive heart failure Qualifiers: Heart failure type: diastolic Heart failure chronicity: acute on chronic Qualified Code(s): I50.33 - Acute on chronic diastolic (congestive) heart failure (7) Sepsis Qualifiers: Sepsis type: sepsis due to unspecified organism Qualified Code(s): A41.9 - Sepsis, unspecified organism
--- NOTE | 2019-01-28 10:34 | Pulmonology Consult Note ---
Date of Encounter: 01/28/19 Time of Encounter: 10:27 Assessment and Plan (1) Acute on chronic respiratory failure with hypoxia and hypercapnia Current Visit: No Status: Acute This is multifactorial including suspected decompensated heart failure as well as his COPD exacerbation there is also alveolar hypoventilation from obesity hypoventilation syndrome. His current posterior is not conducive to effective gas exchange and recommend sending the patient plan continue to use noninvasive ventilation through the course of the day. As patient is less lethargic and able to take deeper breaths noninvasive ventilation can be weaned off to nasal cannula however would keep patient nothing by mouth until this happens. (2) Pneumonia Current Visit: No Status: Acute Equivocal diagnosis of pneumonia I suspect this is more reflective of a heart failure he is on empiric antibiotics recommend checking pro-calcitonin leukocytosis is likely reactive for secondary to use of systemic glucocorticoids and Jillian calcitonin normal with stop all antimicrobials could consider use of macrolide antibiotic for anti-inflammatory properties for underlying COPD with acute exacerbation Qualifiers: Pneumonia type: due to unspecified organism Laterality: left Lung location: lower lobe of lung Qualified Code(s): J18.1 - Lobar pneumonia, unspecified organism (3) Acute on chronic diastolic heart failure Current Visit: No Status: Acute Patient is volume overloaded and had evidence of heart failure at last echocardiogram BNP is elevated I recommend aggressive diuresis such as Bumex 1 g twice a day I suspect he will need a Puri catheter placed for strict intake and output monitoring. Continue to trend the daily serum creatinine/GFR and replace electrolytes including magnesium tata. Recommend fluid restriction to at least 1 L daily. Counseled and patient about avoiding salt as much as possible in the diet (4) COPD exacerbation Current Visit: Yes Status: Acute Likely COPD exacerbation he is on systemic glucocorticoids methylprednisolone IV 40 mg twice a day should be sufficient for now schedule bronchodilators and Symbicort 160/4.52 puffs twice a day tobacco abuse is in remission may benefit from macrolide antibiotic (5) Obesity hypoventilation syndrome Current Visit: No Status: Acute Weight loss strongly encouraged effective for patient to make a meaningful recovery suspect he will have to undergo aggressive weight loss regimen and could be considered for some very after procedure down the line potentially continue positive airway pressure support Thank you for the consultation Do not hesitate to call me with any questions or concerns David Steele [phone] History of Present Illness Consult date: 01/28/19 Requesting physician: Lara Mendoza Reason for consult: hypoxemia Chief complaint: Difficulty in Breathing History of present illness: This is a pleasant 68-year-old gentleman with a past medical history of morbid obesity (BMI 64) as well as COPD and chronic respiratory failure including abdominal oxygen use at home and BiPAP for GABRIELA. He presented for shortness of breath was noted to be hypoxic requiring more than 4 L so with oxygen saturation at home still in the 60s. In the emergency room he was tachycardic with blood pressure 138/100 oxygen saturation 96% on 50% BiPAP. Chest x-ray was notable for multifocal airspace disease and there is consideration of sepsis so he was started on coverage for hospital associated infections as well as atypical pneumonia pancultures were obtained and he was also given a dose of IV systemic glucocorticoids. Pulmonary was consulted for further evaluation as patient had actually recently been discharged from the hospital (12/27) for respiratory failure for CHF for which she went to diuresis. There is also a consideration of pneumonia and he was treated with antibiotics. I gathered mostly history from his was at bedside and she relates that he had been doing relatively well after discharge from the hospital but over the last few days physical and occupational therapy had been working with him at home and noted that his oxygen saturation had been much lower. She denies any [place] fevers or productive cough but felt like he was trying to clear his lungs but nothing would come out. Patient was a heavy cigarette smoker of more than 2 packs a day for well over 30 years but is now in remission. He worked in the [employer] system without any significant industrial exposure Past Med Surg Social Fam HX - Past Medical History Medical history: atrial fibrillation, COPD, diabetes, hypertension, RA, thyroid disease Additional medical history: Lymphedema Psychiatric history: depression - Past Surgical History Surgical History: orthopedic, other Additional surgical history: LEFT 5TH TOE REMOVED - Social History Smoking Status: Former smoker Smokeless Tobacco Status: No Alcohol use: none Drug use: none - Family History Mother Living Status: Hx Family Cardiac Disorders: Yes Hx Family Endocrine Disorder: Yes (DM) Father Living Status: Hx Family Cardiac Disorders: Yes Medications and Allergies Apixaban [Eliquis] 5 mg PO BID 09/05/15 [History] Ipratropium/Albuterol Neb [Duoneb] 3 ml IH Q4H PRN 09/05/15 [History] Insulin Lispro Protamin/Lispro [Humalog Mix 75-25 Kwikpen] 25 unit SQ BID 09/11/15 [History] Metoprolol XL (24 HR) Succ [Toprol Xl] 50 mg PO DAILY 04/16/17 [History] Tamsulosin [Flomax] 0.4 mg PO DAILY 04/16/17 [History] Multivits,Ca,Min/Iron/FA/Lycop [Centrum Men's Tablet] 1 tab PO DAILY 04/26/17 [History] OxyCODONE ER (12 HR) [OxyCONTIN] 80 mg PO Q12H 10/07/17 [History] Furosemide [Lasix] 80 mg PO BID #30 tablet 10/11/17 [Rx] Potassium Chloride 40 meq PO BID #30 tab.er.prt 10/11/17 [Rx] Folic Acid 1 mg PO Q48H tablet 10/25/17 [Rx] Clotrimazole/Betamethasone Dip [Lotrisone Cream] 15 gm TP BID PRN 12/26/18 [History] Colestipol HCl [Colestid] 2 gm PO BID 12/26/18 [History] Ferrous Sulfate 650 mg PO QAM 12/26/18 [History] Hyoscyamine SL [Levsin Sl] 0.125 mg SL Q4HR PRN 12/26/18 [History] Levothyroxine Sodium 100 mcg PO 0630 12/26/18 [History] Vilazodone HCl [Viibryd] 40 mg PO DAILY 12/26/18 [History] Ascorbic Acid [Vitamin C] 500 mg PO QAM 01/27/19 [History] Allergy/AdvReac Type Severity Reaction Status Date / Time clindamycin AdvReac Diarrhea Verified 06/02/17 07:17 All Systems: The remainder of the systems were reviewed and are negative Physical Examination Vital Signs: Vital Signs, Last 4 Hours Temp Pulse Resp BP Pulse Ox 01/28/19 07:57 99 F 81 28 125/79 97 General appearance: other (Patient is lying in bed in a flat position he is not appear to be in any distress he is lethargic but arouses to my voice) Effort: normal Auscultation: bilateral: diminished breath sounds, other (No wheezes appreciated) Cardiovascular: regular rate and rhythm Gastrointestinal: other (Massively obese and nondistended nontender) Integumentary: normal Extremities: edema Musculoskeletal: no deformities normal mental status, non-focal exam, pupils equal and round mood appropriate Results - Laboratory Findings CBC and BMP: 01/28/19 00:13 01/28/19 00:13 PT/INR, D-dimer PT 16.8 Seconds (9.4-12.1) H 01/27/19 18:48 Abnormal lab findings: Abnormal lab results WBC 14.2 K/mcL (4.3-11.1) H 01/28/19 00:13 Hgb 10.9 g/dL (12.9-16.9) L 01/28/19 00:13 Hct 37.0 % (37.5-50.1) L 01/28/19 00:13 MCH 24.5 pg (28.0-33.3) L 01/28/19 00:13 MCHC 29.5 g/dL (31.6-35.5) L 01/28/19 00:13 RDW 16.3 % (11.5-14.5) H 01/28/19 00:13 Plt Count 433 K/mcL (140-400) H 01/28/19 00:13 MPV 8.7 fL (9.4-12.4) L 01/28/19 00:13 14.2 K/mcL (1.6-8.9) H 01/27/19 18:48 Nucleated RBCs/100 WBC 0.1 /100 WBC (0) H 01/27/19 18:48 PT 16.8 Seconds (9.4-12.1) H 01/27/19 18:48 VBG pCO2 62 mmHg (41-51) H 01/27/19 21:07 VBG pO2 143 mmHg (25-50) H 01/27/19 21:07 VBG HCO3 38 mEq/L (21-27) H 01/27/19 21:07 Chloride 94 mEq/L (98-107) L 01/28/19 00:13 Carbon Dioxide 37 mEq/L (23-29) H 01/28/19 00:13 Glucose 189 mg/dL (70-105) H 01/28/19 00:13 POC Glucose 175 mg/dL (70-99) H 01/27/19 22:19 Calcium 8.4 mg/dL (8.6-10.3) L 01/28/19 00:13 AST 11 Units/L (13-39) L 01/27/19 18:48 B-Natriuretic Peptide 189 pg/mL (Less than 100) H 01/27/19 18:48 3.1 g/dL (3.5-5.7) L 01/27/19 18:48 0.9 (1.1-2.2) L 01/27/19 18:48 30 mg/dL (Neg-Trace) H 01/27/19 19:57 Ur Squamous Epith Cells Many per lpf (None-Few) H 01/27/19 19:57 Amorphous Sediment Moderate (Few) H 01/27/19 19:57 Hyaline Casts Many per lpf (None-Few) H 01/27/19 19:57 - Microbiology Findings Microbiology Findings: Microbiology, Last 48 Hours 01/27/19 20:51 Blood Culture - Preliminary Peripheral Venipuncture Culture is incubating and being continuously monitored for growth. Final report to follow. 01/27/19 18:48 Blood Culture - Preliminary Peripheral Venipuncture Culture is incubating and being continuously monitor ed for growth. Final report to follow. - Diagnostic Findings Chest x-ray: report reviewed, image reviewed CT scan - chest: report reviewed, image reviewed - Clinical Findings Intake & Output: Intake & Output 01/27/19 01/28/19 01/28/19 23:59 07:59 15:59 Intake Total 0 / 0 0 / 0 Output Total 0 / 0 0 / 0 Balance 0 / 0 0 / 0 Weight 192.4 kg 192.4 kg Consult Discharge Plan - Plan Referrals: Zion Hernandes DO [Primary Care Provider] -
[2019-01-28 10:35] LABS: Adenovirus Not Detected (Not Detect); Bordetella Pertussis Not Detected (Not Detect); Chlamydophila pneumoniae Not Detected (Not Detect); Coronavirus 229E Not Detected (Not Detect); Coronavirus HKU1 Not Detected (Not Detect); Coronavirus NL63 Not Detected (Not Detect); Coronavirus OC43 Not Detected (Not Detect); Human Metapneumovirus Not Detected (Not Detect); Human Rhinovirus/Enterovirus Not Detected (Not Detect); Influenza A Subtype 2009 H1 Not Detected (Not Detect); Influenza A Untypeable Not Detected (Not Detect); Influenza B Not Detected (Not Detect); Mycoplasma pneumoniae Not Detected (Not Detect); Parainfluenza Virus 1 Not Detected (Not Detect); Parainfluenza Virus 2 Not Detected (Not Detect); Parainfluenza Virus 3 Not Detected (Not Detect); Parainfluenza Virus 4 Not Detected (Not Detect); Respiratory Syncytial Virus Not Detected (Not Detect)
[2019-01-28 11:19] LABS: ABG Base Excess 13 mEq/L (-2 to 3); ABG HCO3 40 mEq/L (21-27); ABG Oxygen Saturation 98 % (95-98); ABG PCO2 61 mmHg (35-45); ABG PH 7.43 pH Units (7.32-7.45); ABG PO2 104 mmHg (85-104); ABG TCO2 42 mEq/L (20-26)
[2019-01-28] MEDS: *HR* OxyCODONE ER (12 HR) 40 MG TABLET PO SCH (14:48)
[2019-01-28] MEDS ORDERED: D5% in Water 1,000 ML IVC PRN (15:31)
--- NOTE | 2019-01-28 16:48 | Electrocardiograph Report ---
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
[2019-01-28] MEDS ORDERED: Piperacillin/Tazobactam 3.375 GM VIAL ONE (17:19)
[2019-01-28] MEDS: Furosemide 40 MG/4 ML VIAL IVP SCH (17:23)
[2019-01-28] MEDS ORDERED: Furosemide 40 MG in 0.9 % Sodium Chloride 50 ML IV SCH (21:00)
[2019-01-29] MEDS: *HR* OxyCODONE ER (12 HR) 40 MG TABLET PO SCH ×2 (01:54→16:58)
[2019-01-29] MEDS: Ipratropium/Albuterol Neb 3 ML IH SCH ×4 (04:03→22:03)
[2019-01-29] MEDS: MethylPREDNISolone 40 MG/ML VIAL IVP SCH ×3 (05:08→16:57)
[2019-01-29 05:50] LABS: Basophils % 0.1 %; Hematocrit 34.9 % (37.5-50.1); Hemoglobin 10.2 g/dL (12.9-16.9); Immature Granulocytes % 1.8 % (0-4); Lymphocytes # 0.9 K/mcL (0.6-4.6); Lymphocytes % 5.5 %; Mean Corpuscular HGB Conc 29.2 g/dL (31.6-35.5); Mean Corpuscular Hemoglobin 24.9 pg (28.0-33.3); Mean Corpuscular Volume 85.1 fL (83.0-100.0); Mean Platelet Volume 8.6 fL (9.4-12.4); Monocytes # 0.7 K/mcL (0.0-1.3); Monocytes % 4.1 %; Neutrophils # 14.1 K/mcL (1.6-8.9); Nucleated Red Blood Cells 0.1 /100 WBC (0); Platelet Count 507 K/mcL (140-400); Red Cell Distribution Width 15.9 % (11.5-14.5); Segmented Neutrophils % 88.5 %; White Blood Count 15.9 K/mcL (4.3-11.1)
[2019-01-29 06:09] LABS: BUN/Creatinine Ratio 27 (6-26); Blood Urea Nitrogen 25 mg/dL (8-23); Calcium 8.5 mg/dL (8.6-10.3); Carbon Dioxide 38 mEq/L (23-29); Chloride 95 mEq/L (98-107); Glucose 292 mg/dL (70-105); Osmolality,Calculated 305 (280-300); Potassium 3.8 mEq/L (3.5-5.1); Sodium 140 mEq/L (136-145); eGFR For African Americans > 60 (> 60); eGFR For Non-African Americans > 60 (> 60)
[2019-01-29] MEDS: Furosemide 40 MG/4 ML VIAL IVP SCH ×2 (08:18→16:56)
[2019-01-29] MEDS: Metoprolol XL (24 HR) Succ 50 MG TAB.ER.24H PO SCH (08:18)
[2019-01-29] MEDS: Apixaban 5 MG TABLET PO SCH ×2 (08:18→23:09)
[2019-01-29] MEDS: Insulin LISPRO 300 UNITS/3 ML VIAL SQ SCH ×3 (08:19→16:57)
[2019-01-29] MEDS: (Vilazodone Hcl [Viibryd] 40 MG) PO SCH (08:21)
[2019-01-29] MEDS: Levofloxacin 750 MG/150 ML 750 MG/150 ML BAG IVPB SCH (09:18)
--- NOTE | 2019-01-29 09:40 | Internal Med Progress Note ---
Hospitalist Progress Note - Encounter Date of Encounter: 01/29/19 Time of Encounter: 09:40 - Subjective Interval History: Feeling better and shortness of breath. Required BiPAP in the night. At present patient is on 5 L oxygen by nasal cannula. Review of the lab in vitals. Slight worsening of white count. at bedside. Non-ambulating. Patient h as been bedridden for almost 3 years Denies fever chills nausea vomiting headache dizziness chest pain abdominal pain diarrhea - Exam Vitals: Temp Pulse Resp BP Pulse Ox 98.4 F 79 14 124/71 92 01/29/19 06:00 01/29/19 06:00 01/29/19 06:00 01/29/19 06:00 01/29/19 06:00 Exam: General appearance: On 5 L oxygen by nasal cannula. A&O X 3. at bedside. Severe Morbid obese Eye exam: EOMI, PERRLA ENT exam: Moist oral mucosa Neck nontender, supple Respiratory exam: Diminished sounds bilateral. No wheezing Cardiovascular exam: Regular rate and rhythm, no systolic murmur Abdominal exam: Soft, nontender, nondistended, positive bowel sounds Extremities exam: No calf tenderness, +1/2 pedal edema Present: Patient has chronic mild swelling in lower extremity more on the left side. Left foot drop Skin-no rash, warm, dry, intact Neurological exam: Alert, awake, oriented 3, CN II-XII intact, no focal deficits. No facial droop. - Assessment and Plan (1) Acute on chronic respiratory failure with hypoxia and hypercapnia Current Visit: No Status: Acute Assessment and Plan: Multifactorial including COPD exacerbation, decompensated heart failure, pneumonia, hypoventilation syndrome. BiPAP when necessary. Patient uses BiPAP overnight at home in 3 L oxygen by nasal cannula due to chronic respiratory failure. On board cleaner wall. Please see below for the detailed Patient and family discussed about the Code status and they changed to full code (2) Pneumonia Current Visit: Yes Status: Acute Assessment and Plan: Possibly as As patient had recent hospitalization. Hi Pro calcitonin with leukocytosis. Continue above-mentioned antibiotic but will de-escalate eventually. Continue oxygen supplementation, nebulizer. Sputum culture ordered. MRSA swab positive Respiratory panel negative (3) Sepsis Current Visit: Yes Status: Acute Assessment and Plan: On admission Patient met sepsis criteria with initial vital signs of elevated pulse rate, white count of 17.4, and likely pneumonia as source. Lactic acid normal on admission. Pro-calcitonin high. Treating pneumonia with vancomycin, Zosyn, Levaquin-started on admission. Urine Legionella and Streptococcus negative No growth on blood culture yet Worsening of white count Will continue same antibiotic for now but will consider de-escalation eventually (4) COPD (chronic obstructive pulmonary disease) Current Visit: No Status: Chronic Assessment and Plan: CO PD exacerbation. Acute on chronic. Continue IV steroid but tapering down, oxygen supplementation, BiPAP, breathing treatment. On board cleaner wall. Respiratory panel negative. (5) Chronic atrial fibrillation Current Visit: No Status: Acute Assessment and Plan: Patient on Eliquis, rate controlled Continue Eliquis (6) Diabetes mellitus type 2 in obese Current Visit: No Status: Chronic Assessment and Plan: I blood glucose level therefore will resume home dose insulin.. Continue Accu- Chek. Diabetes diet . Patient takes insulin 75/25 25 unit twice a day at home. SSI coverage for now. (7) Congestive heart failure Current Visit: Yes Status: Chronic Assessment and Plan: Possible acute exacerbation. Increase shortness of breath with decreased breath sound in pedal edema. Raised BNP. Chest x-ray suspected pulmonary edema versus multifocal pneumonia. IV Lasix 40 mg IV twice a day, a strict I&O's, daily weight. Continue home dose of potassium supplementation. Will assess patient 24 hourly and make further decision for further adjustment about diuretic dose. Will consult cardiology if needed Echocardiogram done in December 2018 Impressions: Technically sub-optimal due to body habitus and poor echocardiographic windows. LVEF 55%. Grossly, overall LV function appears to be normal. Mildly dilated left ventricle. Atypical septal motion consistent with bundle branch block. Indeterminate diastolic function. Grossly, the right ventricle appears to be dilated and mildly hypokinetic. No obvious significant valvular dysfunction. Unable to estimate RVSP due to lack of adequate TR jet. Left Ventricular Wall Motion: Rest Echo Findings All wall segments showed normal motion. (8) DVT prophylaxis Current Visit: No Status: Acute Assessment and Plan: Continue Eliquis (9) Generalized weakness Current Visit: Yes Status: Acute Assessment and Plan: PTOT ordered. Patient has been bedridden and wheelchair-bound chronically. family services worker on board for discharge plan. (10) Goals of care, counseling/discussion Current Visit: Yes Status: Acute Assessment and Plan: Discuss CODE STATUS with patient and family and decided for full code. OT on board - Time Spent with Patient Total time spent is greater than 50% in coordination of care (as documented) at patient's floor/unit and/or counseling patient: 25 - 35 minutes Plan of Care Discussed with: patient Internal Medicine: Result - Labs CBC & Chem 7: 01/29/19 05:28 01/29/19 05:28 Labs: Short CBC 01/29/19 Range/Units 05:28 WBC 15.9 H (4.3-11.1) K/mcL Hgb 10.2 L (12.9-16.9) g/dL Hct 34.9 L (37.5-50.1) % Plt Count 507 H (140-400) K/mcL Neutrophils # 14.1 H (1.6-8.9) K/mcL BMP 01/29/19 05:28 Sodium 140 Potassium 3.8 Chloride 95 L Carbon Dioxide 38 H BUN 25 H Creatinine 0.93 Glucose 292 H Calcium 8.5 L - ABG Interpretation ABG results: ABG ABG pH 7.43 pH Units (7.32-7.45) 01/28/19 11:16 ABG pCO2 61 mmHg (35-45) H 01/28/19 11:16 ABG pO2 104 mmHg (85-104) 01/28/19 11:16 ABG O2 Saturation 98 % (95-98) 01/28/19 11:16 PT/INR, D-dimer PT 16.8 Seconds (9.4-12.1) H 01/27/19 18:48 Consult Discharge Plan - Plan Referrals: Zion Hernandes DO [Primary Care Provider] - (2) Pneumonia Qualifiers: Pneumonia type: due to unspecified organism Laterality: unspecified lateralit y Lung location: unspecified part of lung Qualified Code(s): J18.9 - Pneumonia, unspecified organism (3) Sepsis Qualifiers: Sepsis type: sepsis due to unspecified organism Qualified Code(s): A41.9 - Sepsis, unspecified organism (4) COPD (chronic obstructive pulmonary disease) Qualifiers: COPD type: unspecified COPD Qualified Code(s): J44.9 - Chronic obstructive pulmonary disease, unspecified (7) Congestive heart failure Qualifiers: Heart failure type: diastolic Heart failure chronicity: acute on chronic Qualified Code(s): I50.33 - Acute on chronic diastolic (congestive) heart failure
[2019-01-29] MEDS: Piperacillin/Tazobactam 3.375 GM in 0.9 % Sodium Chloride Mini Bag 100 ML IVPB SCH ×2 (09:55→16:57)
[2019-01-29] MEDS ORDERED: Insulin NPH/REG 70/30 100 UNIT/ML (x5UNIT) SQ SCH (21:00)
[2019-01-29] MEDS: Insulin NPH/REG 70/30 100 UNIT/ML (x5UNIT) SQ SCH (23:09)
[2019-01-30] MEDS: MethylPREDNISolone 40 MG/ML VIAL IVP SCH ×3 (00:49→17:03)
[2019-01-30] MEDS: Piperacillin/Tazobactam 3.375 GM in 0.9 % Sodium Chloride Mini Bag 100 ML IVPB SCH ×3 (00:49→17:04)
[2019-01-30] MEDS: Ipratropium/Albuterol Neb 3 ML IH SCH ×4 (03:29→23:03)
[2019-01-30] MEDS: *HR* OxyCODONE ER (12 HR) 40 MG TABLET PO SCH ×2 (06:30→17:02)
[2019-01-30 07:11] LABS: Basophils % 0.1 %; Hematocrit 36.2 % (37.5-50.1); Hemoglobin 10.6 g/dL (12.9-16.9); Immature Granulocytes % 2.2 % (0-4); Lymphocytes % 6.6 %; Mean Corpuscular HGB Conc 29.3 g/dL (31.6-35.5); Mean Corpuscular Hemoglobin 24.8 pg (28.0-33.3); Mean Corpuscular Volume 84.6 fL (83.0-100.0); Mean Platelet Volume 8.6 fL (9.4-12.4); Monocytes # 0.6 K/mcL (0.0-1.3); Neutrophils # 13.4 K/mcL (1.6-8.9); Platelet Count 473 K/mcL (140-400); Red Blood Count 4.28 M/mcL (4.19-5.50); Red Cell Distribution Width 16.2 % (11.5-14.5); Segmented Neutrophils % 87.1 %; White Blood Count 15.4 K/mcL (4.3-11.1)
[2019-01-30 07:34] LABS: BUN/Creatinine Ratio 32 (6-26); Blood Urea Nitrogen 29 mg/dL (8-23); Calcium 8.4 mg/dL (8.6-10.3); Carbon Dioxide 38 mEq/L (23-29); Chloride 100 mEq/L (98-107); Glucose 314 mg/dL (70-105); Osmolality,Calculated 314 (280-300); Potassium 4.3 mEq/L (3.5-5.1); Sodium 143 mEq/L (136-145); eGFR For African Americans > 60 (> 60); eGFR For Non-African Americans > 60 (> 60)
[2019-01-30] MEDS: Metoprolol XL (24 HR) Succ 50 MG TAB.ER.24H PO SCH (09:14)
[2019-01-30] MEDS: Furosemide 40 MG/4 ML VIAL IVP SCH ×2 (09:14→17:02)
[2019-01-30] MEDS: Insulin LISPRO 300 UNITS/3 ML VIAL SQ SCH ×4 (09:14→22:16)
[2019-01-30] MEDS: Apixaban 5 MG TABLET PO SCH ×2 (09:14→22:16)
[2019-01-30] MEDS: Insulin NPH/REG 70/30 100 UNIT/ML (x5UNIT) SQ SCH (09:15)
[2019-01-30] MEDS: Levofloxacin 750 MG/150 ML 750 MG/150 ML BAG IVPB SCH (09:17)
[2019-01-30] MEDS: (Vilazodone Hcl [Viibryd] 40 MG) PO SCH (10:04)
--- NOTE | 2019-01-30 13:14 | Internal Med Progress Note ---
Hospitalist Progress Note - Encounter Date of Encounter: 01/30/19 Time of Encounter: 10:10 - Subjective Interval History: No acute event overnight. Shortness of breath slight better. Requiring BiPAP at night and at present for liter oxygen by nasal cannula. Patient takes 3 L oxygen by nasal cannula at home. at bedside. As per he has been m aking good urine output but not matching with the chart. Review the vitals and lab. Persistent leukocytosis. High blood glucose level Denies fever chills nausea vomiting headache chest pain abdominal pain diarrhea. Has intermittent cough - Exam Vitals: Temp Pulse Resp BP Pulse Ox 98.2 F 88 24 109/68 92 01/30/19 03:59 01/30/19 11:42 01/30/19 10:23 01/30/19 11:42 01/30/19 11:42 Exam: General appearance: On 5 L oxygen by nasal cannula. A&O X 3. at bedside. Severe Morbid obese Eye exam: EOMI, PERRLA ENT exam: Moist oral mucosa Neck nontender, supple Respiratory exam: Diminished sounds bilateral. No wheezing Cardiovascular exam: Regular rate and rhythm, no systolic murmur Abdominal exam: Soft, nontender, nondistended, positive bowel sounds Extremities exam: No calf tenderness, +2 pedal edema Present: Patient has chronic mild swelling in lower extremity more on the left side-has baseline. Left foot drop Skin-no rash, warm, dry, intact Neurological exam: Alert, awake, oriented 3, CN II-XII intact, no focal deficits. No facial droop. - Assessment and Plan (1) Acute on chronic respiratory failure with hypoxia and hypercapnia Current Visit: No Status: Acute Assessment and Plan: Multifactorial including COPD exacerbation, decompensated heart failure, pneumon ia, hypoventilation syndrome. BiPAP when necessary. Patient uses BiPAP overnight at home in 3 L oxygen by nasal cannula due to chronic respiratory failure. On board therapist. Please see details as below (2) Pneumonia Current Visit: Yes Status: Acute Assessment and Plan: Possibly as As patient had recent hospitalization. Hi Pro calcitonin with leukocytosis. Continue above-mentioned antibiotic but will de-escalate eventually. Continue oxygen supplementation, nebulizer. Sputum culture ordered. MRSA swab positive Legionella and Streptococcus negative Respiratory panel negative Consulted ID for antibiotic recommendation. (3) Sepsis Current Visit: Yes Status: Acute Assessment and Plan: On admission Patient met sepsis criteria with initial vital signs of elevated pulse rate, white count of 17.4, and likely pneumonia as source. Lactic acid normal on admission. Pro-calcitonin high. Antibiotic as mentioned above Urine Legionella and Streptococcus negative No growth on blood culture yet (4) COPD (chronic obstructive pulmonary disease) Current Visit: No Status: Chronic Assessment and Plan: CO PD exacerbation. Acute on chronic. Continue IV steroid but tapering down 40 mg IV twice a day today, oxygen supplementation, BiPAP, breathing treatment. On board therapist. (5) Chronic atrial fibrillation Current Visit: No Status: Acute Assessment and Plan: Patient on Eliquis, rate controlled Continue Eliquis (6) Diabetes mellitus type 2 in obese Current Visit: No Status: Chronic Assessment and Plan: Continue Accu-Chek. Diabetes diet . Still high blood glucose level therefore increase home insulin dose 30 unit twice a day. Patient takes insulin 75/25 25 unit twice a day at home. SSI coverage changed to high (7) Congestive heart failure Current Visit: Yes Status: Chronic Assessment and Plan: Possible acute exacerbation. Clinical picture on admission with Increase shortness of breath with decreased breath sound in pedal edema. Raised BNP. Chest x-ray suspected pulmonary edema versus multifocal pneumonia. IV Lasix 40 mg IV twice a day, a strict I&O's, daily weight. As per patient is having good urine output but not matching with the charting therefore advise for a strict I&O's. Will consult cardiology if needed. Repeat BMP Echocardiogram done in December 2018 Impressions: Technically sub-optimal due to body habitus and poor echocardiographic windows. LVEF 55%. Grossly, overall LV function appears to be normal. Mildly dilated left ventricle. Atypical septal motion consistent with bundle branch block. Indeterminate diastolic function. Grossly, the right ventricle appears to be dilated and mildly hypokinetic. No obvious significant valvular dysfunction. Unable to estimate RVSP due to lack of adequate TR jet. Left Ventricular Wall Motion: Rest Echo Findings All wall segments showed normal motion. (8) DVT prophylaxis Current Visit: No Status: Acute Assessment and Plan: Continue Eliquis (9) Generalized weakness Current Visit: Yes Status: Acute Assessment and Plan: PTOT ordered. Patient has been bedridden and wheelchair-bound chronically. 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 (10) Goals of care, counseling/discussion Current Visit: Yes Status: Acute Assessment and Plan: Discuss CODE STATUS with patient and family and decided for full code. PT already on board. Patient may need placement - Time Spent with Patient Total time spent is greater than 50% in coordination of care (as documented) at patient's floor/unit and/or counseling patient: 25 - 35 minutes Plan of Care Discussed with: patient Internal Medicine: Result - Labs CBC & Chem 7: 01/30/19 06:26 01/30/19 06:26 Labs: Short CBC 01/30/19 Range/Units 06:26 WBC 15.4 H (4.3-11.1) K/mcL Hgb 10.6 L (12.9-16.9) g/dL Hct 36.2 L (37.5-50.1) % Plt Count 473 H (140-400) K/mcL Neutrophils # 13.4 H (1.6-8.9) K/mcL BMP 01/30/19 06:26 Sodium 143 Potassium 4.3 Chloride 100 Carbon Dioxide 38 H BUN 29 H Creatinine 0.91 Glucose 314 H Calcium 8.4 L - ABG Interpretation ABG results: ABG ABG pH 7.43 pH Units (7.32-7.45) 01/28/19 11:16 ABG pCO2 61 mmHg (35-45) H 01/28/19 11:16 ABG pO2 104 mmHg (85-104) 01/28/19 11:16 ABG O2 Saturation 98 % (95-98) 01/28/19 11:16 PT/INR, D-dimer PT 16.8 Seconds (9.4-12.1) H 01/27/19 18:48 Consult Discharge Plan - Plan Referrals: Zion Hernandes DO [Primary Care Provider] - (2) Pneumonia Qualifiers: Pneumonia type: due to unspecified organism Laterality: unspecified laterality Lung location: unspecified part of lung Qualified Code(s): J18.9 - Pneumonia, unspecified organism (3) Sepsis Qualifiers: Sepsis type: sepsis due to unspecified organism Qualified Code(s): A41.9 - Sepsis, unspecified organism (4) COPD (chronic obstructive pulmonary disease) Qualifiers: COPD type: unspecified COPD Qualified Code(s): J44.9 - Chronic obstructive pulmonary disease, unspecified (7) Congestive heart failure Qualifiers: Heart failure type: diastolic Heart failure chronicity: acute on chronic Qualified Code(s): I50.33 - Acute on chronic diastolic (congestive) heart failure
--- NOTE | 2019-01-30 17:50 | Infectious Disease Consult ---
Infectious Disease-Consult - Encounter Date/Time Date of Encounter: 01/30/19 Time of Encounter: 17:35 - Data of Consult Patient: new to practice Reason for consult: Pneumonia Consult date: 01/30/19 Requesting Physician: Chetan Andrade MD Primary Care Provider: Zion Hernandes DO - [facility] HPI: Patient is a 68-year-old gentleman who presented to [place] on 2018 with shortness of breath. We are consulted on 01/30/2019 for pneumonia Patient is a 68-year-old gentleman who has extensive past medical history including congestive heart failure, rheumatoid arthritis, hypertension, dyslipidemia, COPD, atrial fibrillation and morbid obesity with a BMI of 65 who was recently admitted to the hospital on 12/26/2018 with shortness of breath and was diagnosed with acute on chronic diastolic heart failure and they thought maybe he had community-acquired pneumonia so he was treated with Rocephin and azithromycin and discharged home on steroids. At that time MRSA screen was negative and urine legionella and pneumococcal antigen were negative and blood cultures were negative. But this CT chest revealed very bronchovascular groundglass and consolidative opacities in the right upper and right middle lobes have appearance suggestive of pneumonia. Patient tells me at home he was still having shortness of breath and cough but no fevers no chills no sputum production. Patient had no pleuritic chest pain. No night sweats. Since admission, patient has been afebrile with a MAXIMUM TEMPERATURE of 99.2, tachycardic initially with a heart rate as high as 127 and tachypnea. Presenting WBC was 17.4. BUN/Cr 18/0.78. Procalcitonin 0.27. CXR was read as : Suspected pulmonary edema versus multifocal pneumonia. MRSA screen was positive urine legionella and pneumococcal antigen were negative. Blood cultures negative. Patient was started on vanc/zosyn/levaquin Currently, patient laying in bed. He tells me he's not feeling much better. continues to be short of breath. - ROS Review of Systems: 10 point ROS done, negative other for what's mentioned in the HPI - Results CBC & Chem 7: 01/30/19 06:26 01/30/19 06:26 - Exam Vitals: Temp Pulse Resp BP Pulse Ox 98.2 F 86 18 122/86 92 01/30/19 03:59 01/30/19 16:14 01/30/19 15:50 01/30/19 16:14 01/30/19 16:14 Exam: GENERAL: Laying in bed, appears comfortable. HEAD: Normocephalic atraumatic EYES: PERRLA, EOMI, no conjunctival hemorrhage, sclera anicteric ENT: Mucous membranes moist, no oral thrush NECK: Supple. No meningeal signs. No masses LUNGS: Chest expanding symmetrically. Lungs sounds audible but diminished univ ersally. some wheezing audible. No ronchi CV: RRR, S1S2, ABDOMEN: Soft, nontender, nondistended. Bowel sounds audible. Morbidly obese EXTREMITY: Adequate perfusion. diffuse edema with venous stasis SKIN: venous stasis dermatitis NEURO: Awake alert oriented 3. No obvious focal deficit PSYCH: Calm and appropriate. No agitation. Apixaban [Eliquis] 5 mg PO BID 09/05/15 [History] Ipratropium/Albuterol Neb [Duoneb] 3 ml IH Q4H PRN 09/05/15 [History] Insulin Lispro Protamin/Lispro [Humalog Mix 75-25 Kwikpen] 25 unit SQ BID 09/11/15 [History] Metoprolol XL (24 HR) Succ [Toprol Xl] 50 mg PO DAILY 04/16/17 [History] Tamsulosin [Flomax] 0.4 mg PO DAILY 04/16/17 [History] Multivits,Ca,Min/Iron/FA/Lycop [Centrum Men's Tablet] 1 tab PO DAILY 04/26/17 [History] OxyCODONE ER (12 HR) [OxyCONTIN] 80 mg PO Q12H 10/07/17 [History] Furosemide [Lasix] 80 mg PO BID #30 tablet 10/11/17 [Rx] Potassium Chloride 40 meq PO BID #30 tab.er.prt 10/11/17 [Rx] Folic Acid 1 mg PO Q48H tablet 10/25/17 [Rx] Clotrimazole/Betamethasone Dip [Lotrisone Cream] 15 gm TP BID PRN 12/26/18 [History] Colestipol HCl [Colestid] 2 gm PO BID 12/26/18 [History] Ferrous Sulfate 650 mg PO QAM 12/26/18 [History] Hyoscyamine SL [Levsin Sl] 0.125 mg SL Q4HR PRN 12/26/18 [History] Levothyroxine Sodium 100 mcg PO 0630 12/26/18 [History] Vilazodone HCl [Viibryd] 40 mg PO DAILY 12/26/18 [History] Ascorbic Acid [Vitamin C] 500 mg PO QAM 01/27/19 [History] Allergy/AdvReac Type Severity Reaction Status Date / Time clindamycin AdvReac Diarrhea Verified 06/02/17 07:17 - Assessment and Plan (1) Sepsis Current Visit: Yes Status: Acute Had 2 sirs criteria on admission likely secondary to HCAP? Qualifiers: Sepsis type: sepsis due to unspecified organism Qualified Code(s): A41.9 - Sepsis, unspecified organism SNOMED Code(s): 80759392 (2) Thyroid disease Current Visit: Yes Status: Acute SNOMED Code(s): 60902574 (3) Rheumatoid arthritis Current Visit: Yes not on any immunosuppresive treatment SNOMED Code(s): 02916979 (4) HCAP (healthcare-associated pneumonia) Current Visit: No Status: Resolved Causative organism not clear. Patient was admitted in December for pneumonia and no cause of organism was identified. Patient received 7 days worth of Rocephin and azithromycin at that time Currently MRSA screen is positive, negative rest infectious panel, negative urine legionella and pneumococcal antigen. not sure if this is HCAP vs fluid overload vs COPD exacerbation procalcitonin only 0.47 patient received 4 days of vanc/zosyn/levaquin consider d/c on doxy/levofloxacin to finish a 14 day course once clinically stable get CT chest to compare with previous admission. We appreciate pulmonary input prior to discharge. Monitor labs and for drug toxicity Goal vancomycin trough around 10 Daily weights and strict I's and O's SNOMED Code(s): 150322613, 675142338 (5) Acute exacerbation of congestive heart failure Current Visit: No Status: Acute Qualifiers: Heart failure type: unspecified Qualified Code(s): I50.9 - Heart failure, unspecified SNOMED Code(s): 980889852, 85242486537037 (6) Lower extremity edema Current Visit: No Status: Acute SNOMED Code(s): 721654648 (7) COPD exacerbation Current Visit: Yes Status: Acute Patient is O2 dependent at home on 3 L NC and uses Neb treatment up to Q4 hrs PRN SNOMED Code(s): 082952375 (8) Morbid obesity Current Visit: Yes Status: Acute BMI 65 SNOMED Code(s): 919719869 (9) Congestive heart failure Current Visit: Yes Status: Chronic He doesn't seem to be loosing much fluid weight now is 1 KG higher than when he came in aggressive diuresis Qualifiers: Heart failure type: diastolic Heart failure chronicity: acute on chronic Qualified Code(s): I50.33 - Acute on chronic diastolic (congestive) heart failure SNOMED Code(s): 20814461 (10) Venous stasis dermatitis of both lower extremities Current Visit: Yes Status: Acute SNOMED Code(s): 85395058 (11) Atrial fibrillation Current Visit: Yes Status: Acute Qualifiers: Atrial fibrillation type: unspecified Qualified Code(s): I48.91 - Unspecified atrial fibrillation SNOMED Code(s): 70739803 Past Med Surg Social Fam HX - Past Medical History Medical history: atrial fibrillation, COPD, diabetes, hypertension, RA, thyroid disease Additional medical history: Lymphedema Psychiatric history: depression - Past Surgical History Surgical History: orthopedic, other Additional surgical history: LEFT 5TH TOE REMOVED - Social History Smoking Status: Former smoker Smokeless Tobacco Status: No Alcohol use: none Drug use: none - Family History Mother Living Status: Hx Family Cardiac Disorders: Yes Hx Family Endocrine Disorder: Yes (DM) Father Living Status: Hx Family Cardiac Disorders: Yes Consult Discharge Plan - Plan Referrals: Zion Hernandes DO [Primary Care Provider] -
[2019-01-31] MEDS: Piperacillin/Tazobactam 3.375 GM in 0.9 % Sodium Chloride Mini Bag 100 ML IVPB SCH (00:50)
[2019-01-31 02:30] LABS: Basophils # 0.1 K/mcL (0.0-0.2); Basophils % 0.6 %; Eosinophils % 0.1 %; Hematocrit 37.3 % (37.5-50.1); Hemoglobin 11.3 g/dL (12.9-16.9); Immature Granulocytes % 4.9 % (0-4); Lymphocytes # 0.9 K/mcL (0.6-4.6); Lymphocytes % 5.6 %; Mean Corpuscular HGB Conc 30.3 g/dL (31.6-35.5); Mean Corpuscular Hemoglobin 25.3 pg (28.0-33.3); Mean Corpuscular Volume 83.6 fL (83.0-100.0); Mean Platelet Volume 8.9 fL (9.4-12.4); Monocytes % 6.1 %; Neutrophils # 13.5 K/mcL (1.6-8.9); Nucleated Red Blood Cells 0.4 /100 WBC (0); Platelet Count 506 K/mcL (140-400); Red Blood Count 4.46 M/mcL (4.19-5.50); Segmented Neutrophils % 82.7 %; White Blood Count 16.4 K/mcL (4.3-11.1)
[2019-01-31 02:50] LABS: BUN/Creatinine Ratio 33 (6-26); Blood Urea Nitrogen 32 mg/dL (8-23); Calcium 8.1 mg/dL (8.6-10.3); Carbon Dioxide 34 mEq/L (23-29); Chloride 99 mEq/L (98-107); Glucose 334 mg/dL (70-105); Osmolality,Calculated 312 (280-300); Potassium 4.6 mEq/L (3.5-5.1); Sodium 141 mEq/L (136-145); eGFR For African Americans > 60 (> 60); eGFR For Non-African Americans > 60 (> 60)
[2019-01-31] MEDS: Ipratropium/Albuterol Neb 3 ML IH SCH ×4 (04:05→22:52)
[2019-01-31] MEDS: *HR* OxyCODONE ER (12 HR) 40 MG TABLET PO SCH ×2 (06:21→16:51)
[2019-01-31] MEDS: MethylPREDNISolone 40 MG/ML VIAL IVP SCH ×2 (06:22→16:50)
[2019-01-31] MEDS: Levofloxacin 750 MG/150 ML 750 MG/150 ML BAG IVPB SCH (08:15)
[2019-01-31] MEDS: Furosemide 40 MG/4 ML VIAL IVP SCH ×2 (08:15→16:50)
[2019-01-31] MEDS: Insulin LISPRO 300 UNITS/3 ML VIAL SQ SCH ×4 (08:16→21:25)
[2019-01-31] MEDS: (Vilazodone Hcl [Viibryd] 40 MG) PO SCH ×2 (08:17→21:25)
[2019-01-31] MEDS: Metoprolol XL (24 HR) Succ 50 MG TAB.ER.24H PO SCH (08:17)
[2019-01-31] MEDS: Apixaban 5 MG TABLET PO SCH ×2 (08:17→21:24)
--- NOTE | 2019-01-31 11:12 | Internal Med Progress Note ---
Hospitalist Progress Note - Encounter Date of Encounter: 01/31/19 Time of Encounter: 11:27 - Subjective Interval History: No acute event overnight. Patient does not feel much different but had good urine output overnight. Review the vitals. Review the lab with slight worsening of white count. Blood glucose level also slight elevated. Reviewed consulted note Patient denies fever chills nausea vomiting headache chest pain abdominal pain d iarrhea. - Exam Vitals: Temp Pulse Resp BP Pulse Ox 98.4 F 92 16 113/66 94 01/31/19 10:29 01/31/19 10:29 01/31/19 10:29 01/31/19 10:29 01/31/19 10:29 Exam: General appearance: On 4 L oxygen by nasal cannula. A&O X 3. at bedside. Severe Morbid obese Eye exam: EOMI, PERRLA ENT exam: Moist oral mucosa Neck nontender, supple Respiratory exam: Diminished sounds bilateral. No wheezing Cardiovascular exam: Regular rate and rhythm, no systolic murmur Abdominal exam: Soft, nontender, nondistended, positive bowel sounds Extremities exam: No calf tenderness, +2 pedal edema Present: Patient has chronic mild swelling in lower extremity more on the left side-has baseline. Left foot drop Skin-no rash, warm, dry, intact Neurological exam: Alert, awake, oriented 3, CN II-XII intact, no focal deficits. No facial droop. - Assessment and Plan (1) Acute on chronic respiratory failure with hypoxia and hypercapnia Current Visit: No Status: Acute Assessment and Plan: Multifactorial including COPD exacerbation, decompensated heart failure, pneumonia, hypoventilation syndrome. Continue BiPAP when necessary. Patient uses BiPAP overnight at home in 3 L oxygen by nasal cannula due to chronic respiratory failure. 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 Please see details as below (2) Pneumonia Current Visit: Yes Status: Acute Assessment and Plan: Healthcare associated pneumonia Possibly - As patient had recent hospitalization. Hi Pro calcitonin with leukocytosis. Continue oxygen supplementation, nebulizer. Patient is on day 5 -vancomycin, Zosyn and Levaquin. Will plan to de-escalate antibiotic after getting CT chest report. Today worsening of white count but clinical condition not worsening. Sputum culture ordered. MRSA swab positive Legionella and Streptococcus negative Respiratory panel negative Consulted ID -advise CT chest to compare with previous admission. Consider discharge on doxycycline and levofloxacin for last 14 days course once clinically stable. (3) Sepsis Current Visit: Yes Status: Acute Assessment and Plan: On admission Patient met sepsis criteria with initial vital signs of elevated pulse rate, white count of 17.4, and likely pneumonia as source. Lactic acid normal on admission. Pro-calcitonin high. Antibiotic as mentioned above No growth on blood culture yet (4) COPD (chronic obstructive pulmonary disease) Current Visit: No Status: Chronic Assessment and Plan: CO PD exacerbation. Acute on chronic. Will stop IV steroid and his start oral prednisone 40 mg daily. oxygen supplementation, BiPAP, breathing treatment. 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 (5) Chronic atrial fibrillation Current Visit: No Status: Acute Assessment and Plan: Patient on Eliquis, rate controlled Continue Eliquis (6) Diabetes mellitus type 2 in obese Current Visit: No Status: Chronic Assessment and Plan: Continue Accu-Chek. Diabetes diet . Still high blood glucose level therefore increased home insulin dose 35 unit twice a day. Patient takes insulin 75/25 25 unit twice a day at home. SSI coverage changed to high (7) Congestive heart failure Current Visit: Yes Status: Chronic Assessment and Plan: Possible acute exacerbation. Clinical picture on admission with Increase shortness of breath with decreased breath sound in pedal edema. Raised BNP. Chest x-ray suspected pulmonary edema versus multifocal pneumonia. IV Lasix 40 mg IV twice a day, a strict I&O's, daily weight. Negative balance almost 1 L. fluid restriction diet 1.5 L per day. Will consult cardiology if needed. Repeat BNP-trending down Echocardiogram done in December 2018 Impressions: Technically sub-optimal due to body habitus and poor echocardiographic windows. LVEF 55%. Grossly, overall LV function appears to be normal. Mildly dilated left ventricle. Atypical septal motion consistent with bundle branch block. Indeterminate diastolic function. Grossly, the right ventricle appears to be dilated and mildly hypokinetic. No obvious significant valvular dysfunction. Unable to estimate RVSP due to lack of adequate TR jet. Left Ventricular Wall Motion: Rest Echo Findings All wall segments showed normal motion. (8) Generalized weakness Current Visit: Yes Status: Acute Assessment and Plan: PTOT . garnett room worker on board for discharge plan. (9) Goals of care, counseling/discussion Current Visit: Yes Status: Acute Assessment and Plan: Discuss CODE STATUS with patient and family and decided for full code. PT and OT on board Patient may need placement. Patient states that he is almost bedridden and wheelchair bound with very limited mobility. (10) DVT prophylaxis Current Visit: No Status: Acute Assessment and Plan: Continue Eliquis - Time Spent with Patient Total time spent is greater than 50% in coordination of care (as documented) at patient's floor/unit and/or counseling patient: Greater than 35 minutes Plan of Care Discussed with: patient Internal Medicine: Result - Labs CBC & Chem 7: 01/31/19 01:48 01/31/19 01:48 Labs: Short CBC 01/31/19 Range/Units 01:48 WBC 16.4 H (4.3-11.1) K/mcL Hgb 11.3 L (12.9-16.9) g/dL Hct 37.3 L (37.5-50.1) % Plt Count 506 H (140-400) K/mcL Neutrophils # 13.5 H (1.6-8.9) K/mcL BMP 01/31/19 01:48 Sodium 141 Potassium 4.6 Chloride 99 Carbon Dioxide 34 H BUN 32 H Creatinine 0.96 Glucose 334 H Calcium 8.1 L - ABG Interpretation ABG results: ABG ABG pH 7.43 pH Units (7.32-7.45) 01/28/19 11:16 ABG pCO2 61 mmHg (35-45) H 01/28/19 11:16 ABG pO2 104 mmHg (85-104) 01/28/19 11:16 ABG O2 Saturation 98 % (95-98) 01/28/19 11:16 PT/INR, D-dimer PT 16.8 Seconds (9.4-12.1) H 01/27/19 18:48 Consult Discharge Plan - Plan Referrals: Zion Hernandes DO [Primary Care Provider] - (2) Pneumonia Qualifiers: Pneumonia type: due to unspecified organism Laterality: unspecified laterality Lung location: unspecified part of lung Qualified Code(s): J18.9 - Pneumonia, unspecified organism (3) Sepsis Qualifiers: Sepsis type: sepsis due to unspecified organism Qualified Code(s): A41.9 - Sepsis, unspecified organism (4) COPD (chronic obstructive pulmonary disease) Qualifiers: COPD type: unspecified COPD Qualified Code(s): J44.9 - Chronic obstructive pulmonary disease, unspecified (7) Congestive heart failure Qualifiers: Heart failure type: diastolic Heart failure chronicity: acute on chronic Qualified Code(s): I50.33 - Acute on chronic diastolic (congestive) heart failure
[2019-01-31] MEDS ORDERED: Piperacillin/Tazobactam 3.375 GM in 0.9 % Sodium Chloride Mini Bag 100 ML IVPB SCH (16:00)
[2019-01-31] MEDS: Insulin NPH/REG 70/30 100 UNIT/ML (x5UNIT) SQ SCH (16:51)
[2019-02-01 03:34] LABS: Basophils # 0.1 K/mcL (0.0-0.2); Basophils % 0.5 %; Hematocrit 38.2 % (37.5-50.1); Hemoglobin 11.1 g/dL (12.9-16.9); Immature Granulocytes % 4.9 % (0-4); Lymphocytes # 0.9 K/mcL (0.6-4.6); Lymphocytes % 5.1 %; Mean Corpuscular HGB Conc 29.1 g/dL (31.6-35.5); Mean Corpuscular Hemoglobin 24.2 pg (28.0-33.3); Mean Corpuscular Volume 83.4 fL (83.0-100.0); Mean Platelet Volume 8.5 fL (9.4-12.4); Monocytes # 0.9 K/mcL (0.0-1.3); Monocytes % 5.2 %; Platelet Count 452 K/mcL (140-400); Red Blood Count 4.58 M/mcL (4.19-5.50); Segmented Neutrophils % 84.3 %; White Blood Count 17.8 K/mcL (4.3-11.1)
[2019-02-01 03:59] LABS: BUN/Creatinine Ratio 32 (6-26); Blood Urea Nitrogen 32 mg/dL (8-23); Calcium 8.4 mg/dL (8.6-10.3); Carbon Dioxide 40 mEq/L (23-29); Chloride 97 mEq/L (98-107); Glucose 320 mg/dL (70-105); Osmolality,Calculated 313 (280-300); Potassium 4.5 mEq/L (3.5-5.1); Sodium 142 mEq/L (136-145); eGFR For African Americans > 60 (> 60); eGFR For Non-African Americans > 60 (> 60)
[2019-02-01] MEDS: Ipratropium/Albuterol Neb 3 ML IH SCH ×4 (04:23→22:00)
[2019-02-01] MEDS: *HR* OxyCODONE ER (12 HR) 40 MG TABLET PO SCH ×2 (05:31→16:44)
[2019-02-01] MEDS ORDERED: Calcium Gluconate 2,000 MG in 0.9 % Sodium Chloride 100 ML IVPB ONE (07:34)
[2019-02-01] MEDS: Furosemide 40 MG/4 ML VIAL IVP SCH ×2 (08:05→16:43)
[2019-02-01] MEDS: Levofloxacin 750 MG/150 ML 750 MG/150 ML BAG IVPB SCH (08:06)
[2019-02-01] MEDS: predniSONE 20 MG TABLET PO SCH (08:06)
[2019-02-01] MEDS: Metoprolol XL (24 HR) Succ 50 MG TAB.ER.24H PO SCH (08:06)
[2019-02-01] MEDS: Apixaban 5 MG TABLET PO SCH ×2 (08:06→21:36)
[2019-02-01] MEDS ORDERED: Aminoglycoside Consult 1 EACH MC ONE (08:27)
[2019-02-01] MEDS: Insulin LISPRO 300 UNITS/3 ML VIAL SQ SCH ×4 (08:55→21:38)
[2019-02-01] MEDS: (Vilazodone Hcl [Viibryd] 40 MG) PO SCH (08:55)
--- NOTE | 2019-02-01 09:23 | Pulmonology Progress Note ---
Date of Encounter: 02/01/19 Time of Encounter: 08:00 Assessment and Plan (1) Acute on chronic respiratory failure with hypoxia and hypercapnia Current Visit: No Status: Suspected I was called by the hospitalist to re-evaluate this patient. Patient stated he is doing fine and he has no questions. I've advised him that he needs to get out of bed and he said that hospital doing have chair for him due to his size. I have discussed with patient and his family as well as his nurse and Dr. Mendoza that mobilization is very important for this patient and wean off his FIO2 to keep his SPO2 around 90%. Continue NIV and gentle diuresis. He might benefit from a dose of Diamox. I feel patient needs rehab and I feel he can be taken care of in a rehab or subacute facility. He has morbid obesity and that is a major cause for his comorbidities. Please call for any questions. Subjective Principal diagnosis: Dyspnea Interval history: Patient denies any symptoms and he feels good. Objective PUL Vital signs: Last Vital Signs Temp 98.2 F 02/01/19 06:57 Pulse 98 02/01/19 06:57 Resp 20 02/01/19 06:57 BP 123/89 02/01/19 06:57 Pulse Ox 98 02/01/19 06:57 General appearance: no acute distress Eyes: nonicteric ENT: oropharynx moist Mallampati (class): 4 Neck: supple, no lymphadenopathy Effort: normal Auscultation: bilateral: diminished breath sounds Percussion: bilateral: not dull Cardiovascular: regular rate and rhythm Gastrointestinal: normoactive bowel sounds, non-distended Integumentary: normal Extremities: no cyanosis, edema normal mental status, non-focal exam depressed Results - Laboratory Findings CBC and BMP: 02/02/19 08:39 02/02/19 08:39 ABG ABG pH 7.43 pH Units (7.32-7.45) 01/28/19 11:16 ABG pCO2 61 mmHg (35-45) H 01/28/19 11:16 ABG pO2 104 mmHg (85-104) 01/28/19 11:16 ABG O2 Saturation 98 % (95-98) 01/28/19 11:16 PT/INR, D-dimer PT 16.8 Seconds (9.4-12.1) H 01/27/19 18:48 Abnormal lab findings: Abnormal lab results WBC 17.8 K/mcL (4.3-11.1) H 02/01/19 03:17 RBC 4.10 M/mcL (4.19-5.50) L 01/29/19 05:28 Hgb 11.1 g/dL (12.9-16.9) L 02/01/19 03:17 Hct 37.3 % (37.5-50.1) L 01/31/19 01:48 MCH 24.2 pg (28.0-33.3) L 02/01/19 03:17 MCHC 29.1 g/dL (31.6-35.5) L 02/01/19 03:17 RDW 16.0 % (11.5-14.5) H 02/01/19 03:17 Plt Count 452 K/mcL (140-400) H 02/01/19 03:17 MPV 8.5 fL (9.4-12.4) L 02/01/19 03:17 Immature Gran % 4.9 % (0-4) H 02/01/19 03:17 15.0 K/mcL (1.6-8.9) H 02/01/19 03:17 Nucleated RBCs/100 WBC 0.4 /100 WBC (0) H 01/31/19 01:48 PT 16.8 Seconds (9.4-12.1) H 01/27/19 18:48 ABG pCO2 61 mmHg (35-45) H 01/28/19 11:16 ABG HCO3 40 mEq/L (21-27) H 01/28/19 11:16 ABG Total CO2 42 mEq/L (20-26) H 01/28/19 11:16 ABG Base Excess 13 mEq/L (-2 to 3) H 01/28/19 11:16 VBG pCO2 62 mmHg (41-51) H 01/27/19 21:07 VBG pO2 143 mmHg (25-50) H 01/27/19 21:07 VBG HCO3 38 mEq/L (21-27) H 01/27/19 21:07 Chloride 97 mEq/L (98-107) L 02/01/19 03:17 Carbon Dioxide 40 mEq/L (23-29) H* 06/16/19 03:17 BUN 32 mg/dL (8-23) H 02/01/19 03:17 32 (6-26) H 02/01/19 03:17 Glucose 320 mg/dL (70-105) H 02/01/19 03:17 POC Glucose 323 mg/dL (70-99) H 01/31/19 21:13 313 (280-300) H 02/01/19 03:17 Calcium 8.4 mg/dL (8.6-10.3) L 02/01/19 03:17 Venous Ioniz Calcium 1.10 mmol/L (1.15-1.35) L 02/01/19 03:32 AST 11 Units/L (13-39) L 01/27/19 18:48 B-Natriuretic Peptide 139 pg/mL (Less than 100) H 01/30/19 13:47 3.1 g/dL (3.5-5.7) L 01/27/19 18:48 0.9 (1.1-2.2) L 01/27/19 18:48 0.27 ng/mL (0.00-0.15) H 01/28/19 11:05 30 mg/dL (Neg-Trace) H 01/27/19 19:57 Ur Squamous Epith Cells Many per lpf (None-Few) H 01/27/19 19:57 Amorphous Sediment Moderate (Few) H 01/27/19 19:57 Hyaline Casts Many per lpf (None-Few) H 01/27/19 19:57 Positive (Negative) A 01/28/19 09:15 Vancomycin Trough 20 mcg/mL (5-10) H 01/31/19 10:32 - Clinical Findings Intake & Output: Intake & Output 01/31/19 02/01/19 02/01/19 23:59 07:59 15:59 Intake Total 360 / 2450 725 / 725 Output Total 1350 / 3950 Balance -990 / -1500 725 / 725 Weight 193.4 kg Consult Discharge Plan - Plan Referrals: Zion Hernandes DO [Primary Care Provider] -
--- NOTE | 2019-02-01 10:11 | Internal Med Progress Note ---
Hospitalist Progress Note - Encounter Date of Encounter: 02/01/19 Time of Encounter: 10:09 - Subjective Interval History: Acute event overnight. Patient is still feeling same. On ambulating. at bedside. Review the lab with trending up white count, raised CO2, increased blood glucose level. Patient declined CT chest yesterday. Review of the vital. Negative balance urine output. Patient denies fever chills nausea vomiting headache dizziness chest pain abdominal pain diarrhea - Exam Vitals: Temp Pulse Resp BP Pulse Ox 98.2 F 98 20 123/89 98 02/01/19 06:57 02/01/19 06:57 02/01/19 06:57 02/01/19 06:57 02/01/19 06:57 Exam: General appearance: On 4 L oxygen by nasal cannula. A&O X 3. at bedside. Severe Morbid obese Eye exam: EOMI, PERRLA ENT exam: Moist oral mucosa Neck nontender, supple Respiratory exam: Diminished sounds bilateral. No wheezing Cardiovascular exam: Regular rate and rhythm, no systolic murmur Abdominal exam: Soft, nontender, nondistended, positive bowel sounds Extremities exam: No calf tenderness, +2 pedal edema Present: Patient has chronic mild swelling in lower extremity more on the left side-has baseline. Left foot drop. Skin-no rash, warm, dry, intact Neurological exam: Alert, awake, oriented 3, CN II-XII intact, no focal deficits. No facial droop. - Assessment and Plan (1) Acute on chronic respiratory failure with hypoxia and hypercapnia Current Visit: No Status: Acute Assessment and Plan: Multifactorial including COPD exacerbation, decompensated heart failure, pneumonia, hypoventilation syndrome. Continue BiPAP when necessary. Patient uses BiPAP overnight at home in 3 L oxygen by nasal cannula due to chronic respiratory failure. 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 Metabolic alkalosis - Increased CO2 therefore talked to pulmonologists on phone and he thinks it could be due to diuresis and advise 1 dose of Diamox (2) Pneumonia Current Visit: Yes Status: Acute Assessment and Plan: Healthcare associated pneumonia Possibly - As patient had recent hospitalization. Hi Pro calcitonin with leukocytosis. Continue oxygen supplementation, nebulizer. Patient had on day 5 -vancomycin, Zosyn and Levaquin. Stopped Zosyn on 01/31/2019. Patient is not willing to where CT chest until it is absolutely necessary and would like to discuss with ID specialist again tomorrow. Trending up white count but patient does not appear in sepsis-could be secondary to reactionary response to steroid-stopped as IV steroid is started oral prednisone. Sputum culture ordered-not collected as no sputum sample. MRSA swab positive Legionella and Streptococcus negative Respiratory panel negative Consulted ID -advise CT chest to compare with previous admission. Patient is not willing to where CT chest until it is absolutely necessary and would like to discuss with ID specialist again tomorrow. Consider discharge on doxycycline and levofloxacin for last 14 days course once clinically stable. (3) Sepsis Current Visit: Yes Status: Acute Assessment and Plan: On admission Patient met sepsis criteria with initial vital signs of elevated pulse rate, white count of 17.4, and likely pneumonia as source. Lactic acid normal on admission. Pro-calcitonin high. Antibiotic as mentioned above No growth on blood culture yet (4) COPD (chronic obstructive pulmonary disease) Current Visit: No Status: Chronic Assessment and Plan: CO PD exacerbation. Acute on chronic. oxygen supplementation, BiPAP, breathing treatment. 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 (5) Chronic atrial fibrillation Current Visit: No Status: Acute Assessment and Plan: Patient on Eliquis, rate controlled Continue Eliquis (6) Diabetes mellitus type 2 in obese Current Visit: No Status: Chronic Assessment and Plan: Continue Accu-Chek. Diabetes diet . Still high blood glucose level therefore increased home insulin dose 40 unit twice a day and also lower the steroid. Patient takes insulin 75/25 25 unit twice a day at home. SSI coverage changed to high (7) Congestive heart failure Current Visit: Yes Status: Chronic Assessment and Plan: Possible acute exacerbation. Clinical picture on admission with Increase shortness of breath with decreased breath sound in pedal edema. Raised BNP. Chest x-ray suspected pulmonary edema versus multifocal pneumonia. IV Lasix 40 mg IV twice a day, a strict I&O's, daily weight. Negative balance . fluid restriction diet 1.5 L per day. Will consult cardiology if needed. Limited echo ordered Echocardiogram done in December 2018 Impressions: Technically sub-optimal due to body habitus and poor echocardiographic windows. LVEF 55%. Grossly, overall LV function appears to be normal. Mildly dilated left ventricle. Atypical septal motion consistent with bundle branch block. Indeterminate diastolic function. Grossly, the right ventricle appears to be dilated and mildly hypokinetic. No obvious significant valvular dysfunction. Unable to estimate RVSP due to lack of adequate TR jet. Left Ventricular Wall Motion: Rest Echo Findings All wall segments showed normal motion. (8) Generalized weakness Current Visit: Yes Status: Acute Assessment and Plan: PTOT . pastoral worker on board for discharge plan and possible placement. (9) Goals of care, counseling/discussion Current Visit: Yes Status: Acute Assessment and Plan: Discuss CODE STATUS with patient and family and decided for full code. Patient states that he is almost bedridden and wheelchair bound with very limited mobility. He spent more than 35 minute in patient care in communication with patient and family, family, nursing staff and disaster recovery consultant Possible discharge in 1 or 2 days after having adequate diuresis and getting cleared by ID. (10) DVT prophylaxis Current Visit: No Status: Acute Assessment and Plan: Continue Eliquis - Time Spent with Patient Total time spent is greater than 50% in coordination of care (as documented) at patient's floor/unit and/or counseling patient: Greater than 35 minutes Plan of Care Discussed with: patient Internal Medicine: Result - Labs CBC & Chem 7: 02/01/19 03:17 02/01/19 03:17 Labs: Short CBC 02/01/19 Range/Units 03:17 WBC 17.8 H (4.3-11.1) K/mcL Hgb 11.1 L (12.9-16.9) g/dL Hct 38.2 (37.5-50.1) % Plt Count 452 H (140-400) K/mcL Neutrophils # 15.0 H (1.6-8.9) K/mcL BMP 02/01/19 03:17 Sodium 142 Potassium 4.5 Chloride 97 L Carbon Dioxide 40 H* BUN 32 H Creatinine 0.99 Glucose 320 H Calcium 8.4 L - ABG Interpretation ABG results: ABG ABG pH 7.43 pH Units (7.32-7.45) 01/28/19 11:16 ABG pCO2 61 mmHg (35-45) H 01/28/19 11:16 ABG pO2 104 mmHg (85-104) 01/28/19 11:16 ABG O2 Saturation 98 % (95-98) 01/28/19 11:16 PT/INR, D-dimer PT 16.8 Seconds (9.4-12.1) H 01/27/19 18:48 Consult Discharge Plan - Plan Referrals: Zion Hernandes DO [Primary Care Provider] - (2) Pneumonia Qualifiers: Pneumonia type: due to unspecified organism Laterality: unspecified laterality Lung location: unspecified part of lung Qualified Code(s): J18.9 - Pneumonia, unspecified organism (3) Sepsis Qualifiers: Sepsis type: sepsis due to unspecified organism Qualified Code(s): A41.9 - Sepsis, unspecified organism (4) COPD (chronic obstructive pulmonary disease) Qualifiers: COPD type: unspecified COPD Qualified Code(s): J44.9 - Chronic obstructive pulmonary disease, unspecified (7) Congestive heart failure Qualifiers: Heart failure type: diastolic Heart failure chronicity: acute on chronic Qualified Code(s): I50.33 - Acute on chronic diastolic (congestive) heart failure
[2019-02-01] MEDS ORDERED: acetaZOLAMIDE 250 MG TABLET PO ONE (10:12)
[2019-02-01] MEDS ORDERED: Perflutren Lipid Microsphere 1.3 ML in 0.9 % Sodium Chloride 8.7 ML IVP ONE (13:47)
[2019-02-01] MEDS: Insulin NPH/REG 70/30 100 UNIT/ML (x5UNIT) SQ SCH (16:44)
[2019-02-02] MEDS: Ipratropium/Albuterol Neb 3 ML IH SCH ×4 (04:10→22:06)
[2019-02-02] MEDS: *HR* OxyCODONE ER (12 HR) 40 MG TABLET PO SCH ×2 (05:44→17:18)
[2019-02-02] MEDS: Insulin LISPRO 300 UNITS/3 ML VIAL SQ SCH ×4 (08:33→21:53)
[2019-02-02] MEDS: Insulin NPH/REG 70/30 100 UNIT/ML (x5UNIT) SQ SCH ×5 (09:01→17:18)
[2019-02-02] MEDS: levoFLOXacin 750 MG TABLET PO SCH (09:02)
[2019-02-02] MEDS: Metoprolol XL (24 HR) Succ 50 MG TAB.ER.24H PO SCH (09:02)
[2019-02-02] MEDS: predniSONE 20 MG TABLET PO SCH (09:02)
[2019-02-02] MEDS: Doxycycline 100 MG CAPSULE PO SCH ×2 (09:02→21:52)
[2019-02-02] MEDS: Furosemide 40 MG/4 ML VIAL IVP SCH (09:02)
[2019-02-02] MEDS: (Vilazodone Hcl [Viibryd] 40 MG) PO SCH (09:03)
[2019-02-02] MEDS: Apixaban 5 MG TABLET PO SCH ×2 (09:14→21:52)
[2019-02-02 09:16] LABS: Basophils # 0.2 K/mcL (0.0-0.2); Basophils % 0.8 %; Eosinophils # 0.1 K/mcL (0.0-0.6); Eosinophils % 0.5 %; Hematocrit 40.7 % (37.5-50.1); Hemoglobin 11.9 g/dL (12.9-16.9); Immature Granulocytes % 4.8 % (0-4); Mean Corpuscular HGB Conc 29.2 g/dL (31.6-35.5); Mean Corpuscular Hemoglobin 24.3 pg (28.0-33.3); Mean Corpuscular Volume 83.1 fL (83.0-100.0); Mean Platelet Volume 8.6 fL (9.4-12.4); Monocytes # 1.2 K/mcL (0.0-1.3); Monocytes % 6.3 %; Neutrophils # 13.5 K/mcL (1.6-8.9); Platelet Count 431 K/mcL (140-400); Red Cell Distribution Width 16.3 % (11.5-14.5); Segmented Neutrophils % 71.6 %; White Blood Count 18.9 K/mcL (4.3-11.1)
[2019-02-02 09:33] LABS: BUN/Creatinine Ratio 38 (6-26); Blood Urea Nitrogen 34 mg/dL (8-23); Calcium 8.5 mg/dL (8.6-10.3); Carbon Dioxide 38 mEq/L (23-29); Chloride 100 mEq/L (98-107); Glucose 116 mg/dL (70-105); Osmolality,Calculated 307 (280-300); Potassium 3.8 mEq/L (3.5-5.1); Sodium 144 mEq/L (136-145); eGFR For African Americans > 60 (> 60); eGFR For Non-African Americans > 60 (> 60)
--- NOTE | 2019-02-02 13:21 | Internal Med Progress Note ---
Hospitalist Progress Note - Encounter Date of Encounter: 02/02/19 Time of Encounter: 13:18 - Subjective Interval History: Pt states he feels better, diuresing well and really having to pee a lot with the IV lasix, hoping to discharge soon and likes plan to change everything from IV to PO. Denies SOB, CP, N/V/D. - Exam Vitals: Temp Pulse Resp BP Pulse Ox 97.7 F 104 20 93/65 94 02/02/19 05:50 02/02/19 11:57 02/02/19 11:57 02/02/19 11:57 02/02/19 11:57 Exam: General appearance: On 4 L oxygen by nasal cannula. A&O X 3. Severe morbid obesity Respiratory exam: Diminished sounds bilateral. No wheezing Cardiovascular exam: Regular rate and rhythm, no systolic murmur Abdominal exam: Soft, nontender, obese Extremities exam: No calf tenderness, pitting pedal edema present bilaterally. Left foot drop. Neurological exam: Awake, fully oriented, CN II-XII intact, pt does not use his R hand today, No facial droop. - Summary of Assessment and Plan Summary of Assessment and Plan: Acute on chronic HFpEF: volume overloaded, diuresing well w IV lasix, will change to PO today and resume home lasix 80 bid HCAP: rec'd several days vanc/zosyn, switched from zosyn to levaquin IV per ID rec's, and today will switch to PO levaquin and doxy per ID rec's and will complete 14 day course, last dose 02/08 COPD in acute exacerbation: improving - nebs qid - decrease steroids from solumedrol to prednisone 40 daily x5 additional days - home inhalers Chronic hypoxic and hypercapneic respiratory failure: weaned to home 4L O2 and bipap qhs Generalized weakness/deconditioning: PT/OT rec swing bed, SW assisting with this Super morbid obesity: BMI 64 Chronic A-Fib: AC on eliquis, rate on toprol 50 DM2: uncontrolled, use home basal and use SSI Hypothyroidism: home synthroid PPx: eliquis FEN: cardiac ADA 1.5L, no MIVF Lines: PIV Consults: ID, Pulm Code: Full Dispo: patient requires inpatient eval and management at this time. Anticipate 1-2 days. Will likely need swing/rehab Internal Medicine: Result - Labs CBC & Chem 7: 02/02/19 08:39 02/02/19 08:39 Labs: Short CBC 02/02/19 Range/Units 08:39 WBC 18.9 H (4.3-11.1) K/mcL Hgb 11.9 L (12.9-16.9) g/dL Hct 40.7 (37.5-50.1) % Plt Count 431 H (140-400) K/mcL Neutrophils # 13.5 H (1.6-8.9) K/mcL BMP 02/02/19 08:39 Sodium 144 Potassium 3.8 Chloride 100 Carbon Dioxide 38 H BUN 34 H Creatinine 0.90 Glucose 116 H Calcium 8.5 L - ABG Interpretation ABG results: ABG ABG pH 7.43 pH Units (7.32-7.45) 01/28/19 11:16 ABG pCO2 61 mmHg (35-45) H 01/28/19 11:16 ABG pO2 104 mmHg (85-104) 01/28/19 11:16 ABG O2 Saturation 98 % (95-98) 01/28/19 11:16 PT/INR, D-dimer PT 16.8 Seconds (9.4-12.1) H 01/27/19 18:48 - Impressions Impressions Echocardiogram Limited Views 02/01/19 10:27 Impressions: LVEF 50%. Grossly normal RV size and mild hypokinesis. Left Ventricular Wall Motion: Rest Echo Findings All wall segments showed normal motion. Findings: Study Quality * Technically sub-optimal due to clinical status. ECG Findings * Atrial fibrillation. Left Ventricle * LVEF 50%. * Normal LV chamber size, wall thickness and systolic function. Right Ventricle * RV not well assessed, grossly normal RV size and mild hypokinesia. Consult Discharge Plan - Plan Referrals: Zion Hernandes DO [Primary Care Provider] -
[2019-02-02] MEDS ORDERED: Furosemide 40 MG/4 ML VIAL IVP ONE (13:34)
--- NOTE | 2019-02-02 16:28 | Infectious Disease Progress No ---
ID Progress Note Date of Encounter: 02/02/19 Time of Encounter: 16:25 - Subjective Subjective: patient seen and examined. VS noted Afebrile labs WBC 18.9, Cr 0.9 - Objective CBC & Chem 7: 02/02/19 08:39 02/02/19 08:39 - Exam Vitals: Temp Pulse Resp BP Pulse Ox 97.7 F 104 16 93/65 94 02/02/19 05:50 02/02/19 11:57 02/02/19 15:22 02/02/19 11:57 02/02/19 15:22 Exam: GENERAL: Comfortable. Laying in bed NAD HEENT: BALB[place], EOMI LUNGS: Good air sounds bilaterally, no wheezing or rhonchi CV: RRR, S1 S2 ABDOMEN: Soft, nontender, + bowel sounds EXT: Adequate perfusion. No edema NEURO: A&OX3; no focal deficit - Assessment and Plan (1) Sepsis Current Visit: Yes Status: Acute Had 2 sirs criteria on admission likely secondary to HCAP? Qualifiers: Sepsis type: sepsis due to unspecified organism Qualified Code(s): A41.9 - Sepsis, unspecified organism SNOMED Code(s): 32959080 (2) Thyroid disease Current Visit: Yes Status: Acute SNOMED Code(s): 28993025 (3) Rheumatoid arthritis Current Visit: Yes not on any immunosuppresive treatment SNOMED Code(s): 40022178 (4) HCAP (healthcare-associated pneumonia) Current Visit: No Status: Resolved Causative organism not clear. Patient was admitted in December for pneumonia and no cause of organism was identifie d. Patient received 7 days worth of Rocephin and azithromycin at that time Currently MRSA screen is positive, negative rest infectious panel, negative urine legionella and pneumococcal antigen. not sure if this is HCAP vs fluid overload vs COPD exacerbation procalcitonin only 0.47 patient received 4 days of vanc/zosyn/levaquin consider d/c on doxy/levofloxacin to finish a 14 day course once clinically stable get CT chest to compare with previous admission. We appreciate pulmonary input prior to discharge. Monitor labs and for drug toxicity Goal vancomycin trough around 10 Daily weights and strict I's and O's SNOMED Code(s): 056822617, 768660464 (5) Acute exacerbation of congestive heart failure Current Visit: No Status: Acute Qualifiers: Heart failure type: unspecified Qualified Code(s): I50.9 - Heart failure, unspecified SNOMED Code(s): 409054322, 36233515805855 (6) Lower extremity edema Current Visit: No Status: Acute SNOMED Code(s): 581262088 (7) COPD exacerbation Current Visit: Yes Status: Acute Patient is O2 dependent at home on 3 L NC and uses Neb treatment up to Q4 hrs PRN SNOMED Code(s): 696580443 (8) Morbid obesity Current Visit: Yes Status: Acute BMI 65 SNOMED Code(s): 389061121 (9) Congestive heart failure Current Visit: Yes Status: Chronic He doesn't seem to be loosing much fluid weight now is 1 KG higher than when he came in aggressive diuresis Qualifiers: Heart failure type: diastolic Heart failure chronicity: acute on chronic Qualified Code(s): I50.33 - Acute on chronic diastolic (congestive) heart failure SNOMED Code(s): 62272786 (10) Venous stasis dermatitis of both lower extremities Current Visit: Yes Status: Acute SNOMED Code(s): 83617468 (11) Atrial fibrillation Current Visit: Yes Status: Acute Qualifiers: Atrial fibrillation type: unspecified Qualified Code(s): I48.91 - Unspecified atrial fibrillation SNOMED Code(s): 13790733 Consult Discharge Plan - Plan Referrals: Zion Hernandes DO [Primary Care Provider] -
[2019-02-02] MEDS ORDERED: NON-FORMULARY MEDICATION 1 EACH EACH (Furosemide [Lasix] 80 MG) PO SCH (17:00)
[2019-02-02] MEDS: Furosemide 40 MG TABLET PO SCH (17:19)
[2019-02-02] MEDS: Artificial Tears SOLN 15 ML BOTTLE BOTH EYES SCH ×2 (17:19→21:52)
[2019-02-03] MEDS: Ipratropium/Albuterol Neb 3 ML IH SCH ×4 (04:03→23:01)
[2019-02-03 04:37] LABS: Basophils # 0.1 K/mcL (0.0-0.2); Basophils % 0.5 %; Eosinophils # 0.1 K/mcL (0.0-0.6); Eosinophils % 0.4 %; Hematocrit 40.8 % (37.5-50.1); Lymphocytes # 2.6 K/mcL (0.6-4.6); Mean Corpuscular HGB Conc 29.4 g/dL (31.6-35.5); Mean Corpuscular Hemoglobin 24.7 pg (28.0-33.3); Mean Platelet Volume 8.5 fL (9.4-12.4); Monocytes % 5.1 %; Neutrophils # 15.4 K/mcL (1.6-8.9); Platelet Count 415 K/mcL (140-400); Red Blood Count 4.86 M/mcL (4.19-5.50); Red Cell Distribution Width 16.2 % (11.5-14.5)
[2019-02-03 04:51] LABS: BUN/Creatinine Ratio 34 (6-26); Blood Urea Nitrogen 33 mg/dL (8-23); Calcium 8.4 mg/dL (8.6-10.3); Carbon Dioxide 39 mEq/L (23-29); Chloride 98 mEq/L (98-107); Glucose 120 mg/dL (70-105); Osmolality,Calculated 302 (280-300); Potassium 3.5 mEq/L (3.5-5.1); Sodium 142 mEq/L (136-145); eGFR For African Americans > 60 (> 60); eGFR For Non-African Americans > 60 (> 60)
[2019-02-03] MEDS: *HR* OxyCODONE ER (12 HR) 40 MG TABLET PO SCH ×2 (05:57→18:07)
--- NOTE | 2019-02-03 07:54 | Discharge Summary ---
- NOTES TO OUTPATIENT PROVIDER Notes to Outpatient Provider: Persistent leukocytosis, would recheck CBC. Discharged on Lasix 80 bid, needs outpatient BMP and volume assessment. Date of Encounter: 02/03/19 Time of Encounter: 07:53 Hospital course: Dear Doctors, I recently had the opportunity to care for this patient during their recent hospital stay at [facility]. Luís Swenson is a 68 M w hx super morbid obesity c/b lymphedema, GABRIELA/OHS on bipap, COPD on 4L, HFpEF, chronic A-Fib on Eliquis, DM2, hypothyroidism, who presented at time of admission with SOB for 2 days and hypoxia on home health vitals check of 60% during exertion. In the ED, pt had T'99.2, HR 125, RR 19, satting 96% on bipap. On exam was edematous. WBC 17, BNP 200. VBG, trop, lactate wnl. CXR showing pulmonary edema v multifocal pneumonia. Admitted for acute on chronic heart failure and pneumonia causing COPD exacerbation and acute on chronic hypoxic respiratory failure. In the hospital, patient started on IV lasix, steroids, and abx, with improvement in symptoms. Pt declined CT scan to better assess lungs. ID was consulted who recommended empiric coverage for pneumonia, which was eventually narrowed to levaquin and doxycycline to complete a 14 day course. Pulmonary consultation recommended aggressive diuresis. Patient diuresed well and was converted to his home lasix 80 po bid dose, with continued diuresis with additional 24h monitoring. Dx: acute on chronic HFpEF, HCAP, COPD exacerbation, acute on chronic hypoxic respiratory failure Pertinent tests/consults: CXR, Pulm and ID consultations Follow up: PCP 1 week, Pulm 1-2 weeks Tests pending: none Med changes: - new levaquin 750 daily, last dose 02/10 - new doxycycline 100 bid, last doses 02/10 - new prednisone 40 daily x3d, 20 daily x3d, then 10 daily x6d Mental status: awake, fully oriented Code status: Paid Intern spent on discharge: 35 minutes It has been my pleasure participating in this patient's care. Please contact me with any questions or concerns regarding their hospital stay. Sincerely, Carmelo Hinojosa MD - Discharge Medications Prescriptions: New Doxycycline 100 mg PO BID #14 capsule levoFLOXacin [Levaquin] 750 mg PO DAILY #7 tablet predniSONE [PredniSONE] 20 mg PO DAILY #10 tablet Continued Ipratropium/Albuterol Neb [Duoneb] 3 ml IH Q4H PRN PRN Reason: Shortness Of Breath Apixaban [Eliquis] 5 mg PO BID Insulin Lispro Protamin/Lispro [Humalog Mix 75-25 Kwikpen] 25 unit SQ BID Tamsulosin [Flomax] 0.4 mg PO DAILY Metoprolol XL (24 HR) Succ [Toprol Xl] 50 mg PO DAILY Multivits,Ca,Min/Iron/FA/Lycop [Centrum Men's Tablet] 1 tab PO DAILY OxyCODONE ER (12 HR) [OxyCONTIN] 80 mg PO Q12H Furosemide [Lasix] 80 mg PO BID #30 tablet Potassium Chloride 40 meq PO BID #30 tab.er.prt Clotrimazole/Betamethasone Dip [Lotrisone Cream] 15 gm TP BID PRN PRN Reason: IRRITATED SKIN Colestipol HCl [Colestid] 2 gm PO BID Ferrous Sulfate 650 mg PO QAM Hyoscyamine SL [Levsin Sl] 0.125 mg SL Q4HR PRN PRN Reason: Abdominal Cramping Levothyroxine Sodium 100 mcg PO 0630 Vilazodone HCl [Viibryd] 40 mg PO DAILY Ascorbic Acid [Vitamin C] 500 mg PO QAM Folic Acid 1 mg PO Q48H tablet Home Medications: Apixaban [Eliquis] 5 mg PO BID 09/05/15 [History] Ipratropium/Albuterol Neb [Duoneb] 3 ml IH Q4H PRN 09/05/15 [History] Insulin Lispro Protamin/Lispro [Humalog Mix 75-25 Kwikpen] 25 unit SQ BID 09/11/15 [History] Metoprolol XL (24 HR) Succ [Toprol Xl] 50 mg PO DAILY 04/16/17 [History] Tamsulosin [Flomax] 0.4 mg PO DAILY 04/16/17 [History] Multivits,Ca,Min/Iron/FA/Lycop [Centrum Men's Tablet] 1 tab PO DAILY 04/26/17 [History] OxyCODONE ER (12 HR) [OxyCONTIN] 80 mg PO Q12H 10/07/17 [History] Furosemide [Lasix] 80 mg PO BID #30 tablet 10/11/17 [Rx] Potassium Chloride 40 meq PO BID #30 tab.er.prt 10/11/17 [Rx] Folic Acid 1 mg PO Q48H tablet 10/25/17 [Rx] Clotrimazole/Betamethasone Dip [Lotrisone Cream] 15 gm TP BID PRN 12/26/18 [History] Colestipol HCl [Colestid] 2 gm PO BID 12/26/18 [History] Ferrous Sulfate 650 mg PO QAM 12/26/18 [History] Hyoscyamine SL [Levsin Sl] 0.125 mg SL Q4HR PRN 12/26/18 [History] Levothyroxine Sodium 100 mcg PO 0630 12/26/18 [History] Vilazodone HCl [Viibryd] 40 mg PO DAILY 12/26/18 [History] Ascorbic Acid [Vitamin C] 500 mg PO QAM 01/27/19 [History] Doxycycline 100 mg PO BID #14 capsule 02/03/19 [Rx] levoFLOXacin [Levaquin] 750 mg PO DAILY #7 tablet 02/03/19 [Rx] predniSONE [PredniSONE] 20 mg PO DAILY #10 tablet 02/03/19 [Rx] Allergies/Adverse Reactions: Allergy/AdvReac Type Severity Reaction Status Date / Time clindamycin AdvReac Diarrhea Verified 06/02/17 07:17 Date of admission: 01/28/19 14:52 Primary care physician: Zion Hernandes DO Consults: 01/27/19 23:33 Consult to Nurse Navigator [CONS] Routine Comment: 01/28/19 10:07 Consult to Pulmonology [CONS] Routine Consulting Provider: [facility] [place] Reason for Consult: Acute respiratory failure, continuous BiPAP Call Completed: Yes 01/29/19 14:27 Consult to Occupational Therapy [CONS] Routine Comment: Evaluate, develop and implement POC Reason for Consult: Generalized weakness Does patient have active BEDREST order?: No Is patient medically & hemodynamically stable?: Yes Patient assessed for mobility or mobilized this visit?: No Consult to Physical Therapy [CONS] Routine Comment: Evaluate, develop and implement POC Reason for Consult: Generalized weakness Does patient have active BEDREST order?: No Is patient medically & hemodynamically stable?: Yes Patient assessed for mobility or mobilized this visit?: No 01/29/19 14:28 Consult to Cocktail Server [CONS] Routine Reason for SW Consult: Discharge plan 01/30/19 13:14 Consult to Infectious Diseases [CONS] Routine Consulting Provider: Infectious Disease Marcia Reason for Consult: Multifocal pneumonia, nasal swab MRSA positive. Antibiotic recommendation Call Completed: Yes - Constitutional Vitals: Temp Pulse Resp BP Pulse Ox 97.8 F 99 14 95/75 98 02/03/19 07:21 02/03/19 07:21 02/03/19 07:21 02/03/19 07:21 02/03/19 07:21 General appearance: Present: cooperative, A&O X 3, pleasant, no acute distress, obese, answers questions appropriately Exam: General appearance: On 4 L oxygen by nasal cannula. A&O X3. Severe morbid obesity Respiratory exam: Diminished sounds bilateral. No wheezing Cardiovascular exam: Regular rate and rhythm, no systolic murmur Abdominal exam: Soft, nontender, obese Extremities exam: No calf tenderness, pitting pedal edema present bilaterally. Left foot drop. Skin: b/l legs with circumferential erythema Neurological exam: Awake, fully oriented, CN II-XII intact, RUE weakness, no facial droop. - Patient Status Disposition: Transfer Hospital Swing Bed Condition: Fair Functional capacity at discharge: uses cane/walker Overall status at discharge: patient is progressing back to baseline - Discharge Instructions Follow Up With: Zion Hernandes DO [Primary Care Provider] - - Diet and Activity Activity: resume usual activities as tolerated Diet: diabetic diet, low salt diet (fluid restrict 1.5L)
[2019-02-03 08:06] LABS: Magnesium 2.2 mg/dL (1.6-2.6)
[2019-02-03] MEDS: Insulin LISPRO 300 UNITS/3 ML VIAL SQ SCH ×4 (10:16→22:51)
[2019-02-03] MEDS: predniSONE 20 MG TABLET PO SCH (10:17)
[2019-02-03] MEDS: Insulin NPH/REG 70/30 100 UNIT/ML (x5UNIT) SQ SCH ×2 (10:17→18:14)
[2019-02-03] MEDS: Doxycycline 100 MG CAPSULE PO SCH ×2 (10:17→22:11)
[2019-02-03] MEDS: Apixaban 5 MG TABLET PO SCH ×2 (10:17→22:11)
[2019-02-03] MEDS: levoFLOXacin 750 MG TABLET PO SCH (10:17)
[2019-02-03] MEDS: Furosemide 40 MG TABLET PO SCH ×2 (10:18→18:07)
[2019-02-03] MEDS: (Vilazodone Hcl [Viibryd] 40 MG) PO SCH (10:18)
[2019-02-03] MEDS: Metoprolol XL (24 HR) Succ 50 MG TAB.ER.24H PO SCH (10:18)
[2019-02-03] MEDS: Artificial Tears SOLN 15 ML BOTTLE BOTH EYES SCH ×4 (10:18→22:12)
--- NOTE | 2019-02-03 10:24 | Infectious Disease Progress No ---
ID Progress Note Date of Encounter: 02/03/19 Time of Encounter: 09:25 - Subjective Subjective: Patient seen and examined. No acute events noted overnight. Patient states he feels a little bit better. Denies fevers, chills, rigors. States shortness of breath is better. Denies chest pain or cough. Denies nausea, vomiting, or diarrhea. Reports feeling constipated and states last bowel movement was 2 days ago. Denies abdominal pain or urinary complaints. States his appetite is good, but the family does not. Denies oral thrush or skin rashes. - Objective CBC & Chem 7: 02/04/19 06:54 02/03/19 03:54 - Exam Vitals: Temp Pulse Resp BP Pulse Ox 97.8 F 99 19 95/75 94 02/03/19 07:21 02/03/19 07:21 02/03/19 09:46 02/03/19 07:21 02/03/19 09:46 Exam: Head: Atraumatic, normal inspection, normocephalic. Eye: No scleral icterus noted. ENT: Mucous membranes moist. No odontogenic infection noted. Neck: Normal inspection, no meningismus. Respiratory: Clear to auscultation. No rales, respiratory distress, rhonchi, or wheezes noted. Cardiovascular: Regular rate and rhythm, S1 and S2 audible. No murmurs, rubs, or gallops. GI: Soft, morbidly obese, normal bowel sounds. Extremities:No joint swelling or tenderness noted. Venous stasis dermatitis noted to the bilateral lower extremities. 2+ edema noted to the bilateral lower extremities. Neurological: Alert, oriented 3, no focal deficits. Psychiatric: normal affect, normal mood. Skin: Dry, intact, warm. Normal color. No rashes. The skin to his chest and abdomen to appear somewhat erythematous, but the patient states this is normal for him and he is not having any itching or discomfort. - Assessment and Plan (1) Sepsis Current Visit: Yes Status: Acute The patient had 2 sirs criteria on admission. Sepsis versus sirs. Possibly secondary to age But it is difficult to tell on imaging. Improved. Tachycardia resolved. WBC remains elevated, likely secondary to steroids. Blood cultures drawn 01/27/19 are negative 2 sets. Qualifiers: Sepsis type: sepsis due to unspecified organism Qualified Code(s): A41.9 - Sepsis, unspecified organism SNOMED Code(s): 05055860 (2) HCAP (healthcare-associated pneumonia) Current Visit: No Status: Resolved Location: Multifocal. Causative organism: Unclear. Chest x-ray completed on admission showed suspected pulmonary edema versus multifocal pneumonia. The patient refused the CT scan. MRSA nasal screen was positive. Respiratory infectious panel was negative. Strep pneumococcal and legionella urinary antigens are negative. The patient had no cough or fever, but did have some shortness of breath which could be related to fluid overload versus COPD versus other. Pro-calcitonin only mildly elevated at 0.47. Currently on doxycycline and Levaquin. SNOMED Code(s): 685302793, 416873847 (3) Acute exacerbation of congestive heart failure Current Visit: No Status: Acute Chest x-ray showed suspected pulmonary edema versus multifocal pneumonia. Aggressive diuresis by the primary team. He is negative almost 5 L since admission, but his weight has remained the same. Qualifiers: Heart failure type: unspecified Qualified Code(s): I50.9 - Heart failure, unspecified SNOMED Code(s): 945264999, 93321922070221 (4) COPD exacerbation Current Visit: Yes Status: Acute Patient is O2 dependent at home on 3 L NC and uses Neb treatment up to Q4 hrs RI N. SNOMED Code(s): 286875502 (5) Lower extremity edema Current Visit: No Status: Acute Likely secondary to CHF exacerbation. Diuresis per the primary team. SNOMED Code(s): 536400583 (6) Morbid obesity Current Visit: Yes Status: Acute BMI 65. SNOMED Code(s): 294975587 (7) Rheumatoid arthritis Current Visit: Yes Not on any immunosuppresive treatment. SNOMED Code(s): 14136478 (8) Thyroid disease Current Visit: Yes Status: Acute SNOMED Code(s): 23472824 (9) Venous stasis dermatitis of both lower extremities Current Visit: Yes Status: Acute SNOMED Code(s): 13453056 (10) Atrial fibrillation Current Visit: Yes Status: Acute Qualifiers: Atrial fibrillation type: unspecified Qualified Code(s): I48.91 - Unspecified atrial fibrillation SNOMED Code(s): 03710387 - Recommendations Recommendations: Diuresis per the primary team. O2 per the pulmonology team recommendations. Strict I's and O's. Continue doxycycline 100 mg by mouth twice a day. Continue Levaquin 750 mg by mouth daily. Duration of treatment depends on the clinical picture but likely a total of 14 days of treatment should be adequate. Monitor renal function and dose adjust antibiotics. No further recommendations from the ID team. We will sign off. Please re-consult if needed. Consult Discharge Plan - Plan Instructions: Prednisone (By mouth), Levofloxacin (By mouth), Heart Failure (DC), Atrial Fibrillation (DC), Asthma (DC), Diabetic Foot Care (DC), Diabetes Mellitus Type 2 in Adults (DC), Chronic Obstructive Pulmonary Disease (DC), Sepsis (DC), Clostridium Difficile Infection (GEN), Anemia (GEN), Pneumonia (DC) Referrals: Zion Hernandes DO [Primary Care Provider] - Prescriptions: Doxycycline 100 mg PO BID #14 capsule levoFLOXacin [Levaquin] 750 mg PO DAILY #7 tablet predniSONE [PredniSONE] 20 mg PO DAILY #10 tablet - Attending Attestation I have personally performed a face to face evaluation on this patient. I have reviewed and agree with the care plan. History and Exam by me shows: Assessment and plan: Sepsis HCAP causative organism not clear. Patient refuses CT of the chest Recommendations: Diuresis per the primary team. O2 per the pulmonology team recommendations. Strict I's and O's. Continue doxycycline 100 mg by mouth twice a day. Continue Levaquin 750 mg by mouth daily. Duration of treatment depends on the clinical picture but likely a total of 14 days of treatment should be adequate. Monitor renal function and dose adjust antibiotics. No further recommendations from the ID team. We will sign off. Please re-consult if needed.
--- NOTE | 2019-02-03 16:47 | Physician Discharge Referral ---
ExtendedCare Referral Info Transfer To: swing bed Provider in Charge after Transfer: PCP Institutional Level of Care: Skilled - Transfer Medications Prescriptions: Doxycycline 100 mg PO BID #14 capsule levoFLOXacin [Levaquin] 750 mg PO DAILY #7 tablet predniSONE [PredniSONE] 20 mg PO DAILY #10 tablet Home Medications: Apixaban [Eliquis] 5 mg PO BID 09/05/15 [History] Ipratropium/Albuterol Neb [Duoneb] 3 ml IH Q4H PRN 09/05/15 [History] Insulin Lispro Protamin/Lispro [Humalog Mix 75-25 Kwikpen] 25 unit SQ BID 09/11/15 [History] Metoprolol XL (24 HR) Succ [Toprol Xl] 50 mg PO DAILY 04/16/17 [History] Tamsulosin [Flomax] 0.4 mg PO DAILY 04/16/17 [History] Multivits,Ca,Min/Iron/FA/Lycop [Centrum Men's Tablet] 1 tab PO DAILY 04/26/17 [History] OxyCODONE ER (12 HR) [OxyCONTIN] 80 mg PO Q12H 10/07/17 [History] Furosemide [Lasix] 80 mg PO BID #30 tablet 10/11/17 [Rx] Potassium Chloride 40 meq PO BID #30 tab.er.prt 10/11/17 [Rx] Folic Acid 1 mg PO Q48H tablet 10/25/17 [Rx] Clotrimazole/Betamethasone Dip [Lotrisone Cream] 15 gm TP BID PRN 12/26/18 [History] Colestipol HCl [Colestid] 2 gm PO BID 12/26/18 [History] Ferrous Sulfate 650 mg PO QAM 12/26/18 [History] Hyoscyamine SL [Levsin Sl] 0.125 mg SL Q4HR PRN 12/26/18 [History] Levothyroxine Sodium 100 mcg PO 0630 12/26/18 [History] Vilazodone HCl [Viibryd] 40 mg PO DAILY 12/26/18 [History] Ascorbic Acid [Vitamin C] 500 mg PO QAM 01/27/19 [History] Doxycycline 100 mg PO BID #14 capsule 02/03/19 [Rx] levoFLOXacin [Levaquin] 750 mg PO DAILY #7 tablet 02/03/19 [Rx] predniSONE [PredniSONE] 20 mg PO DAILY #10 tablet 02/03/19 [Rx] Allergies/Adverse Reactions: Allergy/AdvReac Type Severity Reaction Status Date / Time clindamycin AdvReac Diarrhea Verified 06/02/17 07:17 - Respiratory Orders Smoking Cessation: Smoking cessation has been advised. For more information, call the [place] Tobacco Quit Line at 5-523-APAP-NOW. - Ancillary Orders May use pressure relief devices daily prn, May go on ALEX w/family/respon constitution party w/meds at nurse discretion PRN, May consult with Dentist, Ice Scraper, Special Education Teachers PRN - Advance Directives Code Status: Full Code - Mobility Orders Ambulate - Rehabiliation Orders Rehab Potential: Good Rehab Orders: Evaluation for Physical Therapy, Evaluation for Occupational Therapy - Treatments Skin tear care topically daily PRN per policy - Diet Orders No Added Salt (SUSAN), No Concentrated Sweets, Cardiac CERTIFICATION: I certify that the transfer of the above named patient to an Extended Care Facility is necessary for the continuing treatment of the diagnosis listed. The above information is true and accurate reflection of patient's current condition. Confidential - Redisclosure prohibited without a patient's written consent.
[2019-02-04] MEDS: Ipratropium/Albuterol Neb 3 ML IH SCH ×3 (03:56→15:26)
[2019-02-04] MEDS: *HR* OxyCODONE ER (12 HR) 40 MG TABLET PO SCH (05:44)
[2019-02-04 07:43] LABS: Hematocrit 41.3 % (37.5-50.1); Hemoglobin 12.8 g/dL (12.9-16.9); Mean Corpuscular Hemoglobin 25.5 pg (28.0-33.3); Mean Corpuscular Volume 82.3 fL (83.0-100.0); Platelet Count 367 K/mcL (140-400); Red Blood Count 5.02 M/mcL (4.19-5.50); Red Cell Distribution Width 16.6 % (11.5-14.5); White Blood Count 20.1 K/mcL (4.3-11.1)
--- NOTE | 2019-02-04 07:47 | Internal Med Progress Note ---
Hospitalist Progress Note - Encounter Date of Encounter: 02/04/19 Time of Encounter: 07:46 - Subjective Interval History: Still here today. Denies complaints. No changes to d/c plan. - Exam Vitals: Temp Pulse Resp BP Pulse Ox 98 F 97 18 105/68 95 02/04/19 05:07 02/04/19 05:07 02/04/19 05:07 02/04/19 05:07 02/04/19 05:07 Exam: General appearance: On 4 L oxygen by nasal cannula. A&O X3. Severe morbid obesity Respiratory exam: Diminished sounds bilateral. No wheezing Cardiovascular exam: Regular rate and rhythm, no systolic murmur Abdominal exam: Soft, nontender, obese Extremities exam: No calf tenderness, pitting pedal edema present bilaterally. Left foot drop. Skin: b/l legs with circumferential erythema Neurological exam: Awake, fully oriented, CN II-XII intact, RUE weakness, no facial droop. - Summary of Assessment and Plan Summary of Assessment and Plan: Chronic HFpEF: continues to diurese well on home lasix 80 bid HCAP: rec'd several days vanc/zosyn, switched from zosyn to levaquin IV per ID rec's, and today will switch to PO levaquin and doxy per ID rec's and will complete 14 day course, last doses 02/08 COPD: improved - prednisone 40 daily, last dose 02/08 - home inhalers Chronic hypoxic and hypercapneic respiratory failure: weaned to home 4L O2 and bipap qhs Generalized weakness/deconditioning: PT/OT rec swing bed, SW assisting with this Super morbid obesity: BMI 64 Chronic A-Fib: AC on eliquis, rate on toprol 50 DM2: uncontrolled, use home basal and use SSI Hypothyroidism: home synthroid PPx: eliquis FEN: cardiac ADA 1.5L, no MIVF Lines: PIV Consults: ID, Pulm Code: Full Dispo: anticipate d/c today to swing bed Internal Medicine: Result - Labs CBC & Chem 7: 02/04/19 06:54 02/03/19 03:54 Labs: BMP 02/03/19 03:54 Sodium 142 Potassium 3.5 Chloride 98 Carbon Dioxide 39 H BUN 33 H Creatinine 0.98 Glucose 120 H Calcium 8.4 L - ABG Interpretation ABG results: ABG ABG pH 7.43 pH Units (7.32-7.45) 01/28/19 11:16 ABG pCO2 61 mmHg (35-45) H 01/28/19 11:16 ABG pO2 104 mmHg (85-104) 01/28/19 11:16 ABG O2 Saturation 98 % (95-98) 01/28/19 11:16 PT/INR, D-dimer PT 16.8 Seconds (9.4-12.1) H 01/27/19 18:48 Consult Discharge Plan - Plan Instructions: Prednisone (By mouth), Levofloxacin (By mouth), Heart Failure (DC), Atrial Fibrillation (DC), Asthma (DC), Diabetic Foot Care (DC), Diabetes Mellitus Type 2 in Adults (DC), Chronic Obstructive Pulmonary Disease (DC), Sepsis (DC), Clostridium Difficile Infection (GEN), Anemia (GEN), Pneumonia (DC) Referrals: Zion Hernandes DO [Primary Care Provider] - Prescriptions: Doxycycline 100 mg PO BID #14 capsule levoFLOXacin [Levaquin] 750 mg PO DAILY #7 tablet predniSONE [PredniSONE] 20 mg PO DAILY #10 tablet
[2019-02-04 08:01] VITALS: BP 89/49
[2019-02-04] MEDS: Artificial Tears SOLN 15 ML BOTTLE BOTH EYES SCH (09:17)
[2019-02-04] MEDS: levoFLOXacin 750 MG TABLET PO SCH (09:18)
[2019-02-04] MEDS: Apixaban 5 MG TABLET PO SCH (09:18)
[2019-02-04] MEDS: (Vilazodone Hcl [Viibryd] 40 MG) PO SCH (09:18)
[2019-02-04] MEDS: Metoprolol XL (24 HR) Succ 50 MG TAB.ER.24H PO SCH (09:19)
[2019-02-04] MEDS: Furosemide 40 MG TABLET PO SCH (09:19)
[2019-02-04] MEDS: Doxycycline 100 MG CAPSULE PO SCH (09:19)
[2019-02-04] MEDS: predniSONE 20 MG TABLET PO SCH (09:19)
[2019-02-04] MEDS: Insulin NPH/REG 70/30 100 UNIT/ML (x5UNIT) SQ SCH (09:20)
[2019-02-04] MEDS: Insulin LISPRO 300 UNITS/3 ML VIAL SQ SCH (09:20)
== END 2019-02-04 16:10 | disposition other institution (70) | DRG 871 ==
LOC: EMEROOARM 18:41 → 2NENU 18:41 → SUATTDRO 01-28 14:52
PROVIDERS: ADMIT Family Medicine; ATTEND Internal Medicine

== ENCOUNTER 2019-05-06 16:35 | Inpatient (IN) ==
[2019-05-06] MEDS ORDERED: Piperacillin/Tazobactam 3.375 GM in 0.9 % Sodium Chloride Mini Bag 100 ML IVPB ONE (17:02)
--- NOTE | 2019-05-06 17:10 | Emergency Department Note ---
Disposition Clinical Impression: Cellulitis Qualifiers: Site of cellulitis: extremity Site of cellulitis of extremity: lower extremity Laterality: left Qualified Code(s): L03.116 - Cellulitis of left lower limb Leukocytosis Qualifiers: Leukocytosis type: unspecified Qualified Code(s): D72.829 - Elevated white blood cell count, unspecified Disposition: Admitted As Inpatient Condition: Fair Time of Disposition: 19:38 General Adult HPI - General Chief complaint: ED Extremity Problem,Nontraumatic Stated complaint: Left arm pain Time Seen by Provider: 05/06/19 17:00 Source: family, EMS Nursing Notes Reviewed: Yes Vital Signs Reviewed: Yes - History of Present Illness HPI Narrative: Patient presents per EMS and I did see the patient immediately upon arrival and also spoke with paramedics the patient presents because of left leg redness and warmth and pain which began this morning and the patient did have an elevated temperature in route of 100.2 degrees however did not have a fever at home. The patient does have chronic right upper extremity pain but this is not new and this is also confirmed with the that this is not new and this is not the reason for his presenting complaint. No chest pain or shortness of breath. The states he is not confused. The patient has not used antibiotic medication for his left leg. No blood in the urine or stool. Stated weight is 421 pounds Pain Scale: 10 - Related Data Home Medications Medication Instructions Recorded Confirmed Apixaban [Eliquis] 5 mg PO BID 09/05/15 05/06/19 Ipratropium/Albuterol Neb [Duoneb] 3 ml IH Q4H PRN 09/05/15 05/06/19 Metoprolol XL (24 HR) Succ [Toprol 50 mg PO DAILY 04/16/17 05/06/19 Xl] Tamsulosin [Flomax] 0.4 mg PO DAILY 04/16/17 05/06/19 Multivits,Ca,Min/Iron/FA/Lycop 1 tab PO DAILY 04/26/17 05/06/19 [Centrum Men's Tablet] OxyCODONE ER (12 HR) [OxyCONTIN] 80 mg PO Q12H 10/07/17 05/06/19 Clotrimazole/Betamethasone Dip 15 gm TP BID PRN 12/26/18 05/06/19 [Lotrisone Cream] Colestipol HCl [Colestid] 2 gm PO BID 12/26/18 05/06/19 Ferrous Sulfate 650 mg PO QAM 12/26/18 05/06/19 Hyoscyamine SL [Levsin Sl] 0.125 mg SL Q4HR PRN 12/26/18 05/06/19 Levothyroxine Sodium 100 mcg PO 0630 12/26/18 05/06/19 Vilazodone HCl [Viibryd] 40 mg PO DAILY 12/26/18 05/06/19 predniSONE [PredniSONE] 10 mg PO DAILY 05/06/19 05/06/19 Previous Rx's Medication Instructions Recorded Furosemide [Lasix] 80 mg PO BID #30 tablet 10/11/17 Folic Acid 1 mg PO Q48H tablet 10/25/17 Ascorbic Acid [Vitamin C] 500 mg PO DAILY@0630 tablet 03/01/19 Insulin Lispro Protamin/Lispro 30 unit SQ BID #0 03/01/19 [Humalog Mix 75-25 Kwikpen] Potassium Chloride 60 meq PO BIDWM tab.er.prt 03/01/19 Allergies Allergy/AdvReac Type Severity Reaction Status Date / Time clindamycin AdvReac Diarrhea Verified 06/02/17 07:17 All systems ED: reviewed and negative except as stated. Past Medical History - Past Medical History Medical history: Reports: atrial fibrillation, COPD, diabetes, hypertension, RA, thyroid disease Surgical history: Reports: orthopedic, other Psychiatric history: Reports: depression - Social History Smoking Status: Former smoker Smokeless Tobacco Status: No Alcohol use: Reports: none Drug use: Reports: none Physical Exam CONSTITUTIONAL: Alert and oriented X3, well appearing, in no apparent distress HEAD: Normocephalic; atraumatic. EYES: PERRL, no scleral icterus. NOSE: The nose is normal in appearance without rhinorrhea RESP: Normal chest excursion with respiration; breath sounds clear and equal bilaterally; no wheezes, rhonchi, or rales CARD: Regular rhythm, without murmurs, rub or gallop ABD: Non-distended; non-tender, soft,without rigidity, rebound or guarding SKIN: Normal for age and race; warm and dry; no apparent lesions Extremities: The left leg is red and swollen mostly below the also extending up to the groin area which is diffusely tender to minimal degree, warm, red, no fluctuance or ecchymosis. No crepitus or necrosis. I did take off the socks look at the feet do not see open ulcerated areas - General General appearance: alert, in no apparent distress Course Vital Signs Temperature 102.3 F H 05/06/19 16:41 Pulse Rate 112 05/06/19 16:41 Respiratory Rate 20 05/06/19 16:41 Blood Pressure 112/66 05/06/19 16:41 O2 Sat by Pulse Oximetry 95 05/06/19 16:41 Temperature 102.3 F H 05/06/19 16:41 Pulse Rate 107 05/06/19 19:53 Respiratory Rate 20 05/06/19 19:53 Blood Pressure 111/59 05/06/19 19:53 O2 Sat by Pulse Oximetry 95 05/06/19 19:53 Oxygen Delivery Oxygen Delivery Nasal Cannula Medical Decision Making - MDM Narrative Medical decision making narrative: Clinically at this point the patient does have cellulitis left lower extremity and I did start him on Zosyn and vancomycin and obtain lab work including CBC, lactate level, blood cultures and I will also obtain a Doppler study of the left lower extremity and the patient will be admitted to the hospital. He is not confused. He does specifically no pain here and the month and the name of the hospital however he is a time reluctant to answer questions and the dyspnea several questions multiple times but is not confused. 1710 I did review the patient's EKG showing atrial fibrillation with a rapid ventricular response with a rate of 112 bpm which is likely reactive secondary to his underlying process which is cellulitis left lower extremity and not from a primary arrhythmia genic etiology. A low voltage is likely because of body habitus and not from a pericardial effusion or tamponade. The patient will be watched closely and labs are pending and he is also receiving IV fluids. 1712 I did review the patient's test results I did speak with the hospitalist accepts the patient for admission. I will track down the results of the venous duplex however the patient's clinical picture is most suggestive of cellulitis. He is artery been started on Zosyn and vancomycin and will be admitted to the hospital. The right arm pain is chronic and I did confirm this with the . 193 the patient also received acetaminophen and I did speak with the technical support assistant who confirms the Doppler study is negative for DVT left lower extremity 193 I did just go back and check on the patient. They are waiting for the bed to open up upstairs but they have artery had about assigned to them. I spoke with the . I did also reexamine the scrotal area and there is no evidence of Maricruz's gangrene. 2056 - Medical Records Medical records reviewed: Yes I reviewed the patient's medical records. - Lab Data Lab results reviewed: Yes I reviewed the patient's lab results. Result diagrams: 05/06/19 17:00 05/06/19 17:00 Lab Results 05/06/19 05/06/19 05/06/19 Range/Units 17:00 17:00 17:00 WBC 18.2 H (4.3-11.1) K/mcL RBC 4.40 (4.19-5.50) M/mcL Hgb 10.7 L (12.9-16.9) g/dL Hct 36.6 L (37.5-50.1) % MCV 83.2 (83.0-100.0) fL MCH 24.3 L (28.0-33.3) pg MCHC 29.2 L (31.6-35.5) g/dL RDW 16.6 H (11.5-14.5) % Plt Count 305 (140-400) K/mcL MPV 8.6 L (9.4-12.4) fL Sodium 138 (136-145) mEq/L Potassium 4.0 (3.5-5.1) mEq/L Chloride 92 L (98-107) mEq/L Carbon Dioxide 38 H (23-29) mEq/L BUN 17 (8-23) mg/dL Creatinine 0.76 (0.70-1.30) mg/dL Est GFR ( Amer) > 60 (> 60) Est GFR (Non-Af Amer) > 60 (> 60) BUN/Creatinine Ratio 22 (6-26) Glucose 157 H (70-105) mg/dL Calculated Osmolality 291 (280-300) Lactic Acid 1.5 (0.5-2.2) mmol/L Calcium 8.5 L (8.6-10.3) mg/dL - Radiology Data Radiology results reviewed: Yes I reviewed the patient's radiology results.
[2019-05-06] MEDS ORDERED: 0.9 % Sodium Chloride 1,000 ML IVC ONE (17:13)
[2019-05-06 17:22] LABS: Hematocrit 36.6 % (37.5-50.1); Hemoglobin 10.7 g/dL (12.9-16.9); Mean Corpuscular HGB Conc 29.2 g/dL (31.6-35.5); Mean Corpuscular Hemoglobin 24.3 pg (28.0-33.3); Mean Corpuscular Volume 83.2 fL (83.0-100.0); Mean Platelet Volume 8.6 fL (9.4-12.4); Platelet Count 305 K/mcL (140-400); Red Cell Distribution Width 16.6 % (11.5-14.5); White Blood Count 18.2 K/mcL (4.3-11.1)
[2019-05-06 17:54] LABS: BUN/Creatinine Ratio 22 (6-26); Blood Urea Nitrogen 17 mg/dL (8-23); Calcium 8.5 mg/dL (8.6-10.3); Carbon Dioxide 38 mEq/L (23-29); Chloride 92 mEq/L (98-107); Glucose 157 mg/dL (70-105); Osmolality,Calculated 291 (280-300); Sodium 138 mEq/L (136-145); eGFR For African Americans > 60 (> 60); eGFR For Non-African Americans > 60 (> 60)
[2019-05-06] MEDS ORDERED: Ibuprofen 800 MG TABLET PO ONE (22:10)
--- NOTE | 2019-05-06 23:22 | Internal Med History&Physical ---
Date of Encounter: 05/07/19 Time of Encounter: 23:17 Internal Medicine - H&P: HPI Chief complaint: left thigh pain Admitted From: Home Plans for Post Hospital Care: Home History of present illness: Mr. Swenson is a 68 year old male with past medical history of class III obesity bedbound past 4 years presented to the ED for left thigh pain erythema. Qjft-cu-ohtl encounter occurred at 11 PM. Patient reported that he has been bedbound for years and the most action he gets is sitting up for a few times a week. Patient reported while being cleansed, showered and was noted to have a left thigh red and warm and painful. The pain was achy sharp exacerbated with touching the thigh alleviated with staying still and associated with fever. EMS was subsequently called. Patient denied any trauma, chest pain, shortness of breath, abdominal pain, diarrhea. Patient denies smoking, drinking, drugs. Family history significant for cardiovascular disease maternally and stroke paternally .surgeries include bilateral knee replacement. CODE STATUS confirmed to be full code .reviewed patient's past medical, surgical, family and social history. Past Med Surg Social Fam HX - Past Medical History Medical history: atrial fibrillation, COPD, diabetes, hypertension, RA, thyroid disease Additional medical history: sleep apnea Psychiatric history: depression - Past Surgical History Surgical History: orthopedic, other Additional surgical history: LEFT 5TH TOE REMOVED, bilat Knee Rep - Social History Smoking Status: Former smoker Smokeless Tobacco Status: No Alcohol use: none Drug use: none - Family History Mother Living Status: Hx Family Cardiac Disorders: Yes ([place]) Hx Family Endocrine Disorder: Yes (DM) Father History Unknown: Yes Living Status: Hx Family Cardiac Disorders: Yes Internal Medicine - H&P: Meds Apixaban [Eliquis] 5 mg PO BID 09/05/15 [History] Ipratropium/Albuterol Neb [Duoneb] 3 ml IH Q4H PRN 09/05/15 [History] Metoprolol XL (24 HR) Succ [Toprol Xl] 50 mg PO DAILY 04/16/17 [History] Tamsulosin [Flomax] 0.4 mg PO DAILY 04/16/17 [History] Multivits,Ca,Min/Iron/FA/Lycop [Centrum Men's Tablet] 1 tab PO DAILY 04/26/17 [History] OxyCODONE ER (12 HR) [OxyCONTIN] 80 mg PO Q12H 10/07/17 [History] Furosemide [Lasix] 80 mg PO BID #30 tablet 10/11/17 [Rx] Folic Acid 1 mg PO Q48H tablet 10/25/17 [Rx] Clotrimazole/Betamethasone Dip [Lotrisone Cream] 15 gm TP BID PRN 12/26/18 [History] Colestipol HCl [Colestid] 2 gm PO BID 12/26/18 [History] Ferrous Sulfate 650 mg PO QAM 12/26/18 [History] Hyoscyamine SL [Levsin Sl] 0.125 mg SL Q4HR PRN 12/26/18 [History] Levothyroxine Sodium 100 mcg PO 0630 12/26/18 [History] Vilazodone HCl [Viibryd] 40 mg PO DAILY 12/26/18 [History] Ascorbic Acid [Vitamin C] 500 mg PO DAILY@0630 tablet 03/01/19 [Rx] Insulin Lispro Protamin/Lispro [Humalog Mix 75-25 Kwikpen] 30 unit SQ BID #0 03/01/19 [Rx] Potassium Chloride 60 meq PO BIDWM tab.er.prt 03/01/19 [Rx] predniSONE [PredniSONE] 10 mg PO DAILY 05/06/19 [History] Allergy/AdvReac Type Severity Reaction Status Date / Time clindamycin AdvReac Diarrhea Verified 06/02/17 07:17 All Systems PM: A 10-system review of systems was performed and is negative for pertinent findings except as documented above in the HPI. Review of systems: General: No unintentional weightloss, + fever Head: No headahce, No injury. Ears: No discharge, No earache Eyes: No drainage, No eye pain Mouth and Throat: No new ulcers, No pain Nose and Sinus: No new congestion, No pain, Respiratory: No cough, No sputum production, No dyspnea Cardiovascular: No chest pain, No palpitations. Gastrointestinal: No nausea, No vomiting. No abdominal pain. Genital Tract: No discharge, No pain Urinary Tract: No dysuria, No discharge. MSK: No new/worsening joint apollo, + new/worsening muscle ache. Endocrine: No cold intolerance, No polyuria Psychological: No suicidal, No homocidal ideation. - Constitutional Vitals: Temp Pulse Resp BP Pulse Ox 101.6 F H 108 22 119/72 91 05/06/19 21:32 05/06/19 21:32 05/06/19 21:32 05/06/19 21:32 05/06/19 21:32 Exam: General Appearance: Appearing as age, well-nourished in mild acute distress. Head: Atraumatic normocephalic Skin: Normal texture, normal turgor, warm, dry. Hyperpigmentation on the BL anterior lower leg and left medial hip blanchable erythematous, edematous and tender with no palpable mass appreciated. Eyes: Conjunctivae not pale with no erythema, drainage, or ulcers. Anicteric. Neck: No Lymphadenopathy in the anterior/posterior cervical chain. No thyromegaly, masses or ulcers. Trachea midline. Heart: RRR, Capillary refill 2 seconds Lungs: No accessory muscle usage, lungs clear to auscultation bilaterally, no wheezes or crackles. Extremities: No pitting edema, No clubbing, No cyanosis. Abdomen: Very severe morbid obesity, normoactive bowel sounds. non-tender to palpation, no hepatomegally. No guarding. Neuro: AOx3 with no new sensory loss or focal deficits. MSK: Strength 5/5 Upper extremity equal bilaterally. unable to raise legs from bed due to heaviness. Internal Med - H&P Results - Labs CBC & Chem 7: 05/06/19 17:00 05/06/19 17:00 Labs: Short CBC 05/06/19 Range/Units 17:00 WBC 18.2 H (4.3-11.1) K/mcL Hgb 10.7 L (12.9-16.9) g/dL Hct 36.6 L (37.5-50.1) % Plt Count 305 (140-400) K/mcL BMP 05/06/19 17:00 Sodium 138 Potassium 4.0 Chloride 92 L Carbon Dioxide 38 H BUN 17 Creatinine 0.76 Glucose 157 H Calcium 8.5 L - Impressions ITS Impressions Chest X-Ray 05/06/19 17:25 IMPRESSION: Cardiac silhouette enlargement, bilateral airspace disease and bilateral pleural effusions. Considerations include pneumonia and edema. Radiographic follow-up is suggested. D/ / 05/06/2019 17:28:09 Aaron Mcclure MD / anahi Interpreting Provider: Aaron Mcclure MD - Summary of Assessment and Plan Summary of Assessment and Plan: 1.Sepsis secondary to Left thigh cellulitis nonpurulent: IVF given. No urinary or respiratory symptoms. Lactic acid 1.5 Blood cultures pending Currently on IV vancomycin and Zosyn. 2.Left thigh cellulitis nonpurulent. Etiology likely due to venous stasis and severe obesity Continue IV antibiotic. 3. Anemia: No sign of bleeding Iron panel ordered. 4.Hyperglycemia: A1c ordered. 5. This class III obesity: Nutrition consultation DVT prophylaxis: Heparin Disposition: Likely less than 2 day stay - Time Spent With Patient Total time spent is greater than 37 minutes 50% in coordination of care (as documented) at patient's floor/unit and/or counseling patient: Greater than 35 minutes
[2019-05-06] MEDS ORDERED: Dextrose Gel 15 GM/37.5 ML TUBE PO PRN ×2 (23:32)
[2019-05-06] MEDS ORDERED: Ondansetron ODT 4 MG TAB.RAPDIS SL PRN (23:32)
[2019-05-06] MEDS ORDERED: Naloxone 0.4 MG/ML INJ IVP PRN (23:32)
[2019-05-06] MEDS ORDERED: D5% in Water 1,000 ML IVC PRN (23:32)
[2019-05-06] MEDS ORDERED: *HR* Dextrose 50 % in Water (Syg) 50 ML SYRINGE IVP PRN (23:32)
[2019-05-07] MEDS ORDERED: Ringers Solution, Lactated 1,000 ML IVC SCH (03:45)
[2019-05-07] MEDS ORDERED: Vancomycin (wt based) 1,000 MG VIAL IVPB SCH (06:00)
[2019-05-07] MEDS: Piperacillin/Tazobactam 3.375 GM in 0.9 % Sodium Chloride Mini Bag 100 ML IVP SCH ×3 (06:41→21:01)
[2019-05-07 07:03] LABS: Bilirubin,Urine Negative (Negative); Blood,Urine Negative (Negative); Clarity,Urine Clear (Clear); Color,Urine Yellow (Yellow); Glucose,Urine (UA) Normal (Normal); Ketones,Urine Negative (Negative); Leukocyte Esterase,Urine Negative (Negative); Nitrite,Urine Negative (Negative); Protein,Urine 30 mg/dL (Neg-Trace); Urobilinogen,Urine Normal (Normal)
[2019-05-07 07:06] LABS: Bacteria,Urine None Seen per hpf (None-Few); Hyaline Casts,Urine None Seen per lpf (None-Few); Squamous Epithelial Cell,Urine Many per lpf (None-Few)
[2019-05-07 07:13] LABS: Immature Reticulocyte % 26.1 % (11.0-38.0); Retculocyte # 0.14 M/mcL (0.05-0.10); Reticulocyte % 3.3 % (1.6-2.8)
[2019-05-07 07:18] LABS: INR 1.5; Prothrombin Time 16.8 Seconds (9.4-12.1)
[2019-05-07 07:27] LABS: Alanine Aminotransferase 7 Units/L (7-52); Albumin 2.9 g/dL (3.5-5.7); Alkaline Phosphatase 37 Units/L (34-104); Aspartate Amino Transferase 11 Units/L (13-39); BUN/Creatinine Ratio 23 (6-26); Bilirubin,Total 0.5 mg/dL (0.3-1.0); Blood Urea Nitrogen 21 mg/dL (8-23); Calcium 8.5 mg/dL (8.6-10.3); Carbon Dioxide 36 mEq/L (23-29); Chloride 94 mEq/L (98-107); Chol/HDL Ratio 3.4 (0-4.9); Cholesterol 94 mg/dL (< 200); Globulin 2.9 g/dL (2.4-3.5); Glucose 125 mg/dL (70-105); HDL Cholesterol 28 mg/dL (40-59); LDL Cholesterol,Calculated 48 mg/dL (0-99); Magnesium 1.8 mg/dL (1.6-2.6); Osmolality,Calculated 290 (280-300); Phosphorous 4.1 mg/dL (2.7-4.5); Potassium 3.4 mEq/L (3.5-5.1); Sodium 138 mEq/L (136-145); Total Protein 5.8 g/dL (6.4-8.9); Triglycerides 88 mg/dL (< 150); eGFR For African Americans > 60 (> 60); eGFR For Non-African Americans > 60 (> 60)
[2019-05-07 07:32] LABS: % Iron Saturation 9 % (20-55); Iron 21 mcg/dL (65-175); Transferrin 175 mg/dL (203-362)
[2019-05-07] MEDS: Insulin LISPRO 300 UNITS/3 ML VIAL SQ SCH ×2 (07:41→12:49)
[2019-05-07 07:44] LABS: Ferritin 138 ng/mL (20-250)
[2019-05-07 07:52] LABS: Folate > 22.3 ng/mL (3.0-16.0); Vitamin B12 221 pg/mL (250-1100)
[2019-05-07 08:22] LABS: Basophils # 0.1 K/mcL (0.0-0.2); Basophils % 0.3 %; Eosinophils # 0.2 K/mcL (0.0-0.6); Eosinophils % 1.4 %; Hematocrit 35.3 % (37.5-50.1); Hemoglobin 10.3 g/dL (12.9-16.9); Immature Granulocytes % 0.5 % (0-4); Lymphocytes % 13.9 %; Mean Corpuscular HGB Conc 29.2 g/dL (31.6-35.5); Mean Corpuscular Hemoglobin 24.6 pg (28.0-33.3); Mean Corpuscular Volume 84.4 fL (83.0-100.0); Mean Platelet Volume 8.8 fL (9.4-12.4); Monocytes # 0.6 K/mcL (0.0-1.3); Monocytes % 4.5 %; Neutrophils # 11.4 K/mcL (1.6-8.9); Platelet Count 297 K/mcL (140-400); Red Blood Count 4.18 M/mcL (4.19-5.50); Red Cell Distribution Width 16.9 % (11.5-14.5); Segmented Neutrophils % 79.4 %; White Blood Count 14.3 K/mcL (4.3-11.1)
[2019-05-07] MEDS ORDERED: Cyanocobalamin (B-12) 1,000 MCG/ML VIAL IM ONE (08:43)
[2019-05-07] MEDS ORDERED: Ipratropium/Albuterol Neb 3 ML IH PRN (08:49)
--- NOTE | 2019-05-07 08:52 | Internal Med Progress Note ---
Hospitalist Progress Note - Encounter Date of Encounter: 05/07/19 Time of Encounter: 08:44 - Subjective Interval History: Pt today says his fever abated, pain improving, and redness of leg is already less intense. Denies CP, palpitations, SOB, cough, N/V/D. No side effects from abx at this time. - Exam Vitals: Temp Pulse Resp BP Pulse Ox 97.9 F 97 17 99/62 97 05/07/19 07:15 05/07/19 07:15 05/07/19 07:15 05/07/19 07:15 05/07/19 07:15 Exam: General: NAD, good eye contact, chronically ill appearing, morbidly obese Thoracic: Normal breath sounds b/l, no wheezing or crackles Cardio: Normal S1 and S2, regular rate and rhythm, no murmurs Abdomen: Soft, nontender, nondistended, obese Extremities: Warm, well perfused. DP pulses 2+ b/l. Does have pedal edema in legs and dependent thighs. 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 Speech fluent - Summary of Assessment and Plan Summary of Assessment and Plan: Luís Swenson is a 68 M w hx super morbid obesity c/b lymphedema, GABRIELA/OHS on bipap, COPD on 4L, HFpEF, chronic A-Fib on Eliquis, DM2, hypothyroidism, who presented at time of admission with L leg and thigh erythema, pain, warmth, and swelling, associated with fever, tachycardia, and leukocytosis, concerning for cellulitis causing sepsis. Left thigh cellulitis: nonpurulent, etiology likely due to venous stasis and severe obesity. Per patient and is already improving today - Continue empiric zosyn and vanc Sepsis: 2/2 cellulitis, SIRS 3/4 (no tachypnea), lactate 1.5 - BCx pending Anemia: mild, does have B12 deficiency so will replace DM2: A1c ordered Chronic A-Fib: AC on eliquis, rate on toprol 50 DM2: uncontrolled, use home basal and use SSI HTN: will monitor HFpEF: home lasix 80 bid, potassium 60 bid COPD, GABRIELA/OHS, and chronic hypoxic and hypercapneic respiratory failure: home 4L, bipap qhs, inhalers Hypothyroidism: home synthroid 100 Depression: home viibryd or substitute Chronic pain: listed as taking oxycontin 80 bid, will verify w pharmacy Super morbid obesity: BMI 54 PPx: eliquis Tele: no Activity: up ad jaskaran FEN: cardiac ADA 1.5L, no MIVF Lines: PIV Consults: Code: Full Dispo: obs for cellulitis but has been started on broad spectrum abx, will likely require 1-2 more days, will be homegoing Internal Medicine: Result - Labs CBC & Chem 7: 05/07/19 06:17 05/07/19 06:17 Labs: Short CBC 05/06/19 05/07/19 Range/Units 17:00 06:17 WBC 18.2 H 14.3 H (4.3-11.1) K/mcL Hgb 10.7 L 10.3 L (12.9-16.9) g/dL Hct 36.6 L 35.3 L (37.5-50.1) % Plt Count 305 297 (140-400) K/mcL Neutrophils # 11.4 H (1.6-8.9) K/mcL BMP 05/06/19 05/07/19 17:00 06:17 Sodium 138 138 Potassium 4.0 3.4 L Chloride 92 L 94 L Carbon Dioxide 38 H 36 H BUN 17 21 Creatinine 0.76 0.90 Glucose 157 H 125 H Calcium 8.5 L 8.5 L Liver Function 05/07/19 Range/Units 06:17 Total Bilirubin 0.5 (0.3-1.0) mg/dL AST 11 L (13-39) Units/L ALT 7 (7-52) Units/L Alkaline Phosphatase 37 (34-104) Units/L Albumin 2.9 L (3.5-5.7) g/dL Urine 05/07/19 Range/Units 06:38 Urine Color Yellow (Yellow) Urine Clarity Clear (Clear) Urine pH 6.0 (5.0-8.0) pH Units Ur Specific [place] 1.020 (1.010-1.025) Urine Protein 30 H (Neg-Trace) mg/dL Urine Glucose (UA) Normal (Normal) mg/dL - ABG Interpretation ABG results: PT/INR, D-dimer PT 16.8 Seconds (9.4-12.1) H 05/07/19 06:17 - Impressions Impressions Chest X-Ray 05/06/19 17:25 IMPRESSION: Cardiac silhouette enlargement, bilateral airspace disease and bilateral pleural effusions. Considerations include pneumonia and edema. Radiographic follow-up is suggested. D/ / 05/06/2019 17:28:09 Aaron Mcclure MD / anahi Interpreting Provider: Aaron Mcclure MD Consult Discharge Plan - Plan Referrals: Zion Hernandes DO [Primary Care Provider] -
[2019-05-07] MEDS ORDERED: Vilazodone Hcl [Viibryd] 40 MG PO SCH (09:00)
[2019-05-07] MEDS ORDERED: Furosemide 40 MG TABLET PO SCH (09:00)
[2019-05-07 10:39] LABS: Estimated Average Glucose 128 mg/dl
[2019-05-07] MEDS: Apixaban 5 MG TABLET PO SCH ×2 (10:40→21:00)
[2019-05-07] MEDS: Cyanocobalamin (B-12) 1,000 MCG TABLET PO SCH (10:40)
[2019-05-07] MEDS: Metoprolol XL (24 HR) Succ 50 MG TAB.ER.24H PO SCH (10:47)
[2019-05-07] MEDS: Insulin NPH/REG 70/30 100 UNIT/ML (x5UNIT) SQ SCH ×2 (11:53→21:00)
[2019-05-07] MEDS ORDERED: *HR* Heparin 5,000 UNIT/ML VIAL SQ SCH (14:00)
[2019-05-07] MEDS: Furosemide 40 MG TABLET PO SCH (16:59)
[2019-05-07] MEDS: *HR* OxyCODONE ER (12 HR) 40 MG TABLET PO SCH (17:03)
--- NOTE | 2019-05-07 17:30 | Electrocardiograph Report ---
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
[2019-05-07] MEDS: (Vilazodone Hcl [Viibryd] 40 MG) PO SCH (21:00)
[2019-05-08] MEDS ORDERED: Acetaminophen 325 MG TABLET PO PRN (01:15)
[2019-05-08] MEDS ORDERED: *HR* HYDROcodone/Acet 5/325 mg TABLET PO PRN (01:15)
[2019-05-08 04:59] LABS: Hematocrit 33.8 % (37.5-50.1); Mean Corpuscular HGB Conc 29.6 g/dL (31.6-35.5); Mean Corpuscular Volume 81.3 fL (83.0-100.0); Mean Platelet Volume 8.7 fL (9.4-12.4); Platelet Count 276 K/mcL (140-400); Red Blood Count 4.16 M/mcL (4.19-5.50); Red Cell Distribution Width 16.7 % (11.5-14.5); White Blood Count 11.8 K/mcL (4.3-11.1)
[2019-05-08] MEDS: *HR* OxyCODONE ER (12 HR) 40 MG TABLET PO SCH ×2 (05:12→17:05)
[2019-05-08] MEDS: Piperacillin/Tazobactam 3.375 GM in 0.9 % Sodium Chloride Mini Bag 100 ML IVP SCH ×3 (05:13→23:04)
[2019-05-08 05:17] LABS: BUN/Creatinine Ratio 23 (6-26); Blood Urea Nitrogen 19 mg/dL (8-23); Calcium 7.8 mg/dL (8.6-10.3); Carbon Dioxide 32 mEq/L (23-29); Chloride 97 mEq/L (98-107); Glucose 146 mg/dL (70-105); Osmolality,Calculated 287 (280-300); Potassium 3.3 mEq/L (3.5-5.1); Sodium 136 mEq/L (136-145); eGFR For African Americans > 60 (> 60); eGFR For Non-African Americans > 60 (> 60)
[2019-05-08] MEDS: Apixaban 5 MG TABLET PO SCH ×2 (08:07→20:41)
[2019-05-08] MEDS: Metoprolol XL (24 HR) Succ 50 MG TAB.ER.24H PO SCH (08:07)
[2019-05-08] MEDS: Cyanocobalamin (B-12) 1,000 MCG TABLET PO SCH (08:07)
[2019-05-08] MEDS: Furosemide 40 MG TABLET PO SCH ×2 (08:08→17:05)
[2019-05-08] MEDS: Insulin NPH/REG 70/30 100 UNIT/ML (x5UNIT) SQ SCH ×2 (08:55→20:41)
--- NOTE | 2019-05-08 14:31 | Internal Med Progress Note ---
Hospitalist Progress Note - Encounter Date of Encounter: 05/08/19 Time of Encounter: 14:29 - Subjective Interval History: Patient today unfortunately does not feel better. Not worse, but not better. Still has discomfort in entire LLE. No pain extending into groin or perineum. Denies fevers or chills overnight. No N/V/D, no SOB or CP. - Exam Vitals: Temp Pulse Resp BP Pulse Ox 98.0 F 92 17 114/63 93 05/08/19 11:11 05/08/19 11:11 05/08/19 11:11 05/08/19 11:11 05/08/19 11:11 Exam: General: NAD, good eye contact, chronically ill appearing, morbidly obese Thoracic: Normal breath sounds b/l, no wheezing or crackles Cardio: Normal S1 and S2, regular rate and rhythm, no murmurs Abdomen: Soft, nontender, nondistended, obese Extremities: Warm, well perfused. DP pulses 2+ b/l. Does have pedal edema in legs and dependent thighs. Skin: L leg and distal medial thigh is pink and grinder operator external tool actually larger area today than yesterday; no areas of fluctuance; still without extension into groin Neuro: Awake, fully oriented. Speech fluent - Summary of Assessment and Plan Summary of Assessment and Plan: Luís Swenson is a 68 M w hx super morbid obesity c/b lymphedema, GABRIELA/OHS on bipap, COPD on 4L, HFpEF, chronic A-Fib on Eliquis, DM2, hypothyroidism, who presented at time of admission with L leg and thigh erythema, pain, warmth, and swelling, associated with fever, tachycardia, and leukocytosis, concerning for cellulitis causing sepsis. Left thigh cellulitis: nonpurulent, etiology likely due to venous stasis and severe obesity. Initially was improving but today pt feels the same and rash has slightly increased - Continue empiric zosyn and vanc - BCx ngtd Sepsis: resolved Anemia: mild, continue B12 DM2: A1c ordered Chronic A-Fib: AC on eliquis, rate on toprol 50 DM2: uncontrolled, use home basal and use SSI HTN: will monitor HFpEF: home lasix 80 bid, potassium 60 bid COPD, GABRIELA/OHS, and chronic hypoxic and hypercapneic respiratory failure: home 4L, bipap qhs, inhalers Hypothyroidism: home synthroid 100 Depression: home viibryd or substitute Chronic pain: listed as taking oxycontin 80 bid, will verify w pharmacy Super morbid obesity: BMI 54 PPx: eliquis Tele: no Activity: up ad jaskaran FEN: cardiac ADA 1.5L, no MIVF Lines: PIV Consults: Code: Full Dispo: inpatient for ongoing IV abx, will likely require 1-2 more days, will be homegoing w Internal Medicine: Result - Labs CBC & Chem 7: 05/08/19 04:06 05/08/19 04:06 Labs: Short CBC 05/08/19 Range/Units 04:06 WBC 11.8 H (4.3-11.1) K/mcL Hgb 10.0 L (12.9-16.9) g/dL Hct 33.8 L (37.5-50.1) % Plt Count 276 (140-400) K/mcL BMP 05/08/19 04:06 Sodium 136 Potassium 3.3 L Chloride 97 L Carbon Dioxide 32 H BUN 19 Creatinine 0.82 Glucose 146 H Calcium 7.8 L - ABG Interpretation ABG results: PT/INR, D-dimer PT 16.8 Seconds (9.4-12.1) H 05/07/19 06:17 Consult Discharge Plan - Plan Referrals: Zion Hernandes DO [Primary Care Provider] -
[2019-05-08] MEDS: (Vilazodone Hcl [Viibryd] 40 MG) PO SCH (20:42)
[2019-05-09] MEDS: Piperacillin/Tazobactam 3.375 GM in 0.9 % Sodium Chloride Mini Bag 100 ML IVP SCH ×3 (05:34→22:03)
[2019-05-09] MEDS: *HR* OxyCODONE ER (12 HR) 40 MG TABLET PO SCH ×2 (05:34→17:01)
[2019-05-09] MEDS: Metoprolol XL (24 HR) Succ 50 MG TAB.ER.24H PO SCH (07:49)
[2019-05-09] MEDS: Cyanocobalamin (B-12) 1,000 MCG TABLET PO SCH (07:49)
[2019-05-09] MEDS: Apixaban 5 MG TABLET PO SCH ×2 (07:49→19:52)
[2019-05-09] MEDS: Furosemide 40 MG TABLET PO SCH ×2 (07:49→17:01)
--- NOTE | 2019-05-09 08:29 | Internal Med Progress Note ---
Hospitalist Progress Note - Encounter Date of Encounter: 05/09/19 Time of Encounter: 08:27 - Subjective Interval History: Spiked a fever last night, said he felt chilled. Leg still sore, no worse or better today. Remains in good spirits, good appetite, denies N/V/D, no perineal or scrotal pain. - Exam Vitals: Temp Pulse Resp BP Pulse Ox 98.4 F 109 20 120/73 95 05/09/19 07:24 05/09/19 07:24 05/09/19 07:24 05/09/19 07:24 05/09/19 07:24 Exam: General: NAD, good eye contact, chronically ill appearing, morbidly obese Thoracic: Normal breath sounds b/l, no wheezing or crackles Cardio: Normal S1 and S2, regular rate and rhythm, no murmurs Abdomen: Soft, nontender, nondistended, obese Extremities: Warm, well perfused. DP pulses 2+ b/l. Does have pedal edema in legs and dependent thighs. Skin: L leg and distal medial thigh is pink and warm stable in size from yesterday, without areas of fluctuance, without extension into groin Neuro: Awake, fully oriented. Speech fluent - Summary of Assessment and Plan Summary of Assessment and Plan: Luís Swenson is a 68 M w hx super morbid obesity c/b lymphedema, GABRIELA/OHS on bipap, COPD on 4L, HFpEF, chronic A-Fib on Eliquis, DM2, hypothyroidism, who presented at time of admission with L leg and thigh erythema, pain, warmth, and swelling, associated with fever, tachycardia, and leukocytosis, concerning for cellulitis causing sepsis. Left thigh cellulitis: nonpurulent, etiology likely due to venous stasis and severe obesity. Initially was improving but today remains similar to last 2 days, and pt re-fevered last night - Continue empiric zosyn and vanc - BCx ngtd - check US of LLE to eval for abscesses Sepsis: overnight still tachycardic, tachypneic, febrile to 101. Management as above Anemia: mild, continue B12 DM2: A1c ordered Chronic A-Fib: AC on eliquis, rate on toprol 50 DM2: uncontrolled, use home basal and use SSI HTN: will monitor HFpEF: home lasix 80 bid, potassium 60 bid COPD, GABRIELA/OHS, and chronic hypoxic and hypercapneic respiratory failure: home 4L, bipap qhs, inhalers Hypothyroidism: home synthroid 100 Depression: home viibryd or substitute Chronic pain: listed as taking oxycontin 80 bid, will verify w pharmacy Super morbid obesity: BMI 54 PPx: eliquis Tele: no Activity: up ad jaskaran FEN: cardiac ADA 1.5L, no MIVF Lines: PIV Consults: Code: Full Dispo: inpatient for ongoing IV abx for cellulitis/sepsis, will likely require 1-2 more days, will be homegoing w Internal Medicine: Result - Labs CBC & Chem 7: 05/08/19 04:06 05/09/19 08:51 - ABG Interpretation ABG results: PT/INR, D-dimer PT 16.8 Seconds (9.4-12.1) H 05/07/19 06:17 Consult Discharge Plan - Plan Referrals: Zion Hernandes DO [Primary Care Provider] -
[2019-05-09] MEDS: Insulin NPH/REG 70/30 100 UNIT/ML (x5UNIT) SQ SCH ×2 (09:03→19:52)
[2019-05-09 09:42] LABS: BUN/Creatinine Ratio 21 (6-26); Blood Urea Nitrogen 16 mg/dL (8-23); Calcium 8.2 mg/dL (8.6-10.3); Carbon Dioxide 35 mEq/L (23-29); Chloride 97 mEq/L (98-107); Glucose 149 mg/dL (70-105); Osmolality,Calculated 286 (280-300); Potassium 3.7 mEq/L (3.5-5.1); Sodium 136 mEq/L (136-145); eGFR For African Americans > 60 (> 60); eGFR For Non-African Americans > 60 (> 60)
[2019-05-09] MEDS: (Vilazodone Hcl [Viibryd] 40 MG) PO SCH (19:52)
[2019-05-10] MEDS: *HR* OxyCODONE ER (12 HR) 40 MG TABLET PO SCH (03:47)
[2019-05-10 04:46] LABS: BUN/Creatinine Ratio 17 (6-26); Blood Urea Nitrogen 14 mg/dL (8-23); Calcium 7.9 mg/dL (8.6-10.3); Carbon Dioxide 33 mEq/L (23-29); Chloride 99 mEq/L (98-107); Glucose 137 mg/dL (70-105); Osmolality,Calculated 291 (280-300); Potassium 3.9 mEq/L (3.5-5.1); Sodium 139 mEq/L (136-145); eGFR For African Americans > 60 (> 60); eGFR For Non-African Americans > 60 (> 60)
[2019-05-10] MEDS: Piperacillin/Tazobactam 3.375 GM in 0.9 % Sodium Chloride Mini Bag 100 ML IVP SCH (06:15)
[2019-05-10] MEDS ORDERED: Amoxicillin 500 MG CAPSULE PO SCH (09:00)
[2019-05-10] MEDS: Cyanocobalamin (B-12) 1,000 MCG TABLET PO SCH (10:07)
[2019-05-10] MEDS: Furosemide 40 MG TABLET PO SCH (10:07)
[2019-05-10] MEDS: Insulin NPH/REG 70/30 100 UNIT/ML (x5UNIT) SQ SCH (10:08)
[2019-05-10] MEDS: Apixaban 5 MG TABLET PO SCH (10:08)
[2019-05-10] MEDS: Metoprolol XL (24 HR) Succ 50 MG TAB.ER.24H PO SCH (10:08)
--- NOTE | 2019-05-10 10:42 | Discharge Summary ---
Orders not resulted at time of discharge: Pending orders 05/06/19 17:22 Culture,Blood [BC] Stat Date of Encounter: 05/10/19 Time of Encounter: 10:38 Hospital course: Dear Doctors, I recently had the opportunity to care for this patient during their recent hospital stay at [facility]. Luís Swenson is a 68 M w hx super morbid obesity c/b lymphedema, GABRIELA/OHS on bipap, COPD on 4L, HFpEF, chronic A-Fib on Eliquis, DM2, hypothyroidism, who presented at time of admission with L leg and thigh erythema, pain, warmth, and swelling, associated with fever, tachycardia, and leukocytosis, concerning for cellulitis causing sepsis. He was started on broad spectrum abx and admitted. In the hospital, patient eventually improved but took longer than expected, and patient continued to fever between 48-72 hours after abx initiation. Venous duplex negative for DVT, and US LLE without any abscess. Eventually his rash stopped spreading, he defervesced, leukocytosis resolved, and and pain and warmth decreased. Blood cultures negative. He was transitioned to PO amoxicillin and will complete a 10 day course. Dx: LLE nonpurulent cellulitis, sepsis Pertinent tests/consults: US LLE x2, without abscess or thrombosis Follow up: PCP 1 week Tests pending: none Med changes: new amoxicillin 875 bid to complete 10 day course, last dose 05/16 Mental status: awake, fully oriented Code status: Signals Officer spent on discharge: 25 minutes It has been my pleasure participating in this patient's care. Please contact me with any questions or concerns regarding their hospital stay. Sincerely, Carmelo Hinojosa MD - Discharge Medications Prescriptions: New Amoxicillin 875 mg PO BID #12 tablet Continued Ipratropium/Albuterol Neb [Duoneb] 3 ml IH Q4H PRN PRN Reason: Shortness Of Breath Apixaban [Eliquis] 5 mg PO BID Tamsulosin [Flomax] 0.4 mg PO DAILY Metoprolol XL (24 HR) Succ [Toprol Xl] 50 mg PO DAILY Multivits,Ca,Min/Iron/FA/Lycop [Centrum Men's Tablet] 1 tab PO DAILY OxyCODONE ER (12 HR) [OxyCONTIN] 80 mg PO Q12H Furosemide [Lasix] 80 mg PO BID #30 tablet Clotrimazole/Betamethasone Dip [Lotrisone Cream] 1 applic TP BID PRN PRN Reason: IRRITATED SKIN Colestipol HCl [Colestid] 2 gm PO BID Ferrous Sulfate 650 mg PO QAM Hyoscyamine SL [Levsin Sl] 0.125 mg SL Q4HR PRN PRN Reason: Abdominal Cramping Levothyroxine Sodium 100 mcg PO 0630 Vilazodone HCl [Viibryd] 40 mg PO DAILY predniSONE [PredniSONE] 10 mg PO DAILY Potassium Chloride [K-Tab ER] 40 meq PO BID Folic Acid 1 mg PO Q48H tablet Ascorbic Acid [Vitamin C] 500 mg PO DAILY@0630 tablet Insulin Lispro Protamin/Lispro [Humalog Mix 75-25 Kwikpen] 30 unit SQ BID #0 Home Medications: Apixaban [Eliquis] 5 mg PO BID 09/05/15 [History] Ipratropium/Albuterol Neb [Duoneb] 3 ml IH Q4H PRN 09/05/15 [History] Metoprolol XL (24 HR) Succ [Toprol Xl] 50 mg PO DAILY 04/16/17 [History] Tamsulosin [Flomax] 0.4 mg PO DAILY 04/16/17 [History] Multivits,Ca,Min/Iron/FA/Lycop [Centrum Men's Tablet] 1 tab PO DAILY 04/26/17 [History] OxyCODONE ER (12 HR) [OxyCONTIN] 80 mg PO Q12H 10/07/17 [History] Furosemide [Lasix] 80 mg PO BID #30 tablet 10/11/17 [Rx] Folic Acid 1 mg PO Q48H tablet 10/25/17 [Rx] Clotrimazole/Betamethasone Dip [Lotrisone Cream] 1 applic TP BID PRN 12/26/18 [History] Colestipol HCl [Colestid] 2 gm PO BID 12/26/18 [History] Ferrous Sulfate 650 mg PO QAM 12/26/18 [History] Hyoscyamine SL [Levsin Sl] 0.125 mg SL Q4HR PRN 12/26/18 [History] Levothyroxine Sodium 100 mcg PO 0630 12/26/18 [History] Vilazodone HCl [Viibryd] 40 mg PO DAILY 12/26/18 [History] Ascorbic Acid [Vitamin C] 500 mg PO DAILY@0630 tablet 03/01/19 [Rx] Insulin Lispro Protamin/Lispro [Humalog Mix 75-25 Kwikpen] 30 unit SQ BID #0 03/01/19 [Rx] predniSONE [PredniSONE] 10 mg PO DAILY 05/06/19 [History] Potassium Chloride [K-Tab ER] 40 meq PO BID 05/07/19 [History] Amoxicillin 875 mg PO BID #12 tablet 05/10/19 [Rx] Allergies/Adverse Reactions: Allergy/AdvReac Type Severity Reaction Status Date / Time clindamycin AdvReac Diarrhea Verified 06/02/17 07:17 Date of admission: 05/08/19 11:49 Primary care physician: Zion Hernandes DO Consults: 05/06/19 22:35 Consult to Aluminum Fabrication Supervisor [CONS] Routine Reason for SW Consult: dishcarge planning 05/06/19 23:37 Consult to Nutrition [CONS] Routine Comment: Consulting Provider: NUTRITION Reason for Dietary Consult: Other Other:: Severe malnutrition. Consult to Physical Therapy [CONS] Routine Comment: Evaluate, develop and implement POC Reason for Consult: Evaluation and treatment. Does patient have active BEDREST order?: No Is patient medically & hemodynamically stable?: Yes Patient assessed for mobility or mobilized this visit?: No 05/07/19 10:20 Consult to Occupational Therapy [CONS] Routine Comment: Evaluate, develop and implement POC Reason for Consult: eval and treat Does patient have active BEDREST order?: No Is patient medically & hemodynamically stable?: Yes Patient assessed for mobility or mobilized this visit?: No - Constitutional Vitals: Temp Pulse Resp BP Pulse Ox 98.5 F 96 20 131/74 95 05/10/19 07:30 05/10/19 07:30 05/10/19 07:30 05/10/19 07:30 05/10/19 07:30 Exam: General: NAD, good eye contact, chronically ill appearing, morbidly obese Thoracic: Normal breath sounds b/l, no wheezing or crackles Cardio: Normal S1 and S2, regular rate and rhythm, no murmurs Abdomen: Soft, nontender, nondistended, obese Extremities: Warm, well perfused. DP pulses 2+ b/l. Does have lymphedema in legs and dependent thighs. Skin: L leg and distal medial thigh is pink and warm stable in size from yesterday, without areas of fluctuance, without extension into groin Neuro: Awake, fully oriented. Speech fluent - Patient Status Disposition: Home Health Service Condition: Fair Functional capacity at discharge: bed bound Overall status at discharge: patient is progressing back to baseline - Discharge Instructions Follow Up With: Zion Hernandes DO [Primary Care Provider] - - Diet and Activity Activity: resume usual activities as tolerated Diet: diabetic diet
[2019-05-10 11:24] VITALS: BP 113/66
[2019-05-10] MEDS ORDERED: Aminoglycoside Consult 1 EACH MC ONE (14:19)
--- NOTE | 2019-05-10 17:19 | Physician Discharge Referral ---
Home Health/Hosp Referral Info Transfer to: Home Health Provider in Charge Post Discharge: PCP - Respiratory Orders Oxygen / L per min - Diet/Nutrition Diet/Nutrition Orders: No Concentrated Sweets - Services Needed Following services are medically necessary services: Nursing, Home Health Aide, Physical Therapy, Occupational Therapy Other Treatments: resume previous home health orders - Transfer Medications Prescriptions: Amoxicillin 875 mg PO BID #12 tablet Transmission Status: Received by [facility]/pharmacy #[id number] Home Medications: Apixaban [Eliquis] 5 mg PO BID 09/05/15 [History] Ipratropium/Albuterol Neb [Duoneb] 3 ml IH Q4H PRN 09/05/15 [History] Metoprolol XL (24 HR) Succ [Toprol Xl] 50 mg PO DAILY 04/16/17 [History] Tamsulosin [Flomax] 0.4 mg PO DAILY 04/16/17 [History] Multivits,Ca,Min/Iron/FA/Lycop [Centrum Men's Tablet] 1 tab PO DAILY 04/26/17 [History] OxyCODONE ER (12 HR) [OxyCONTIN] 80 mg PO Q12H 10/07/17 [History] Furosemide [Lasix] 80 mg PO BID #30 tablet 10/11/17 [Rx] Folic Acid 1 mg PO Q48H tablet 10/25/17 [Rx] Clotrimazole/Betamethasone Dip [Lotrisone Cream] 1 applic TP BID PRN 12/26/18 [History] Colestipol HCl [Colestid] 2 gm PO BID 12/26/18 [History] Ferrous Sulfate 650 mg PO QAM 12/26/18 [History] Hyoscyamine SL [Levsin Sl] 0.125 mg SL Q4HR PRN 12/26/18 [History] Levothyroxine Sodium 100 mcg PO 0630 12/26/18 [History] Vilazodone HCl [Viibryd] 40 mg PO DAILY 12/26/18 [History] Ascorbic Acid [Vitamin C] 500 mg PO DAILY@0630 tablet 03/01/19 [Rx] Insulin Lispro Protamin/Lispro [Humalog Mix 75-25 Kwikpen] 30 unit SQ BID #0 03/01/19 [Rx] predniSONE [PredniSONE] 10 mg PO DAILY 05/06/19 [History] Potassium Chloride [K-Tab ER] 40 meq PO BID 05/07/19 [History] Amoxicillin 875 mg PO BID #12 tablet 05/10/19 [Rx] Allergies/Adverse Reactions: Allergy/AdvReac Type Severity Reaction Status Date / Time clindamycin AdvReac Diarrhea Verified 06/02/17 07:17 Certification: Further, I certify that my clinical findings support that this patient is homebound (i.e. absences from home require considerable and taxing effort and are for medical reasons or hoahaoism services or infrequently or short duration when for other reasons) because: Homebound Reason: Leaving home requires considerable and taxing effort due to condition Attestation: My signature below is to certify that this patient is under my care and that I, or nurse practitioner, or a physician's assistant store director working with me, has a [id number] encounter with this patient.
== END 2019-05-10 14:20 | disposition home health service (06) | DRG 872 ==
LOC: EMEROOARM 16:35 → 3ANU 16:35 → SUATTDRO 19:50 → 3ANU 21:30 → 3NENU 05-08 15:42
PROVIDERS: ADMIT Family Medicine; ATTEND Internal Medicine